=== PATIENT | female | born 1965 | race African-American/Black ===

== ENCOUNTER 2016-02-17 15:10 | Emergency (ER) | payer MEDICARE, OTHER ==
[~2016-02-17 15:10] MED LIST: ACET1TAB33 PO; AMLO10TA2 PO; AMPI500C2 PO; ASPI325T4 PO; ASPI81TA2 PO; ATOR10TA PO; BENZ1LOZ48 PO; CALC0.25 PO; CALC0.5C PO; CALC667C PO; CHOL10003 PO; CLON0.5T20 PO; CYCL10TA2 PO; CYCL5TAB PO; DIPH25CA58 PO; DIPH50CA PO; DOXY100C PO; FISH OIL OMEGA1 EACH PO; FLUD0.1T PO; FLUT16SP NS; GABA-586 PO; GENTAMICIN 0.1%; HYDR-2666 PO; HYDR-971 PO; HYDR10TA14 PO; LEVO500T38 PO; LIDO700A4 TP; LUBI24CA5 PO; LURA40TA PO; METO25TA4 PO; METR500T PO; MIDO5TAB PO; MOXI3DRO2 RIGHTEYE; MULT-658 PO; MYCO500T3 PO; NEOMYCIN; NORT25CA PO; NORT50CA PO; NORT50CA3 PO; NYST30PO9 TP; NYSTOP; ONDA4TAB10 SL; ONDA4TAB7 PO; OXYB5TAB33 PO; OXYC5CAP3 PO; OXYC5TAB PO; OXYC5TAB88 PO; PANT40TA3 PO; POLY17PO5 PO; POLYMYXIN B; PRED1DRO RIGHTEYE; PROAIR HFA8.5 GM INH; SEA OMEGA; SENN8.6T11 PO; SODI650T PO; SUCR1ORA PO; SUCR1TAB PO; SUCR1TAB29 PO; TACR1CAP2 PO; TIZA4TAB8 PO; VENL150C PO; VIT1TABL71 PO; ZINC220T PO; [UNRECOGNIZED DRUG - CODE] OP; [UNRECOGNIZED DRUG - CODE] PO; fluticasone 50mcg; lidoderm 5%
--- NOTE | 2016-02-17 15:54 | ED.ADGEN ---
Past Medical History Past Medical History: A-Fib, Anxiety, Bipolar, CHF, CVA, Depression, DVT, GERD , Glaucoma, High Cholesterol, Hypertension, Hypothyroid, Hypotension, Kidney Stone, Renal Disease, Renal Failure, UTI Additional Past Medical Histor: left side thyroid removed, ulcer, ckd kidney transplant, neurogenic bladder Past Surgical History: Cholecystectomy, , Hysterectomy Additional Past Surgical Histo: av shunt back sx Alcohol Use: None Drug Use: None Adult General Chief Complaint Chief Complaint: DIALYSIS PROBLEM HPI HPI Patient is a 50 year old woman, history of end-stage renal disease on hemodialysis, atrial fibrillation, CAD, hypertension, hyperlipidemia, who presents to the emergency department reporting that she has not had dialysis in over a week. Patient is denying all complaints at this time, states that she had a to attend, therefore wasn't able to make her previous dialysis sessions. Usually attends dialysis Sunday and Sunday. No shortness of breath, chest pain, no weakness emesis or tingling, no headache, nausea or vomiting, states that she has been compliant with her medications. She states that she was instructed to, to the emergency department after her coo contacted the dialysis center today. Her medicaid nurse is Dr. Hoff. Review of Systems Review of Systems Constitutional: Denies fever or chills. [] Eyes: Denies change in visual acuity. [] HENT: Denies nasal congestion or sore throat. [] Respiratory: Denies cough or shortness of breath. [] Cardiovascular: Denies chest pain or edema. [] GI: Denies abdominal pain, nausea, vomiting, bloody stools or diarrhea. [] : Denies dysuria. [] Musculoskeletal: Denies back pain or joint pain. [] Integument: Denies rash. [] Neurologic: Denies headache, focal weakness or sensory changes. [] Endocrine: Denies polyuria or polydipsia. [] Lymphatic: Denies swollen glands. [] Psychiatric: Denies depression or anxiety. [] Current Medications Current Medications Current Medications Medications (Trade) Dose Ordered Sig/Jose Start Time Stop Time Status Last Admin Dose Admin Sodium Polystyrene Sulfonate (Kayexalate) 30 gm 1X ONCE 02/17/16 16:30 02/17/16 16:31 DC 02/17/16 16:27 30 GM Allergies Allergies Allergies Coded Allergies Type Severity Reaction Last Updated Verified Fish Containing Products Allergy Intermediate 12/04/15 Yes Iodinated Contrast Media - IV Dye Allergy Intermediate 12/04/15 Yes NSAIDS (Non-Steroidal Anti-Inflamma Allergy Intermediate TAKES ASA AT HOME Yes caffeine Allergy Intermediate 12/04/15 Yes ibuprofen Allergy Intermediate 12/04/15 Yes shellfish derived Allergy Intermediate 12/04/15 Yes I S O L A T I O N *CONTACT* Allergy Unknown 12/04/15 Yes Physical Exam Physical Exam Constitutional: Well developed, well nourished, no acute distress, non-toxic appearance. [] HENT: Normocephalic, atraumatic, bilateral external ears normal, oropharynx moist, no oral exudates, nose normal. [] Eyes: PERRLA, EOMI, conjunctiva normal, no discharge. [] Neck: Normal range of motion, no tenderness, supple, no stridor. [] Cardiovascular:Heart rate regular rhythm, no murmur [] Lungs & Thorax: Bilateral breath sounds clear to auscultation [] Abdomen: Bowel sounds normal, soft, no tenderness, no masses, no pulsatile masses. [] Skin: Warm, dry, no erythema, no rash. [] Back: No tenderness, no CVA tenderness. [] Extremities: No tenderness, no cyanosis, no clubbing, ROM intact, no edema. [] Neurologic: Alert and oriented X 3, normal motor function, normal sensory function, no focal deficits noted. [] Psychologic: Affect normal, judgement normal, mood normal. [] Current Patient Data Vital Signs Vital Signs Date Time Temp Pulse Resp B/P Pulse Ox O2 Delivery O2 Flow Rate FiO2 02/17/16 16:30 86 16 168/110 96 Room Air 02/17/16 15:30 98.2 98.2 Lab Values Laboratory Tests Test 02/17/16 15:52 POC Hemoglobin 9.5g/dL (12-15) L POC Hematocrit 28% (36-40) L POC Sodium 140mmol/L (135-145) POC Potassium 5.2mmol/L (3.5-5.0) H POC Chloride 103mmol/L (98-110) POC Total CO2 21mmol/L (23-32) L Anion Gap 22mmol/L (6-14) H POC Blood Urea Nitrogen 97mg/dL (8-26) H POC Creatinine 14.4mg/dL (0.5-1.4) H Glucose Level 86mg/dL (70-99) POC Ionized Calcium (Jyoti) 1.03mmol/L (1.13-1.32) L Laboratory Tests 02/17/16 15:52 EKG EKG EC: Sinus rhythm, heart rate 88 bpm, left axis deviation, QTC of 471, NJ 126, QRS of 74, no ST elevations or depressions, T-wave inversions noted in aVL , abnormal ECG, does not meet STEMI criteria. As interpreted by me. Radiology/Procedures Radiology/Procedures Not indicated. [] Course & Med Decision Making Course & Med Decision Making Pertinent Labs and Imaging studies reviewed. (See chart for details) Patient well-known to emergency department staff for previous visits for similar complaints. She denies any complaints at this time, I did speak with her medicaid nurse, Dr. Hoff, he states that the patient indeed has missed over a week of dialysis sessions, but as her examination does not reveal any indications for emergent dialysis, he recommends administering Kayexalate, and having the patient follow-up at her scheduled dialysis appointment tomorrow, as long as her K is under 6. Patient has a potassium of 5.2, an EKG that reveals no evidence of concerning findings, and is denying complaints as stated. I discussed this with patient, received Keflex late in the ED, she is agreeable with plan to follow-up with her scheduled dialysis tomorrow morning, states understanding with the significance of missing additional appointments. She and coo bedside were given clear and detailed return instructions, and voiced understanding with the plan as stated. Discharged home in stable condition with plan as above. Dragon Disclaimer Dragon Disclaimer This electronic medical record was generated, in whole or in part, using a voice recognition dictation system. Departure Impression: Primary Impression: ESRD (end stage renal disease) on dialysis Additional Impression: Medical non-compliance Disposition: HOME, SELF-CARE Condition: STABLE Problem Qualifiers CHARISSE SANTIAGO DO Feb 17, 2016 15:54
[2016-02-17 16:03] LABS: POTASSIUM ISTAT 5.2 mmol/L (3.5-5.0)
[2016-02-17 16:30] VITALS: BP 168/110
[2016-02-17] MEDS ORDERED: SODIUM POLYSTYRENE SULFONATE 15 GM/60 ML ORAL.SUSP. PO ONE (16:30)
--- NOTE | 2016-02-18 06:41 | EKG ---
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
== END 2016-02-17 16:40 | disposition home or self-care (01) ==
LOC: ER 15:10
DX: I13.2 Hypertensive heart and chronic kidney disease with heart failure and with stage 5 chronic kidney disease, or end stage renal disease (principal); N18.6 End stage renal disease; I50.9 Heart failure, unspecified; E03.9 Hypothyroidism, unspecified; E78.00 Pure hypercholesterolemia, unspecified; F41.9 Anxiety disorder, unspecified; I25.10 Atherosclerotic heart disease of native coronary artery without angina pectoris; I48.91 Unspecified atrial fibrillation; K21.9 Gastro-esophageal reflux disease without esophagitis; F31.9 Bipolar disorder, unspecified; H40.9 Unspecified glaucoma; Z86.73 Personal history of transient ischemic attack (TIA), and cerebral infarction without residual deficits; Z99.2 Dependence on renal dialysis; Z91.15 Patient's noncompliance with renal dialysis; Z87.442 Personal history of urinary calculi; Z86.718 Personal history of other venous thrombosis and embolism; Z94.0 Kidney transplant status; E89.0 Postprocedural hypothyroidism; Z90.49 Acquired absence of other specified parts of digestive tract; Z90.710 Acquired absence of both cervix and uterus; Z91.013 Allergy to seafood; Z88.8 Allergy status to other drugs, medicaments and biological substances; Z91.018 Allergy to other foods
CPT/HCPCS: 80047; 93005; 99284-25; 99285-25

== ENCOUNTER 2016-03-04 13:05 | Emergency (ER) | payer MEDICARE, OTHER ==
[~2016-03-04] VITALS: Ht 167.6 cm; Wt 97.5 kg
--- NOTE | 2016-03-04 13:36 | EKG ---
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
[2016-03-04 14:08] LABS: CALCIUM 8.3 mg/dL (8.5-10.1); CREATININE 10.1 mg/dL (0.6-1.0); GFR 4.9
[2016-03-04 14:10] LABS: BASO % 1 % (0-3); EOS % 3 % (0-3); HEMATOCRIT 29.1 % (36.0-47.0); HEMOGLOBIN 9.4 g/dL (12.0-15.5); LYMPH # 1.3 x10^3/uL (1.0-4.8); LYMPH % 29 % (24-48); MEAN CORPUSCULAR HEMOGLOBIN 31 pg (25-35); MEAN CORPUSCULAR HGB CONC 32 g/dL (31-37); MEAN CORPUSCULAR VOLUME 97 fL (79-100); MONO % 11 % (0-9); NEUT % 57 % (31-73); PLATELET COUNT 131 x10^3/uL (140-400); RED CELL DISTRIBUTION WIDTH 17.1 % (11.5-14.5); WHITE BLOOD COUNT 4.6 x10^3/uL (4.0-11.0)
--- NOTE | 2016-03-04 14:26 | RAD ---
Chest, 2 views, 03/04/2016: History: Chest pain Comparison is made to a study from 02/24/2016. The heart is enlarged. The pulmonary vascularity is normal. No pulmonary infiltrates are seen. Previously seen pleural fluid has cleared. An inferior vena cava filter is noted in the abdomen. IMPRESSION: 1. Cardiomegaly. 2. No acute abnormality is detected.
--- NOTE | 2016-03-04 14:29 | PHYS DOC ---
Past Medical History Past Medical History: A-Fib, Anxiety, Bipolar, CHF, CVA, Depression, DVT, GERD , Glaucoma, High Cholesterol, Hypertension, Hypothyroid, Hypotension, Kidney Stone, Renal Disease, Renal Failure, UTI Additional Past Medical Histor: left side thyroid removed, ulcer, ckd kidney transplant, neurogenic bladder Past Surgical History: Cholecystectomy, , Hysterectomy Additional Past Surgical Histo: av shunt back sx Alcohol Use: None Drug Use: None Adult General Chief Complaint Chief Complaint: CHEST PAIN HPI HPI Patient is a 50 year old female who presents with concern of generalized pain including her body, chest, and head since missing dialysis her past 2 sessions. Her symptoms have been ongoing for the past 24 hours, but she came became more worried about it at 10 AM today as she was supposed to have dialysis. She went on Sunday, but has not on or today because she states they could not get her a ride. She states she has been trying to change her dialysis time to make it more convenient for her, but this has not been going well. She denies difficulty breathing, fever or chills, nausea or vomiting, diarrhea, lightheadedness, palpitations, diaphoresis. She denies orthopnea or exertional symptoms. Review of Systems Review of Systems Constitutional: Denies fever or chills [] Eyes: Denies change in visual acuity, redness, or eye pain [] HENT: Denies nasal congestion or sore throat [] Respiratory: Denies cough or shortness of breath [] Cardiovascular: No additional information not addressed in HPI [] GI: Denies abdominal pain, nausea, vomiting, bloody stools or diarrhea [] : Denies dysuria or hematuria [] Musculoskeletal: Denies back pain or joint pain [] Integument: Denies rash or skin lesions [] Neurologic: Denies focal weakness or sensory changes [] Endocrine: Denies polyuria or polydipsia [] Current Medications Current Medications Current Medications Medications (Trade) Dose Ordered Sig/Jose Start Time Stop Time Status Last Admin Dose Admin Acetaminophen (Tylenol) 500 mg 1X ONCE 03/04/16 14:30 03/04/16 14:33 DC 03/04/16 14:45 500 MG Allergies Allergies Allergies Coded Allergies Type Severity Reaction Last Updated Verified Fish Containing Products Allergy Intermediate 12/04/15 Yes Iodinated Contrast Media - Oral and Allergy Intermediate 12/04/15 Yes NSAIDS (Non-Steroidal Anti-Inflamma Allergy Intermediate TAKES ASA AT HOME Yes caffeine Allergy Intermediate 12/04/15 Yes ibuprofen Allergy Intermediate 12/04/15 Yes shellfish derived Allergy Intermediate 12/04/15 Yes I S O L A T I O N *CONTACT* Allergy Unknown 12/04/15 Yes Physical Exam Physical Exam Constitutional: Well developed, well nourished, no acute distress, non-toxic appearance. [] HENT: Normocephalic, atraumatic, bilateral external ears normal, oropharynx moist, nose normal. [] Eyes: PERRLA, EOMI. [] Neck: Normal range of motion, supple. [] Cardiovascular:Heart rate regular rhythm [] Lungs & Thorax: Bilateral breath sounds clear to auscultation [] Abdomen: Bowel sounds normal, soft, no tenderness. [] Skin: Warm, dry, no erythema, no rash. [] Back: No tenderness, no CVA tenderness. [] Extremities: ROM intact, no edema. [] Neurologic: Alert and oriented X 3, normal motor function, normal sensory function, no focal deficits noted. [] Psychologic: Affect normal, judgement normal, mood normal. [] Current Patient Data Vital Signs Vital Signs Date Time Temp Pulse Resp B/P Pulse Ox O2 Delivery O2 Flow Rate FiO2 03/04/16 14:58 72 14 138/89 03/04/16 13:18 98.6 100 Room Air 98.6 Lab Values Laboratory Tests Test 03/04/16 13:45 White Blood Count 4.6x10^3/uL (4.0-11.0) Red Blood Count 3.00x10^6/uL (3.50-5.40) L Hemoglobin 9.4g/dL (12.0-15.5) L Hematocrit 29.1% (36.0-47.0) L Mean Corpuscular Volume 97fL (79-100) Mean Corpuscular Hemoglobin 31pg (25-35) Mean Corpuscular Hemoglobin Concent 32g/dL (31-37) Red Cell Distribution Width 17.1% (11.5-14.5) H Platelet Count 131x10^3/uL (140-400) L Neutrophils (%) (Auto) 57% (31-73) Lymphocytes (%) (Auto) 29% (24-48) Monocytes (%) (Auto) 11% (0-9) H Eosinophils (%) (Auto) 3% (0-3) Basophils (%) (Auto) 1% (0-3) Neutrophils # (Auto) 2.6x10^3uL (1.8-7.7) Lymphocytes # (Auto) 1.3x10^3/uL (1.0-4.8) Monocytes # (Auto) 0.5x10^3/uL (0.0-1.1) Eosinophils # (Auto) 0.1x10^3/uL (0.0-0.7) Basophils # (Auto) 0.0x10^3/uL (0.0-0.2) Sodium Level 139mmol/L (136-145) Potassium Level 5.0mmol/L (3.5-5.1) Chloride Level 101mmol/L (98-107) Carbon Dioxide Level 25mmol/L (21-32) Anion Gap 13 (6-14) Blood Urea Nitrogen 66mg/dL (7-20) H Creatinine 10.1mg/dL (0.6-1.0) H Estimated GFR (Cockcroft-Gault) 4.9 Glucose Level 87mg/dL (70-99) Calcium Level 8.3mg/dL (8.5-10.1) L Laboratory Tests 03/04/16 13:45 Laboratory Tests 03/04/16 13:45 EKG EKG EKG as interpreted by me as normal sinus rhythm, rate 76, no ST-T changes, normal intervals, no ectopy Radiology/Procedures Radiology/Procedures Chest xray as interpreted by me with no acute cardiopulmonary disease process Course & Med Decision Making Course & Med Decision Making Pertinent Labs and Imaging studies reviewed. (See chart for details) Workup is unremarkable. I encouraged her to arrange dialysis and be compliant with her sessions. Return precautions given. She understands and agrees with plan. Dragon Disclaimer Dragon Disclaimer This electronic medical record was generated, in whole or in part, using a voice recognition dictation system. Departure Departure Impression: Primary Impression: Chronic chest pain Additional Impressions: ESRD (end stage renal disease) on dialysis Noncompliance Headache Disposition: HOME, SELF-CARE Condition: STABLE Referrals: JORDYN BLANCO (PCP) Patient Instructions: Chest Pain (Nonspecific), [id number] Additional Instructions: Follow-up with your primary care doctor and dialysis appointments. Return for any concerns. Problem Qualifiers Additional Impressions: Headache Headache type: unspecified Headache chronicity pattern: episodic headache Intractability: not intractable Qualified Code: R51 - Headache Micha GOMEZ MD Mar 04, 2016 14:29
[2016-03-04] MEDS ORDERED: ACETAMINOPHEN 500 MG TABLET PO ONE (14:30)
[2016-03-04 14:58] VITALS: BP 138/89
== END 2016-03-04 15:28 | disposition home or self-care (01) ==
LOC: ER 13:05
DX: R07.9 Chest pain, unspecified (principal); R51 Headache; N18.6 End stage renal disease; G89.29 Other chronic pain; I13.2 Hypertensive heart and chronic kidney disease with heart failure and with stage 5 chronic kidney disease, or end stage renal disease; I50.9 Heart failure, unspecified; I48.91 Unspecified atrial fibrillation; E03.9 Hypothyroidism, unspecified; E78.00 Pure hypercholesterolemia, unspecified; Z99.2 Dependence on renal dialysis; Z91.14 Patient's other noncompliance with medication regimen; Z86.73 Personal history of transient ischemic attack (TIA), and cerebral infarction without residual deficits; Z88.8 Allergy status to other drugs, medicaments and biological substances; Z88.6 Allergy status to analgesic agent; Z91.041 Radiographic dye allergy status; Z87.442 Personal history of urinary calculi
CPT/HCPCS: 36415; 71020; 80048; 85027; 93005; 99285-25

== ENCOUNTER 2016-06-13 04:03 | Inpatient (IN) | payer MEDICARE, OTHER ==
[~2016-06-13] VITALS: Ht 167.6 cm; Wt 94.4 kg
[~2016-06-13 04:03] MED LIST changes: +HYDR-3074 PO; -HYDR10TA14 PO; +NYST15PO9 TP; -NYST30PO9 TP; +POLY17PO29 PO; -POLY17PO5 PO; -SUCR1ORA PO; +SUCR1ORA11 PO
--- NOTE | 2016-06-13 04:09 | PHYS DOC ---
Past Medical History Past Medical History: A-Fib, Anxiety, Bipolar, CHF, CVA, Depression, DVT, GERD , Glaucoma, High Cholesterol, Hypertension, Hypothyroid, Hypotension, Kidney Stone, Renal Disease, Renal Failure, UTI Additional Past Medical Histor: left side thyroid removed, ulcer, ckd kidney transplant, neurogenic bladder Past Surgical History: Cholecystectomy, , Hysterectomy Additional Past Surgical Histo: av shunt back sx Alcohol Use: None Drug Use: None Adult General Chief Complaint Chief Complaint: SHORTNESS OF BREATH HPI HPI Patient is a 50 year old female presenting to the emergency department for evaluation of shortness of breath that woke her from her sleep. She feels that she cannot catch her breath and cannot take a deep breath. She reports having Sunday dialysis and she missed her dialysis the last 2 times and essentially she is one week away from her last dialysis. Patient denies any chest pain nausea vomiting or diaphoresis. She is in no obvious distress with normal vital signs. Review of Systems Review of Systems Constitutional: Denies fever or chills [] Eyes: Denies change in visual acuity, redness, or eye pain [] HENT: Denies nasal congestion or sore throat [] Respiratory: + cough and shortness of breath [] Cardiovascular: No additional information not addressed in HPI [] GI: Denies abdominal pain, nausea, vomiting, bloody stools or diarrhea [] : Denies dysuria or hematuria [] Musculoskeletal: Denies back pain or joint pain [] Integument: Denies rash or skin lesions [] Neurologic: Denies headache, focal weakness or sensory changes [] Current Medications Current Medications Current Medications Medications (Trade) Dose Ordered Sig/Jose Start Time Stop Time Status Last Admin Dose Admin Albuterol/ Ipratropium (Duoneb) 3 ml 1X ONCE 06/13/16 04:30 06/13/16 04:31 DC 06/13/16 04:55 3 ML Fentanyl Citrate (Fentanyl 2ml Vial) 50 mcg PRN Q1HR PRN 06/13/16 05:45 06/14/16 05:44 Ondansetron HCl (Zofran) 4 mg PRN Q8HRS PRN 06/13/16 05:45 06/14/16 05:44 Allergies Allergies Allergies Coded Allergies Type Severity Reaction Last Updated Verified Fish Containing Products Allergy Intermediate 12/04/15 Yes Iodinated Contrast Media - Oral and Allergy Intermediate 12/04/15 Yes NSAIDS (Non-Steroidal Anti-Inflamma Allergy Intermediate TAKES ASA AT HOME Yes caffeine Allergy Intermediate 12/04/15 Yes ibuprofen Allergy Intermediate 12/04/15 Yes shellfish derived Allergy Intermediate 12/04/15 Yes I S O L A T I O N *CONTACT* Allergy Unknown 12/04/15 Yes Physical Exam Physical Exam Constitutional: Well developed, well nourished, no acute distress, non-toxic appearance. [] HENT: Normocephalic, atraumatic, bilateral external ears normal, oropharynx moist, no oral exudates, nose normal. [] Eyes: PERRLA, EOMI, conjunctiva normal, no discharge. [] Neck: Normal range of motion, no tenderness, supple, no stridor. [] Cardiovascular:Heart rate regular rhythm, no murmur [] Lungs & Thorax: Bilateral breath sounds diminished aeration with exp wheezing. Abdomen: Bowel sounds normal, soft, no tenderness, no masses, no pulsatile masses. [] Skin: Warm, dry, no erythema, no rash. [] Back: No tenderness, no CVA tenderness. [] Extremities: No tenderness, no cyanosis, no clubbing, ROM intact, no edema. [] Neurologic: Alert and oriented X 3, normal motor function, normal sensory function, no focal deficits noted. [] Current Patient Data Vital Signs Vital Signs Date Time Temp Pulse Resp B/P Pulse Ox O2 Delivery O2 Flow Rate FiO2 06/13/16 04:55 100 Nasal Cannula 2.0 06/13/16 04:11 98.7 95 16 146/96 98.7 EKG EKG Normal sinus rhythm at 95 bpm with leftward axis no obvious ST elevation and inverted T-wave in aVL otherwise unremarkable. Radiology/Procedures Radiology/Procedures Normal mediastinum with cardiomegaly and no obvious free air pneumothorax or opacity. Course & Med Decision Making Course & Med Decision Making Patient with worsening shortness of breath likely from volume overload and accommodation of her COPD. Patient is in no acute respiratory distress however she is short of breath and quite late on her dialysis and she is concerned that she will not make it to her dialysis I discharged her because of the shortness of breath so I will admit her in stable condition. Dragjeni Disclaimer Dragon Disclaimer This electronic medical record was generated, in whole or in part, using a voice recognition dictation system. Departure Departure Impression: Primary Impression: End stage renal disease Additional Impression: Dyspnea Disposition: ADMITTED INPATIENT Admitting Physician: Ritesh Stevenson Condition: STABLE Referrals: JORDYN BLANCO (PCP) Problem Qualifiers RALPH CHANDLER DO June 13, 2016 04:09
[2016-06-13] MEDS ORDERED: IPRATRPIUM/ALBUTEROL 0.5/2.5MG 3 ML NEBU. NEB ONE (04:30)
[2016-06-13 05:45] LABS: INR 1.2 (0.8-1.1); PROTHROMBIN TIME PATIENT 14.7 SEC (11.7-14.0)
[2016-06-13] MEDS ORDERED: ONDANSETRON PF 4 MG/2 ML VIAL. IV PRN (05:45)
[2016-06-13] MEDS: fentaNYL PF VIAL 100 MCG/2 ML VIAL IV PRN ×3 (05:57→11:25)
[2016-06-13 06:19] LABS: BASO % 1 % (0-3); EOS % 3 % (0-3); HEMATOCRIT 30.3 % (36.0-47.0); LYMPH # 1.2 x10^3/uL (1.0-4.8); LYMPH % 24 % (24-48); MEAN CORPUSCULAR HEMOGLOBIN 32 pg (25-35); MEAN CORPUSCULAR HGB CONC 33 g/dL (31-37); MEAN CORPUSCULAR VOLUME 96 fL (79-100); MONO % 8 % (0-9); NEUT % 65 % (31-73); PLATELET COUNT 159 x10^3/uL (140-400); RED BLOOD COUNT 3.14 x10^6/uL (3.50-5.40)
[2016-06-13 06:23] LABS: ALBUMIN 3.2 g/dL (3.4-5.0); ALBUMIN/GLOBULIN RATIO 0.8 (1.0-1.7); CALCIUM 8.5 mg/dL (8.5-10.1); CREATININE 11.7 mg/dL (0.6-1.0); GFR 4.1; TOTAL BILIRUBIN 0.5 mg/dL (0.2-1.0); TOTAL PROTEIN 7.3 g/dL (6.4-8.2)
[2016-06-13 06:25] LABS: POTASSIUM 6.5 mmol/L (3.5-5.1)
--- NOTE | 2016-06-13 06:35 | EKG ---
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
--- NOTE | 2016-06-13 07:13 | ACF ---
Admission Forms Criteria RENAL FAILURE, CHRONIC Clinical Indications for Admission to Inpatient Care (Place 'X' for any and all applicable criteria): Admission is indicated for ANY ONE of the following (1)(2)(3)(4)(5): [X]I. Inpatient admission required rather than observation care (Use Renal Failure, Chronic: Observation Care Criteria as appropriate) because of ANY ONE of the following: [X]a) Volume overload or uremic symptoms (eg, clinically significant pulmonary edema, hypertension, pericarditis, acidosis) too severe for, or not responsive (eg, for over 24 hours) to emergency department or observation care dialysis or treatment regimen (11) [ ]b) Hemodynamic instability that is severe or persistent [ ]c) Respiratory distress that is severe or persistent (11) [ ]d) Clinically significant electrolyte abnormality that requires inpatient care (eg,hyperkalemia with severe ECG findings)[B] [ ]e) Supplement O2 or respiratory therapy for over 24hrs that is performable only in acute inpatient setting [ ]f) Continuous IV infusion of anticoagulation, platelet inhibitor, vasoactive, or Antiarrhythmic medication (15), [ ]g) Pulmonary artery catheter monitoring [ ]h) Temporary pacemaker placement [ ]i) Emergent pericardiocentesis [ ]j) Other condition, treatment or monitoring requiring inpatient admission [ ]II. Unexplained syncope [A] [ ]III. Recurrent seizures [ ]IV. Severe infections not treatable in outpatient setting (eg, peritonitis)(9 ) [ ]V. Cardiac arrhythmias of immediate concern [ ]. Encephalopathy [ ]VII.Bleeding abnormalities (eg, platelet dysfunction) with active (eg, gastrointestinal) bleeding Extended stay beyond goal length of stay may be needed for (3)(4)(35)(36): [ ]a) Continuing uremic complications [ ]b) Comorbidities or complications The original [employer] content created by [employer] has been revised. The portions of the content which have been revised are identified through the use of italic text or in bold, and [email or web address] has neither reviewed nor approved the modified material. All other unmodified content is copyright [employer]. Please see references footnoted in the original [facility] edition 2016 Admission Criteria Met?: Yes SHA BETHEA June 13, 2016 07:13
[2016-06-13] MEDS ORDERED: SODIUM BICARB ADULT 8.4% 50 MEQ/50 ML DISP.SYRIN. IV ONE (07:15)
[2016-06-13] MEDS ORDERED: ALBUTEROL SULFATE 2.5 MG/3 ML NEBU. CONT NEB ONE (07:15)
[2016-06-13] MEDS ORDERED: INSULIN REGULAR 100 UNIT/ML 10ML VIAL. IV ONE (07:15)
[2016-06-13] MEDS ORDERED: DEXTROSE 50% 25 GM / 50ML DISP.SYRIN. IV ONE (07:15)
--- NOTE | 2016-06-13 07:27 | RAD ---
Indication shortness of breath. A single view of the chest was obtained and is compared to an examination March 04, 2016. There is cardiomegaly similar to the previous exam. There are interstitial changes on the current examination suggesting superimposed interstitial edema. There is no focal consolidated pneumonia. There is no significant pleural fluid or pneumothorax. IMPRESSION: Stable cardiomegaly. Interstitial changes noted on today's study suggesting superimposed interstitial pulmonary edema
[2016-06-13 07:30] VITALS: BP 148/102
--- NOTE | 2016-06-13 09:29 | PDOC2 ---
ANDREE MCCRACKEN SCREEN PRINT OPERATOR 06/13/16 0929: CARDIAC CONSULT DATE OF CONSULT Date of Consult DATE: 06/13/16 TIME: 09:22 REASON FOR CONSULT Reason for Consult: AFIB history REFERRING PHYSICIAN Referring Physician: Graham SOURCE Source: Chart review, Patient HISTORY OF PRESENT ILLNESS HISTORY OF PRESENT ILLNESS This is a pleasant 50 yo female admitted for main complains of SOA. Reports that she is depressed with no suicidal ideation in relation to recent passing of her father. She has not been feeling well and is grieving. Last night she woke gasping for air and called EMS for help. Due to the recent passing of her father she decided to miss her dialysis last Sunday. She has hx of frequent hospitalization with the most recent one at [facility] which she verbalized having pericardiocentesis in 03/2016. Consult if for possible AFIB history. She said that she may have some rhythm issues but denies any mentions of AFIB. She is not on any ASA, OAC nor NOAC. She does have hx of noncompliance. Reports no CP but positive for orthopnea, PND. No prior intermittent palpitations , dizziness. PAST MEDICAL HISTORY Past Medical History Cardiovascular: HTN, Hyperlipidemia Pulmonary: Asthma, Other (MARIANA; DVT with IVC filter) CENTRAL NERVOUS SYSTEM: CVA, Other (syncope) GI: Diverticulosis, GERD, Peptic Ulcer disease Heme/Onc: Anemia NOS, B12 deficiency Psych: No pertinent hx, Bipolar Musculoskeletal: Osteoarthritis, Other (spinal stenosis) Rheumatologic: No pertinent hx Infectious disease: Other (MDR UTI) ENT: No pertinent hx Renal/: Chronic renal failure (ESRD with HD due to polycystic kidney disease ; failed transplant in 2005), Other (OAB) Endocrine: Hypothyroidism (acquired), Osteoporosis (thyroid mass) Dermatology: No pertinent hx PAST SURGICAL HISTORY Past Surgical History Cholecystectomy, (X2), Other (left lobe thyroidectomy; gastric bypass ; dialysis graft; IVC filter) FAMILY HISTORY Family History: Heart Disease SOCIAL HISTORY Smoke: No ALCOHOL: none Drugs: None CURRENT MEDICATIONS CURRENT MEDICATIONS Current Medications Medications (Trade) Dose Ordered Sig/Jose Route PRN Reason Start Time Stop Time Status Last Admin Dose Admin Albuterol/ Ipratropium (Duoneb) 3 ml 1X ONCE NEB 06/13/16 04:30 06/13/16 04:31 DC 06/13/16 04:55 Fentanyl Citrate (Fentanyl 2ml Vial) 50 mcg PRN Q1HR PRN IV SEVERE PAIN 06/13/16 05:45 06/14/16 05:44 06/13/16 05:57 ALLERGIES ALLERGIES: Coded Allergies: Fish Containing Products (Verified Allergy, Intermediate, 12/04/15) SEAFOOD Iodinated Contrast Media - Oral and (Verified Allergy, Intermediate, 12/03) NSAIDS (Non-Steroidal Anti-Inflamma (Verified Allergy, Intermediate, TAKES ASA AT HOME, 12/04/15) caffeine (Verified Allergy, Intermediate, 12/04/15) ibuprofen (Verified Allergy, Intermediate, 12/04/15) shellfish derived (Verified Allergy, Intermediate, 12/04/15) SEAFOOD I S O L A T I O N *CONTACT* (Verified Allergy, Unknown, 12/04/15) hx mrsa + screen and + VRE/CRE in urine. ROS Review of System 14 point ROS evaluated with pertinent positives noted per HPI PHYSICAL EXAM General: Alert, Oriented X3, Cooperative, No acute distress HEENT: Atraumatic, Mucous membr. moist/pink Lungs: Other (bibasilar crackles) Heart: Regular rate (SR with occasional PVCs), Normal S1, Normal S2 Abdomen: Soft, No tenderness Extremities: No cyanosis, Other (1+ bilateral LE pitting edema) Skin: No breakdown, No significant lesion Neuro: Normal speech, Sensation intact Psych/Mental Status: Mental status NL, Mood NL MUSCULOSKELETAL: Osteoarthritic changes both hands VITALS VITALS Vital Signs Date Time Temp Pulse Resp B/P Pulse Ox O2 Delivery O2 Flow Rate FiO2 06/13/16 06:51 95 18 146/96 100 Room Air 06/13/16 06:21 2 06/13/16 04:11 98.7 98.7 LABS Lab: Laboratory Tests Test 06/13/16 05:13 06/13/16 06:00 06/13/16 08:02 Prothrombin Time 14.7SEC (11.7-14.0) Prothromb Time International Ratio 1.2 (0.8-1.1) Activated Partial Thromboplast Time 33SEC (24-38) White Blood Count 5.0x10^3/uL (4.0-11.0) Red Blood Count 3.14x10^6/uL (3.50-5.40) Hemoglobin 10.0g/dL (12.0-15.5) Hematocrit 30.3% (36.0-47.0) Mean Corpuscular Volume 96fL (79-100) Mean Corpuscular Hemoglobin 32pg (25-35) Mean Corpuscular Hemoglobin Concent 33g/dL (31-37) Red Cell Distribution Width 17.0% (11.5-14.5) Platelet Count 159x10^3/uL (140-400) Neutrophils (%) (Auto) 65% (31-73) Lymphocytes (%) (Auto) 24% (24-48) Monocytes (%) (Auto) 8% (0-9) Eosinophils (%) (Auto) 3% (0-3) Basophils (%) (Auto) 1% (0-3) Neutrophils # (Auto) 3.2x10^3uL (1.8-7.7) Lymphocytes # (Auto) 1.2x10^3/uL (1.0-4.8) Monocytes # (Auto) 0.4x10^3/uL (0.0-1.1) Eosinophils # (Auto) 0.1x10^3/uL (0.0-0.7) Basophils # (Auto) 0.0x10^3/uL (0.0-0.2) Sodium Level 133mmol/L (136-145) Potassium Level 6.5mmol/L (3.5-5.1) Chloride Level 96mmol/L (98-107) Carbon Dioxide Level 22mmol/L (21-32) Anion Gap 15 (6-14) Blood Urea Nitrogen 95mg/dL (7-20) Creatinine 11.7mg/dL (0.6-1.0) Estimated GFR (Cockcroft-Gault) 4.1 BUN/Creatinine Ratio 8 (6-20) Glucose Level 87mg/dL (70-99) Calcium Level 8.5mg/dL (8.5-10.1) Total Bilirubin 0.5mg/dL (0.2-1.0) Aspartate Amino Transf (AST/SGOT) 17U/L (15-37) Alanine Aminotransferase (ALT/SGPT) 16U/L (14-59) Alkaline Phosphatase 116U/L (46-116) Troponin I Quantitative 0.042ng/mL (0.000-0.055) HY-Svg-T-Type Natriuretic Peptide > 32126se/mL (0-124) Total Protein 7.3g/dL (6.4-8.2) Albumin 3.2g/dL (3.4-5.0) Albumin/Globulin Ratio 0.8 (1.0-1.7) Glucose (Fingerstick) 74mg/dL (70-99) ECHOCARDIOGRAM ECHOCARDIOGRAM <Conclusion> Left ventricle systolic function is normal. The Ejection Fraction is 55%. There is normal LV segmental wall motion. Transmitral Doppler flow pattern is Grade I-abnormal relaxation pattern. No significant valvular disease. DATE: 09/24/15 1404 STRESS TEST STRESS TEST Conclusion 1. No EKG evidence of stress-induced ischemia. 2. Nuclear imaging shows no reversible ischemia or infarct. 3. Normal left ventricular systolic function with an ejection fraction of greater than 70%. 4. Low risk Lexiscan nuclear stress test. DATE: 08/10/14 1212 MPI 12/02/2015 without ischemia; LVEF 53% ASSESSMENT/PLAN ASSESSMENT/PLAN 1. Hx of AFIB? 2. Acute on chronic diastolic CHF 3. ESRD: HD. Hx of PKD. Missed Sunday dialysis. 4. Hypothyroidism 5. HTN/HLP 6. Depression/grief: recently, father 7. Hx of medical non-compliance 8. Hx of DVT with IVC filter 9. Hx of MDR UTI 10. Hx of CVA Recommendations 1. Per review, no prior hx of AFIB. One EKG noted on 12/2015 was noted with artifacts. 2. She also does not have any OAC/NOAC nor ASA which would be recommended for AFIB stroke prevention 3. Will obtain [facility] records from 03/2016 with recent pericardiocentesis based on her description and will note any AFIB hx 4. Otherwise at this point, no arrhythmias were noted and continue with HD per nephrology to alleviate acute CHF 5. Presently on home metoprolol. If no underlying PUD issues then will advise starting on baby ASA for secondary prevention given prior hx of stroke. 6. At this time no further testing. Recommendations to follow pending [facility] records review. Problems: ZAYNAB PEARCE MD 06/14/16 0908: CARDIAC CONSULT ALLERGIES ALLERGIES: Coded Allergies: Fish Containing Products (Verified Allergy, Intermediate, 12/04/15) SEAFOOD Iodinated Contrast Media - Oral and (Verified Allergy, Intermediate, 12/03) NSAIDS (Non-Steroidal Anti-Inflamma (Verified Allergy, Intermediate, TAKES ASA AT HOME, 12/04/15) caffeine (Verified Allergy, Intermediate, 12/04/15) ibuprofen (Verified Allergy, Intermediate, 12/04/15) shellfish derived (Verified Allergy, Intermediate, 12/04/15) SEAFOOD I S O L A T I O N *CONTACT* (Verified Allergy, Unknown, 12/04/15) hx mrsa + screen and + VRE/CRE in urine. ASSESSMENT/PLAN ASSESSMENT/PLAN Patient seen and examined 06/13/16. Agree with CHANNEL SALES MANAGER's assessment and plan. Telemetry did not show any significant arrhythmias. Continue to monitor. Continue fluid removal with hemodialysis for acute on chronic diastolic heart failure. We will obtain records from [facility] and make further recommendations. Thank you for the consultation. Problems: ANDREE MCCRACKEN APRN June 13, 2016 09:29 ZAYNAB PEARCE MD June 14, 2016 09:08
--- NOTE | 2016-06-13 10:15 | PDOC2 ---
CONSULT Date of Consult Date of Consult DATE: 06/13/16 TIME: 10:08 Reason for Consult Reason for Consult: ESRD, ^ed K and missed HD on Sunday due to Father's Referring Physician Referring Physician: Dr Stevenson Identification/Chief Complaint Chief Complaint SOB Problems: Source Source: Chart review, Patient History of Present Illness Reason for Visit: as Dictated Past Medical History Cardiovascular: AFIB, HTN, Hyperlipidemia Pulmonary: Asthma CENTRAL NERVOUS SYSTEM: CVA, Other Heme/Onc: Anemia NOS, B12 deficiency Psych: Bipolar Musculoskeletal: Osteoarthritis Infectious disease: Other Renal/: Chronic renal failure, Other Endocrine: Hypothyroidism, Hyperparathyroidism, Osteoporosis Past Surgical History Past Surgical History: Cholecystectomy, , Hysterectomy, Other Family History Family History: Heart Disease Social History No ALCOHOL: none Drugs: None Lives: with Family Domestic Violence: Neg Current Problem List Problem List Problems Medical Problems: (1) Dyspnea Status: Acute (2) End stage renal disease Status: Acute Current Medications Current Medications Current Medications Albuterol/ Ipratropium (Duoneb) 3 ml 1X ONCE NEB Last administered on 04:55; Start 06/13/16 at 04:30; Stop 06/13/16 at 04:31; Status DC Ondansetron HCl (Zofran) 4 mg PRN Q8HRS PRN IV NAUSEA/VOMITING; Start 06/13/16 at 05:45; Stop 06/14/16 at 05:44 Fentanyl Citrate (Fentanyl 2ml Vial) 50 mcg PRN Q1HR PRN IV SEVERE PAIN Last administered on 06/13/16 05:57; Start 06/13/16 at 05:45; Stop 06/14/16 at 05:44 Sodium Bicarbonate 100 meq 1X ONCE IV ; Start 06/13/16 at 07:15; Stop 06/13/16 at 07:16; Status DC Insulin Human Regular (Novolin R Vial) 10 unit 1X ONCE IV ; Start 06/13/16 at 07 :15; Stop 06/13/16 at 07:16; Status DC Dextrose (Dextrose 50%-Water Syringe) 25 gm 1X ONCE IV ; Start 06/13/16 at 07:15 ; Stop 06/13/16 at 07:16; Status DC Albuterol Sulfate (Ventolin Neb Soln) 10 mg 1X ONCE CONT NEB ; Start 06/13/16 at 07:15; Stop 06/13/16 at 07:16; Status DC Active Scripts Active Cepacol Sore Throat Lozenge (Benzocaine/Menthol) 1 Each Lozenge 1 Rachelle PO PRN Q2HRS PRN 14 Days Sucralfate 1 Gm/10 Ml Oral.susp 1 Gm PO QIDACHS Hydrocodone-Apap 5-325 (Hydrocodone Bit/Acetaminophen) 1 Each Tablet 1 Tab PO PRN Q4HRS PRN [place] 5-325 Tablet (Acetaminophen/Hydrocodone Bitart) 1 Each Tablet 1 Tab PO PRN Q6HRS PRN Midodrine Hcl 5 Mg Tablet 10 Mg PO TIDAC Reported Metoprolol Tartrate 25 Mg Tablet 12.5 Mg PO BID Last dose given this morning Take again tonight Oxycodone Hcl 5 Mg Capsule 1 Cap PO PRN PRN Not given on this admission Start today Allergy Eye Drops (Naphazoline HCl/Pheniramine) 15 Ml Drops 15 Ml OP PRN PRN Not given on this admission Start today Zofran Odt (Ondansetron) 4 Mg Tab.rapdis 1 Tab SL BID Last dose given yesterday afternoon Take again when needed Benadryl (Diphenhydramine Hcl) 25 Mg Capsule 25 Mg PO PRN Q6HRS PRN Not given on this admission Take when needed Hydrocortisone 10 Mg Tablet 10 Mg PO AFTRNOON Not given on this admission Start today Hydrocortisone 10 Mg Tablet 10 Mg PO DAILY08 Not given on this admission Start today Fludrocortisone Acetate 0.1 Mg Tablet 0.1 Mg PO BID Gave dose this am Take again tonight Vigamox (Moxifloxacin Hcl) 3 Ml Drops 1 Drop RIGHTEYE QID Not given on this admission Start today Effexor Xr (Venlafaxine Hcl) 150 Mg Cap.er.24h 1 Cap PO DAILY Last dose given this morning Take again tomorrow Proair Hfa Inhaler (Albuterol Sulfate) 8.5 Gm Hfa.aer.ad 2 Puff INH PRN Q6HRS PRN Not given on this admission Acetaminophen-Cod #3 Tablet (Acetaminophen/Codeine Phosphate) 1 Each Tablet 1 Tab PO PRN Q6HRS PRN Last dose given yesterday at 09:48 Lidoderm (Lidocaine) 700 Mg Adh..patch 1 Patch TP PRN DAILY PRN Last given on the Use if needed Nortriptyline Hcl 50 Mg Capsule 50 Mg PO QHS Last dose given last night Take again tonight [place]ola-Senait Rx Tablet (Vit B Cmplx 3/Fa/Vit C/Biotin) 1 Each Tablet 1 Tab PO DAILY Not given on this admission Start today Nystatin 15 Gm Powder 1 Akil TP BID Last dose given this morning Take again tonight Fluticasone Propionate Nasal [place] (Fluticasone Propionate) 16 Gm [place].susp 2 [place] NS PRN DAILY PRN Last given on the Take when needed Calcitriol 0.25 Mcg Capsule 0.5 Mg PO DAILY Not given on this admission Take today Lipitor (Atorvastatin Calcium) 10 Mg Tablet 5 Mg PO QHS Last dose given last night Take tonight Zinc Sulfate 220 Mg Tablet 220 Mg PO DAILY Last dose given this morning Take again tomorrow Senna Laxative (Sennosides) 8.6 Mg Tablet 17.2 Mg PO BID Last dose given this morning Take again tonight Pred Forte (Prednisolone Acetate) 1 Ml Drops.susp 1 Drop RIGHTEYE QID Not given on this admission Start today Protonix (Pantoprazole Sodium) 40 Mg Tablet.dr 40 Mg PO BIDAC Last dose given this morning Take again tonight Ditropan Xl (Oxybutynin Chloride) 5 Mg Tab.er.24 5 Mg PO BID Last dose given this morning Take again tonight Amitiza (Lubiprostone) 24 Mcg Capsule 24 Mcg PO BID Gave last dose last night Take again tonight Latuda (Lurasidone Hcl) 40 Mg Tablet 40 Mg PO QHS Last dose given last night Take again tonight Gabapentin 300 Mg Capsule 600 Mg PO DAILY Gave this morning Take again tomorrow morning Fish Oil Cameron-3 Softgel (Cameron-3/Dha/Epa/Fish Oil) 1 Each Capsule.dr 1 Cap PO BID Not given on this admission Start today Clonazepam Odt (Clonazepam) 0.5 Mg Tab.rapdis 0.5 Mg PO BID Gave dose this am Take again tonight Calcium Acetate 667 Mg Capsule 2,001 Mg PO TIDWMEALS Take with meals Last dose yesterday Allergies Allergies: Coded Allergies: Fish Containing Products (Verified Allergy, Intermediate, 12/04/15) SEAFOOD Iodinated Contrast Media - Oral and (Verified Allergy, Intermediate, 12/03) NSAIDS (Non-Steroidal Anti-Inflamma (Verified Allergy, Intermediate, TAKES ASA AT HOME, 12/04/15) caffeine (Verified Allergy, Intermediate, 12/04/15) ibuprofen (Verified Allergy, Intermediate, 12/04/15) shellfish derived (Verified Allergy, Intermediate, 12/04/15) SEAFOOD I S O L A T I O N *CONTACT* (Verified Allergy, Unknown, 12/04/15) hx mrsa + screen and + VRE/CRE in urine. ROS Review of System GEN: no Fevers no Chills EYES: no new Visual Complaints ENT: no EN Drainage no Hearing deficiets CVS: no Orthopnea + reproducible CP RESP: subj SOB no ERAZO GI: no Nausea no Vomiting : no Dysuria no Urgency HEME: no easy bruising no Palp Ly Nodes NEURO no Focal Weakness no Sz PSYCH: no Suicidal Ideation no Depression SKIN: no Rashes ENDO: no Polyuria or Polydipsia no Hot/Cold Intolerance MU SK: no Arthraigia no Myalgia Physical Exam Physical Exam Physical Exam Physical Exam General Appearance: Awake Alert Oriented x 3 In min Distress Eyes: VIsion Unchanged Conjunctiva Normal EN: No EN Drainage Mucous Memb. moist Neck: no JVD min JVP Supple no Thyromegaly; CVS: S1 S2 soft Murmur No Gallop No Rub no Edema; reproducible CP Resp: no Rales no Rhonchi no Acc. Muscle use; . GI: BS +ve NO Bruit Non Tender Non Distended; RUQ old Txp (firm) : no CVA tenderness; no Suprapubic Tenderness; SKIN: no Rashes Breast Exam deferred Mu.Sk: Adequate ROM no Muscle Atrophy; Left Upper Arm AV access related surgery noted Heme: Unable to palpate Obvious LAD No Palp Splenomegaly NEURO: Good Strength and Tone moves all 4 ext and has good hand to mouth co-ordination. Psych: min Depressed flattish affect no Active hallucination Assessment & Plan ESRD :Dialysis as below soon F 180 NR 3.5 Hrs 1K for 1hr then 2 K 2.5 Ca 140 Na 35 HC03 Qb 350 + Qd 500+ Heparin 0 Units Uf to dry weight as tolerated May give 25-50 gms of 25% Albumin if needed to maintain Hemodynamic stability Treatment plan reviewed and discussed with hand sizer ^K - correct with HD Subj SOB - Uf as beatriz by BP Fl Overload - due to missed HD - Uf with HD today Anemia of CKD : Epogen as ordered. Transfuse again with next HD as needed H/o Hypotension in the past NOW Hypertension - watch on present meds and Uf as beatriz Adrenal insuff - remains on Florinef - with current "Fluid Overload" and HTN - we may need to decrease dose? H/o HyperPhos: follow phos levels and alter binder regimen as needed HypoAlbuminemia - encourage PO Protein Discussed Plan of Care and prognosis etc. at length with pt Vital Signs Vital Signs Date Time Temp Pulse Resp B/P Pulse Ox O2 Delivery O2 Flow Rate FiO2 06/13/16 07:30 97.7 98 17 148/102 Nasal Cannula 98.0 97.7 06/13/16 06:51 100 Assessment & Plan ESRD.ARF: Current FLuid and E-lyte status does not necessitate emergent need for Dialysis. Will re-evaluate for Dialysis in am and continue on [ ] schedule. Anemia: [ ] Epogen [ ] Transfuse [ ] with next HD as needed. HTN: Current BP meds reviewed. See orders for changes. Bone & Mineral: [ ] Discussed Plan of Care and prognosis etc. at length with family. Labs Labs Laboratory Tests Test 06/13/16 05:13 06/13/16 06:00 06/13/16 08:02 06/13/16 08:45 Prothrombin Time 14.7SEC (11.7-14.0) Prothromb Time International Ratio 1.2 (0.8-1.1) Activated Partial Thromboplast Time 33SEC (24-38) White Blood Count 5.0x10^3/uL (4.0-11.0) Red Blood Count 3.14x10^6/uL (3.50-5.40) Hemoglobin 10.0g/dL (12.0-15.5) Hematocrit 30.3% (36.0-47.0) Mean Corpuscular Volume 96fL (79-100) Mean Corpuscular Hemoglobin 32pg (25-35) Mean Corpuscular Hemoglobin Concent 33g/dL (31-37) Red Cell Distribution Width 17.0% (11.5-14.5) Platelet Count 159x10^3/uL (140-400) Neutrophils (%) (Auto) 65% (31-73) Lymphocytes (%) (Auto) 24% (24-48) Monocytes (%) (Auto) 8% (0-9) Eosinophils (%) (Auto) 3% (0-3) Basophils (%) (Auto) 1% (0-3) Neutrophils # (Auto) 3.2x10^3uL (1.8-7.7) Lymphocytes # (Auto) 1.2x10^3/uL (1.0-4.8) Monocytes # (Auto) 0.4x10^3/uL (0.0-1.1) Eosinophils # (Auto) 0.1x10^3/uL (0.0-0.7) Basophils # (Auto) 0.0x10^3/uL (0.0-0.2) Sodium Level 133mmol/L (136-145) Potassium Level 6.5mmol/L (3.5-5.1) 6.2mmol/L (3.5-5.1) Chloride Level 96mmol/L (98-107) Carbon Dioxide Level 22mmol/L (21-32) Anion Gap 15 (6-14) Blood Urea Nitrogen 95mg/dL (7-20) Creatinine 11.7mg/dL (0.6-1.0) Estimated GFR (Cockcroft-Gault) 4.1 BUN/Creatinine Ratio 8 (6-20) Glucose Level 87mg/dL (70-99) Calcium Level 8.5mg/dL (8.5-10.1) Total Bilirubin 0.5mg/dL (0.2-1.0) Aspartate Amino Transf (AST/SGOT) 17U/L (15-37) Alanine Aminotransferase (ALT/SGPT) 16U/L (14-59) Alkaline Phosphatase 116U/L (46-116) Troponin I Quantitative 0.042ng/mL (0.000-0.055) KQ-Qjc-K-Type Natriuretic Peptide > 34176so/mL (0-124) Total Protein 7.3g/dL (6.4-8.2) Albumin 3.2g/dL (3.4-5.0) Albumin/Globulin Ratio 0.8 (1.0-1.7) Glucose (Fingerstick) 74mg/dL (70-99) Laboratory Tests Test 06/13/16 05:13 06/13/16 06:00 06/13/16 08:02 06/13/16 08:45 Prothrombin Time 14.7SEC (11.7-14.0) Prothromb Time International Ratio 1.2 (0.8-1.1) Activated Partial Thromboplast Time 33SEC (24-38) White Blood Count 5.0x10^3/uL (4.0-11.0) Red Blood Count 3.14x10^6/uL (3.50-5.40) Hemoglobin 10.0g/dL (12.0-15.5) Hematocrit 30.3% (36.0-47.0) Mean Corpuscular Volume 96fL (79-100) Mean Corpuscular Hemoglobin 32pg (25-35) Mean Corpuscular Hemoglobin Concent 33g/dL (31-37) Red Cell Distribution Width 17.0% (11.5-14.5) Platelet Count 159x10^3/uL (140-400) Neutrophils (%) (Auto) 65% (31-73) Lymphocytes (%) (Auto) 24% (24-48) Monocytes (%) (Auto) 8% (0-9) Eosinophils (%) (Auto) 3% (0-3) Basophils (%) (Auto) 1% (0-3) Neutrophils # (Auto) 3.2x10^3uL (1.8-7.7) Lymphocytes # (Auto) 1.2x10^3/uL (1.0-4.8) Monocytes # (Auto) 0.4x10^3/uL (0.0-1.1) Eosinophils # (Auto) 0.1x10^3/uL (0.0-0.7) Basophils # (Auto) 0.0x10^3/uL (0.0-0.2) Sodium Level 133mmol/L (136-145) Potassium Level 6.5mmol/L (3.5-5.1) 6.2mmol/L (3.5-5.1) Chloride Level 96mmol/L (98-107) Carbon Dioxide Level 22mmol/L (21-32) Anion Gap 15 (6-14) Blood Urea Nitrogen 95mg/dL (7-20) Creatinine 11.7mg/dL (0.6-1.0) Estimated GFR (Cockcroft-Gault) 4.1 BUN/Creatinine Ratio 8 (6-20) Glucose Level 87mg/dL (70-99) Calcium Level 8.5mg/dL (8.5-10.1) Total Bilirubin 0.5mg/dL (0.2-1.0) Aspartate Amino Transf (AST/SGOT) 17U/L (15-37) Alanine Aminotransferase (ALT/SGPT) 16U/L (14-59) Alkaline Phosphatase 116U/L (46-116) Troponin I Quantitative 0.042ng/mL (0.000-0.055) RX-Zso-A-Type Natriuretic Peptide > 89054zw/mL (0-124) Total Protein 7.3g/dL (6.4-8.2) Albumin 3.2g/dL (3.4-5.0) Albumin/Globulin Ratio 0.8 (1.0-1.7) Glucose (Fingerstick) 74mg/dL (70-99) RUBA MIRANDA MD June 13, 2016 10:15
[2016-06-13] MEDS ORDERED: MAGNESIUM SULFATE 2GM 50 ML IV PRN (10:30)
[2016-06-13] MEDS ORDERED: IV NORMAL SALINE 1000ML BAG 1,000 ML IV PRN ×2 (12:11)
[2016-06-13] MEDS ORDERED: LABETALOL 20 MG/4 ML DISP.SYRIN. IVP PRN (12:15)
[2016-06-13] MEDS ORDERED: ALBUMIN HUMAN 25% 200 ML IV PRN (12:15)
[2016-06-13] MEDS ORDERED: DIALYSIS PATIENT. MC PRN (12:15)
[2016-06-13] MEDS: MIDODRINE 5 MG TABLET PO SCH ×3 (12:30→16:59)
[2016-06-13] MEDS ORDERED: FLUD0.1T PO (12:30)
[2016-06-13] MEDS ORDERED: RANO500T2 PO (12:38)
[2016-06-13] MEDS ORDERED: COLC0.6T34 PO (12:38)
[2016-06-13] MEDS ORDERED: VIT1TABL71 PO (12:38)
[2016-06-13] MEDS ORDERED: VENL75CA6 PO (12:38)
[2016-06-13] MEDS ORDERED: APIX2.5T PO (12:38)
[2016-06-13] MEDS: CALCIUM ACETATE 667 MG CAPSULE PO SCH ×2 (13:00→16:57)
[2016-06-13] MEDS ORDERED: METOPROLOL TART IMMED RELEASE 25 MG TABLET. PO SCH (13:00)
--- NOTE | 2016-06-13 13:55 | HP ---
ADMIT DATE: 06/13/2016 CHIEF COMPLAINT: Shortness of breath. HISTORY OF PRESENT ILLNESS: The patient is a pleasant 50-year-old female who is on dialysis. She did miss dialysis and now, she is short of breath. She appears to be volume overload, rates her symptoms as 7 out 10. I discussed the case with the ER physician. We are going to admit the patient and consult Nephrology for dialysis. PAST MEDICAL HISTORY: End-stage renal disease, on dialysis; AFib; anxiety; bipolar; CHF; hypertension; hyperlipidemia; stroke; depression; anxiety; glaucoma; hypothyroidism; kidney stones; urinary tract infections; thyroid resection; kidney transplant; neurogenic bladder; cholecystectomy; C-sections; hysterectomy; AV shunt; blindness. ALLERGIES: MULTIPLE, PLEASE REFER TO THE CHART, BUT SHE IS ALLERGIC TO NSAIDS, CAFFEINE, SHELLFISH, AND IODINE. FAMILY HISTORY: Noncontributory, but she does have heart disease in the family. SOCIAL HISTORY: She does not drink, smoke, or take drugs. MEDICATIONS: Reviewed, please refer to the MRAD. REVIEW OF SYSTEMS: GENERAL: No history of weight change, weakness or fevers. SKIN: No bruising, hair changes or rashes. EYES: No blurred, double or loss of vision. NOSE AND THROAT: No history of nosebleeds, hoarseness or sore throat. HEART: No history of palpitations, chest pain or shortness of breath on exertion. LUNGS: She complains of shortness breath. GASTROINTESTINAL: Denies changes in appetite, nausea, vomiting, diarrhea or constipation. GENITOURINARY: No history of frequency, urgency, hesitancy or nocturia. NEUROLOGIC: Denies history of numbness, tingling, tremor or weakness. PSYCHIATRIC: No history of panic, anxiety or depression. ENDOCRINE: No history of heat or cold intolerance, polyuria or polydipsia. EXTREMITIES: Denies muscle weakness, joint pain, pain on walking or stiffness. PHYSICAL EXAMINATION: VITAL SIGNS: Temperature afebrile, pulse 90, respirations 18, blood pressure 140/102. GENERAL: She is alert, cooperative. HEART: Normal S1, S2 with soft S3. LUNGS: Slight crackles. ABDOMEN: Soft, obese. EXTREMITIES: 1+ edema. SKIN: No rashes. NEUROLOGICAL: She is generally moving all extremities. No focal deficits, but she is blind. ENDOCRINE: No thyromegaly. LYMPHATICS: No cervical nodes. HEMATOPOIETIC: No bruising. LABORATORY DATA: White count 5, hemoglobin 10, platelets 159. Electrolytes: Sodium 133, potassium 6.5, chloride 99, bicarbonate 22, BUN 95, creatinine 11.7, glucose 87. Chest x-ray shows volume overload. ASSESSMENT AND PLAN: Critical hyperkalemia and volume overload. The patient is being admitted. We will consult Nephrology to get her emergent dialysis. Frequent labs, continue home medicines, PT, OT, wound care. LUIS RIVERA DO DR: ABIGAIL/hannah JOB#: [id number] / [id number]
[2016-06-13] MEDS: HYDROcodone/APAP 5/325MG 1 TAB TABLET PO PRN (14:38)
[2016-06-13] MEDS: clonazePAM 0.5 MG TABLET PO SCH ×2 (16:52→22:45)
[2016-06-13] MEDS: OXYBUTYNIN CHLORIDE 5 MG TABLET PO SCH ×2 (16:52→22:46)
[2016-06-13] MEDS: LUBIPROSTONE 8 MCG CAPSULE PO SCH (16:55)
[2016-06-13] MEDS: PANTOPRAZOLE 40 MG TABLET.DR. PO SCH (16:56)
[2016-06-13] MEDS ORDERED: CARV3.12 PO (17:58)
[2016-06-13 19:35] VITALS: BP 119/67
[2016-06-13] MEDS ORDERED: ATORVASTATIN CALCIUM 10 MG TABLET. PO SCH (21:00)
[2016-06-13] MEDS ORDERED: LURASIDONE 40 MG TABLET. PO SCH (21:00)
[2016-06-13] MEDS ORDERED: NORTRIPTYLINE 25 MG CAPSULE PO SCH (21:00)
[2016-06-13 23:29] VITALS: BP 113/70
[2016-06-14 03:22] VITALS: BP 130/82
[2016-06-14 04:45] LABS: BASO % 1 % (0-3); EOS % 5 % (0-3); HEMATOCRIT 28.2 % (36.0-47.0); HEMOGLOBIN 9.2 g/dL (12.0-15.5); LYMPH # 0.9 x10^3/uL (1.0-4.8); LYMPH % 24 % (24-48); MEAN CORPUSCULAR HEMOGLOBIN 32 pg (25-35); MEAN CORPUSCULAR HGB CONC 33 g/dL (31-37); MEAN CORPUSCULAR VOLUME 97 fL (79-100); MONO % 12 % (0-9); NEUT % 59 % (31-73); PLATELET COUNT 145 x10^3/uL (140-400); RED CELL DISTRIBUTION WIDTH 16.7 % (11.5-14.5); WHITE BLOOD COUNT 3.7 x10^3/uL (4.0-11.0)
[2016-06-14 05:05] LABS: ALBUMIN 2.6 g/dL (3.4-5.0); CALCIUM 8.4 mg/dL (8.5-10.1); CREATININE 6.9 mg/dL (0.6-1.0); GFR 7.6; PHOSPHORUS 5.3 mg/dL (2.6-4.7); POTASSIUM 4.8 mmol/L (3.5-5.1)
[2016-06-14 07:00] VITALS: BP 156/100
[2016-06-14] MEDS: CALCIUM ACETATE 667 MG CAPSULE PO SCH ×2 (09:52→12:44)
[2016-06-14] MEDS: clonazePAM 0.5 MG TABLET PO SCH (09:52)
[2016-06-14] MEDS: OXYBUTYNIN CHLORIDE 5 MG TABLET PO SCH ×2 (09:52→14:25)
[2016-06-14] MEDS: PANTOPRAZOLE 40 MG TABLET.DR. PO SCH (09:52)
[2016-06-14] MEDS: MIDODRINE 5 MG TABLET PO SCH ×2 (09:53→12:45)
[2016-06-14] MEDS: HYDROcodone/APAP 5/325MG 1 TAB TABLET PO PRN (09:54)
[2016-06-14] MEDS: LUBIPROSTONE 8 MCG CAPSULE PO SCH (10:33)
--- NOTE | 2016-06-14 10:33 | PDOC ---
CARDIO Progress Notes Date and Time Date of Service 06/14/2016 Time of Evaluation 1033 Subjective Subjective: No Chest Pain, No shortness of breath, No Palpitations, No Dizziness Vitals Vitals Vital Signs Date Time Temp Pulse Resp B/P Pulse Ox O2 Delivery O2 Flow Rate FiO2 06/14/16 09:54 93 Nasal Cannula 2.0 06/14/16 09:53 92 156/100 06/14/16 07:00 98.5 19 98.5 Weight Weight [ ] Input and Output Intake and Output Intake and Output 06/14/16 06:59 Intake Total 770 ml Balance 770 ml Intake Oral 770 ml Laboratory Labs Laboratory Tests Test 06/13/16 16:36 06/13/16 17:00 06/14/16 04:10 Glucose (Fingerstick) 80mg/dL (70-99) Nasal Screen MRSA (PCR) Positive (Negative) White Blood Count 3.7x10^3/uL (4.0-11.0) Red Blood Count 2.90x10^6/uL (3.50-5.40) Hemoglobin 9.2g/dL (12.0-15.5) Hematocrit 28.2% (36.0-47.0) Mean Corpuscular Volume 97fL (79-100) Mean Corpuscular Hemoglobin 32pg (25-35) Mean Corpuscular Hemoglobin Concent 33g/dL (31-37) Red Cell Distribution Width 16.7% (11.5-14.5) Platelet Count 145x10^3/uL (140-400) Neutrophils (%) (Auto) 59% (31-73) Lymphocytes (%) (Auto) 24% (24-48) Monocytes (%) (Auto) 12% (0-9) Eosinophils (%) (Auto) 5% (0-3) Basophils (%) (Auto) 1% (0-3) Neutrophils # (Auto) 2.2x10^3uL (1.8-7.7) Lymphocytes # (Auto) 0.9x10^3/uL (1.0-4.8) Monocytes # (Auto) 0.5x10^3/uL (0.0-1.1) Eosinophils # (Auto) 0.2x10^3/uL (0.0-0.7) Basophils # (Auto) 0.0x10^3/uL (0.0-0.2) Sodium Level 136mmol/L (136-145) Potassium Level 4.8mmol/L (3.5-5.1) Chloride Level 99mmol/L (98-107) Carbon Dioxide Level 30mmol/L (21-32) Anion Gap 7 (6-14) Blood Urea Nitrogen 43mg/dL (7-20) Creatinine 6.9mg/dL (0.6-1.0) Estimated GFR (Cockcroft-Gault) 7.6 Glucose Level 88mg/dL (70-99) Calcium Level 8.4mg/dL (8.5-10.1) Phosphorus Level 5.3mg/dL (2.6-4.7) Magnesium Level 1.9mg/dL (1.8-2.4) Albumin 2.6g/dL (3.4-5.0) Physical Exam HEENT: Neck Supple W Full Motion Chest: Symmetric LUNGS: Other (soft basilar crackles) Heart: S1S2, RRR Abdomen: Soft N/T Extremities: Other (1+ bilateral lower extremity) Neurology: alert, oriented, follow commands Assessment Assessment 1. ? atrial fibrillation history continue to await records from [facility] may need OAC but ? recent history of pericardiocentesis; ? PUD 2. Acute on chronic diastolic CHF symptoms improved with HD restart BB - carvedilol fluid management per HD control BP with meds 3. ESRD HD yesterday 4. HTN poorly controlled restart carvedilol prn meds for SBP > 160 INLAY CHEN APRN June 14, 2016 10:33
[2016-06-14 11:00] VITALS: BP 192/109
[2016-06-14] MEDS ORDERED: CARVEDILOL 3.125 MG TABLET. PO SCH (11:00)
[2016-06-14] MEDS ORDERED: HYDR-2666 PO (14:01)
[2016-06-14] MEDS ORDERED: FLECTOR1 EACH TP (14:01)
--- NOTE | 2016-06-14 14:08 | PDOC ---
SUBJECTIVE ROS ESRD ready to go home CVS: no Orthopnea, + reproducible CP RESP: no SOB, no ERAZO GI: no Nausea, no Vomiting : no Dysuria, no Urgency OBJECTIVE Vital Signs Vital Signs Date Time Temp Pulse Resp B/P Pulse Ox O2 Delivery O2 Flow Rate FiO2 06/14/16 12:45 94 192/109 06/14/16 11:20 98 Nasal Cannula 2.0 06/14/16 11:00 98.7 19 98.7 I & 0 Intake and Output 06/14/16 07:00 Intake Total 770 ml Balance 770 ml Intake Oral 770 ml PHYSICAL EXAM Physical Exam General Appearance: Awake Alert Oriented x 3 In min Distress Eyes: VIsion Unchanged Conjunctiva Normal EN: No EN Drainage Mucous Memb. moist Neck: no JVD min JVP Supple no Thyromegaly; CVS: S1 S2 soft Murmur No Gallop No Rub no Edema; reproducible CP Resp: no Rales no Rhonchi no Acc. Muscle use; . GI: BS +ve NO Bruit Non Tender Non Distended; RUQ old Txp (firm) : no CVA tenderness; no Suprapubic Tenderness; Assessment & Plan ESRD: Current fluid and E-lyte status does not necessitate emergent need for dialysis. Will re-evaluate for dialysis in the am . ^K - corrected with HD yest Subj SOB - Much better after Uf BP Fl Overload - due to missed HD - resolved Anemia of CKD : Epogen as ordered. Transfuse again with next HD as needed H/o Hypotension in the past NOW Hypertension - watch on present meds and Uf as beatriz Adrenal insuff - remains on Florinef - with current "Fluid Overload" and HTN - we may need to decrease dose H/o HyperPhos: follow phos levels and alter binder regimen as needed HypoAlbuminemia - encourage PO Protein - PO intake is good Discussed Plan of Care and prognosis etc. at length with pt DIAGNOSIS/ASSESSMENT Assessment & Plan Problems: COMMENT/RELEVANT DATA Meds Current Medications Medications (Trade) Dose Ordered Sig/Jose Start Time Stop Time Status Last Admin Dose Admin Acetaminophen/ Hydrocodone Bitart (Lortab 5/325) 1 tab PRN Q6HRS PRN 06/13/16 12:15 06/14/16 09:54 1 TAB Albumin Human (Albuminar) 200 ml @ 200 mls/hr 1X PRN PRN 06/13/16 12:15 06/13/16 18:14 DC Albuterol Sulfate 10 mg 10 mg 1X ONCE 06/13/16 07:15 06/13/16 07:16 DC Albuterol/ Ipratropium (Duoneb) 3 ml 1X ONCE 06/13/16 04:30 06/13/16 04:31 DC 06/13/16 04:55 3 ML Atorvastatin Calcium (Lipitor) 5 mg QHS 06/13/16 21:00 06/13/16 22:46 5 MG Calcium Acetate (Phoslo) 2,001 mg TIDWMEALS 06/13/16 13:00 06/14/16 12:44 2,001 MG Carvedilol (Coreg) 3.125 mg BIDWMEALS 06/14/16 11:00 06/14/16 12:45 3.125 MG Clonazepam (Klonopin) 0.5 mg BID 06/13/16 12:30 06/14/16 09:52 0.5 MG Dextrose (Dextrose 50%-Water Syringe) 25 gm 1X ONCE 06/13/16 07:15 06/13/16 07:16 DC 06/13/16 08:00 25 GM Fentanyl Citrate (Fentanyl 2ml Vial) 50 mcg PRN Q1HR PRN 06/13/16 05:45 06/14/16 05:44 DC 06/13/16 11:25 50 MCG Info (PHARMACY MONITORING -- do not chart) 1 each PRN DAILY PRN 06/13/16 12:15 Insulin Human Regular (Novolin R Vial) 10 unit 1X ONCE 06/13/16 07:15 06/13/16 07:16 DC 06/13/16 08:00 10 UNIT Labetalol HCl 10 mg 10 mg PRN Q1HR PRN 06/13/16 12:15 06/14/16 12:14 DC 06/14/16 10:33 10 MG Lubiprostone (Amitiza) 24 mcg BIDWMEALS 06/13/16 17:00 06/14/16 10:33 24 MCG Lurasidone HCl (Latuda) 40 mg QHS 06/13/16 21:00 06/13/16 22:46 40 MG Magnesium Sulfate/ Dextrose 50 ml @ 25 mls/hr PRN DAILY PRN 06/13/16 10:30 Metoprolol Tartrate (Lopressor) 12.5 mg BID 06/13/16 13:00 06/13/16 17:55 DC Midodrine (Proamatine) 10 mg TIDAC 06/13/16 12:30 06/14/16 12:45 10 MG Nortriptyline HCl (Pamelor) 50 mg QHS 06/13/16 21:00 06/13/16 22:46 50 MG Ondansetron HCl (Zofran) 4 mg PRN Q8HRS PRN 06/13/16 05:45 06/14/16 05:44 DC Oxybutynin Chloride (Ditropan) 5 mg [id number] 06/13/16 14:00 06/14/16 09:52 5 MG Pantoprazole Sodium (Protonix) 40 mg BIDAC 06/13/16 16:30 06/14/16 09:52 40 MG Sodium Bicarbonate 100 meq 1X ONCE 06/13/16 07:15 06/13/16 07:16 DC 06/13/16 08:00 100 MEQ Sodium Chloride (Iv Sodium Chloride 0.9% 1000ml Bag) 1,000 ml @ 400 mls/hr Q2H30M PRN 06/13/16 12:11 06/14/16 00:10 DC Lab Laboratory Tests Test 06/13/16 16:36 06/13/16 17:00 06/14/16 04:10 Glucose (Fingerstick) 80mg/dL (70-99) Nasal Screen MRSA (PCR) Positive (Negative) White Blood Count 3.7x10^3/uL (4.0-11.0) Red Blood Count 2.90x10^6/uL (3.50-5.40) Hemoglobin 9.2g/dL (12.0-15.5) Hematocrit 28.2% (36.0-47.0) Mean Corpuscular Volume 97fL (79-100) Mean Corpuscular Hemoglobin 32pg (25-35) Mean Corpuscular Hemoglobin Concent 33g/dL (31-37) Red Cell Distribution Width 16.7% (11.5-14.5) Platelet Count 145x10^3/uL (140-400) Neutrophils (%) (Auto) 59% (31-73) Lymphocytes (%) (Auto) 24% (24-48) Monocytes (%) (Auto) 12% (0-9) Eosinophils (%) (Auto) 5% (0-3) Basophils (%) (Auto) 1% (0-3) Neutrophils # (Auto) 2.2x10^3uL (1.8-7.7) Lymphocytes # (Auto) 0.9x10^3/uL (1.0-4.8) Monocytes # (Auto) 0.5x10^3/uL (0.0-1.1) Eosinophils # (Auto) 0.2x10^3/uL (0.0-0.7) Basophils # (Auto) 0.0x10^3/uL (0.0-0.2) Sodium Level 136mmol/L (136-145) Potassium Level 4.8mmol/L (3.5-5.1) Chloride Level 99mmol/L (98-107) Carbon Dioxide Level 30mmol/L (21-32) Anion Gap 7 (6-14) Blood Urea Nitrogen 43mg/dL (7-20) Creatinine 6.9mg/dL (0.6-1.0) Estimated GFR (Cockcroft-Gault) 7.6 Glucose Level 88mg/dL (70-99) Calcium Level 8.4mg/dL (8.5-10.1) Phosphorus Level 5.3mg/dL (2.6-4.7) Magnesium Level 1.9mg/dL (1.8-2.4) Albumin 2.6g/dL (3.4-5.0) RUBA MIRANDA MD June 14, 2016 14:08
[2016-06-14 15:00] VITALS: BP 124/62
== END 2016-06-14 17:08 | disposition home or self-care (01) | DRG 291 ==
LOC: ER 04:03 → 2 SOUTH 05:32
PROVIDERS: ADMIT Internal Medicine; ATTEND Internal Medicine
PROC: 5A1D00Z (ICD-10-PCS; principal; 2016-06-13)
DX: I50.33 Acute on chronic diastolic (congestive) heart failure (principal); N18.6 End stage renal disease; N17.9 Acute kidney failure, unspecified; I13.2 Hypertensive heart and chronic kidney disease with heart failure and with stage 5 chronic kidney disease, or end stage renal disease; E27.40 Unspecified adrenocortical insufficiency; E87.5 Hyperkalemia; R10.9 Unspecified abdominal pain; I48.91 Unspecified atrial fibrillation; F31.9 Bipolar disorder, unspecified; K21.9 Gastro-esophageal reflux disease without esophagitis; H40.9 Unspecified glaucoma; E78.00 Pure hypercholesterolemia, unspecified; E78.5 Hyperlipidemia, unspecified; E87.70 Fluid overload, unspecified; G47.33 Obstructive sleep apnea (adult) (pediatric); M19.90 Unspecified osteoarthritis, unspecified site; M81.0 Age-related osteoporosis without current pathological fracture; E03.9 Hypothyroidism, unspecified; H54.0 Blindness, both eyes; Z98.84 Bariatric surgery status; Z87.11 Personal history of peptic ulcer disease; Z91.19 Patient's noncompliance with other medical treatment and regimen; Z82.49 Family history of ischemic heart disease and other diseases of the circulatory system; Z86.718 Personal history of other venous thrombosis and embolism; Z99.2 Dependence on renal dialysis; Z91.013 Allergy to seafood; Z88.8 Allergy status to other drugs, medicaments and biological substances; Z87.442 Personal history of urinary calculi; Z86.73 Personal history of transient ischemic attack (TIA), and cerebral infarction without residual deficits; N31.9 Neuromuscular dysfunction of bladder, unspecified; Z91.041 Radiographic dye allergy status
CPT/HCPCS: 36415; 71010; 80053; 80069; 82947; 83735; 83880; 84132; 84484; 85027; 85610; 85730; 87641; 93005; 94640; J1815; J3010; J3490; J7042; J7620; 99285-25

== ENCOUNTER 2016-07-22 15:34 | Emergency (ER) | payer MEDICARE, OTHER ==
[~2016-07-22] VITALS: Ht 167.6 cm; Wt 88.9 kg
[~2016-07-22 15:34] MED LIST changes: +APIX2.5T PO; +ASPI-630 PO; -ASPI325T4 PO; +ASPI325T8 PO; -ASPI81TA2 PO; +CARV3.12 PO; +COLC0.6T34 PO; +FLECTOR1 EACH TP; -HYDR-2666 PO; +HYDR-2758 PO; -LEVO500T38 PO; +LEVO500T59 PO; -LUBI24CA5 PO; +LUBI24CA7 PO; +OXYC5CAP PO; -OXYC5CAP3 PO; +RANO500T2 PO; -SUCR1TAB29 PO; +SUCR1TAB35 PO; +VENL75CA6 PO
[2016-07-22] MEDS ORDERED: HYDROcodone/APAP 10/325 1 TAB TABLET PO ONE (17:15)
[2016-07-22 17:20] VITALS: BP 123/80
--- NOTE | 2016-07-22 17:29 | RAD ---
CT HEAD PQRS STATEMENT: One or more of the following in the visualized dose reduction techniques were utilized for this study: 1. Automatic exposure control, 2. Adjustment of the mA and/or kV according to patient size, 3. Use of iterative reconstruction technique INDICATION: dizziness, shortness of breath
prior sent Comparison: 01/28/2016 TECHNIQUE: 5 mm contiguous axial images were obtained from the skull base to the vertex in both bone and soft tissue algorithm. FINDINGS: No abnormal attenuation within the brain parenchyma. No evidence of intracranial hemorrhage. No extra-axial fluid collections. No mass effect or midline shift. Ventricular size is appropriate. Basal cisterns are patent. No fractures identified.Stratton-white differentiation is preserved.Globes and orbits are within normal limits. Paranasal sinuses and mastoid air cells are clear. IMPRESSION: No acute intracranial abnormality. Electronically signed by: Jacobo Navarrete MD (07/22/2016 5:25 PM)
[2016-07-22 17:41] LABS: HEMATOCRIT 35.9 % (36.0-47.0); HEMOGLOBIN 12.2 g/dL (12.0-15.5)
--- NOTE | 2016-07-22 17:42 | ED.ADGEN ---
Past Medical History Past Medical History: A-Fib, Anxiety, Bipolar, CHF, CVA, Depression, DVT, GERD , Glaucoma, High Cholesterol, Hypertension, Hypothyroid, Hypotension, Kidney Stone, Renal Disease, Renal Failure, UTI Additional Past Medical Histor: left side thyroid removed, ulcer, ckd kidney transplant, neurogenic bladder Past Surgical History: Cholecystectomy, , Hysterectomy Additional Past Surgical Histo: av shunt back sx Alcohol Use: None Drug Use: None Adult General Chief Complaint Chief Complaint: WEAKNESS/GENERALIZED HPI HPI Patient is a 50 year old dialysis patient who presents with multiple medical complaints. Patient completed dialysis afternoon. She now reports feeling right arm and right leg pain, generalized pain and headache. Symptoms are chronic. Patient has not vomited. She denies fever chills or sweats. Patient does not make urine. Patient has been seen in this emergency department multiple times for similar complaints, usually following dialysis sessions. Review of Systems Review of Systems Review symptoms as per history of present illness. All other review symptoms are negative. Current Medications Current Medications Current Medications Medications (Trade) Dose Ordered Sig/Jose Start Time Stop Time Status Last Admin Dose Admin Acetaminophen/ Hydrocodone Bitart (Lortab 10/325) 1 tab 1X ONCE 07/22/16 17:15 07/22/16 17:16 DC 07/22/16 17:23 1 TAB Allergies Allergies Allergies Coded Allergies Type Severity Reaction Last Updated Verified Fish Containing Products Allergy Intermediate 12/04/15 Yes Iodinated Contrast- Oral and IV Dye Allergy Intermediate 12/04/15 Yes NSAIDS (Non-Steroidal Anti-Inflamma Allergy Intermediate TAKES ASA AT HOME Yes caffeine Allergy Intermediate 12/04/15 Yes ibuprofen Allergy Intermediate 12/04/15 Yes shellfish derived Allergy Intermediate 12/04/15 Yes I S O L A T I O N *CONTACT* Allergy Unknown 12/04/15 Yes Physical Exam Physical Exam Constitutional: Well developed, well nourished, no acute distress. HENT: Normocephalic, atraumatic, bilateral external ears normal, oropharynx moist, no oral exudates, nose normal. Eyes: PERRL, EOMI, conjunctiva normal. Neck: Normal range of motion. Cardiovascular:Heart rate regular rhythm, no murmur. Lungs & Thorax: Bilateral breath sounds clear to auscultation. Abdomen: Bowel sounds normal, soft, no tenderness. Skin: Warm. Back: No tenderness. Extremities: Right leg, pink, negative Homans signs. Right upper AV shunt. Neurologic: Alert and oriented X 3, normal motor function, normal sensory function, no focal deficits noted. Psychologic: Affect normal, judgement normal, mood normal. Current Patient Data Vital Signs Vital Signs Date Time Temp Pulse Resp B/P (MAP) Pulse Ox O2 Delivery O2 Flow Rate FiO2 07/22/16 17:23 14 99 Room Air 07/22/16 15:35 98.7 86 123/77 (92) 98.7 Lab Values Laboratory Tests Test 07/22/16 17:25 White Blood Count 6.0 x10^3/uL (4.0-11.0) Hemoglobin 12.2 g/dL (12.0-15.5) Hematocrit 35.9 % (36.0-47.0) L Platelet Count 172 x10^3/uL (140-400) Sodium Level 136 mmol/L (136-145) Potassium Level 4.0 mmol/L (3.5-5.1) Chloride Level 98 mmol/L (98-107) Carbon Dioxide Level 30 mmol/L (21-32) Anion Gap 8 (6-14) Blood Urea Nitrogen 38 mg/dL (7-20) H Creatinine 6.0 mg/dL (0.6-1.0) H Estimated GFR (Cockcroft-Gault) 8.9 BUN/Creatinine Ratio 6 (6-20) Glucose Level 90 mg/dL (70-99) Calcium Level 9.6 mg/dL (8.5-10.1) Total Bilirubin 0.4 mg/dL (0.2-1.0) Aspartate Amino Transferase (AST) 17 U/L (15-37) Alanine Aminotransferase (ALT) 15 U/L (14-59) Alkaline Phosphatase 118 U/L (46-116) H Total Protein 8.3 g/dL (6.4-8.2) H Albumin 3.3 g/dL (3.4-5.0) L Albumin/Globulin Ratio 0.7 (1.0-1.7) L Laboratory Tests 07/22/16 17:25 Laboratory Tests 07/22/16 17:25 EKG EKG [] Radiology/Procedures Radiology/Procedures [] Course & Med Decision Making Course & Med Decision Making Pertinent Labs and Imaging studies reviewed. (See chart for details) [Patient's symptoms improved. Frequently has symptoms of dizziness fatigue pain following dialysis. Labs reviewed and are reassuring.] Dragon Disclaimer Dragon Disclaimer This electronic medical record was generated, in whole or in part, using a voice recognition dictation system. MIKAELA TIDWELL DO Jul 22, 2016 17:42
[2016-07-22 17:50] LABS: CALCIUM 9.6 mg/dL (8.5-10.1); GFR 8.9
[2016-07-22 17:56] LABS: ALBUMIN 3.3 g/dL (3.4-5.0); ALBUMIN/GLOBULIN RATIO 0.7 (1.0-1.7); TOTAL BILIRUBIN 0.4 mg/dL (0.2-1.0); TOTAL PROTEIN 8.3 g/dL (6.4-8.2)
== END 2016-07-22 19:00 | disposition home or self-care (01) ==
LOC: ER 15:34
DX: M79.604 Pain in right leg (principal); M79.601 Pain in right arm; R52 Pain, unspecified; R51 Headache; R53.83 Other fatigue; R42 Dizziness and giddiness; I48.91 Unspecified atrial fibrillation; F41.9 Anxiety disorder, unspecified; F31.9 Bipolar disorder, unspecified; I13.0 Hypertensive heart and chronic kidney disease with heart failure and stage 1 through stage 4 chronic kidney disease, or unspecified chronic kidney disease; N18.9 Chronic kidney disease, unspecified; I50.9 Heart failure, unspecified; K21.9 Gastro-esophageal reflux disease without esophagitis; H40.9 Unspecified glaucoma; E89.0 Postprocedural hypothyroidism; I95.9 Hypotension, unspecified; E78.00 Pure hypercholesterolemia, unspecified; E03.9 Hypothyroidism, unspecified; Z87.442 Personal history of urinary calculi; Z86.718 Personal history of other venous thrombosis and embolism; Z87.440 Personal history of urinary (tract) infections; Z86.73 Personal history of transient ischemic attack (TIA), and cerebral infarction without residual deficits; Z94.0 Kidney transplant status; Z90.710 Acquired absence of both cervix and uterus; Z90.49 Acquired absence of other specified parts of digestive tract; Z98.890 Other specified postprocedural states; Z88.6 Allergy status to analgesic agent; Z91.013 Allergy to seafood; Z91.041 Radiographic dye allergy status; Z88.8 Allergy status to other drugs, medicaments and biological substances
CPT/HCPCS: 36415; 70450; 80053; 85027; 99285-25

== ENCOUNTER 2016-08-13 03:57 | Inpatient (IN) | payer MEDICARE, OTHER ==
[~2016-08-13] VITALS: Ht 167.6 cm; Wt 95.3 kg
[2016-08-13 04:19] VITALS: BP 129/79
[2016-08-13] MEDS ORDERED: PRED5DRO16 EACHEYE (04:43)
[2016-08-13] MEDS ORDERED: DEXT15DR5 OP (04:43)
[2016-08-13] MEDS ORDERED: ACET500T68 PO (04:43)
[2016-08-13] MEDS ORDERED: [UNRECOGNIZED DRUG - CODE] TP (04:43)
[2016-08-13] MEDS ORDERED: VENTOLIN HFA18 GM INH (04:43)
[2016-08-13] MEDS ORDERED: CARB15DR98 OP (04:43)
[2016-08-13] MEDS ORDERED: NON FORMULARY ITEM (Albuterol Sulfate (Ventolin Hfa Inhaler) 2 PUFF) INH PRN (05:30)
[2016-08-13] MEDS ORDERED: LIDOCAINE (700MG/PATCH) PATCH. TP PRN (05:30)
[2016-08-13] MEDS ORDERED: ACETAMINOPHEN 500 MG TABLET PO PRN (05:30)
[2016-08-13] MEDS ORDERED: NON FORMULARY ITEM (Dextran 70/Hypromellose (Artificial Tears Eye Drops) 1 DROP) OP PRN (05:30)
[2016-08-13] MEDS ORDERED: FLUTICASONE 50MCG/NASAL SPRAY 16GM BOTTLE. NS PRN (05:30)
[2016-08-13] MEDS ORDERED: ALBUTEROL SULFATE 2.5 MG/3 ML NEBU. NEB PRN (06:00)
[2016-08-13 07:00] VITALS: BP 123/69
[2016-08-13 07:14] LABS: BASO % 0 % (0-3); EOS % 0 % (0-3); HEMOGLOBIN 11.2 g/dL (12.0-15.5); LYMPH # 0.7 x10^3/uL (1.0-4.8); LYMPH % 11 % (24-48); MEAN CORPUSCULAR HEMOGLOBIN 31 pg (25-35); MEAN CORPUSCULAR HGB CONC 32 g/dL (31-37); MEAN CORPUSCULAR VOLUME 97 fL (79-100); MONO % 2 % (0-9); NEUT % 86 % (31-73); PLATELET COUNT 165 x10^3/uL (140-400); RED CELL DISTRIBUTION WIDTH 14.4 % (11.5-14.5); WHITE BLOOD COUNT 6.1 x10^3/uL (4.0-11.0)
[2016-08-13 07:31] LABS: ALBUMIN 2.9 g/dL (3.4-5.0); ALBUMIN/GLOBULIN RATIO 0.7 (1.0-1.7); CALCIUM 9.2 mg/dL (8.5-10.1); CREATININE 9.1 mg/dL (0.6-1.0); GFR 5.5; MAGNESIUM 2.3 mg/dL (1.8-2.4); POTASSIUM 5.1 mmol/L (3.5-5.1); TOTAL BILIRUBIN 0.3 mg/dL (0.2-1.0); TOTAL PROTEIN 7.3 g/dL (6.4-8.2)
[2016-08-13] MEDS: CALCIUM ACETATE 667 MG CAPSULE PO SCH ×3 (09:00→17:09)
[2016-08-13] MEDS ORDERED: PREDNISOLONE ACETATE RIGHTEYE SCH (09:00)
[2016-08-13] MEDS ORDERED: NON FORMULARY ITEM (Prednisolone Acetate 1 DROP) EACHEYE SCH (09:00)
[2016-08-13] MEDS: LUBIPROSTONE 8 MCG CAPSULE PO SCH ×2 (09:01→21:16)
[2016-08-13] MEDS: GABAPENTIN 300 MG CAPSULE. PO SCH (09:01)
[2016-08-13] MEDS: PANTOPRAZOLE 40 MG TABLET.DR. PO SCH ×2 (09:01→17:10)
[2016-08-13] MEDS: SENNOSIDES 8.6 MG TABLET PO SCH ×2 (09:01→21:19)
[2016-08-13] MEDS: VENLAFAXINE XR 37.5 MG CAP.ER.24H. PO SCH (09:01)
[2016-08-13] MEDS: clonazePAM 0.5 MG TABLET PO SCH ×2 (09:01→21:19)
[2016-08-13] MEDS: OMEGA-3 FATTY ACIDS/FISH OIL 1,000 MG CAPSULE. PO SCH ×2 (09:01→21:19)
[2016-08-13] MEDS: CARVEDILOL 3.125 MG TABLET. PO SCH ×2 (09:02→17:10)
[2016-08-13] MEDS: ONDANSETRON ODT 4 MG TAB.RAPDIS. PO SCH ×2 (09:03→21:17)
[2016-08-13] MEDS: NYSTATIN TOPICAL POWDER 15GM BOTTLE. TP SCH ×2 (09:03→21:21)
[2016-08-13] MEDS: MOXIFLOXACIN 0.5% OPHTH SOLUTION 3ML BOTTLE. OU SCH ×4 (09:07→21:21)
[2016-08-13] MEDS: DEXAMETHASONE 0.1% OPHTH SOLUTION 5ML BOTTLE. OD SCH ×4 (09:07→21:20)
[2016-08-13] MEDS: POLYVINYL ALCOHOL 1.4% OPHTH SOLUTION 15ML BOTTLE. OU SCH ×4 (09:07→21:19)
[2016-08-13 10:37] LABS: PLT ESTIMATE ADEQUATE (ADEQUATE)
[2016-08-13 10:38] LABS: POLYCHROMASIA SLIGHT
[2016-08-13 10:39] LABS: OVALOCYTES FEW
[2016-08-13 11:00] VITALS: BP 125/68
[2016-08-13] MEDS: SUMAtriptan SUCCINATE 25 MG TABLET PO PRN ×2 (12:07→17:09)
[2016-08-13] MEDS ORDERED: ONDANSETRON PF 4 MG/2 ML VIAL. IV PRN (13:45)
[2016-08-13] MEDS ORDERED: DOCUSATE SODIUM 100 MG CAPSULE. PO PRN (13:45)
[2016-08-13] MEDS ORDERED: ACETAMINOPHEN 325 MG TABLET. PO PRN (13:45)
[2016-08-13] MEDS ORDERED: hydrALAZINE 20 MG/ML VIAL. IVP PRN (13:45)
[2016-08-13] MEDS ORDERED: MORPHINE SULFATE 2 MG/ML DISP.SYRIN. IV PRN (13:45)
--- NOTE | 2016-08-13 13:52 | PDOC1 ---
History and Physical Date of Admission Date of Admission 08/13/16 Identification/Chief Complaint Chief Complaint hyperkalemia Problems: Source Source: Patient History of Present Illness History of Present Illness 50 f, ESRD on hd tts , WAS transferred FROM [facility] for missing HD. i dont have any records sent from [facility]. Pt always missing her HD from time to time, came here every month almost for chest pain, or sob, or missing HD. She said she has migraine, not controlled for 2days, went to [facility], missed her HD ON Sat since she was sick, was found hyperkalemia and sent here. She said they gave her meds, today K 5.1. She also said she feel 2 weeks ago, sent to , was told intracranial hemarrhage. no neurologic deficit. deneis fever, chills, + nausea, no vomiting, chest pain, sob. lives alone, always comes to seek for medical care and attention. Past Medical History Cardiovascular: AFIB, HTN, Hyperlipidemia Pulmonary: Asthma CENTRAL NERVOUS SYSTEM: CVA, Other Heme/Onc: Anemia NOS, B12 deficiency Psych: Bipolar Infectious disease: Other Renal/: Chronic renal failure, Other Endocrine: Hypothyroidism, Hyperparathyroidism, Osteoporosis Past Surgical History Past Surgical History: Cholecystectomy, , Hysterectomy, Other Family History Family History: Heart Disease Social History Smoke: No ALCOHOL: none Drugs: None Current Medications Current Medications Current Medications Medications (Trade) Dose Ordered Sig/Jose Start Time Stop Time Status Last Admin Dose Admin Acetaminophen (Tylenol) 1,000 mg PRN Q6HRS PRN 08/13/16 05:30 08/13/16 09:04 1,000 MG Albuterol Sulfate (Ventolin Neb Soln) 2.5 mg PRN Q8HRS PRN 08/13/16 06:00 Artificial Tears (Artificial Tears) 1 drop QID 08/13/16 09:00 08/13/16 12:09 1 DROP Atorvastatin Calcium (Lipitor) 5 mg QHS 08/13/16 21:00 Calcium Acetate (Phoslo) 2,001 mg TIDWMEALS 08/13/16 08:00 08/13/16 12:08 2,001 MG Carvedilol (Coreg) 3.125 mg BIDWMEALS 08/13/16 08:00 08/13/16 09:02 3.125 MG Clonazepam (KlonoPIN) 0.5 mg BID 08/13/16 09:00 08/13/16 09:01 0.5 MG Dexamethasone (Maxidex) 1 drop QID 08/13/16 09:00 08/13/16 12:09 1 DROP Fish Oil (Fish Oil) 1,000 mg BID 08/13/16 09:00 08/13/16 09:01 1,000 MG Fluticasone Propionate (Flonase) 2 spray PRN DAILY PRN 08/13/16 05:30 Gabapentin (Neurontin) 600 mg DAILY 08/13/16 09:00 08/13/16 09:01 600 MG Lidocaine (Lidoderm) 1 patch PRN DAILY PRN 08/13/16 05:30 Lubiprostone (Amitiza) 24 mcg BID 08/13/16 09:00 08/13/16 09:01 24 MCG Lurasidone HCl (Latuda) 40 mg QHS 08/13/16 21:00 Moxifloxacin HCl (Vigamox) 1 drop QID 08/13/16 09:00 08/13/16 12:09 1 DROP Non-Formulary Medication 1 drop QID 08/13/16 09:00 UNV Nystatin (Nystop) 1 maria guadalupe BID 08/13/16 09:00 08/13/16 09:03 1 MARIA GUADALUPE Ondansetron HCl (Zofran Odt) 4 mg BID 08/13/16 09:00 Pantoprazole Sodium (Protonix) 40 mg BIDAC 08/13/16 07:30 08/13/16 09:01 40 MG Sennosides (Senna) 17.2 mg BID 08/13/16 09:00 08/13/16 09:01 17.2 MG Sumatriptan Succinate (Imitrex) 25 mg PRN Q2HR PRN 08/13/16 11:30 08/13/16 12:07 25 MG Venlafaxine HCl (Effexor Xr) 150 mg DAILY 08/13/16 09:00 08/13/16 09:01 150 MG Allergies Allergies Allergies Coded Allergies Type Severity Reaction Last Updated Verified Fish Containing Products Allergy Intermediate 12/04/15 Yes Iodinated Contrast- Oral and IV Dye Allergy Intermediate 12/04/15 Yes NSAIDS (Non-Steroidal Anti-Inflamma Allergy Intermediate TAKES ASA AT HOME Yes caffeine Allergy Intermediate 12/04/15 Yes ibuprofen Allergy Intermediate 12/04/15 Yes shellfish derived Allergy Intermediate 12/04/15 Yes I S O L A T I O N *CONTACT* Allergy Unknown 12/04/15 Yes ROS Review of System CONSTITUTIONAL: No fever or chills EYES: No recent changes SKIN: No rash or itching CARDIOVASCULAR: No chest pain, syncope, palpitations, or edema RESPIRATORY: No SOB or cough GASTROINTESTINAL: No nausea, vomiting or abdominal pain NEUROLOGICAL: No headaches or weakness ENDOCRINE: No cold or heat intolerance GENITOURINARY: No urgency or frequency of urination MUSCULOSKELETAL: No back pain or joint pain LYMPHATICS: No enlarged lymph nodes PSYCHIATRIC: No anxiety or depression Physical Exam Physical Exam GEN.: No apparent distress. Alert and oriented. HEENT: Head is normocephalic, atraumatic NECK: Supple. LUNGS: Clear to auscultation. HEART: RRR, S1, S2 present. Peripheral pulses intact ABDOMEN: Soft, nontender. Positive bowel sounds. EXTREMITIES: Without any cyanosis. NEUROLOGIC: Normal speech, normal tone PSYCHIATRIC: Normal affect, normal mood. SKIN: No ulcerations Vitals Vitals Vital Signs Date Time Temp Pulse Resp B/P (MAP) Pulse Ox O2 Delivery O2 Flow Rate FiO2 08/13/16 11:00 97.9 82 20 125/68 (87) 94 Room Air 97.9 Labs Labs Laboratory Tests Test 08/13/16 06:55 White Blood Count 6.1 x10^3/uL (4.0-11.0) Red Blood Count 3.60 x10^6/uL (3.50-5.40) Hemoglobin 11.2 g/dL (12.0-15.5) Hematocrit 35.0 % (36.0-47.0) Mean Corpuscular Volume 97 fL (79-100) Mean Corpuscular Hemoglobin 31 pg (25-35) Mean Corpuscular Hemoglobin Concent 32 g/dL (31-37) Red Cell Distribution Width 14.4 % (11.5-14.5) Platelet Count 165 x10^3/uL (140-400) Neutrophils (%) (Auto) 86 % (31-73) Lymphocytes (%) (Auto) 11 % (24-48) Monocytes (%) (Auto) 2 % (0-9) Eosinophils (%) (Auto) 0 % (0-3) Basophils (%) (Auto) 0 % (0-3) Neutrophils # (Auto) 5.3 x10^3uL (1.8-7.7) Lymphocytes # (Auto) 0.7 x10^3/uL (1.0-4.8) Monocytes # (Auto) 0.1 x10^3/uL (0.0-1.1) Eosinophils # (Auto) 0.0 x10^3/uL (0.0-0.7) Basophils # (Auto) 0.0 x10^3/uL (0.0-0.2) Segmented Neutrophils % 85 % (35-66) Band Neutrophils % 1 % (0-9) Lymphocytes % 13 % (24-48) Monocytes % 1 % (0-10) Platelet Estimate Adequate (ADEQUATE) Polychromasia Slight Ovalocytes Few Sodium Level 139 mmol/L (136-145) Potassium Level 5.1 mmol/L (3.5-5.1) Chloride Level 100 mmol/L (98-107) Carbon Dioxide Level 26 mmol/L (21-32) Anion Gap 13 (6-14) Blood Urea Nitrogen 64 mg/dL (7-20) Creatinine 9.1 mg/dL (0.6-1.0) Estimated GFR (Cockcroft-Gault) 5.5 BUN/Creatinine Ratio 7 (6-20) Glucose Level 150 mg/dL (70-99) Calcium Level 9.2 mg/dL (8.5-10.1) Magnesium Level 2.3 mg/dL (1.8-2.4) Total Bilirubin 0.3 mg/dL (0.2-1.0) Aspartate Amino Transf (AST/SGOT) 21 U/L (15-37) Alanine Aminotransferase (ALT/SGPT) 14 U/L (14-59) Alkaline Phosphatase 116 U/L (46-116) Total Protein 7.3 g/dL (6.4-8.2) Albumin 2.9 g/dL (3.4-5.0) Albumin/Globulin Ratio 0.7 (1.0-1.7) Laboratory Tests Test 08/13/16 06:55 White Blood Count 6.1 x10^3/uL (4.0-11.0) Red Blood Count 3.60 x10^6/uL (3.50-5.40) Hemoglobin 11.2 g/dL (12.0-15.5) Hematocrit 35.0 % (36.0-47.0) Mean Corpuscular Volume 97 fL (79-100) Mean Corpuscular Hemoglobin 31 pg (25-35) Mean Corpuscular Hemoglobin Concent 32 g/dL (31-37) Red Cell Distribution Width 14.4 % (11.5-14.5) Platelet Count 165 x10^3/uL (140-400) Neutrophils (%) (Auto) 86 % (31-73) Lymphocytes (%) (Auto) 11 % (24-48) Monocytes (%) (Auto) 2 % (0-9) Eosinophils (%) (Auto) 0 % (0-3) Basophils (%) (Auto) 0 % (0-3) Neutrophils # (Auto) 5.3 x10^3uL (1.8-7.7) Lymphocytes # (Auto) 0.7 x10^3/uL (1.0-4.8) Monocytes # (Auto) 0.1 x10^3/uL (0.0-1.1) Eosinophils # (Auto) 0.0 x10^3/uL (0.0-0.7) Basophils # (Auto) 0.0 x10^3/uL (0.0-0.2) Segmented Neutrophils % 85 % (35-66) Band Neutrophils % 1 % (0-9) Lymphocytes % 13 % (24-48) Monocytes % 1 % (0-10) Platelet Estimate Adequate (ADEQUATE) Polychromasia Slight Ovalocytes Few Sodium Level 139 mmol/L (136-145) Potassium Level 5.1 mmol/L (3.5-5.1) Chloride Level 100 mmol/L (98-107) Carbon Dioxide Level 26 mmol/L (21-32) Anion Gap 13 (6-14) Blood Urea Nitrogen 64 mg/dL (7-20) Creatinine 9.1 mg/dL (0.6-1.0) Estimated GFR (Cockcroft-Gault) 5.5 BUN/Creatinine Ratio 7 (6-20) Glucose Level 150 mg/dL (70-99) Calcium Level 9.2 mg/dL (8.5-10.1) Magnesium Level 2.3 mg/dL (1.8-2.4) Total Bilirubin 0.3 mg/dL (0.2-1.0) Aspartate Amino Transf (AST/SGOT) 21 U/L (15-37) Alanine Aminotransferase (ALT/SGPT) 14 U/L (14-59) Alkaline Phosphatase 116 U/L (46-116) Total Protein 7.3 g/dL (6.4-8.2) Albumin 2.9 g/dL (3.4-5.0) Albumin/Globulin Ratio 0.7 (1.0-1.7) VTE Prophylaxis Ordered VTE Prophylaxis Devices: Yes VTE Pharmacological Prophylaxi: Yes Assessment/Plan Assessment/Plan headache, with h/o migraine hyperkalemia, missed HD ESRD on HD tts HTN GERD H/O chf, STABLE PAFIB MORbid obesity plan: renal consult, no HD emergency cont home meds brain MRI ptot dvt ppx sumatriptan prn SUN SHER MD Aug 13, 2016 13:52
--- NOTE | 2016-08-13 13:59 | RAD ---
MR of the brain, 08/13/2016: History: Migraine headache, recent fall Imaging was performed in axial, sagittal and coronal planes utilizing a variety of imaging sequences including diffusion weighted, T1-weighted, T2-weighted, FLAIR and T2*gradient echo sequences. The ventricles are within normal limits in size. There is no shift of the midline structures. Several small scattered foci of abnormal signal are identified in the deep white matter bilaterally on the FLAIR sequences. No restricted diffusion is seen in these regions or other areas of the brain. The cerebellum and brainstem are unremarkable. There is a thin extra-axial area of increased signal seen along the surface of the left cerebral hemisphere, best seen on the T1-weighted scans. This is centered in the frontotemporal region. It is also hyperintense on the FLAIR sequence. The appearance suggests a subacute subdural hematoma. It measures approximately 2 mm in greatest thickness. There is no mass effect or midline shift. An area of abnormal signal along the floor of the right maxillary sinus is most likely a retention cyst. The other paranasal sinuses are clear. No free fluid is evident in the sinuses. IMPRESSION: 1. Minimal nonspecific bilateral deep white matter signal abnormalities, likely due to microangiopathy related to the patient's history of migraine headaches, although a demyelinating process cannot be excluded. 2. Probable tiny subacute subdural hematoma centered in the left frontotemporal region.
[2016-08-13] MEDS: HEPARIN PF for SUB-Q USE 5,000 UNIT/0.5 ML VIAL. SQ SCH ×2 (14:32→21:25)
[2016-08-13 15:00] VITALS: BP 130/65
[2016-08-13 19:00] VITALS: BP 102/57
[2016-08-13] MEDS: ATORVASTATIN CALCIUM 10 MG TABLET. PO SCH (21:17)
[2016-08-13] MEDS: LURASIDONE 40 MG TABLET. PO SCH (21:17)
[2016-08-13 23:00] VITALS: BP 94/56
--- NOTE | 2016-08-13 23:57 | PDOC2 ---
CONSULT Date of Consult Date of Consult DATE: 08/13/16 TIME: 15:00 Past Medical History Cardiovascular: AFIB, HTN, Hyperlipidemia Pulmonary: Asthma CENTRAL NERVOUS SYSTEM: CVA, Other Heme/Onc: Anemia NOS, B12 deficiency Psych: Bipolar Musculoskeletal: Osteoarthritis Infectious disease: Other Renal/: Chronic renal failure, Other Endocrine: Hypothyroidism, Hyperparathyroidism, Osteoporosis Past Surgical History Past Surgical History: Cholecystectomy, , Hysterectomy, Other Family History Family History: Heart Disease Social History No ALCOHOL: none Drugs: None Lives: with Family Domestic Violence: Neg Current Medications Current Medications Current Medications Acetaminophen (Tylenol) 1,000 mg PRN Q6HRS PRN PO PAIN Last administered on 08/13 09:04; Start 08/13/16 at 05:30; Stop 08/13/16 at 13:46; Status DC Atorvastatin Calcium (Lipitor) 5 mg QHS PO Last administered on 08/13/16 21:17 ; Start 08/13/16 at 21:00 Calcium Acetate (Phoslo) 2,001 mg TIDWMEALS PO Last administered on 08/13/16 17 :09; Start 08/13/16 at 08:00 Carvedilol (Coreg) 3.125 mg BIDWMEALS PO Last administered on 08/13/16 17:10; Start 08/13/16 at 08:00 Fluticasone Propionate (Flonase) 2 spray PRN DAILY PRN NS ALLERGIES; Start 08/13 at 05:30 Lidocaine (Lidoderm) 1 patch PRN DAILY PRN TP BACK PAIN; Start 08/13/16 at 05:30 Lurasidone HCl (Latuda) 40 mg QHS PO Last administered on 08/13/16 21:17; Start 08/13/16 at 21:00 Moxifloxacin HCl (Vigamox) 1 drop QID OU Last administered on 08/13/16 21:21; Start 08/13/16 at 09:00 Nystatin (Nystop) 1 akil BID TP Last administered on 08/13/16 21:21; Start at 09:00 Ondansetron HCl (Zofran Odt) 4 mg BID PO Last administered on 08/13/16 21:17; Start 08/13/16 at 09:00 Pantoprazole Sodium (Protonix) 40 mg BIDAC PO Last administered on 08/13/16 17: 10; Start 08/13/16 at 07:30 Sennosides (Senna) 17.2 mg BID PO Last administered on 08/13/16 21:19; Start at 09:00 Non-Formulary Medication 2 puff PRN Q8HRS PRN INH WHEEZING; Start 08/13/16 at 05 :30; Status UNV Artificial Tears (Artificial Tears) 1 drop QID OU Last administered on 21:19; Start 08/13/16 at 09:00 Clonazepam (KlonoPIN) 0.5 mg BID PO Last administered on 08/13/16 21:19; Start 08/13/16 at 09:00 Non-Formulary Medication 1 drop PRN Q6HRS PRN OP REDNESS; Start 08/13/16 at 05: 30; Status UNV Gabapentin (Neurontin) 600 mg DAILY PO Last administered on 08/13/16 09:01; Start 08/13/16 at 09:00 Lubiprostone (Amitiza) 24 mcg BID PO Last administered on 08/13/16 21:16; Start 08/13/16 at 09:00 Fish Oil (Fish Oil) 1,000 mg BID PO Last administered on 08/13/16 21:19; Start 08/13/16 at 09:00 Non-Formulary Medication 1 drop QID EACHEYE ; Start 08/13/16 at 09:00; Status UNV Non-Formulary Medication 1 drop QID RIGHTEYE ; Start 08/13/16 at 09:00; Status UNV Venlafaxine HCl (Effexor Xr) 150 mg DAILY PO Last administered on 08/13/16 09: 01; Start 08/13/16 at 09:00 Albuterol Sulfate (Ventolin Neb Soln) 2.5 mg PRN Q8HRS PRN NEB SHORTNESS OF BREATH; Start 08/13/16 at 06:00 Dexamethasone (Maxidex) 1 drop QID OD Last administered on 08/13/16 21:20; Start 08/13/16 at 09:00 Sumatriptan Succinate (Imitrex) 25 mg PRN Q2HR PRN PO MIGRAINE HEADACHE Last administered on 08/13/16 17:09; Start 08/13/16 at 11:30 Acetaminophen (Tylenol) 650 mg PRN Q6HRS PRN PO FEVER; Start 08/13/16 at 13:45 Ondansetron HCl (Zofran) 4 mg PRN Q6HRS PRN IV NAUSEA/VOMITING; Start 08/13/16 at 13:45 Morphine Sulfate 2 mg PRN Q2HR PRN IV PAIN; Start 08/13/16 at 13:45 Tramadol HCl (Ultram) 50 mg PRN Q6HRS PRN PO PAIN; Start 08/13/16 at 13:45 Hydralazine HCl (Apresoline) 10 mg PRN Q4HRS PRN IVP ELEVATED BP, SEE COMMENTS ; Start 08/13/16 at 13:45 Docusate Sodium (Colace) 100 mg PRN DAILY PRN PO CONSTIPATION; Start 08/13/16 at 13:45 Heparin Sodium (Porcine) (Heparin Sq) 5,000 unit Q8HRS SQ Last administered on 08/13/16t 21:25; Start 08/13/16 at 14:00 Active Scripts Active Flector (Diclofenac Epolamine) 1 Each Patch.td12 1 Patch TP DAILY Hydrocodone-Apap 5-325 (Hydrocodone Bit/Acetaminophen) 1 Each Tablet 1 Tab PO PRN Q4HRS PRN Cepacol Sore Throat Lozenge (Benzocaine/Menthol) 1 Each Lozenge 1 Rachelle PO PRN Q2HRS PRN 14 Days Sucralfate 1 Gm/10 Ml Oral.susp 1 Gm PO QIDACHS Midodrine Hcl 5 Mg Tablet 10 Mg PO TIDAC Reported Prednisolone Acetate 5 Ml Drops.susp 1 Drop EACHEYE QID Petrolatum Base Ointment (Mineral Oil/Hydrophil Petrolat) 454 Gm Oint...g. 454 Gm TP Refresh Tears (Carboxymethylcellulose Sodium) 15 Ml Drops 1 Drop OP QID Artificial Tears Eye Drops (Dextran 70/Hypromellose) 15 Ml Drops 1 Drop OP PRN Q6HRS PRN Ventolin Hfa Inhaler (Albuterol Sulfate) 18 Gm Hfa.aer.ad 2 Puff INH PRN Q8HRS PRN Acetaminophen 500 Mg Tablet 1,000 Mg PO PRN Q6HRS PRN Coreg (Carvedilol) 3.125 Mg Tablet 1 Tab PO BID [place]-Senait Rx Tablet (Vit B Cmplx 3/Fa/Vit C/Biotin) 1 Each Tablet 1 Each PO Zofran Odt (Ondansetron) 4 Mg Tab.rapdis 1 Tab SL BID Last dose given yesterday afternoon Take again when needed Vigamox (Moxifloxacin Hcl) 3 Ml Drops 1 Drop RIGHTEYE QID Not given on this admission Start today Effexor Xr (Venlafaxine Hcl) 150 Mg Cap.er.24h 1 Cap PO DAILY Last dose given this morning Take again tomorrow Lidoderm (Lidocaine) 700 Mg Adh..patch 1 Patch TP PRN DAILY PRN Last given on the Use if needed Nystatin 15 Gm Powder 1 Akil TP BID Last dose given this morning Take again tonight Fluticasone Propionate Nasal [place] (Fluticasone Propionate) 16 Gm [place].susp 2 [place] NS PRN DAILY PRN Last given on the Take when needed Lipitor (Atorvastatin Calcium) 10 Mg Tablet 5 Mg PO QHS Last dose given last night Take tonight Senna Laxative (Sennosides) 8.6 Mg Tablet 17.2 Mg PO BID Last dose given this morning Take again tonight Pred Forte (Prednisolone Acetate) 1 Ml Drops.susp 1 Drop RIGHTEYE QID Not given on this admission Start today Protonix (Pantoprazole Sodium) 40 Mg Tablet.dr 40 Mg PO BIDAC Last dose given this morning Take again tonight Amitiza (Lubiprostone) 24 Mcg Capsule 24 Mcg PO BID Gave last dose last night Take again tonight Latuda (Lurasidone Hcl) 40 Mg Tablet 40 Mg PO QHS Last dose given last night Take again tonight Gabapentin 300 Mg Capsule 600 Mg PO DAILY Gave this morning Take again tomorrow morning Fish Oil [place]-3 Softgel ([place]-3/Dha/Epa/Fish Oil) 1 Each Capsule. 1 Cap PO BID Not given on this admission Start today Clonazepam Odt (Clonazepam) 0.5 Mg Tab.rapdis 0.5 Mg PO BID Gave dose this am Take again tonight Calcium Acetate 667 Mg Capsule 2,001 Mg PO TIDWMEALS Take with meals Last dose yesterday Allergies Allergies: Coded Allergies: Fish Containing Products (Verified Allergy, Intermediate, 12/04/15) SEAFOOD Iodinated Contrast- Oral and IV Dye (Verified Allergy, Intermediate, 12/03) NSAIDS (Non-Steroidal Anti-Inflamma (Verified Allergy, Intermediate, TAKES ASA AT HOME, 12/04/15) caffeine (Verified Allergy, Intermediate, 12/04/15) ibuprofen (Verified Allergy, Intermediate, 12/04/15) shellfish derived (Verified Allergy, Intermediate, 12/04/15) SEAFOOD I S O L A T I O N *CONTACT* (Verified Allergy, Unknown, 12/04/15) hx mrsa + screen and + VRE/CRE in urine. Vitals VITALS Vital Signs Date Time Temp Pulse Resp B/P (MAP) Pulse Ox O2 Delivery O2 Flow Rate FiO2 08/13/16 23:00 98.2 74 16 94/56 (69) 94 Room Air 98.2 Labs Labs Laboratory Tests Test 08/13/16 06:55 White Blood Count 6.1 x10^3/uL (4.0-11.0) Red Blood Count 3.60 x10^6/uL (3.50-5.40) Hemoglobin 11.2 g/dL (12.0-15.5) Hematocrit 35.0 % (36.0-47.0) Mean Corpuscular Volume 97 fL (79-100) Mean Corpuscular Hemoglobin 31 pg (25-35) Mean Corpuscular Hemoglobin Concent 32 g/dL (31-37) Red Cell Distribution Width 14.4 % (11.5-14.5) Platelet Count 165 x10^3/uL (140-400) Neutrophils (%) (Auto) 86 % (31-73) Lymphocytes (%) (Auto) 11 % (24-48) Monocytes (%) (Auto) 2 % (0-9) Eosinophils (%) (Auto) 0 % (0-3) Basophils (%) (Auto) 0 % (0-3) Neutrophils # (Auto) 5.3 x10^3uL (1.8-7.7) Lymphocytes # (Auto) 0.7 x10^3/uL (1.0-4.8) Monocytes # (Auto) 0.1 x10^3/uL (0.0-1.1) Eosinophils # (Auto) 0.0 x10^3/uL (0.0-0.7) Basophils # (Auto) 0.0 x10^3/uL (0.0-0.2) Segmented Neutrophils % 85 % (35-66) Band Neutrophils % 1 % (0-9) Lymphocytes % 13 % (24-48) Monocytes % 1 % (0-10) Platelet Estimate Adequate (ADEQUATE) Polychromasia Slight Ovalocytes Few Sodium Level 139 mmol/L (136-145) Potassium Level 5.1 mmol/L (3.5-5.1) Chloride Level 100 mmol/L (98-107) Carbon Dioxide Level 26 mmol/L (21-32) Anion Gap 13 (6-14) Blood Urea Nitrogen 64 mg/dL (7-20) Creatinine 9.1 mg/dL (0.6-1.0) Estimated GFR (Cockcroft-Gault) 5.5 BUN/Creatinine Ratio 7 (6-20) Glucose Level 150 mg/dL (70-99) Calcium Level 9.2 mg/dL (8.5-10.1) Magnesium Level 2.3 mg/dL (1.8-2.4) Total Bilirubin 0.3 mg/dL (0.2-1.0) Aspartate Amino Transf (AST/SGOT) 21 U/L (15-37) Alanine Aminotransferase (ALT/SGPT) 14 U/L (14-59) Alkaline Phosphatase 116 U/L (46-116) Total Protein 7.3 g/dL (6.4-8.2) Albumin 2.9 g/dL (3.4-5.0) Albumin/Globulin Ratio 0.7 (1.0-1.7) Laboratory Tests Test 08/13/16 06:55 White Blood Count 6.1 x10^3/uL (4.0-11.0) Red Blood Count 3.60 x10^6/uL (3.50-5.40) Hemoglobin 11.2 g/dL (12.0-15.5) Hematocrit 35.0 % (36.0-47.0) Mean Corpuscular Volume 97 fL (79-100) Mean Corpuscular Hemoglobin 31 pg (25-35) Mean Corpuscular Hemoglobin Concent 32 g/dL (31-37) Red Cell Distribution Width 14.4 % (11.5-14.5) Platelet Count 165 x10^3/uL (140-400) Neutrophils (%) (Auto) 86 % (31-73) Lymphocytes (%) (Auto) 11 % (24-48) Monocytes (%) (Auto) 2 % (0-9) Eosinophils (%) (Auto) 0 % (0-3) Basophils (%) (Auto) 0 % (0-3) Neutrophils # (Auto) 5.3 x10^3uL (1.8-7.7) Lymphocytes # (Auto) 0.7 x10^3/uL (1.0-4.8) Monocytes # (Auto) 0.1 x10^3/uL (0.0-1.1) Eosinophils # (Auto) 0.0 x10^3/uL (0.0-0.7) Basophils # (Auto) 0.0 x10^3/uL (0.0-0.2) Segmented Neutrophils % 85 % (35-66) Band Neutrophils % 1 % (0-9) Lymphocytes % 13 % (24-48) Monocytes % 1 % (0-10) Platelet Estimate Adequate (ADEQUATE) Polychromasia Slight Ovalocytes Few Sodium Level 139 mmol/L (136-145) Potassium Level 5.1 mmol/L (3.5-5.1) Chloride Level 100 mmol/L (98-107) Carbon Dioxide Level 26 mmol/L (21-32) Anion Gap 13 (6-14) Blood Urea Nitrogen 64 mg/dL (7-20) Creatinine 9.1 mg/dL (0.6-1.0) Estimated GFR (Cockcroft-Gault) 5.5 BUN/Creatinine Ratio 7 (6-20) Glucose Level 150 mg/dL (70-99) Calcium Level 9.2 mg/dL (8.5-10.1) Magnesium Level 2.3 mg/dL (1.8-2.4) Total Bilirubin 0.3 mg/dL (0.2-1.0) Aspartate Amino Transf (AST/SGOT) 21 U/L (15-37) Alanine Aminotransferase (ALT/SGPT) 14 U/L (14-59) Alkaline Phosphatase 116 U/L (46-116) Total Protein 7.3 g/dL (6.4-8.2) Albumin 2.9 g/dL (3.4-5.0) Albumin/Globulin Ratio 0.7 (1.0-1.7) Assessment/Plan Assessment/Plan RENAL CONSULT // HAIDERI ESRD HTN WEAKNESSANEMIA Missed HD yesterday HD in am Put on schedule Labs CPM GYPSY TOLBERT MD Aug 13, 2016 23:57
[2016-08-14 03:00] VITALS: BP 108/65
--- NOTE | 2016-08-14 05:52 | ACF ---
Admission Forms Criteria RENAL FAILURE, CHRONIC Clinical Indications for Admission to Inpatient Care (Place 'X' for any and all applicable criteria): Admission is indicated for ANY ONE of the following (1)(2)(3)(4)(5): [X]I. Inpatient admission required rather than observation care (Use Renal Failure, Chronic: Observation Care Criteria as appropriate) because of ANY ONE of the following: [ ]a) Volume overload or uremic symptoms (eg, clinically significant pulmonary edema, hypertension, pericarditis, acidosis) too severe for, or not responsive (eg, for over 24 hours) to emergency department or observation care dialysis or treatment regimen (11) [ ]b) Hemodynamic instability that is severe or persistent [ ]c) Respiratory distress that is severe or persistent (11) [ ]d) Clinically significant electrolyte abnormality that requires inpatient care (eg,hyperkalemia with severe ECG findings)[B] [ ]e) Supplement O2 or respiratory therapy for over 24hrs that is performable only in acute inpatient setting [ ]f) Continuous IV infusion of anticoagulation, platelet inhibitor, vasoactive, or Antiarrhythmic medication (15), [ ]g) Pulmonary artery catheter monitoring [ ]h) Temporary pacemaker placement [ ]i) Emergent pericardiocentesis [X]j) Other condition, treatment or monitoring requiring inpatient admission [ ]II. Unexplained syncope [A] [ ]III. Recurrent seizures [ ]IV. Severe infections not treatable in outpatient setting (eg, peritonitis)(9 ) [ ]V. Cardiac arrhythmias of immediate concern [ ]. Encephalopathy [ ]VII.Bleeding abnormalities (eg, platelet dysfunction) with active (eg, gastrointestinal) bleeding Extended stay beyond goal length of stay may be needed for (3)(4)(35)(36): [ ]a) Continuing uremic complications [ ]b) Comorbidities or complications The original [facility] content created by [employer] has been revised. The portions of the content which have been revised are identified through the use of italic text or in bold, and [facility] [employer] has neither reviewed nor approved the modified material. All other unmodified content is copyright [facility]. Please see references footnoted in the original [facility] edition 2016 Admission Criteria Met?: Yes CHAD CHAVARRIA Aug 14, 2016 05:52
[2016-08-14] MEDS: HEPARIN PF for SUB-Q USE 5,000 UNIT/0.5 ML VIAL. SQ SCH ×3 (06:06→21:19)
[2016-08-14] MEDS: traMADol 50 MG TABLET PO PRN (06:25)
[2016-08-14 07:00] VITALS: BP 133/86
[2016-08-14] MEDS: CARVEDILOL 3.125 MG TABLET. PO SCH ×2 (08:00→18:11)
[2016-08-14] MEDS ORDERED: IV NORMAL SALINE 1000ML BAG 1,000 ML IV PRN ×2 (08:05)
[2016-08-14] MEDS ORDERED: diphenhydrAMINE 50 MG/ML VIAL IV PRN ×2 (08:15)
[2016-08-14] MEDS ORDERED: DIALYSIS PATIENT. MC PRN ×2 (08:15)
--- NOTE | 2016-08-14 08:17 | RAD ---
Indication follow-up subdural hematoma. Headache. Noncontrast images of the head were obtained. Comparison is made to an examination 07/22/2016. The calvarium appears unremarkable. The visualized paranasal sinuses appear normal. The very tiny left-sided subdural hematoma, referenced on the MRI examination yesterday, is not well represented on CT. No acute finding is seen. There is no mass or midline shift. IMPRESSION: No acute intracranial finding seen PQRS Compliance Statement: One or more of the following individualized dose reduction techniques were utilized for this examination: 1. Automated exposure control 2. Adjustment of the mA and/or kV according to patient size 3. Use of iterative reconstruction technique
[2016-08-14] MEDS: ONDANSETRON ODT 4 MG TAB.RAPDIS. PO SCH ×2 (08:57→21:00)
[2016-08-14] MEDS: LUBIPROSTONE 8 MCG CAPSULE PO SCH ×2 (08:58→21:09)
[2016-08-14] MEDS: PANTOPRAZOLE 40 MG TABLET.DR. PO SCH ×2 (08:58→18:08)
[2016-08-14] MEDS: CALCIUM ACETATE 667 MG CAPSULE PO SCH ×3 (08:58→18:08)
[2016-08-14] MEDS: OMEGA-3 FATTY ACIDS/FISH OIL 1,000 MG CAPSULE. PO SCH ×2 (08:58→21:10)
[2016-08-14] MEDS: clonazePAM 0.5 MG TABLET PO SCH ×2 (08:58→21:10)
[2016-08-14] MEDS: DEXAMETHASONE 0.1% OPHTH SOLUTION 5ML BOTTLE. OD SCH ×4 (09:00→21:11)
[2016-08-14] MEDS: POLYVINYL ALCOHOL 1.4% OPHTH SOLUTION 15ML BOTTLE. OU SCH ×4 (09:00→21:00)
[2016-08-14] MEDS: MOXIFLOXACIN 0.5% OPHTH SOLUTION 3ML BOTTLE. OU SCH ×4 (09:00→21:13)
[2016-08-14 09:33] LABS: BASO % 1 % (0-3); EOS % 2 % (0-3); HEMATOCRIT 30.2 % (36.0-47.0); HEMOGLOBIN 10.1 g/dL (12.0-15.5); LYMPH # 1.7 x10^3/uL (1.0-4.8); LYMPH % 28 % (24-48); MEAN CORPUSCULAR HEMOGLOBIN 32 pg (25-35); MEAN CORPUSCULAR HGB CONC 34 g/dL (31-37); MEAN CORPUSCULAR VOLUME 94 fL (79-100); MONO % 7 % (0-9); NEUT % 63 % (31-73); PLATELET COUNT 143 x10^3/uL (140-400); RED CELL DISTRIBUTION WIDTH 14.3 % (11.5-14.5)
[2016-08-14 09:42] LABS: CALCIUM 8.5 mg/dL (8.5-10.1); CREATININE 10.3 mg/dL (0.6-1.0); GFR 4.8
--- NOTE | 2016-08-14 11:11 | PDOC ---
PROGRESS NOTES Chief Complaint Chief Complaint headache, with h/o migraine hyperkalemia, missed HD ESRD on HD tts HTN GERD H/O chf, STABLE PAFIB MORbid obesity POSSible intracranial hemarrhage as per pt post fall recently, neg HEAD CT plan: renal consult, no HD emergency. HD today and tmr cont home meds brain MRI showed a possible small SDH, but neg on CT. got dr. alfaro consult ptot dvt ppx sumatriptan prn, fioricet prn dc tmr History of Present Illness History of Present Illness still headache, no neurologic deficit Vitals Vitals Vital Signs Date Time Temp Pulse Resp B/P (MAP) Pulse Ox O2 Delivery O2 Flow Rate FiO2 08/14/16 08:51 Room Air 08/14/16 07:00 97.7 77 18 133/86 (102) 100 97.7 Physical Exam General: Alert, Oriented X3, Cooperative Heart: Regular rate, Normal S1, Normal S2 Lungs: Clear Abdomen: Normal bowel sounds, Soft Extremities: No clubbing, No cyanosis Skin: No rashes Labs LABS Laboratory Tests Test 08/14/16 09:15 White Blood Count 6.0 x10^3/uL (4.0-11.0) Red Blood Count 3.20 x10^6/uL (3.50-5.40) Hemoglobin 10.1 g/dL (12.0-15.5) Hematocrit 30.2 % (36.0-47.0) Mean Corpuscular Volume 94 fL (79-100) Mean Corpuscular Hemoglobin 32 pg (25-35) Mean Corpuscular Hemoglobin Concent 34 g/dL (31-37) Red Cell Distribution Width 14.3 % (11.5-14.5) Platelet Count 143 x10^3/uL (140-400) Neutrophils (%) (Auto) 63 % (31-73) Lymphocytes (%) (Auto) 28 % (24-48) Monocytes (%) (Auto) 7 % (0-9) Eosinophils (%) (Auto) 2 % (0-3) Basophils (%) (Auto) 1 % (0-3) Neutrophils # (Auto) 3.8 x10^3uL (1.8-7.7) Lymphocytes # (Auto) 1.7 x10^3/uL (1.0-4.8) Monocytes # (Auto) 0.4 x10^3/uL (0.0-1.1) Eosinophils # (Auto) 0.1 x10^3/uL (0.0-0.7) Basophils # (Auto) 0.0 x10^3/uL (0.0-0.2) Sodium Level 139 mmol/L (136-145) Potassium Level 5.0 mmol/L (3.5-5.1) Chloride Level 101 mmol/L (98-107) Carbon Dioxide Level 24 mmol/L (21-32) Anion Gap 14 (6-14) Blood Urea Nitrogen 78 mg/dL (7-20) Creatinine 10.3 mg/dL (0.6-1.0) Estimated GFR (Cockcroft-Gault) 4.8 Glucose Level 93 mg/dL (70-99) Calcium Level 8.5 mg/dL (8.5-10.1) Review of Systems Review of Systems no fever, chills, sob or chest pain Comment Review of Relevant I have reviewed the following items dane (where applicable) has been applied. Labs Laboratory Tests Test 08/13/16 06:55 08/14/16 09:15 White Blood Count 6.1 x10^3/uL (4.0-11.0) 6.0 x10^3/uL (4.0-11.0) Red Blood Count 3.60 x10^6/uL (3.50-5.40) 3.20 x10^6/uL (3.50-5.40) Hemoglobin 11.2 g/dL (12.0-15.5) 10.1 g/dL (12.0-15.5) Hematocrit 35.0 % (36.0-47.0) 30.2 % (36.0-47.0) Mean Corpuscular Volume 97 fL (79-100) 94 fL (79-100) Mean Corpuscular Hemoglobin 31 pg (25-35) 32 pg (25-35) Mean Corpuscular Hemoglobin Concent 32 g/dL (31-37) 34 g/dL (31-37) Red Cell Distribution Width 14.4 % (11.5-14.5) 14.3 % (11.5-14.5) Platelet Count 165 x10^3/uL (140-400) 143 x10^3/uL (140-400) Neutrophils (%) (Auto) 86 % (31-73) 63 % (31-73) Lymphocytes (%) (Auto) 11 % (24-48) 28 % (24-48) Monocytes (%) (Auto) 2 % (0-9) 7 % (0-9) Eosinophils (%) (Auto) 0 % (0-3) 2 % (0-3) Basophils (%) (Auto) 0 % (0-3) 1 % (0-3) Neutrophils # (Auto) 5.3 x10^3uL (1.8-7.7) 3.8 x10^3uL (1.8-7.7) Lymphocytes # (Auto) 0.7 x10^3/uL (1.0-4.8) 1.7 x10^3/uL (1.0-4.8) Monocytes # (Auto) 0.1 x10^3/uL (0.0-1.1) 0.4 x10^3/uL (0.0-1.1) Eosinophils # (Auto) 0.0 x10^3/uL (0.0-0.7) 0.1 x10^3/uL (0.0-0.7) Basophils # (Auto) 0.0 x10^3/uL (0.0-0.2) 0.0 x10^3/uL (0.0-0.2) Segmented Neutrophils % 85 % (35-66) Band Neutrophils % 1 % (0-9) Lymphocytes % 13 % (24-48) Monocytes % 1 % (0-10) Platelet Estimate Adequate (ADEQUATE) Polychromasia Slight Ovalocytes Few Sodium Level 139 mmol/L (136-145) 139 mmol/L (136-145) Potassium Level 5.1 mmol/L (3.5-5.1) 5.0 mmol/L (3.5-5.1) Chloride Level 100 mmol/L (98-107) 101 mmol/L (98-107) Carbon Dioxide Level 26 mmol/L (21-32) 24 mmol/L (21-32) Anion Gap 13 (6-14) 14 (6-14) Blood Urea Nitrogen 64 mg/dL (7-20) 78 mg/dL (7-20) Creatinine 9.1 mg/dL (0.6-1.0) 10.3 mg/dL (0.6-1.0) Estimated GFR (Cockcroft-Gault) 5.5 4.8 BUN/Creatinine Ratio 7 (6-20) Glucose Level 150 mg/dL (70-99) 93 mg/dL (70-99) Calcium Level 9.2 mg/dL (8.5-10.1) 8.5 mg/dL (8.5-10.1) Magnesium Level 2.3 mg/dL (1.8-2.4) Total Bilirubin 0.3 mg/dL (0.2-1.0) Aspartate Amino Transf (AST/SGOT) 21 U/L (15-37) Alanine Aminotransferase (ALT/SGPT) 14 U/L (14-59) Alkaline Phosphatase 116 U/L (46-116) Total Protein 7.3 g/dL (6.4-8.2) Albumin 2.9 g/dL (3.4-5.0) Albumin/Globulin Ratio 0.7 (1.0-1.7) Laboratory Tests Test 08/14/16 09:15 White Blood Count 6.0 x10^3/uL (4.0-11.0) Red Blood Count 3.20 x10^6/uL (3.50-5.40) Hemoglobin 10.1 g/dL (12.0-15.5) Hematocrit 30.2 % (36.0-47.0) Mean Corpuscular Volume 94 fL (79-100) Mean Corpuscular Hemoglobin 32 pg (25-35) Mean Corpuscular Hemoglobin Concent 34 g/dL (31-37) Red Cell Distribution Width 14.3 % (11.5-14.5) Platelet Count 143 x10^3/uL (140-400) Neutrophils (%) (Auto) 63 % (31-73) Lymphocytes (%) (Auto) 28 % (24-48) Monocytes (%) (Auto) 7 % (0-9) Eosinophils (%) (Auto) 2 % (0-3) Basophils (%) (Auto) 1 % (0-3) Neutrophils # (Auto) 3.8 x10^3uL (1.8-7.7) Lymphocytes # (Auto) 1.7 x10^3/uL (1.0-4.8) Monocytes # (Auto) 0.4 x10^3/uL (0.0-1.1) Eosinophils # (Auto) 0.1 x10^3/uL (0.0-0.7) Basophils # (Auto) 0.0 x10^3/uL (0.0-0.2) Sodium Level 139 mmol/L (136-145) Potassium Level 5.0 mmol/L (3.5-5.1) Chloride Level 101 mmol/L (98-107) Carbon Dioxide Level 24 mmol/L (21-32) Anion Gap 14 (6-14) Blood Urea Nitrogen 78 mg/dL (7-20) Creatinine 10.3 mg/dL (0.6-1.0) Estimated GFR (Cockcroft-Gault) 4.8 Glucose Level 93 mg/dL (70-99) Calcium Level 8.5 mg/dL (8.5-10.1) Medications Current Medications Acetaminophen (Tylenol) 1,000 mg PRN Q6HRS PRN PO PAIN Last administered on 08/13 09:04; Start 08/13/16 at 05:30; Stop 08/13/16 at 13:46; Status DC Atorvastatin Calcium (Lipitor) 5 mg QHS PO Last administered on 08/13/16 21:17 ; Start 08/13/16 at 21:00 Calcium Acetate (Phoslo) 2,001 mg TIDWMEALS PO Last administered on 08/14/16 08 :58; Start 08/13/16 at 08:00 Carvedilol (Coreg) 3.125 mg BIDWMEALS PO Last administered on 08/13/16 17:10; Start 08/13/16 at 08:00 Fluticasone Propionate (Flonase) 2 spray PRN DAILY PRN NS ALLERGIES; Start 08/13 at 05:30 Lidocaine (Lidoderm) 1 patch PRN DAILY PRN TP BACK PAIN Last administered on 06:27; Start 08/13/16 at 05:30 Lurasidone HCl (Latuda) 40 mg QHS PO Last administered on 08/13/16 21:17; Start 08/13/16 at 21:00 Moxifloxacin HCl (Vigamox) 1 drop QID OU Last administered on 08/13/16 21:21; Start 08/13/16 at 09:00 Nystatin (Nystop) 1 akil BID TP Last administered on 08/13/16 21:21; Start at 09:00 Ondansetron HCl (Zofran Odt) 4 mg BID PO Last administered on 08/14/16 08:57; Start 08/13/16 at 09:00 Pantoprazole Sodium (Protonix) 40 mg BIDAC PO Last administered on 08/14/16 08: 58; Start 08/13/16 at 07:30 Sennosides (Senna) 17.2 mg BID PO Last administered on 08/13/16 21:19; Start at 09:00 Non-Formulary Medication 2 puff PRN Q8HRS PRN INH WHEEZING; Start 08/13/16 at 05 :30; Status UNV Artificial Tears (Artificial Tears) 1 drop QID OU Last administered on 21:19; Start 08/13/16 at 09:00 Clonazepam (KlonoPIN) 0.5 mg BID PO Last administered on 08/14/16 08:58; Start 08/13/16 at 09:00 Non-Formulary Medication 1 drop PRN Q6HRS PRN OP REDNESS; Start 08/13/16 at 05: 30; Status UNV Gabapentin (Neurontin) 600 mg DAILY PO Last administered on 08/13/16 09:01; Start 08/13/16 at 09:00 Lubiprostone (Amitiza) 24 mcg BID PO Last administered on 08/14/16 08:58; Start 08/13/16 at 09:00 Fish Oil (Fish Oil) 1,000 mg BID PO Last administered on 08/14/16 08:58; Start 08/13/16 at 09:00 Non-Formulary Medication 1 drop QID EACHEYE ; Start 08/13/16 at 09:00; Status UNV Non-Formulary Medication 1 drop QID RIGHTEYE ; Start 08/13/16 at 09:00; Status UNV Venlafaxine HCl (Effexor Xr) 150 mg DAILY PO Last administered on 08/13/16 09: 01; Start 08/13/16 at 09:00 Albuterol Sulfate (Ventolin Neb Soln) 2.5 mg PRN Q8HRS PRN NEB SHORTNESS OF BREATH; Start 08/13/16 at 06:00 Dexamethasone (Maxidex) 1 drop QID OD Last administered on 08/13/16 21:20; Start 08/13/16 at 09:00 Sumatriptan Succinate (Imitrex) 25 mg PRN Q2HR PRN PO MIGRAINE HEADACHE Last administered on 08/13/16 17:09; Start 08/13/16 at 11:30 Acetaminophen (Tylenol) 650 mg PRN Q6HRS PRN PO FEVER; Start 08/13/16 at 13:45 Ondansetron HCl (Zofran) 4 mg PRN Q6HRS PRN IV NAUSEA/VOMITING; Start 08/13/16 at 13:45 Morphine Sulfate 2 mg PRN Q2HR PRN IV PAIN Last administered on 08/14/16 08:51 ; Start 08/13/16 at 13:45 Tramadol HCl (Ultram) 50 mg PRN Q6HRS PRN PO PAIN Last administered on 06:25; Start 08/13/16 at 13:45 Hydralazine HCl (Apresoline) 10 mg PRN Q4HRS PRN IVP ELEVATED BP, SEE COMMENTS ; Start 08/13/16 at 13:45 Docusate Sodium (Colace) 100 mg PRN DAILY PRN PO CONSTIPATION; Start 08/13/16 at 13:45 Heparin Sodium (Porcine) (Heparin Sq) 5,000 unit Q8HRS SQ Last administered on 08/14/16 06:06; Start 08/13/16 at 14:00 Sodium Chloride 1,000 ml @ 1,000 mls/hr Q1H PRN IV hypotension; Start 08/14/16 at 08:05; Stop 08/14/16 at 14:04 Diphenhydramine HCl (Benadryl) 25 mg 1X PRN PRN IV ITCHING; Start 08/14/16 at 08 :15; Stop 08/15/16 at 08:14 Diphenhydramine HCl (Benadryl) 25 mg 1X PRN PRN IV ITCHING; Start 08/14/16 at 08 :15; Stop 08/15/16 at 08:14 Sodium Chloride 1,000 ml @ 400 mls/hr Q2H30M PRN IV PATENCY; Start 08/14/16 at 08:05; Stop 08/14/16 at 20:04 Info (PHARMACY MONITORING -- do not chart) 1 each PRN DAILY PRN MC SEE COMMENTS ; Start 08/14/16 at 08:15; Status UNV Info (PHARMACY MONITORING -- do not chart) 1 each PRN DAILY PRN MC SEE COMMENTS ; Start 08/14/16 at 08:15 Acetaminophen/ Butalbital/ Caffeine (Fioricet) 1 tab PRN Q6HRS PRN PO MIGRAINE HEADACHE; Start 08/14/16 at 09:30 Active Scripts Active Flector (Diclofenac Epolamine) 1 Each Patch.td12 1 Patch TP DAILY Hydrocodone-Apap 5-325 (Hydrocodone Bit/Acetaminophen) 1 Each Tablet 1 Tab PO PRN Q4HRS PRN Cepacol Sore Throat Lozenge (Benzocaine/Menthol) 1 Each Lozenge 1 Rachelle PO PRN Q2HRS PRN 14 Days Sucralfate 1 Gm/10 Ml Oral.susp 1 Gm PO QIDACHS Midodrine Hcl 5 Mg Tablet 10 Mg PO TIDAC Reported Prednisolone Acetate 5 Ml Drops.susp 1 Drop EACHEYE QID Petrolatum Base Ointment (Mineral Oil/Hydrophil Petrolat) 454 Gm Oint...g. 454 Gm TP Refresh Tears (Carboxymethylcellulose Sodium) 15 Ml Drops 1 Drop OP QID Artificial Tears Eye Drops (Dextran 70/Hypromellose) 15 Ml Drops 1 Drop OP PRN Q6HRS PRN Ventolin Hfa Inhaler (Albuterol Sulfate) 18 Gm Hfa.aer.ad 2 Puff INH PRN Q8HRS PRN Acetaminophen 500 Mg Tablet 1,000 Mg PO PRN Q6HRS PRN Coreg (Carvedilol) 3.125 Mg Tablet 1 Tab PO BID [place]-Senait Rx Tablet (Vit B Cmplx 3/Fa/Vit C/Biotin) 1 Each Tablet 1 Each PO Zofran Odt (Ondansetron) 4 Mg Tab.rapdis 1 Tab SL BID Last dose given yesterday afternoon Take again when needed Vigamox (Moxifloxacin Hcl) 3 Ml Drops 1 Drop RIGHTEYE QID Not given on this admission Start today Effexor Xr (Venlafaxine Hcl) 150 Mg Cap.er.24h 1 Cap PO DAILY Last dose given this morning Take again tomorrow Lidoderm (Lidocaine) 700 Mg Adh..patch 1 Patch TP PRN DAILY PRN Last given on the Use if needed Nystatin 15 Gm Powder 1 Akil TP BID Last dose given this morning Take again tonight Fluticasone Propionate Nasal [place] (Fluticasone Propionate) 16 Gm [place].susp 2 [place] NS PRN DAILY PRN Last given on the Take when needed Lipitor (Atorvastatin Calcium) 10 Mg Tablet 5 Mg PO QHS Last dose given last night Take tonight Senna Laxative (Sennosides) 8.6 Mg Tablet 17.2 Mg PO BID Last dose given this morning Take again tonight Pred Forte (Prednisolone Acetate) 1 Ml Drops.susp 1 Drop RIGHTEYE QID Not given on this admission Start today Protonix (Pantoprazole Sodium) 40 Mg Tablet.dr 40 Mg PO BIDAC Last dose given this morning Take again tonight Amitiza (Lubiprostone) 24 Mcg Capsule 24 Mcg PO BID Gave last dose last night Take again tonight Latuda (Lurasidone Hcl) 40 Mg Tablet 40 Mg PO QHS Last dose given last night Take again tonight Gabapentin 300 Mg Capsule 600 Mg PO DAILY Gave this morning Take again tomorrow morning Fish Oil Roy-3 Softgel (Roy-3/Dha/Epa/Fish Oil) 1 Each Capsule.dr 1 Cap PO BID Not given on this admission Start today Clonazepam Odt (Clonazepam) 0.5 Mg Tab.rapdis 0.5 Mg PO BID Gave dose this am Take again tonight Calcium Acetate 667 Mg Capsule 2,001 Mg PO TIDWMEALS Take with meals Last dose yesterday Vitals/I & O Vital Sign - Last 24 Hours 08/13/16 08/13/16 08/13/16 08/13/16 15:00 17:10 19:00 21:25 Temp 97.9 97.9 97.9 97.9 Pulse 82 82 63 Resp 20 16 B/P (MAP) 130/65 (86) 130/65 102/57 (72) Pulse Ox 94 95 O2 Delivery Room Air Room Air Room Air 08/13/16 08/14/16 08/14/16 08/14/16 23:00 03:00 06:25 07:00 Temp 98.2 97.9 97.7 98.2 97.9 97.7 Pulse 74 74 77 Resp 16 16 20 18 B/P (MAP) 94/56 (69) 108/65 (79) 133/86 (102) Pulse Ox 94 97 100 O2 Delivery Room Air Room Air Room Air Room Air 08/14/16 08:51 O2 Delivery Room Air Intake and Output 08/13/16 08/13/16 08/14/16 15:00 23:00 07:00 Intake Total 600 ml 820 ml 500 ml Balance 600 ml 820 ml 500 ml SUN SHER MD Aug 14, 2016 11:11
--- NOTE | 2016-08-14 12:21 | PDOC2 ---
CONSULT Date of Consult Date of Consult DATE: 08/14/16 TIME: 12:18 Reason for Consult Reason for Consult: possible SDH Past Medical History Cardiovascular: AFIB, HTN, Hyperlipidemia Pulmonary: Asthma CENTRAL NERVOUS SYSTEM: CVA, Other Heme/Onc: Anemia NOS, B12 deficiency Psych: Bipolar Musculoskeletal: Osteoarthritis Infectious disease: Other Renal/: Chronic renal failure, Other Endocrine: Hypothyroidism, Hyperparathyroidism, Osteoporosis Past Surgical History Past Surgical History: Cholecystectomy, , Hysterectomy, Other Family History Family History: Heart Disease Social History No ALCOHOL: none Drugs: None Lives: with Family Domestic Violence: Neg Current Medications Current Medications Current Medications Acetaminophen (Tylenol) 1,000 mg PRN Q6HRS PRN PO PAIN Last administered on 08/13 09:04; Start 08/13/16 at 05:30; Stop 08/13/16 at 13:46; Status DC Atorvastatin Calcium (Lipitor) 5 mg QHS PO Last administered on 08/13/16 21:17 ; Start 08/13/16 at 21:00 Calcium Acetate (Phoslo) 2,001 mg TIDWMEALS PO Last administered on 08/14/16 08 :58; Start 08/13/16 at 08:00 Carvedilol (Coreg) 3.125 mg BIDWMEALS PO Last administered on 08/13/16 17:10; Start 08/13/16 at 08:00 Fluticasone Propionate (Flonase) 2 spray PRN DAILY PRN NS ALLERGIES; Start 08/13 at 05:30 Lidocaine (Lidoderm) 1 patch PRN DAILY PRN TP BACK PAIN Last administered on 06:27; Start 08/13/16 at 05:30 Lurasidone HCl (Latuda) 40 mg QHS PO Last administered on 08/13/16 21:17; Start 08/13/16 at 21:00 Moxifloxacin HCl (Vigamox) 1 drop QID OU Last administered on 08/13/16 21:21; Start 08/13/16 at 09:00 Nystatin (Nystop) 1 akil BID TP Last administered on 08/13/16 21:21; Start at 09:00 Ondansetron HCl (Zofran Odt) 4 mg BID PO Last administered on 08/14/16 08:57; Start 08/13/16 at 09:00 Pantoprazole Sodium (Protonix) 40 mg BIDAC PO Last administered on 08/14/16 08: 58; Start 08/13/16 at 07:30 Sennosides (Senna) 17.2 mg BID PO Last administered on 08/13/16 21:19; Start at 09:00 Non-Formulary Medication 2 puff PRN Q8HRS PRN INH WHEEZING; Start 08/13/16 at 05 :30; Status UNV Artificial Tears (Artificial Tears) 1 drop QID OU Last administered on 21:19; Start 08/13/16 at 09:00 Clonazepam (KlonoPIN) 0.5 mg BID PO Last administered on 08/14/16 08:58; Start 08/13/16 at 09:00 Non-Formulary Medication 1 drop PRN Q6HRS PRN OP REDNESS; Start 08/13/16 at 05: 30; Status UNV Gabapentin (Neurontin) 600 mg DAILY PO Last administered on 08/13/16 09:01; Start 08/13/16 at 09:00 Lubiprostone (Amitiza) 24 mcg BID PO Last administered on 08/14/16 08:58; Start 08/13/16 at 09:00 Fish Oil (Fish Oil) 1,000 mg BID PO Last administered on 08/14/16 08:58; Start 08/13/16 at 09:00 Non-Formulary Medication 1 drop QID EACHEYE ; Start 08/13/16 at 09:00; Status UNV Non-Formulary Medication 1 drop QID RIGHTEYE ; Start 08/13/16 at 09:00; Status UNV Venlafaxine HCl (Effexor Xr) 150 mg DAILY PO Last administered on 08/13/16 09: 01; Start 08/13/16 at 09:00 Albuterol Sulfate (Ventolin Neb Soln) 2.5 mg PRN Q8HRS PRN NEB SHORTNESS OF BREATH; Start 08/13/16 at 06:00 Dexamethasone (Maxidex) 1 drop QID OD Last administered on 08/13/16 21:20; Start 08/13/16 at 09:00 Sumatriptan Succinate (Imitrex) 25 mg PRN Q2HR PRN PO MIGRAINE HEADACHE Last administered on 08/13/16 17:09; Start 08/13/16 at 11:30 Acetaminophen (Tylenol) 650 mg PRN Q6HRS PRN PO FEVER; Start 08/13/16 at 13:45 Ondansetron HCl (Zofran) 4 mg PRN Q6HRS PRN IV NAUSEA/VOMITING; Start 08/13/16 at 13:45 Morphine Sulfate 2 mg PRN Q2HR PRN IV PAIN Last administered on 08/14/16 08:51 ; Start 08/13/16 at 13:45 Tramadol HCl (Ultram) 50 mg PRN Q6HRS PRN PO PAIN Last administered on 06:25; Start 08/13/16 at 13:45 Hydralazine HCl (Apresoline) 10 mg PRN Q4HRS PRN IVP ELEVATED BP, SEE COMMENTS ; Start 08/13/16 at 13:45 Docusate Sodium (Colace) 100 mg PRN DAILY PRN PO CONSTIPATION; Start 08/13/16 at 13:45 Heparin Sodium (Porcine) (Heparin Sq) 5,000 unit Q8HRS SQ Last administered on 08/14/16 06:06; Start 08/13/16 at 14:00 Sodium Chloride 1,000 ml @ 1,000 mls/hr Q1H PRN IV hypotension; Start 08/14/16 at 08:05; Stop 08/14/16 at 14:04 Diphenhydramine HCl (Benadryl) 25 mg 1X PRN PRN IV ITCHING; Start 08/14/16 at 08 :15; Stop 08/15/16 at 08:14 Diphenhydramine HCl (Benadryl) 25 mg 1X PRN PRN IV ITCHING; Start 08/14/16 at 08 :15; Stop 08/15/16 at 08:14 Sodium Chloride 1,000 ml @ 400 mls/hr Q2H30M PRN IV PATENCY; Start 08/14/16 at 08:05; Stop 08/14/16 at 20:04 Info (PHARMACY MONITORING -- do not chart) 1 each PRN DAILY PRN MC SEE COMMENTS ; Start 08/14/16 at 08:15; Status UNV Info (PHARMACY MONITORING -- do not chart) 1 each PRN DAILY PRN MC SEE COMMENTS ; Start 08/14/16 at 08:15 Acetaminophen/ Butalbital/ Caffeine (Fioricet) 1 tab PRN Q6HRS PRN PO MIGRAINE HEADACHE; Start 08/14/16 at 09:30 Active Scripts Active Flector (Diclofenac Epolamine) 1 Each Patch.td12 1 Patch TP DAILY Hydrocodone-Apap 5-325 (Hydrocodone Bit/Acetaminophen) 1 Each Tablet 1 Tab PO PRN Q4HRS PRN Cepacol Sore Throat Lozenge (Benzocaine/Menthol) 1 Each Lozenge 1 Rachelle PO PRN Q2HRS PRN 14 Days Sucralfate 1 Gm/10 Ml Oral.susp 1 Gm PO QIDACHS Midodrine Hcl 5 Mg Tablet 10 Mg PO TIDAC Reported Prednisolone Acetate 5 Ml Drops.susp 1 Drop EACHEYE QID Petrolatum Base Ointment (Mineral Oil/Hydrophil Petrolat) 454 Gm Oint...g. 454 Gm TP Refresh Tears (Carboxymethylcellulose Sodium) 15 Ml Drops 1 Drop OP QID Artificial Tears Eye Drops (Dextran 70/Hypromellose) 15 Ml Drops 1 Drop OP PRN Q6HRS PRN Ventolin Hfa Inhaler (Albuterol Sulfate) 18 Gm Hfa.aer.ad 2 Puff INH PRN Q8HRS PRN Acetaminophen 500 Mg Tablet 1,000 Mg PO PRN Q6HRS PRN Coreg (Carvedilol) 3.125 Mg Tablet 1 Tab PO BID [place]-Senait Rx Tablet (Vit B Cmplx 3/Fa/Vit C/Biotin) 1 Each Tablet 1 Each PO Zofran Odt (Ondansetron) 4 Mg Tab.rapdis 1 Tab SL BID Last dose given yesterday afternoon Take again when needed Vigamox (Moxifloxacin Hcl) 3 Ml Drops 1 Drop RIGHTEYE QID Not given on this admission Start today Effexor Xr (Venlafaxine Hcl) 150 Mg Cap.er.24h 1 Cap PO DAILY Last dose given this morning Take again tomorrow Lidoderm (Lidocaine) 700 Mg Adh..patch 1 Patch TP PRN DAILY PRN Last given on the Use if needed Nystatin 15 Gm Powder 1 Akil TP BID Last dose given this morning Take again tonight Fluticasone Propionate Nasal [place] (Fluticasone Propionate) 16 Gm [place].susp 2 [place] NS PRN DAILY PRN Last given on the Take when needed Lipitor (Atorvastatin Calcium) 10 Mg Tablet 5 Mg PO QHS Last dose given last night Take tonight Senna Laxative (Sennosides) 8.6 Mg Tablet 17.2 Mg PO BID Last dose given this morning Take again tonight Pred Forte (Prednisolone Acetate) 1 Ml Drops.susp 1 Drop RIGHTEYE QID Not given on this admission Start today Protonix (Pantoprazole Sodium) 40 Mg Tablet.dr 40 Mg PO BIDAC Last dose given this morning Take again tonight Amitiza (Lubiprostone) 24 Mcg Capsule 24 Mcg PO BID Gave last dose last night Take again tonight Latuda (Lurasidone Hcl) 40 Mg Tablet 40 Mg PO QHS Last dose given last night Take again tonight Gabapentin 300 Mg Capsule 600 Mg PO DAILY Gave this morning Take again tomorrow morning Fish Oil [place]-3 Softgel ([place]-3/Dha/Epa/Fish Oil) 1 Each Capsule.dr 1 Cap PO BID Not given on this admission Start today Clonazepam Odt (Clonazepam) 0.5 Mg Tab.rapdis 0.5 Mg PO BID Gave dose this am Take again tonight Calcium Acetate 667 Mg Capsule 2,001 Mg PO TIDWMEALS Take with meals Last dose yesterday Allergies Allergies: Coded Allergies: Fish Containing Products (Verified Allergy, Intermediate, 12/04/15) SEAFOOD Iodinated Contrast- Oral and IV Dye (Verified Allergy, Intermediate, 12/03) NSAIDS (Non-Steroidal Anti-Inflamma (Verified Allergy, Intermediate, TAKES ASA AT HOME, 12/04/15) caffeine (Verified Allergy, Intermediate, 12/04/15) ibuprofen (Verified Allergy, Intermediate, 12/04/15) shellfish derived (Verified Allergy, Intermediate, 12/04/15) SEAFOOD I S O L A T I O N *CONTACT* (Verified Allergy, Unknown, 12/04/15) hx mrsa + screen and + VRE/CRE in urine. Vitals VITALS Vital Signs Date Time Temp Pulse Resp B/P (MAP) Pulse Ox O2 Delivery O2 Flow Rate FiO2 08/14/16 08:51 Room Air 08/14/16 07:00 97.7 77 18 133/86 (102) 100 97.7 Labs Labs Laboratory Tests Test 08/13/16 06:55 08/14/16 09:15 White Blood Count 6.1 x10^3/uL (4.0-11.0) 6.0 x10^3/uL (4.0-11.0) Red Blood Count 3.60 x10^6/uL (3.50-5.40) 3.20 x10^6/uL (3.50-5.40) Hemoglobin 11.2 g/dL (12.0-15.5) 10.1 g/dL (12.0-15.5) Hematocrit 35.0 % (36.0-47.0) 30.2 % (36.0-47.0) Mean Corpuscular Volume 97 fL (79-100) 94 fL (79-100) Mean Corpuscular Hemoglobin 31 pg (25-35) 32 pg (25-35) Mean Corpuscular Hemoglobin Concent 32 g/dL (31-37) 34 g/dL (31-37) Red Cell Distribution Width 14.4 % (11.5-14.5) 14.3 % (11.5-14.5) Platelet Count 165 x10^3/uL (140-400) 143 x10^3/uL (140-400) Neutrophils (%) (Auto) 86 % (31-73) 63 % (31-73) Lymphocytes (%) (Auto) 11 % (24-48) 28 % (24-48) Monocytes (%) (Auto) 2 % (0-9) 7 % (0-9) Eosinophils (%) (Auto) 0 % (0-3) 2 % (0-3) Basophils (%) (Auto) 0 % (0-3) 1 % (0-3) Neutrophils # (Auto) 5.3 x10^3uL (1.8-7.7) 3.8 x10^3uL (1.8-7.7) Lymphocytes # (Auto) 0.7 x10^3/uL (1.0-4.8) 1.7 x10^3/uL (1.0-4.8) Monocytes # (Auto) 0.1 x10^3/uL (0.0-1.1) 0.4 x10^3/uL (0.0-1.1) Eosinophils # (Auto) 0.0 x10^3/uL (0.0-0.7) 0.1 x10^3/uL (0.0-0.7) Basophils # (Auto) 0.0 x10^3/uL (0.0-0.2) 0.0 x10^3/uL (0.0-0.2) Segmented Neutrophils % 85 % (35-66) Band Neutrophils % 1 % (0-9) Lymphocytes % 13 % (24-48) Monocytes % 1 % (0-10) Platelet Estimate Adequate (ADEQUATE) Polychromasia Slight Ovalocytes Few Sodium Level 139 mmol/L (136-145) 139 mmol/L (136-145) Potassium Level 5.1 mmol/L (3.5-5.1) 5.0 mmol/L (3.5-5.1) Chloride Level 100 mmol/L (98-107) 101 mmol/L (98-107) Carbon Dioxide Level 26 mmol/L (21-32) 24 mmol/L (21-32) Anion Gap 13 (6-14) 14 (6-14) Blood Urea Nitrogen 64 mg/dL (7-20) 78 mg/dL (7-20) Creatinine 9.1 mg/dL (0.6-1.0) 10.3 mg/dL (0.6-1.0) Estimated GFR (Cockcroft-Gault) 5.5 4.8 BUN/Creatinine Ratio 7 (6-20) Glucose Level 150 mg/dL (70-99) 93 mg/dL (70-99) Calcium Level 9.2 mg/dL (8.5-10.1) 8.5 mg/dL (8.5-10.1) Magnesium Level 2.3 mg/dL (1.8-2.4) Total Bilirubin 0.3 mg/dL (0.2-1.0) Aspartate Amino Transf (AST/SGOT) 21 U/L (15-37) Alanine Aminotransferase (ALT/SGPT) 14 U/L (14-59) Alkaline Phosphatase 116 U/L (46-116) Total Protein 7.3 g/dL (6.4-8.2) Albumin 2.9 g/dL (3.4-5.0) Albumin/Globulin Ratio 0.7 (1.0-1.7) Laboratory Tests Test 08/14/16 09:15 White Blood Count 6.0 x10^3/uL (4.0-11.0) Red Blood Count 3.20 x10^6/uL (3.50-5.40) Hemoglobin 10.1 g/dL (12.0-15.5) Hematocrit 30.2 % (36.0-47.0) Mean Corpuscular Volume 94 fL (79-100) Mean Corpuscular Hemoglobin 32 pg (25-35) Mean Corpuscular Hemoglobin Concent 34 g/dL (31-37) Red Cell Distribution Width 14.3 % (11.5-14.5) Platelet Count 143 x10^3/uL (140-400) Neutrophils (%) (Auto) 63 % (31-73) Lymphocytes (%) (Auto) 28 % (24-48) Monocytes (%) (Auto) 7 % (0-9) Eosinophils (%) (Auto) 2 % (0-3) Basophils (%) (Auto) 1 % (0-3) Neutrophils # (Auto) 3.8 x10^3uL (1.8-7.7) Lymphocytes # (Auto) 1.7 x10^3/uL (1.0-4.8) Monocytes # (Auto) 0.4 x10^3/uL (0.0-1.1) Eosinophils # (Auto) 0.1 x10^3/uL (0.0-0.7) Basophils # (Auto) 0.0 x10^3/uL (0.0-0.2) Sodium Level 139 mmol/L (136-145) Potassium Level 5.0 mmol/L (3.5-5.1) Chloride Level 101 mmol/L (98-107) Carbon Dioxide Level 24 mmol/L (21-32) Anion Gap 14 (6-14) Blood Urea Nitrogen 78 mg/dL (7-20) Creatinine 10.3 mg/dL (0.6-1.0) Estimated GFR (Cockcroft-Gault) 4.8 Glucose Level 93 mg/dL (70-99) Calcium Level 8.5 mg/dL (8.5-10.1) Assessment/Plan Assessment/Plan 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 Reports hx of migraines and reports present headaches typical of those symptoms. No surgical intervention at this time. CT head negative. May benefit from assessment by neurology for headaches. FELA SCHAEFER MD Aug 14, 2016 12:21
--- NOTE | 2016-08-14 14:10 | PDOC2 ---
NEUROLOGY CONSULT Date of Admission Date of Admission DATE: 08/14/16 TIME: 14:00 Reason for Consult Reason for Consult: Headaches Referring Physician Referring Physician: Dr. Rushing PCP: Ms. Hurley Source Source: Chart review, Patient History of Present Illness History of Present Illness The patient is a 50-year-old right-handed female with long-standing migraines who presented to [facility] emergency department with severe headache. She was at about 2 weeks ago after a fall and was told that she had a small amount of blood on the brain. She did not need surgery. I saw HER-2 years ago for migraine-associated symptoms of transient ischemic attack with negative workup. She has had imaging studies at [facility] as well as here, reviewed below, showing either insignificant subdural fluid on the MRI or nothing wrong on the brain. He describes simply an increase in her usual migraine headaches. She was admitted here because she missed her dialysis. Past Medical History Cardiovascular: AFIB, HTN, Hyperlipidemia, Other (heart murmur, deep vein thrombosis) Pulmonary: Asthma, Bronchitis, Pneumonia CENTRAL NERVOUS SYSTEM: Migraine, Periperal neuropathy, TIA GI: GERD, Peptic Ulcer disease Heme/Onc: Anemia NOS Psych: Anxiety, Bipolar, Depression, Panic Musculoskeletal: low back pain Infectious disease: Other (C. difficile) ENT: Other (bilateral iritis, glaucoma) Renal/: Chronic renal failure (on dialysis) Endocrine: Hypothyroidism Past Surgical History Past Surgical History: Cholecystectomy, Cataract Removal, , Hernia Repair (ventral), Other (left thyroid growth removed, all teeth removed, AV shunt, cardiac catheterization, renal transplant, suprapubic catheter and removal, carpal tunnel surgery, lumbar surgery) Family History Family History: CAD Social History Social History , no tobacco or alcohol Current Medications Current Medications Current Medications Acetaminophen (Tylenol) 1,000 mg PRN Q6HRS PRN PO PAIN Last administered on 08/13 09:04; Start 08/13/16 at 05:30; Stop 08/13/16 at 13:46; Status DC Atorvastatin Calcium (Lipitor) 5 mg QHS PO Last administered on 08/13/16 21:17 ; Start 08/13/16 at 21:00 Calcium Acetate (Phoslo) 2,001 mg TIDWMEALS PO Last administered on 08/14/16 08 :58; Start 08/13/16 at 08:00 Carvedilol (Coreg) 3.125 mg BIDWMEALS PO Last administered on 08/13/16 17:10; Start 08/13/16 at 08:00 Fluticasone Propionate (Flonase) 2 spray PRN DAILY PRN NS ALLERGIES; Start 08/13 at 05:30 Lidocaine (Lidoderm) 1 patch PRN DAILY PRN TP BACK PAIN Last administered on 06:27; Start 08/13/16 at 05:30 Lurasidone HCl (Latuda) 40 mg QHS PO Last administered on 08/13/16 21:17; Start 08/13/16 at 21:00 Moxifloxacin HCl (Vigamox) 1 drop QID OU Last administered on 08/13/16 21:21; Start 08/13/16 at 09:00 Nystatin (Nystop) 1 akil BID TP Last administered on 08/13/16 21:21; Start at 09:00 Ondansetron HCl (Zofran Odt) 4 mg BID PO Last administered on 08/14/16 08:57; Start 08/13/16 at 09:00 Pantoprazole Sodium (Protonix) 40 mg BIDAC PO Last administered on 08/14/16 08: 58; Start 08/13/16 at 07:30 Sennosides (Senna) 17.2 mg BID PO Last administered on 08/13/16 21:19; Start at 09:00 Non-Formulary Medication 2 puff PRN Q8HRS PRN INH WHEEZING; Start 08/13/16 at 05 :30; Status UNV Artificial Tears (Artificial Tears) 1 drop QID OU Last administered on 21:19; Start 08/13/16 at 09:00 Clonazepam (KlonoPIN) 0.5 mg BID PO Last administered on 08/14/16 08:58; Start 08/13/16 at 09:00 Non-Formulary Medication 1 drop PRN Q6HRS PRN OP REDNESS; Start 08/13/16 at 05: 30; Status UNV Gabapentin (Neurontin) 600 mg DAILY PO Last administered on 08/13/16 09:01; Start 08/13/16 at 09:00 Lubiprostone (Amitiza) 24 mcg BID PO Last administered on 08/14/16 08:58; Start 08/13/16 at 09:00 Fish Oil (Fish Oil) 1,000 mg BID PO Last administered on 08/14/16 08:58; Start 08/13/16 at 09:00 Non-Formulary Medication 1 drop QID EACHEYE ; Start 08/13/16 at 09:00; Status UNV Non-Formulary Medication 1 drop QID RIGHTEYE ; Start 08/13/16 at 09:00; Status UNV Venlafaxine HCl (Effexor Xr) 150 mg DAILY PO Last administered on 08/13/16 09: 01; Start 08/13/16 at 09:00 Albuterol Sulfate (Ventolin Neb Soln) 2.5 mg PRN Q8HRS PRN NEB SHORTNESS OF BREATH; Start 08/13/16 at 06:00 Dexamethasone (Maxidex) 1 drop QID OD Last administered on 08/13/16 21:20; Start 08/13/16 at 09:00 Sumatriptan Succinate (Imitrex) 25 mg PRN Q2HR PRN PO MIGRAINE HEADACHE Last administered on 08/13/16 17:09; Start 08/13/16 at 11:30 Acetaminophen (Tylenol) 650 mg PRN Q6HRS PRN PO FEVER; Start 08/13/16 at 13:45 Ondansetron HCl (Zofran) 4 mg PRN Q6HRS PRN IV NAUSEA/VOMITING; Start 08/13/16 at 13:45 Morphine Sulfate 2 mg PRN Q2HR PRN IV PAIN Last administered on 08/14/16 08:51 ; Start 08/13/16 at 13:45 Tramadol HCl (Ultram) 50 mg PRN Q6HRS PRN PO PAIN Last administered on 06:25; Start 08/13/16 at 13:45 Hydralazine HCl (Apresoline) 10 mg PRN Q4HRS PRN IVP ELEVATED BP, SEE COMMENTS ; Start 08/13/16 at 13:45 Docusate Sodium (Colace) 100 mg PRN DAILY PRN PO CONSTIPATION; Start 08/13/16 at 13:45 Heparin Sodium (Porcine) (Heparin Sq) 5,000 unit Q8HRS SQ Last administered on 08/14/16t 06:06; Start 08/13/16 at 14:00 Sodium Chloride 1,000 ml @ 1,000 mls/hr Q1H PRN IV hypotension; Start 08/14/16 at 08:05; Stop 08/14/16 at 14:04 Diphenhydramine HCl (Benadryl) 25 mg 1X PRN PRN IV ITCHING; Start 08/14/16 at 08 :15; Stop 08/15/16 at 08:14 Diphenhydramine HCl (Benadryl) 25 mg 1X PRN PRN IV ITCHING; Start 08/14/16 at 08 :15; Stop 08/15/16 at 08:14 Sodium Chloride 1,000 ml @ 400 mls/hr Q2H30M PRN IV PATENCY; Start 08/14/16 at 08:05; Stop 08/14/16 at 20:04 Info (PHARMACY MONITORING -- do not chart) 1 each PRN DAILY PRN MC SEE COMMENTS ; Start 08/14/16 at 08:15; Status UNV Info (PHARMACY MONITORING -- do not chart) 1 each PRN DAILY PRN MC SEE COMMENTS ; Start 08/14/16 at 08:15 Acetaminophen/ Butalbital/ Caffeine (Fioricet) 1 tab PRN Q6HRS PRN PO MIGRAINE HEADACHE; Start 08/14/16 at 09:30 Active Scripts Active Flector (Diclofenac Epolamine) 1 Each Patch.td12 1 Patch TP DAILY Hydrocodone-Apap 5-325 (Hydrocodone Bit/Acetaminophen) 1 Each Tablet 1 Tab PO PRN Q4HRS PRN Cepacol Sore Throat Lozenge (Benzocaine/Menthol) 1 Each Lozenge 1 Rachelle PO PRN Q2HRS PRN 14 Days Sucralfate 1 Gm/10 Ml Oral.susp 1 Gm PO QIDACHS Midodrine Hcl 5 Mg Tablet 10 Mg PO TIDAC Reported Prednisolone Acetate 5 Ml Drops.susp 1 Drop EACHEYE QID Petrolatum Base Ointment (Mineral Oil/Hydrophil Petrolat) 454 Gm Oint...g. 454 Gm TP Refresh Tears (Carboxymethylcellulose Sodium) 15 Ml Drops 1 Drop OP QID Artificial Tears Eye Drops (Dextran 70/Hypromellose) 15 Ml Drops 1 Drop OP PRN Q6HRS PRN Ventolin Hfa Inhaler (Albuterol Sulfate) 18 Gm Hfa.aer.ad 2 Puff INH PRN Q8HRS PRN Acetaminophen 500 Mg Tablet 1,000 Mg PO PRN Q6HRS PRN Coreg (Carvedilol) 3.125 Mg Tablet 1 Tab PO BID [place]-Senait Rx Tablet (Vit B Cmplx 3/Fa/Vit C/Biotin) 1 Each Tablet 1 Each PO Zofran Odt (Ondansetron) 4 Mg Tab.rapdis 1 Tab SL BID Last dose given yesterday afternoon Take again when needed Vigamox (Moxifloxacin Hcl) 3 Ml Drops 1 Drop RIGHTEYE QID Not given on this admission Start today Effexor Xr (Venlafaxine Hcl) 150 Mg Cap.er.24h 1 Cap PO DAILY Last dose given this morning Take again tomorrow Lidoderm (Lidocaine) 700 Mg Adh..patch 1 Patch TP PRN DAILY PRN Last given on the Use if needed Nystatin 15 Gm Powder 1 Akil TP BID Last dose given this morning Take again tonight Fluticasone Propionate Nasal [place] (Fluticasone Propionate) 16 Gm Webster.susp 2 [place] NS PRN DAILY PRN Last given on the Take when needed Lipitor (Atorvastatin Calcium) 10 Mg Tablet 5 Mg PO QHS Last dose given last night Take tonight Senna Laxative (Sennosides) 8.6 Mg Tablet 17.2 Mg PO BID Last dose given this morning Take again tonight Pred Forte (Prednisolone Acetate) 1 Ml Drops.susp 1 Drop RIGHTEYE QID Not given on this admission Start today Protonix (Pantoprazole Sodium) 40 Mg Tablet.dr 40 Mg PO BIDAC Last dose given this morning Take again tonight Amitiza (Lubiprostone) 24 Mcg Capsule 24 Mcg PO BID Gave last dose last night Take again tonight Latuda (Lurasidone Hcl) 40 Mg Tablet 40 Mg PO QHS Last dose given last night Take again tonight Gabapentin 300 Mg Capsule 600 Mg PO DAILY Gave this morning Take again tomorrow morning Fish Oil [place]-3 Softgel ([place]-3/Dha/Epa/Fish Oil) 1 Each Capsule.dr 1 Cap PO BID Not given on this admission Start today Clonazepam Odt (Clonazepam) 0.5 Mg Tab.rapdis 0.5 Mg PO BID Gave dose this am Take again tonight Calcium Acetate 667 Mg Capsule 2,001 Mg PO TIDWMEALS Take with meals Last dose yesterday Allergies Allergies: Coded Allergies: Fish Containing Products (Verified Allergy, Intermediate, 12/04/15) SEAFOOD Iodinated Contrast- Oral and IV Dye (Verified Allergy, Intermediate, 12/03) NSAIDS (Non-Steroidal Anti-Inflamma (Verified Allergy, Intermediate, TAKES ASA AT HOME, 12/04/15) caffeine (Verified Allergy, Intermediate, 12/04/15) ibuprofen (Verified Allergy, Intermediate, 12/04/15) shellfish derived (Verified Allergy, Intermediate, 12/04/15) SEAFOOD I S O L A T I O N *CONTACT* (Verified Allergy, Unknown, 12/04/15) hx mrsa + screen and + VRE/CRE in urine. ROS Review of System Patient denies fevers, chills, weight loss, dyspnea, angina, abdominal pain, change in bowels, or dysuria. 14 point review of systems is negative. Physical Exam Physical Examination PHYSICAL EXAMINATION: Vital signs: see above. General appearance is normal and in no acute distress. HEENT: Normocephalic and nontraumatic. Nose, ears, and throat are unremarkable. Bilateral corneal clouding Neck is supple. No lymphadenopathy. No bruits are heard over the carotid artery. No crepitus. NEUROLOGICAL EXAMINATION: Mental Status Examination: Alert. Oriented to time, place, and person. Answers questions and follows commends. Pupils are equal round and reactive to light and accommodation. Extraocular movements are intact. Visual field exam shows no defect on the direct confrontation. No motor or sensory deficits on the facial exam. Uvula in the midline and the soft palate elevated symmetrically. No deviation of the tongue to any direction. Gross hearing is normal. Shoulder shrug normal. Muscle tone is normal. Muscle strength is 5. Deep tendon reflexes are 1+ all around. Plantar reflex is with flexion response bilaterally. Knexkc-ly-[id number] test performance is accurate. Alternative movements are accurate. Gait not tested. Sensory exam shows no deficits. No cerebellar signs are elicited. Vitals VITALS Vital Signs Date Time Temp Pulse Resp B/P (MAP) Pulse Ox O2 Delivery O2 Flow Rate FiO2 08/14/16 08:51 Room Air 08/14/16 07:00 97.7 77 18 133/86 (102) 100 97.7 Labs Labs Laboratory Tests Test 08/13/16 06:55 08/14/16 09:15 White Blood Count 6.1 x10^3/uL (4.0-11.0) 6.0 x10^3/uL (4.0-11.0) Red Blood Count 3.60 x10^6/uL (3.50-5.40) 3.20 x10^6/uL (3.50-5.40) Hemoglobin 11.2 g/dL (12.0-15.5) 10.1 g/dL (12.0-15.5) Hematocrit 35.0 % (36.0-47.0) 30.2 % (36.0-47.0) Mean Corpuscular Volume 97 fL (79-100) 94 fL (79-100) Mean Corpuscular Hemoglobin 31 pg (25-35) 32 pg (25-35) Mean Corpuscular Hemoglobin Concent 32 g/dL (31-37) 34 g/dL (31-37) Red Cell Distribution Width 14.4 % (11.5-14.5) 14.3 % (11.5-14.5) Platelet Count 165 x10^3/uL (140-400) 143 x10^3/uL (140-400) Neutrophils (%) (Auto) 86 % (31-73) 63 % (31-73) Lymphocytes (%) (Auto) 11 % (24-48) 28 % (24-48) Monocytes (%) (Auto) 2 % (0-9) 7 % (0-9) Eosinophils (%) (Auto) 0 % (0-3) 2 % (0-3) Basophils (%) (Auto) 0 % (0-3) 1 % (0-3) Neutrophils # (Auto) 5.3 x10^3uL (1.8-7.7) 3.8 x10^3uL (1.8-7.7) Lymphocytes # (Auto) 0.7 x10^3/uL (1.0-4.8) 1.7 x10^3/uL (1.0-4.8) Monocytes # (Auto) 0.1 x10^3/uL (0.0-1.1) 0.4 x10^3/uL (0.0-1.1) Eosinophils # (Auto) 0.0 x10^3/uL (0.0-0.7) 0.1 x10^3/uL (0.0-0.7) Basophils # (Auto) 0.0 x10^3/uL (0.0-0.2) 0.0 x10^3/uL (0.0-0.2) Segmented Neutrophils % 85 % (35-66) Band Neutrophils % 1 % (0-9) Lymphocytes % 13 % (24-48) Monocytes % 1 % (0-10) Platelet Estimate Adequate (ADEQUATE) Polychromasia Slight Ovalocytes Few Sodium Level 139 mmol/L (136-145) 139 mmol/L (136-145) Potassium Level 5.1 mmol/L (3.5-5.1) 5.0 mmol/L (3.5-5.1) Chloride Level 100 mmol/L (98-107) 101 mmol/L (98-107) Carbon Dioxide Level 26 mmol/L (21-32) 24 mmol/L (21-32) Anion Gap 13 (6-14) 14 (6-14) Blood Urea Nitrogen 64 mg/dL (7-20) 78 mg/dL (7-20) Creatinine 9.1 mg/dL (0.6-1.0) 10.3 mg/dL (0.6-1.0) Estimated GFR (Cockcroft-Gault) 5.5 4.8 BUN/Creatinine Ratio 7 (6-20) Glucose Level 150 mg/dL (70-99) 93 mg/dL (70-99) Calcium Level 9.2 mg/dL (8.5-10.1) 8.5 mg/dL (8.5-10.1) Magnesium Level 2.3 mg/dL (1.8-2.4) Total Bilirubin 0.3 mg/dL (0.2-1.0) Aspartate Amino Transf (AST/SGOT) 21 U/L (15-37) Alanine Aminotransferase (ALT/SGPT) 14 U/L (14-59) Alkaline Phosphatase 116 U/L (46-116) Total Protein 7.3 g/dL (6.4-8.2) Albumin 2.9 g/dL (3.4-5.0) Albumin/Globulin Ratio 0.7 (1.0-1.7) Laboratory Tests Test 08/14/16 09:15 White Blood Count 6.0 x10^3/uL (4.0-11.0) Red Blood Count 3.20 x10^6/uL (3.50-5.40) Hemoglobin 10.1 g/dL (12.0-15.5) Hematocrit 30.2 % (36.0-47.0) Mean Corpuscular Volume 94 fL (79-100) Mean Corpuscular Hemoglobin 32 pg (25-35) Mean Corpuscular Hemoglobin Concent 34 g/dL (31-37) Red Cell Distribution Width 14.3 % (11.5-14.5) Platelet Count 143 x10^3/uL (140-400) Neutrophils (%) (Auto) 63 % (31-73) Lymphocytes (%) (Auto) 28 % (24-48) Monocytes (%) (Auto) 7 % (0-9) Eosinophils (%) (Auto) 2 % (0-3) Basophils (%) (Auto) 1 % (0-3) Neutrophils # (Auto) 3.8 x10^3uL (1.8-7.7) Lymphocytes # (Auto) 1.7 x10^3/uL (1.0-4.8) Monocytes # (Auto) 0.4 x10^3/uL (0.0-1.1) Eosinophils # (Auto) 0.1 x10^3/uL (0.0-0.7) Basophils # (Auto) 0.0 x10^3/uL (0.0-0.2) Sodium Level 139 mmol/L (136-145) Potassium Level 5.0 mmol/L (3.5-5.1) Chloride Level 101 mmol/L (98-107) Carbon Dioxide Level 24 mmol/L (21-32) Anion Gap 14 (6-14) Blood Urea Nitrogen 78 mg/dL (7-20) Creatinine 10.3 mg/dL (0.6-1.0) Estimated GFR (Cockcroft-Gault) 4.8 Glucose Level 93 mg/dL (70-99) Calcium Level 8.5 mg/dL (8.5-10.1) Images Images Head CT 08/12: Findings: Comparison study is dated 02/18/2015. There is mild generalized parenchymal atrophy. No acute parenchymal abnormality is seen. No extra-axial fluid collection is noted. No skull fracture is seen. Impression: . No acute intracranial abnormality is seen. Brain MRI, 08/13: The ventricles are within normal limits in size. There is no shift of the midline structures. Several small scattered foci of abnormal signal are identified in the deep white matter bilaterally on the FLAIR sequences. No restricted diffusion is seen in these regions or other areas of the brain. The cerebellum and brainstem are unremarkable. There is a thin extra-axial area of increased signal seen along the surface of the left cerebral hemisphere, best seen on the T1-weighted scans. This is centered in the frontotemporal region. It is also hyperintense on the FLAIR sequence. The appearance suggests a subacute subdural hematoma. It measures approximately 2 mm in greatest thickness. There is no mass effect or midline shift. An area of abnormal signal along the floor of the right maxillary sinus is most likely a retention cyst. The other paranasal sinuses are clear. No free fluid is evident in the sinuses. IMPRESSION: 1. Minimal nonspecific bilateral deep white matter signal abnormalities, likely due to microangiopathy related to the patient's history of migraine headaches, although a demyelinating process cannot be excluded. 2. Probable tiny subacute subdural hematoma centered in the left frontotemporal region. Head CT 08/14: The calvarium appears unremarkable. The visualized paranasal sinuses appear normal. The very tiny left-sided subdural hematoma, referenced on the MRI examination yesterday, is not well represented on CT. No acute finding is seen. There is no mass or midline shift. IMPRESSION: No acute intracranial finding seen Assessment/Plan Assessment/Plan Impression: Migraine headaches Incidental subdural fluid not of clinical relevance and not requiring surgery Recommendations: Trial of escitalopram, discussed side effects Increase sumatriptan to full adult dose. Use when necessary. If discharged, follow-up with me in 6 weeks. Thank you for letting me help with the patient's care. RIELLY CATHERINE MD Aug 14, 2016 14:10
[2016-08-14] MEDS ORDERED: SUMAtriptan SUCCINATE 25 MG TABLET PO PRN (14:15)
[2016-08-14 14:56] VITALS: BP 112/68
[2016-08-14] MEDS: VENLAFAXINE XR 37.5 MG CAP.ER.24H. PO SCH (15:10)
[2016-08-14] MEDS: ESCITALOPRAM 10 MG TABLET. PO SCH (15:12)
[2016-08-14] MEDS: GABAPENTIN 300 MG CAPSULE. PO SCH (15:12)
[2016-08-14] MEDS: SENNOSIDES 8.6 MG TABLET PO SCH ×2 (15:14→21:09)
[2016-08-14] MEDS: NYSTATIN TOPICAL POWDER 15GM BOTTLE. TP SCH ×2 (15:16→21:00)
[2016-08-14] MEDS: BUTALB/APAP/CAFEIN 50/325/40MG TABLET. PO PRN (15:20)
--- NOTE | 2016-08-14 17:08 | PDOC4 ---
PROCEDURE Procedure RENAL DIALYSIS / TOMASZ. HD done. F 180 / HCO3 / 3K Qb 450 Qd 600 UF 2 x week Well tolerated. No complications. GYPSY TOLBERT MD Aug 14, 2016 17:08
[2016-08-14 19:00] VITALS: BP 101/61
[2016-08-14] MEDS: LURASIDONE 40 MG TABLET. PO SCH (21:08)
[2016-08-14] MEDS: ATORVASTATIN CALCIUM 10 MG TABLET. PO SCH (21:09)
[2016-08-14] MEDS: SUMAtriptan SUCCINATE 100 MG TABLET PO PRN (21:10)
[2016-08-14 23:00] VITALS: BP 111/75
[2016-08-15 03:00] VITALS: BP 119/79
[2016-08-15] MEDS: traMADol 50 MG TABLET PO PRN (06:26)
[2016-08-15] MEDS: HEPARIN PF for SUB-Q USE 5,000 UNIT/0.5 ML VIAL. SQ SCH ×3 (06:29→21:31)
[2016-08-15 07:00] VITALS: BP 114/77
[2016-08-15] MEDS: CALCIUM ACETATE 667 MG CAPSULE PO SCH ×3 (08:53→17:27)
[2016-08-15] MEDS: DEXAMETHASONE 0.1% OPHTH SOLUTION 5ML BOTTLE. OD SCH ×4 (08:54→21:21)
[2016-08-15] MEDS: POLYVINYL ALCOHOL 1.4% OPHTH SOLUTION 15ML BOTTLE. OU SCH ×4 (08:55→21:00)
[2016-08-15] MEDS: MOXIFLOXACIN 0.5% OPHTH SOLUTION 3ML BOTTLE. OU SCH ×4 (08:55→21:25)
[2016-08-15] MEDS: NYSTATIN TOPICAL POWDER 15GM BOTTLE. TP SCH ×2 (08:56→21:00)
[2016-08-15] MEDS: BUTALB/APAP/CAFEIN 50/325/40MG TABLET. PO PRN (09:09)
[2016-08-15] MEDS ORDERED: IV NORMAL SALINE 1000ML BAG 1,000 ML IV PRN ×2 (09:48)
[2016-08-15] MEDS ORDERED: ALPRAZolam 0.25 MG TABLET PO PRN (10:00)
[2016-08-15] MEDS ORDERED: diphenhydrAMINE 50 MG/ML VIAL IV PRN ×2 (10:00)
[2016-08-15] MEDS ORDERED: DIALYSIS PATIENT. MC PRN (10:00)
[2016-08-15 10:54] VITALS: BP 115/70
[2016-08-15] MEDS: PANTOPRAZOLE 40 MG TABLET.DR. PO SCH ×2 (11:06→17:25)
[2016-08-15] MEDS: LUBIPROSTONE 8 MCG CAPSULE PO SCH ×2 (11:07→21:22)
[2016-08-15] MEDS: CARVEDILOL 3.125 MG TABLET. PO SCH ×2 (11:07→17:27)
[2016-08-15] MEDS: VENLAFAXINE XR 37.5 MG CAP.ER.24H. PO SCH (11:08)
[2016-08-15] MEDS: clonazePAM 0.5 MG TABLET PO SCH ×2 (11:09→21:24)
[2016-08-15] MEDS: OMEGA-3 FATTY ACIDS/FISH OIL 1,000 MG CAPSULE. PO SCH ×2 (11:09→21:23)
[2016-08-15] MEDS: ESCITALOPRAM 10 MG TABLET. PO SCH (11:10)
[2016-08-15] MEDS: GABAPENTIN 300 MG CAPSULE. PO SCH (11:10)
[2016-08-15] MEDS: ONDANSETRON ODT 4 MG TAB.RAPDIS. PO SCH ×2 (11:11→21:00)
[2016-08-15] MEDS: SENNOSIDES 8.6 MG TABLET PO SCH ×2 (11:11→21:23)
--- NOTE | 2016-08-15 12:07 | PDOC ---
PROGRESS NOTES Chief Complaint Chief Complaint MIgraine headaches, worse than usual hyperkalemia, missed HD ESRD on HD tts HTN GERD H/O chf, STABLE PAFIB MORbid obesity Small intracranial hemorrhage, neg CT no FNDs REcent fall History of Present Illness History of Present Illness still headache, no neurologic deficit Other notes reviewed Neuro has increased imitrex dose to 100 mg PO q 2prn Neuro sx note reviewed, no surgical intervention needed - i agree CRea 9 today DUe HD today pLAN: HD today COnt imitrex If better headache control then possible dc shaunna home CLose neuro checks Ok to dc tele Vitals Vitals Vital Signs Date Time Temp Pulse Resp B/P (MAP) Pulse Ox O2 Delivery O2 Flow Rate FiO2 08/15/16 11:07 85 115/70 08/15/16 10:54 97.9 19 100 Room Air 97.9 Physical Exam General: Alert, Oriented X3, Cooperative Heart: Regular rate, Normal S1, Normal S2 Lungs: Clear Abdomen: Normal bowel sounds, Soft Extremities: No clubbing, No cyanosis Skin: No rashes Review of Systems Review of Systems headaches, all else is neg Comment Review of Relevant I have reviewed the following items dane (where applicable) has been applied. Labs Laboratory Tests Test 08/14/16 09:15 White Blood Count 6.0 x10^3/uL (4.0-11.0) Red Blood Count 3.20 x10^6/uL (3.50-5.40) Hemoglobin 10.1 g/dL (12.0-15.5) Hematocrit 30.2 % (36.0-47.0) Mean Corpuscular Volume 94 fL (79-100) Mean Corpuscular Hemoglobin 32 pg (25-35) Mean Corpuscular Hemoglobin Concent 34 g/dL (31-37) Red Cell Distribution Width 14.3 % (11.5-14.5) Platelet Count 143 x10^3/uL (140-400) Neutrophils (%) (Auto) 63 % (31-73) Lymphocytes (%) (Auto) 28 % (24-48) Monocytes (%) (Auto) 7 % (0-9) Eosinophils (%) (Auto) 2 % (0-3) Basophils (%) (Auto) 1 % (0-3) Neutrophils # (Auto) 3.8 x10^3uL (1.8-7.7) Lymphocytes # (Auto) 1.7 x10^3/uL (1.0-4.8) Monocytes # (Auto) 0.4 x10^3/uL (0.0-1.1) Eosinophils # (Auto) 0.1 x10^3/uL (0.0-0.7) Basophils # (Auto) 0.0 x10^3/uL (0.0-0.2) Sodium Level 139 mmol/L (136-145) Potassium Level 5.0 mmol/L (3.5-5.1) Chloride Level 101 mmol/L (98-107) Carbon Dioxide Level 24 mmol/L (21-32) Anion Gap 14 (6-14) Blood Urea Nitrogen 78 mg/dL (7-20) Creatinine 10.3 mg/dL (0.6-1.0) Estimated GFR (Cockcroft-Gault) 4.8 Glucose Level 93 mg/dL (70-99) Calcium Level 8.5 mg/dL (8.5-10.1) Medications Current Medications Acetaminophen (Tylenol) 1,000 mg PRN Q6HRS PRN PO PAIN Last administered on 08/13 09:04; Start 08/13/16 at 05:30; Stop 08/13/16 at 13:46; Status DC Atorvastatin Calcium (Lipitor) 5 mg QHS PO Last administered on 08/14/16 21:09 ; Start 08/13/16 at 21:00 Calcium Acetate (Phoslo) 2,001 mg TIDWMEALS PO Last administered on 08/15/16 08 :53; Start 08/13/16 at 08:00 Carvedilol (Coreg) 3.125 mg BIDWMEALS PO Last administered on 08/15/16 11:07; Start 08/13/16 at 08:00 Fluticasone Propionate (Flonase) 2 spray PRN DAILY PRN NS ALLERGIES; Start 08/13 at 05:30 Lidocaine (Lidoderm) 1 patch PRN DAILY PRN TP BACK PAIN Last administered on 06:27; Start 08/13/16 at 05:30 Lurasidone HCl (Latuda) 40 mg QHS PO Last administered on 08/14/16 21:08; Start 08/13/16 at 21:00 Moxifloxacin HCl (Vigamox) 1 drop QID OU Last administered on 08/15/16 08:55; Start 08/13/16 at 09:00 Nystatin (Nystop) 1 akil BID TP Last administered on 08/15/16 08:56; Start at 09:00 Ondansetron HCl (Zofran Odt) 4 mg BID PO Last administered on 08/15/16 11:11; Start 08/13/16 at 09:00 Pantoprazole Sodium (Protonix) 40 mg BIDAC PO Last administered on 08/15/16 11: 06; Start 08/13/16 at 07:30 Sennosides (Senna) 17.2 mg BID PO Last administered on 08/15/16 11:11; Start at 09:00 Non-Formulary Medication 2 puff PRN Q8HRS PRN INH WHEEZING; Start 08/13/16 at 05 :30; Status UNV Artificial Tears (Artificial Tears) 1 drop QID OU Last administered on 08:55; Start 08/13/16 at 09:00 Clonazepam (KlonoPIN) 0.5 mg BID PO Last administered on 08/15/16 11:09; Start 08/13/16 at 09:00 Non-Formulary Medication 1 drop PRN Q6HRS PRN OP REDNESS; Start 08/13/16 at 05: 30; Status UNV Gabapentin (Neurontin) 600 mg DAILY PO Last administered on 08/15/16 11:10; Start 08/13/16 at 09:00 Lubiprostone (Amitiza) 24 mcg BID PO Last administered on 08/15/16 11:07; Start 08/13/16 at 09:00 Fish Oil (Fish Oil) 1,000 mg BID PO Last administered on 08/15/16 11:09; Start 08/13/16 at 09:00 Non-Formulary Medication 1 drop QID EACHEYE ; Start 08/13/16 at 09:00; Status UNV Non-Formulary Medication 1 drop QID RIGHTEYE ; Start 08/13/16 at 09:00; Status UNV Venlafaxine HCl (Effexor Xr) 150 mg DAILY PO Last administered on 08/15/16 11: 08; Start 08/13/16 at 09:00 Albuterol Sulfate (Ventolin Neb Soln) 2.5 mg PRN Q8HRS PRN NEB SHORTNESS OF BREATH; Start 08/13/16 at 06:00 Dexamethasone (Maxidex) 1 drop QID OD Last administered on 08/15/16 08:54; Start 08/13/16 at 09:00 Sumatriptan Succinate (Imitrex) 25 mg PRN Q2HR PRN PO MIGRAINE HEADACHE Last administered on 08/13/16 17:09; Start 08/13/16 at 11:30; Stop 08/14/16 at 14:09; Status DC Acetaminophen (Tylenol) 650 mg PRN Q6HRS PRN PO FEVER; Start 08/13/16 at 13:45 Ondansetron HCl (Zofran) 4 mg PRN Q6HRS PRN IV NAUSEA/VOMITING; Start 08/13/16 at 13:45 Morphine Sulfate 2 mg PRN Q2HR PRN IV PAIN Last administered on 08/14/16 08:51 ; Start 08/13/16 at 13:45 Tramadol HCl (Ultram) 50 mg PRN Q6HRS PRN PO PAIN Last administered on 06:26; Start 08/13/16 at 13:45 Hydralazine HCl (Apresoline) 10 mg PRN Q4HRS PRN IVP ELEVATED BP, SEE COMMENTS ; Start 08/13/16 at 13:45 Docusate Sodium (Colace) 100 mg PRN DAILY PRN PO CONSTIPATION; Start 08/13/16 at 13:45 Heparin Sodium (Porcine) (Heparin Sq) 5,000 unit Q8HRS SQ Last administered on 08/15/16 06:29; Start 08/13/16 at 14:00 Sodium Chloride 1,000 ml @ 1,000 mls/hr Q1H PRN IV hypotension; Start 08/14/16 at 08:05; Stop 08/14/16 at 14:04; Status DC Diphenhydramine HCl (Benadryl) 25 mg 1X PRN PRN IV ITCHING; Start 08/14/16 at 08 :15; Stop 08/15/16 at 08:14; Status DC Diphenhydramine HCl (Benadryl) 25 mg 1X PRN PRN IV ITCHING; Start 08/14/16 at 08 :15; Stop 08/15/16 at 08:14; Status DC Sodium Chloride 1,000 ml @ 400 mls/hr Q2H30M PRN IV PATENCY; Start 08/14/16 at 08:05; Stop 08/14/16 at 20:04; Status DC Info (PHARMACY MONITORING -- do not chart) 1 each PRN DAILY PRN MC SEE COMMENTS ; Start 08/14/16 at 08:15; Status UNV Info (PHARMACY MONITORING -- do not chart) 1 each PRN DAILY PRN MC SEE COMMENTS ; Start 08/14/16 at 08:15; Stop 08/15/16 at 10:03; Status DC Acetaminophen/ Butalbital/ Caffeine (Fioricet) 1 tab PRN Q6HRS PRN PO MIGRAINE HEADACHE Last administered on 08/15/16 09:09; Start 08/14/16 at 09:30 Sumatriptan Succinate (Imitrex) 100 mg PRN Q2HR PRN PO MIGRAINE HEADACHE; Start 08/14/16 at 14:15; Stop 08/14/16 at 14:15; Status DC Escitalopram Oxalate (Lexapro) 10 mg DAILY PO Last administered on 08/15/16 11: 10; Start 08/14/16 at 15:00 Sumatriptan Succinate (Imitrex) 100 mg PRN Q2HR PRN PO MIGRAINE HEADACHE Last administered on 08/14/16 21:10; Start 08/14/16 at 14:15 Alprazolam (Xanax) 0.25 mg PRN Q8HRS PRN PO ANXIETY / AGITATION; Start 08/15/16 at 10:00 Acetaminophen/ Hydrocodone Bitart (Lortab 5/325) 1 tab PRN Q4HRS PRN PO PAIN; Start 08/15/16 at 10:00 Sodium Chloride 1,000 ml @ 1,000 mls/hr Q1H PRN IV hypotension; Start 08/15/16 at 09:48; Stop 08/15/16 at 15:47 Diphenhydramine HCl (Benadryl) 25 mg 1X PRN PRN IV ITCHING; Start 08/15/16 at 10 :00; Stop 08/16/16 at 09:59 Diphenhydramine HCl (Benadryl) 25 mg 1X PRN PRN IV ITCHING; Start 08/15/16 at 10 :00; Stop 08/16/16 at 09:59 Sodium Chloride 1,000 ml @ 400 mls/hr Q2H30M PRN IV PATENCY; Start 08/15/16 at 09:48; Stop 08/15/16 at 21:47 Info (PHARMACY MONITORING -- do not chart) 1 each PRN DAILY PRN MC SEE COMMENTS ; Start 08/15/16 at 10:00 Active Scripts Active Flector (Diclofenac Epolamine) 1 Each Patch.td12 1 Patch TP DAILY Hydrocodone-Apap 5-325 (Hydrocodone Bit/Acetaminophen) 1 Each Tablet 1 Tab PO PRN Q4HRS PRN Cepacol Sore Throat Lozenge (Benzocaine/Menthol) 1 Each Lozenge 1 Rachelle PO PRN Q2HRS PRN 14 Days Sucralfate 1 Gm/10 Ml Oral.susp 1 Gm PO QIDACHS Midodrine Hcl 5 Mg Tablet 10 Mg PO TIDAC Reported Prednisolone Acetate 5 Ml Drops.susp 1 Drop EACHEYE QID Petrolatum Base Ointment (Mineral Oil/Hydrophil Petrolat) 454 Gm Oint...g. 454 Gm TP Refresh Tears (Carboxymethylcellulose Sodium) 15 Ml Drops 1 Drop OP QID Artificial Tears Eye Drops (Dextran 70/Hypromellose) 15 Ml Drops 1 Drop OP PRN Q6HRS PRN Ventolin Hfa Inhaler (Albuterol Sulfate) 18 Gm Hfa.aer.ad 2 Puff INH PRN Q8HRS PRN Acetaminophen 500 Mg Tablet 1,000 Mg PO PRN Q6HRS PRN Coreg (Carvedilol) 3.125 Mg Tablet 1 Tab PO BID [place]-Senait Rx Tablet (Vit B Cmplx 3/Fa/Vit C/Biotin) 1 Each Tablet 1 Each PO Zofran Odt (Ondansetron) 4 Mg Tab.rapdis 1 Tab SL BID Last dose given yesterday afternoon Take again when needed Vigamox (Moxifloxacin Hcl) 3 Ml Drops 1 Drop RIGHTEYE QID Not given on this admission Start today Effexor Xr (Venlafaxine Hcl) 150 Mg Cap.er.24h 1 Cap PO DAILY Last dose given this morning Take again tomorrow Lidoderm (Lidocaine) 700 Mg Adh..patch 1 Patch TP PRN DAILY PRN Last given on the Use if needed Nystatin 15 Gm Powder 1 Akil TP BID Last dose given this morning Take again tonight Fluticasone Propionate Nasal [place] (Fluticasone Propionate) 16 Gm [place].susp 2 [place] NS PRN DAILY PRN Last given on the Take when needed Lipitor (Atorvastatin Calcium) 10 Mg Tablet 5 Mg PO QHS Last dose given last night Take tonight Senna Laxative (Sennosides) 8.6 Mg Tablet 17.2 Mg PO BID Last dose given this morning Take again tonight Pred Forte (Prednisolone Acetate) 1 Ml Drops.susp 1 Drop RIGHTEYE QID Not given on this admission Start today Protonix (Pantoprazole Sodium) 40 Mg Tablet.dr 40 Mg PO BIDAC Last dose given this morning Take again tonight Amitiza (Lubiprostone) 24 Mcg Capsule 24 Mcg PO BID Gave last dose last night Take again tonight Latuda (Lurasidone Hcl) 40 Mg Tablet 40 Mg PO QHS Last dose given last night Take again tonight Gabapentin 300 Mg Capsule 600 Mg PO DAILY Gave this morning Take again tomorrow morning Fish Oil [place]-3 Softgel ([place]-3/Dha/Epa/Fish Oil) 1 Each Capsule. 1 Cap PO BID Not given on this admission Start today Clonazepam Odt (Clonazepam) 0.5 Mg Tab.rapdis 0.5 Mg PO BID Gave dose this am Take again tonight Calcium Acetate 667 Mg Capsule 2,001 Mg PO TIDWMEALS Take with meals Last dose yesterday Vitals/I & O Vital Sign - Last 24 Hours 08/14/16 08/14/16 08/14/16 08/14/16 14:56 18:11 19:00 23:00 Temp 97.7 97.6 98.5 97.7 97.6 98.5 Pulse 85 84 79 72 Resp 18 17 18 B/P (MAP) 112/68 (83) 112/68 101/61 (74) 111/75 (87) Pulse Ox 100 96 98 O2 Delivery Room Air Room Air Room Air 08/15/16 08/15/16 08/15/16 08/15/16 03:00 06:26 07:00 07:26 Temp 98.6 97.9 98.6 97.9 Pulse 68 80 Resp 18 17 19 20 B/P (MAP) 119/79 (92) 114/77 (89) Pulse Ox 99 99 100 99 O2 Delivery Room Air Room Air Room Air Room Air 08/15/16 08/15/16 10:54 11:07 Temp 97.9 97.9 Pulse 85 85 Resp 19 B/P (MAP) 115/70 (85) 115/70 Pulse Ox 100 O2 Delivery Room Air Intake and Output 08/14/16 08/14/16 08/15/16 15:00 23:00 07:00 Intake Total 120 ml 900 ml Balance 120 ml 900 ml FITZ HAMMONDS MD Aug 15, 2016 12:07
[2016-08-15] MEDS: SUMAtriptan SUCCINATE 100 MG TABLET PO PRN ×2 (12:33→17:27)
--- NOTE | 2016-08-15 14:06 | PDOC ---
PROGRESS NOTES Assessment Migraine headaches Incidental subdural fluid not of clinical relevance and not requiring surgery Plan Trial of escitalopram, discussed side effects. Note patient is already on several antidepressants Increase sumatriptan to full adult dose. Use when necessary. Also has Lortab and Fioricet available If discharged, follow-up with me in 6 weeks. Subjective still has constant headache Objective Vital Signs Date Time Temp Pulse Resp B/P (MAP) Pulse Ox O2 Delivery O2 Flow Rate FiO2 08/15/16 11:07 85 115/70 08/15/16 10:54 97.9 19 100 Room Air 97.9 Intake and Output 08/15/16 07:00 Intake Total 1020 ml Balance 1020 ml Intake Oral 1020 ml # Voids 2 # Bowel Movements 1 PHYSICAL EXAM Alert. Oriented to time, place and person. PERRL. EOMI. CN: no focal findings. Muscle tone: normal. Muscle strength: 5/5 DTR: 2+ Plantar reflex: flexor Gait: not examined in bed. Sensory exam: no abnormal findings. No cerebellar signs elicited. Review of Relevant I have reviewed the following items dane (where applicable) has been applied. Labs Laboratory Tests Test 08/14/16 09:15 White Blood Count 6.0 x10^3/uL (4.0-11.0) Red Blood Count 3.20 x10^6/uL (3.50-5.40) Hemoglobin 10.1 g/dL (12.0-15.5) Hematocrit 30.2 % (36.0-47.0) Mean Corpuscular Volume 94 fL (79-100) Mean Corpuscular Hemoglobin 32 pg (25-35) Mean Corpuscular Hemoglobin Concent 34 g/dL (31-37) Red Cell Distribution Width 14.3 % (11.5-14.5) Platelet Count 143 x10^3/uL (140-400) Neutrophils (%) (Auto) 63 % (31-73) Lymphocytes (%) (Auto) 28 % (24-48) Monocytes (%) (Auto) 7 % (0-9) Eosinophils (%) (Auto) 2 % (0-3) Basophils (%) (Auto) 1 % (0-3) Neutrophils # (Auto) 3.8 x10^3uL (1.8-7.7) Lymphocytes # (Auto) 1.7 x10^3/uL (1.0-4.8) Monocytes # (Auto) 0.4 x10^3/uL (0.0-1.1) Eosinophils # (Auto) 0.1 x10^3/uL (0.0-0.7) Basophils # (Auto) 0.0 x10^3/uL (0.0-0.2) Sodium Level 139 mmol/L (136-145) Potassium Level 5.0 mmol/L (3.5-5.1) Chloride Level 101 mmol/L (98-107) Carbon Dioxide Level 24 mmol/L (21-32) Anion Gap 14 (6-14) Blood Urea Nitrogen 78 mg/dL (7-20) Creatinine 10.3 mg/dL (0.6-1.0) Estimated GFR (Cockcroft-Gault) 4.8 Glucose Level 93 mg/dL (70-99) Calcium Level 8.5 mg/dL (8.5-10.1) Medications Current Medications Acetaminophen (Tylenol) 1,000 mg PRN Q6HRS PRN PO PAIN Last administered on 08/13 09:04; Start 08/13/16 at 05:30; Stop 08/13/16 at 13:46; Status DC Atorvastatin Calcium (Lipitor) 5 mg QHS PO Last administered on 08/14/16 21:09 ; Start 08/13/16 at 21:00 Calcium Acetate (Phoslo) 2,001 mg TIDWMEALS PO Last administered on 08/15/16 12 :34; Start 08/13/16 at 08:00 Carvedilol (Coreg) 3.125 mg BIDWMEALS PO Last administered on 08/15/16 11:07; Start 08/13/16 at 08:00 Fluticasone Propionate (Flonase) 2 spray PRN DAILY PRN NS ALLERGIES; Start 08/13 at 05:30 Lidocaine (Lidoderm) 1 patch PRN DAILY PRN TP BACK PAIN Last administered on 06:27; Start 08/13/16 at 05:30 Lurasidone HCl (Latuda) 40 mg QHS PO Last administered on 08/14/16 21:08; Start 08/13/16 at 21:00 Moxifloxacin HCl (Vigamox) 1 drop QID OU Last administered on 08/15/16 12:35; Start 08/13/16 at 09:00 Nystatin (Nystop) 1 akil BID TP Last administered on 08/15/16 08:56; Start at 09:00 Ondansetron HCl (Zofran Odt) 4 mg BID PO Last administered on 08/15/16 11:11; Start 08/13/16 at 09:00 Pantoprazole Sodium (Protonix) 40 mg BIDAC PO Last administered on 08/15/16 11: 06; Start 08/13/16 at 07:30 Sennosides (Senna) 17.2 mg BID PO Last administered on 08/15/16 11:11; Start at 09:00 Non-Formulary Medication 2 puff PRN Q8HRS PRN INH WHEEZING; Start 08/13/16 at 05 :30; Status UNV Artificial Tears (Artificial Tears) 1 drop QID OU Last administered on 12:34; Start 08/13/16 at 09:00 Clonazepam (KlonoPIN) 0.5 mg BID PO Last administered on 08/15/16 11:09; Start 08/13/16 at 09:00 Non-Formulary Medication 1 drop PRN Q6HRS PRN OP REDNESS; Start 08/13/16 at 05: 30; Status UNV Gabapentin (Neurontin) 600 mg DAILY PO Last administered on 08/15/16 11:10; Start 08/13/16 at 09:00 Lubiprostone (Amitiza) 24 mcg BID PO Last administered on 08/15/16 11:07; Start 08/13/16 at 09:00 Fish Oil (Fish Oil) 1,000 mg BID PO Last administered on 08/15/16 11:09; Start 08/13/16 at 09:00 Non-Formulary Medication 1 drop QID EACHEYE ; Start 08/13/16 at 09:00; Status UNV Non-Formulary Medication 1 drop QID RIGHTEYE ; Start 08/13/16 at 09:00; Status UNV Venlafaxine HCl (Effexor Xr) 150 mg DAILY PO Last administered on 08/15/16 11: 08; Start 08/13/16 at 09:00 Albuterol Sulfate (Ventolin Neb Soln) 2.5 mg PRN Q8HRS PRN NEB SHORTNESS OF BREATH; Start 08/13/16 at 06:00 Dexamethasone (Maxidex) 1 drop QID OD Last administered on 08/15/16 12:34; Start 08/13/16 at 09:00 Sumatriptan Succinate (Imitrex) 25 mg PRN Q2HR PRN PO MIGRAINE HEADACHE Last administered on 08/13/16 17:09; Start 08/13/16 at 11:30; Stop 08/14/16 at 14:09; Status DC Acetaminophen (Tylenol) 650 mg PRN Q6HRS PRN PO FEVER; Start 08/13/16 at 13:45 Ondansetron HCl (Zofran) 4 mg PRN Q6HRS PRN IV NAUSEA/VOMITING; Start 08/13/16 at 13:45 Morphine Sulfate 2 mg PRN Q2HR PRN IV PAIN Last administered on 08/14/16 08:51 ; Start 08/13/16 at 13:45 Tramadol HCl (Ultram) 50 mg PRN Q6HRS PRN PO PAIN Last administered on 06:26; Start 08/13/16 at 13:45 Hydralazine HCl (Apresoline) 10 mg PRN Q4HRS PRN IVP ELEVATED BP, SEE COMMENTS ; Start 08/13/16 at 13:45 Docusate Sodium (Colace) 100 mg PRN DAILY PRN PO CONSTIPATION; Start 08/13/16 at 13:45 Heparin Sodium (Porcine) (Heparin Sq) 5,000 unit Q8HRS SQ Last administered on 08/15/16 06:29; Start 08/13/16 at 14:00 Sodium Chloride 1,000 ml @ 1,000 mls/hr Q1H PRN IV hypotension; Start 08/14/16 at 08:05; Stop 08/14/16 at 14:04; Status DC Diphenhydramine HCl (Benadryl) 25 mg 1X PRN PRN IV ITCHING; Start 08/14/16 at 08 :15; Stop 08/15/16 at 08:14; Status DC Diphenhydramine HCl (Benadryl) 25 mg 1X PRN PRN IV ITCHING; Start 08/14/16 at 08 :15; Stop 08/15/16 at 08:14; Status DC Sodium Chloride 1,000 ml @ 400 mls/hr Q2H30M PRN IV PATENCY; Start 08/14/16 at 08:05; Stop 08/14/16 at 20:04; Status DC Info (PHARMACY MONITORING -- do not chart) 1 each PRN DAILY PRN MC SEE COMMENTS ; Start 08/14/16 at 08:15; Status UNV Info (PHARMACY MONITORING -- do not chart) 1 each PRN DAILY PRN MC SEE COMMENTS ; Start 08/14/16 at 08:15; Stop 08/15/16 at 10:03; Status DC Acetaminophen/ Butalbital/ Caffeine (Fioricet) 1 tab PRN Q6HRS PRN PO MIGRAINE HEADACHE Last administered on 08/15/16 09:09; Start 08/14/16 at 09:30 Sumatriptan Succinate (Imitrex) 100 mg PRN Q2HR PRN PO MIGRAINE HEADACHE; Start 08/14/16 at 14:15; Stop 08/14/16 at 14:15; Status DC Escitalopram Oxalate (Lexapro) 10 mg DAILY PO Last administered on 08/15/16 11: 10; Start 08/14/16 at 15:00 Sumatriptan Succinate (Imitrex) 100 mg PRN Q2HR PRN PO MIGRAINE HEADACHE Last administered on 08/15/16 12:33; Start 08/14/16 at 14:15 Alprazolam (Xanax) 0.25 mg PRN Q8HRS PRN PO ANXIETY / AGITATION; Start 08/15/16 at 10:00 Acetaminophen/ Hydrocodone Bitart (Lortab 5/325) 1 tab PRN Q4HRS PRN PO PAIN; Start 08/15/16 at 10:00 Sodium Chloride 1,000 ml @ 1,000 mls/hr Q1H PRN IV hypotension; Start 08/15/16 at 09:48; Stop 08/15/16 at 15:47 Diphenhydramine HCl (Benadryl) 25 mg 1X PRN PRN IV ITCHING; Start 08/15/16 at 10 :00; Stop 08/16/16 at 09:59 Diphenhydramine HCl (Benadryl) 25 mg 1X PRN PRN IV ITCHING; Start 08/15/16 at 10 :00; Stop 08/16/16 at 09:59 Sodium Chloride 1,000 ml @ 400 mls/hr Q2H30M PRN IV PATENCY; Start 08/15/16 at 09:48; Stop 08/15/16 at 21:47 Info (PHARMACY MONITORING -- do not chart) 1 each PRN DAILY PRN MC SEE COMMENTS ; Start 08/15/16 at 10:00 Active Scripts Active Flector (Diclofenac Epolamine) 1 Each Patch.td12 1 Patch TP DAILY Hydrocodone-Apap 5-325 (Hydrocodone Bit/Acetaminophen) 1 Each Tablet 1 Tab PO PRN Q4HRS PRN Cepacol Sore Throat Lozenge (Benzocaine/Menthol) 1 Each Lozenge 1 Rachelle PO PRN Q2HRS PRN 14 Days Sucralfate 1 Gm/10 Ml Oral.susp 1 Gm PO QIDACHS Midodrine Hcl 5 Mg Tablet 10 Mg PO TIDAC Reported Prednisolone Acetate 5 Ml Drops.susp 1 Drop EACHEYE QID Petrolatum Base Ointment (Mineral Oil/Hydrophil Petrolat) 454 Gm Oint...g. 454 Gm TP Refresh Tears (Carboxymethylcellulose Sodium) 15 Ml Drops 1 Drop OP QID Artificial Tears Eye Drops (Dextran 70/Hypromellose) 15 Ml Drops 1 Drop OP PRN Q6HRS PRN Ventolin Hfa Inhaler (Albuterol Sulfate) 18 Gm Hfa.aer.ad 2 Puff INH PRN Q8HRS PRN Acetaminophen 500 Mg Tablet 1,000 Mg PO PRN Q6HRS PRN Coreg (Carvedilol) 3.125 Mg Tablet 1 Tab PO BID [place]-Senait Rx Tablet (Vit B Cmplx 3/Fa/Vit C/Biotin) 1 Each Tablet 1 Each PO Zofran Odt (Ondansetron) 4 Mg Tab.rapdis 1 Tab SL BID Last dose given yesterday afternoon Take again when needed Vigamox (Moxifloxacin Hcl) 3 Ml Drops 1 Drop RIGHTEYE QID Not given on this admission Start today Effexor Xr (Venlafaxine Hcl) 150 Mg Cap.er.24h 1 Cap PO DAILY Last dose given this morning Take again tomorrow Lidoderm (Lidocaine) 700 Mg Adh..patch 1 Patch TP PRN DAILY PRN Last given on the 16th Use if needed Nystatin 15 Gm Powder 1 Akil TP BID Last dose given this morning Take again tonight Fluticasone Propionate Nasal [place] (Fluticasone Propionate) 16 Gm [place].susp 2 [place] NS PRN DAILY PRN Last given on the Take when needed Lipitor (Atorvastatin Calcium) 10 Mg Tablet 5 Mg PO QHS Last dose given last night Take tonight Senna Laxative (Sennosides) 8.6 Mg Tablet 17.2 Mg PO BID Last dose given this morning Take again tonight Pred Forte (Prednisolone Acetate) 1 Ml Drops.susp 1 Drop RIGHTEYE QID Not given on this admission Start today Protonix (Pantoprazole Sodium) 40 Mg Tablet.dr 40 Mg PO BIDAC Last dose given this morning Take again tonight Amitiza (Lubiprostone) 24 Mcg Capsule 24 Mcg PO BID Gave last dose last night Take again tonight Latuda (Lurasidone Hcl) 40 Mg Tablet 40 Mg PO QHS Last dose given last night Take again tonight Gabapentin 300 Mg Capsule 600 Mg PO DAILY Gave this morning Take again tomorrow morning Fish Oil [place]-3 Softgel ([place]-3/Dha/Epa/Fish Oil) 1 Each Capsule. 1 Cap PO BID Not given on this admission Start today Clonazepam Odt (Clonazepam) 0.5 Mg Tab.rapdis 0.5 Mg PO BID Gave dose this am Take again tonight Calcium Acetate 667 Mg Capsule 2,001 Mg PO TIDWMEALS Take with meals Last dose yesterday Vitals/I & O Vital Sign - Last 24 Hours 08/14/16 08/14/16 08/14/16 08/14/16 14:56 18:11 19:00 23:00 Temp 97.7 97.6 98.5 97.7 97.6 98.5 Pulse 85 84 79 72 Resp 18 17 18 B/P (MAP) 112/68 (83) 112/68 101/61 (74) 111/75 (87) Pulse Ox 100 96 98 O2 Delivery Room Air Room Air Room Air 08/15/16 08/15/16 08/15/16 08/15/16 03:00 06:26 07:00 07:26 Temp 98.6 97.9 98.6 97.9 Pulse 68 80 Resp 18 17 19 20 B/P (MAP) 119/79 (92) 114/77 (89) Pulse Ox 99 99 100 99 O2 Delivery Room Air Room Air Room Air Room Air 08/15/16 08/15/16 10:54 11:07 Temp 97.9 97.9 Pulse 85 85 Resp 19 B/P (MAP) 115/70 (85) 115/70 Pulse Ox 100 O2 Delivery Room Air Intake and Output 08/14/16 08/14/16 08/15/16 15:00 23:00 07:00 Intake Total 120 ml 900 ml Balance 120 ml 900 ml REILLY CATHERINE MD Aug 15, 2016 14:06
[2016-08-15] MEDS: HYDROcodone/APAP 5/325MG 1 TAB TABLET PO PRN ×2 (14:18→21:25)
[2016-08-15 19:55] VITALS: BP 86/60
[2016-08-15] MEDS: ATORVASTATIN CALCIUM 10 MG TABLET. PO SCH (21:22)
[2016-08-15] MEDS: LURASIDONE 40 MG TABLET. PO SCH (21:23)
[2016-08-15 23:14] VITALS: BP 100/66
--- NOTE | 2016-08-15 23:38 | PDOC4 ---
PROCEDURE Procedure RENAL DIALYSIS / [facility]. HD done. F 180 / HCO3 / 3K Qb 450 Qd 600 UF 2 x week Well tolerated. No complications. GYPSY TOLBERT MD Aug 15, 2016 23:38
[2016-08-16 03:55] VITALS: BP 99/68
[2016-08-16] MEDS: HEPARIN PF for SUB-Q USE 5,000 UNIT/0.5 ML VIAL. SQ SCH (06:15)
[2016-08-16 07:00] VITALS: BP 117/75
[2016-08-16] MEDS: BUTALB/APAP/CAFEIN 50/325/40MG TABLET. PO PRN (08:28)
[2016-08-16] MEDS: GABAPENTIN 300 MG CAPSULE. PO SCH (08:28)
[2016-08-16] MEDS: OMEGA-3 FATTY ACIDS/FISH OIL 1,000 MG CAPSULE. PO SCH (08:28)
[2016-08-16] MEDS: CALCIUM ACETATE 667 MG CAPSULE PO SCH ×2 (08:29→12:57)
[2016-08-16] MEDS: VENLAFAXINE XR 37.5 MG CAP.ER.24H. PO SCH (08:29)
[2016-08-16] MEDS: ESCITALOPRAM 10 MG TABLET. PO SCH (08:29)
[2016-08-16] MEDS: SENNOSIDES 8.6 MG TABLET PO SCH (08:30)
[2016-08-16] MEDS: clonazePAM 0.5 MG TABLET PO SCH (08:30)
[2016-08-16] MEDS: PANTOPRAZOLE 40 MG TABLET.DR. PO SCH (08:31)
[2016-08-16] MEDS: HYDROcodone/APAP 5/325MG 1 TAB TABLET PO PRN ×2 (08:31→12:57)
[2016-08-16] MEDS: CARVEDILOL 3.125 MG TABLET. PO SCH (08:31)
[2016-08-16] MEDS: ONDANSETRON ODT 4 MG TAB.RAPDIS. PO SCH (08:31)
[2016-08-16] MEDS ORDERED: BUTA1CAP29 PO (08:47)
[2016-08-16] MEDS ORDERED: ESCITALOPRAM OX10 MG PO (08:47)
[2016-08-16] MEDS ORDERED: SUMA100T3 PO (08:47)
[2016-08-16] MEDS: LUBIPROSTONE 8 MCG CAPSULE PO SCH (09:57)
[2016-08-16] MEDS: DEXAMETHASONE 0.1% OPHTH SOLUTION 5ML BOTTLE. OD SCH ×2 (09:58→12:57)
[2016-08-16] MEDS: MOXIFLOXACIN 0.5% OPHTH SOLUTION 3ML BOTTLE. OU SCH ×2 (09:58→12:57)
[2016-08-16] MEDS: NYSTATIN TOPICAL POWDER 15GM BOTTLE. TP SCH (09:58)
[2016-08-16] MEDS: POLYVINYL ALCOHOL 1.4% OPHTH SOLUTION 15ML BOTTLE. OU SCH ×2 (10:00→12:58)
--- NOTE | 2016-08-16 10:23 | PDOC ---
PROGRESS NOTES Assessment Migraine headaches, she says they are better Incidental subdural fluid not of clinical relevance and not requiring surgery Plan Escitalopram Sumatriptan Also has Lortab and Fioricet available. I counseled the patient to use pain medications no more than a total of 2 days a week Okay for discharge, follow-up with me in 6 weeks. Subjective Headache is better, still 10. Request refills on all of her medications which I told her the attending physician will take care of Objective Vital Signs Date Time Temp Pulse Resp B/P (MAP) Pulse Ox O2 Delivery O2 Flow Rate FiO2 08/16/16 09:56 Room Air 08/16/16 08:31 78 117/75 08/16/16 07:00 98.6 22 98 98.6 Intake and Output 08/16/16 07:00 Intake Total 2170 ml Balance 2170 ml Intake Oral 2170 ml # Voids 1 PHYSICAL EXAM Alert. Oriented to time, place and person. PERRL. EOMI. CN: no focal findings. Muscle tone: normal. Muscle strength: 5/5 DTR: 2+ Plantar reflex: flexor Gait: not examined in bed. Sensory exam: no abnormal findings. No cerebellar signs elicited. Review of Relevant I have reviewed the following items dane (where applicable) has been applied. Medications Current Medications Acetaminophen (Tylenol) 1,000 mg PRN Q6HRS PRN PO PAIN Last administered on 08/13 09:04; Start 08/13/16 at 05:30; Stop 08/13/16 at 13:46; Status DC Atorvastatin Calcium (Lipitor) 5 mg QHS PO Last administered on 08/15/16 21:22 ; Start 08/13/16 at 21:00 Calcium Acetate (Phoslo) 2,001 mg TIDWMEALS PO Last administered on 08/16/16 08 :29; Start 08/13/16 at 08:00 Carvedilol (Coreg) 3.125 mg BIDWMEALS PO Last administered on 08/16/16 08:31; Start 08/13/16 at 08:00 Fluticasone Propionate (Flonase) 2 spray PRN DAILY PRN NS ALLERGIES; Start 08/13 at 05:30 Lidocaine (Lidoderm) 1 patch PRN DAILY PRN TP BACK PAIN Last administered on 06:27; Start 08/13/16 at 05:30 Lurasidone HCl (Latuda) 40 mg QHS PO Last administered on 08/15/16 21:23; Start 08/13/16 at 21:00 Moxifloxacin HCl (Vigamox) 1 drop QID OU Last administered on 08/16/16 09:58; Start 08/13/16 at 09:00 Nystatin (Nystop) 1 akil BID TP Last administered on 08/16/16 09:58; Start at 09:00 Ondansetron HCl (Zofran Odt) 4 mg BID PO Last administered on 08/16/16 08:31; Start 08/13/16 at 09:00 Pantoprazole Sodium (Protonix) 40 mg BIDAC PO Last administered on 08/16/16 08: 31; Start 08/13/16 at 07:30 Sennosides (Senna) 17.2 mg BID PO Last administered on 08/16/16 08:30; Start at 09:00 Non-Formulary Medication 2 puff PRN Q8HRS PRN INH WHEEZING; Start 08/13/16 at 05 :30; Status UNV Artificial Tears (Artificial Tears) 1 drop QID OU Last administered on 10:00; Start 08/13/16 at 09:00 Clonazepam (KlonoPIN) 0.5 mg BID PO Last administered on 08/16/16 08:30; Start 08/13/16 at 09:00 Non-Formulary Medication 1 drop PRN Q6HRS PRN OP REDNESS; Start 08/13/16 at 05: 30; Status UNV Gabapentin (Neurontin) 600 mg DAILY PO Last administered on 08/16/16 08:28; Start 08/13/16 at 09:00 Lubiprostone (Amitiza) 24 mcg BID PO Last administered on 08/16/16 09:57; Start 08/13/16 at 09:00 Fish Oil (Fish Oil) 1,000 mg BID PO Last administered on 08/16/16 08:28; Start 08/13/16 at 09:00 Non-Formulary Medication 1 drop QID EACHEYE ; Start 08/13/16 at 09:00; Status UNV Non-Formulary Medication 1 drop QID RIGHTEYE ; Start 08/13/16 at 09:00; Status UNV Venlafaxine HCl (Effexor Xr) 150 mg DAILY PO Last administered on 08/16/16 08: 29; Start 08/13/16 at 09:00 Albuterol Sulfate (Ventolin Neb Soln) 2.5 mg PRN Q8HRS PRN NEB SHORTNESS OF BREATH; Start 08/13/16 at 06:00 Dexamethasone (Maxidex) 1 drop QID OD Last administered on 08/16/16 09:58; Start 08/13/16 at 09:00 Sumatriptan Succinate (Imitrex) 25 mg PRN Q2HR PRN PO MIGRAINE HEADACHE Last administered on 08/13/16 17:09; Start 08/13/16 at 11:30; Stop 08/14/16 at 14:09; Status DC Acetaminophen (Tylenol) 650 mg PRN Q6HRS PRN PO FEVER; Start 08/13/16 at 13:45 Ondansetron HCl (Zofran) 4 mg PRN Q6HRS PRN IV NAUSEA/VOMITING; Start 08/13/16 at 13:45 Morphine Sulfate 2 mg PRN Q2HR PRN IV PAIN Last administered on 08/14/16 08:51 ; Start 08/13/16 at 13:45 Tramadol HCl (Ultram) 50 mg PRN Q6HRS PRN PO PAIN Last administered on 06:26; Start 08/13/16 at 13:45 Hydralazine HCl (Apresoline) 10 mg PRN Q4HRS PRN IVP ELEVATED BP, SEE COMMENTS ; Start 08/13/16 at 13:45 Docusate Sodium (Colace) 100 mg PRN DAILY PRN PO CONSTIPATION; Start 08/13/16 at 13:45 Heparin Sodium (Porcine) (Heparin Sq) 5,000 unit Q8HRS SQ Last administered on 08/16/16 06:15; Start 08/13/16 at 14:00 Sodium Chloride 1,000 ml @ 1,000 mls/hr Q1H PRN IV hypotension; Start 08/14/16 at 08:05; Stop 08/14/16 at 14:04; Status DC Diphenhydramine HCl (Benadryl) 25 mg 1X PRN PRN IV ITCHING; Start 08/14/16 at 08 :15; Stop 08/15/16 at 08:14; Status DC Diphenhydramine HCl (Benadryl) 25 mg 1X PRN PRN IV ITCHING; Start 08/14/16 at 08 :15; Stop 08/15/16 at 08:14; Status DC Sodium Chloride 1,000 ml @ 400 mls/hr Q2H30M PRN IV PATENCY; Start 08/14/16 at 08:05; Stop 08/14/16 at 20:04; Status DC Info (PHARMACY MONITORING -- do not chart) 1 each PRN DAILY PRN MC SEE COMMENTS ; Start 08/14/16 at 08:15; Status UNV Info (PHARMACY MONITORING -- do not chart) 1 each PRN DAILY PRN MC SEE COMMENTS ; Start 08/14/16 at 08:15; Stop 08/15/16 at 10:03; Status DC Acetaminophen/ Butalbital/ Caffeine (Fioricet) 1 tab PRN Q6HRS PRN PO MIGRAINE HEADACHE Last administered on 08/16/16 08:28; Start 08/14/16 at 09:30 Sumatriptan Succinate (Imitrex) 100 mg PRN Q2HR PRN PO MIGRAINE HEADACHE; Start 08/14/16 at 14:15; Stop 08/14/16 at 14:15; Status DC Escitalopram Oxalate (Lexapro) 10 mg DAILY PO Last administered on 08/16/16 08: 29; Start 08/14/16 at 15:00 Sumatriptan Succinate (Imitrex) 100 mg PRN Q2HR PRN PO MIGRAINE HEADACHE Last administered on 08/15/16 17:27; Start 08/14/16 at 14:15 Alprazolam (Xanax) 0.25 mg PRN Q8HRS PRN PO ANXIETY / AGITATION; Start 08/15/16 at 10:00 Acetaminophen/ Hydrocodone Bitart (Lortab 5/325) 1 tab PRN Q4HRS PRN PO PAIN Last administered on 08/16/16 08:31; Start 08/15/16 at 10:00 Sodium Chloride 1,000 ml @ 1,000 mls/hr Q1H PRN IV hypotension; Start 08/15/16 at 09:48; Stop 08/15/16 at 15:47; Status DC Diphenhydramine HCl (Benadryl) 25 mg 1X PRN PRN IV ITCHING; Start 08/15/16 at 10 :00; Stop 08/16/16 at 09:59; Status DC Diphenhydramine HCl (Benadryl) 25 mg 1X PRN PRN IV ITCHING; Start 08/15/16 at 10 :00; Stop 08/16/16 at 09:59; Status DC Sodium Chloride 1,000 ml @ 400 mls/hr Q2H30M PRN IV PATENCY; Start 08/15/16 at 09:48; Stop 08/15/16 at 21:47; Status DC Info (PHARMACY MONITORING -- do not chart) 1 each PRN DAILY PRN MC SEE COMMENTS ; Start 08/15/16 at 10:00 Active Scripts Active Flector (Diclofenac Epolamine) 1 Each Patch.td12 1 Patch TP DAILY Hydrocodone-Apap 5-325 (Hydrocodone Bit/Acetaminophen) 1 Each Tablet 1 Tab PO PRN Q4HRS PRN Cepacol Sore Throat Lozenge (Benzocaine/Menthol) 1 Each Lozenge 1 Rachelle PO PRN Q2HRS PRN 14 Days Sucralfate 1 Gm/10 Ml Oral.susp 1 Gm PO QIDACHS Midodrine Hcl 5 Mg Tablet 10 Mg PO TIDAC Reported Prednisolone Acetate 5 Ml Drops.susp 1 Drop EACHEYE QID Petrolatum Base Ointment (Mineral Oil/Hydrophil Petrolat) 454 Gm Oint...g. 454 Gm TP Refresh Tears (Carboxymethylcellulose Sodium) 15 Ml Drops 1 Drop OP QID Artificial Tears Eye Drops (Dextran 70/Hypromellose) 15 Ml Drops 1 Drop OP PRN Q6HRS PRN Ventolin Hfa Inhaler (Albuterol Sulfate) 18 Gm Hfa.aer.ad 2 Puff INH PRN Q8HRS PRN Acetaminophen 500 Mg Tablet 1,000 Mg PO PRN Q6HRS PRN Coreg (Carvedilol) 3.125 Mg Tablet 1 Tab PO BID [place]-Senait Rx Tablet (Vit B Cmplx 3/Fa/Vit C/Biotin) 1 Each Tablet 1 Each PO Zofran Odt (Ondansetron) 4 Mg Tab.rapdis 1 Tab SL BID Last dose given yesterday afternoon Take again when needed Vigamox (Moxifloxacin Hcl) 3 Ml Drops 1 Drop RIGHTEYE QID Not given on this admission Start today Effexor Xr (Venlafaxine Hcl) 150 Mg Cap.er.24h 1 Cap PO DAILY Last dose given this morning Take again tomorrow Lidoderm (Lidocaine) 700 Mg Adh..patch 1 Patch TP PRN DAILY PRN Last given on the Use if needed Nystatin 15 Gm Powder 1 Akil TP BID Last dose given this morning Take again tonight Fluticasone Propionate Nasal [place] (Fluticasone Propionate) 16 Gm Harvey.susp 2 Harvey NS PRN DAILY PRN Last given on the Take when needed Lipitor (Atorvastatin Calcium) 10 Mg Tablet 5 Mg PO QHS Last dose given last night Take tonight Senna Laxative (Sennosides) 8.6 Mg Tablet 17.2 Mg PO BID Last dose given this morning Take again tonight Pred Forte (Prednisolone Acetate) 1 Ml Drops.susp 1 Drop RIGHTEYE QID Not given on this admission Start today Protonix (Pantoprazole Sodium) 40 Mg Tablet.dr 40 Mg PO BIDAC Last dose given this morning Take again tonight Amitiza (Lubiprostone) 24 Mcg Capsule 24 Mcg PO BID Gave last dose last night Take again tonight Latuda (Lurasidone Hcl) 40 Mg Tablet 40 Mg PO QHS Last dose given last night Take again tonight Gabapentin 300 Mg Capsule 600 Mg PO DAILY Gave this morning Take again tomorrow morning Fish Oil [place]-3 Softgel ([place]-3/Dha/Epa/Fish Oil) 1 Each Capsule.dr 1 Cap PO BID Not given on this admission Start today Clonazepam Odt (Clonazepam) 0.5 Mg Tab.rapdis 0.5 Mg PO BID Gave dose this am Take again tonight Calcium Acetate 667 Mg Capsule 2,001 Mg PO TIDWMEALS Take with meals Last dose yesterday Vitals/I & O Vital Sign - Last 24 Hours 08/15/16 08/15/16 08/15/16 08/15/16 10:54 11:07 14:18 17:27 Temp 97.9 97.9 Pulse 85 85 74 Resp 19 18 B/P (MAP) 115/70 (85) 115/70 149/76 Pulse Ox 100 O2 Delivery Room Air Room Air 08/15/16 08/15/16 08/15/16 08/15/16 19:55 21:25 22:30 23:14 Temp 99.3 98.2 99.3 98.2 Pulse 80 78 Resp 20 17 16 20 B/P (MAP) 86/60 (69) 100/66 (77) Pulse Ox 96 96 96 97 O2 Delivery Room Air Room Air Room Air 08/16/16 08/16/16 08/16/16 08/16/16 03:55 07:00 08:31 08:31 Temp 97.5 98.6 97.5 98.6 Pulse 74 78 78 Resp 18 22 B/P (MAP) 99/68 (78) 117/75 (89) 117/75 Pulse Ox 96 98 O2 Delivery Room Air Room Air Room Air 08/16/16 09:56 O2 Delivery Room Air Intake and Output 08/15/16 08/15/16 08/16/16 15:00 23:00 07:00 Intake Total 250 ml 1200 ml 720 ml Balance 250 ml 1200 ml 720 ml REILLY CATHERINE MD Aug 16, 2016 10:23
--- NOTE | 2016-08-16 10:51 | PDOC3 ---
Discharge Summary Visit Information Date of Admission: Aug 13, 2016 Date of Discharge: Aug 16, 2016 Admitting Diagnosis Comment: MIgraine headaches, worse than usual hyperkalemia, missed HD ESRD on HD tts HTN GERD H/O chf, STABLE PAFIB MORbid obesity Small intracranial hemorrhage, neg CT no FNDs REcent fall Brief Hospital Course Allergies Allergies Coded Allergies Type Severity Reaction Last Updated Verified Fish Containing Products Allergy Intermediate 12/04/15 Yes Iodinated Contrast- Oral and IV Dye Allergy Intermediate 12/04/15 Yes NSAIDS (Non-Steroidal Anti-Inflamma Allergy Intermediate TAKES ASA AT HOME Yes caffeine Allergy Intermediate 12/04/15 Yes ibuprofen Allergy Intermediate 12/04/15 Yes shellfish derived Allergy Intermediate 12/04/15 Yes I S O L A T I O N *CONTACT* Allergy Unknown 12/04/15 Yes Vital Signs Vital Signs Date Time Temp Pulse Resp B/P (MAP) Pulse Ox O2 Delivery O2 Flow Rate FiO2 08/16/16 09:56 Room Air 08/16/16 08:31 78 117/75 08/16/16 07:00 98.6 22 98 98.6 Brief Hospital Course Ms. Stephen is a 50 old AA female, known to us, this time she comes in for headaches, had a fall, showed some small subdural hemorrhages, non surgical, Co managed with Neurosx and Neuro, COuple of meds adjusted and started for migraine heeadaches. Now on high doses imitrex 100 mg q2 prn with full knowledge this med can worsen brain bleed, ok to cont lortab and fioricet prn, lexapro 10 mg also started, Ff up neuro 6 weeks. Her course was remarkable for persistent migraine headaches, causing the above adjustments. She is on 32 diff meds now, requests some scripts from me - which is a lot time 32 mins Discharge Information Condition at Discharge: Improved, Stable Disposition/Orders: D/C to Home w/ HH Scheduled Atorvastatin Calcium (Lipitor), 5 MG PO QHS, (Reported) Calcium Acetate (Calcium Acetate), 2,001 MG PO TIDWMEALS, (Reported) Carboxymethylcellulose Sodium (Refresh Tears), 1 DROP OP QID, (Reported) Carvedilol (Coreg), 1 TAB PO BID, (Reported) Clonazepam (Clonazepam Odt), 0.5 MG PO BID, (Reported) Diclofenac Epolamine (Flector), 1 PATCH TP DAILY Gabapentin (Gabapentin), 600 MG PO DAILY, (Reported) Lubiprostone (Amitiza), 24 MCG PO BID, (Reported) Lurasidone Hcl (Latuda), 40 MG PO QHS, (Reported) Midodrine Hcl (Midodrine Hcl), 10 MG PO TIDAC Moxifloxacin Hcl (Vigamox), 1 DROP RIGHTEYE QID, (Reported) Nystatin (Nystatin), 1 MINA TP BID, (Reported) [place]-3/Dha/Epa/Fish Oil (Fish Oil [place]-3 Softgel), 1 CAP PO BID, (Reported) Ondansetron (Zofran Odt), 1 TAB SL BID, (Reported) Pantoprazole Sodium (Protonix), 40 MG PO BIDAC, (Reported) Prednisolone Acetate (Pred Forte), 1 DROP RIGHTEYE QID, (Reported) Prednisolone Acetate (Prednisolone Acetate), 1 DROP EACHEYE QID, (Reported) Sennosides (Senna Laxative), 17.2 MG PO BID, (Reported) Sucralfate (Sucralfate), 1 GM PO QIDACHS Venlafaxine Hcl (Effexor Xr), 1 CAP PO DAILY, (Reported) Scheduled PRN Acetaminophen (Acetaminophen), 1,000 MG PO PRN Q6HRS PRN for PAIN, (Reported) Albuterol Sulfate (Ventolin Hfa Inhaler), 2 PUFF INH PRN Q8HRS PRN for WHEEZING, (Reported) Benzocaine/Menthol (Cepacol Sore Throat Lozenge), 1 TREMAYNE PO PRN Q2HRS PRN for SORE THROAT Dextran 70/Hypromellose (Artificial Tears Eye Drops), 1 DROP OP PRN Q6HRS PRN for REDNESS, (Reported) Fluticasone Propionate (Fluticasone Propionate Nasal [place]), 2 SPRAY NS PRN DAILY PRN for ALLERGIES, (Reported) Hydrocodone Bit/Acetaminophen (Hydrocodone-Apap 5-325 ), 1 TAB PO PRN Q4HRS PRN for PAIN MOD TO SEVERE Lidocaine (Lidoderm), 1 PATCH TP PRN DAILY PRN for BACK PAIN, (Reported) Miscellaneous Medications Mineral Oil/Hydrophil Petrolat (Petrolatum Base Ointment), 454 GM TP, (Reported) Vit B Cmplx 3/Fa/Vit C/Biotin ([place]-Senait Rx Tablet), 1 EACH PO, (Reported) Discontinued Medications Albuterol Sulfate (Proair Hfa Inhaler), 2 PUFF INH PRN Q6HRS PRN for SHORTNESS OF BREATH, (Reported) Apixaban (Eliquis), 2.5 MG PO BID, (Reported) Calcitriol (Calcitriol), 0.5 MG PO DAILY, (Reported) Colchicine (Colcrys), 1 TAB PO DAILY, (Reported) Diphenhydramine Hcl (Benadryl), 25 MG PO PRN Q6HRS PRN for ITCHING, (Reported) Fludrocortisone Acetate (Fludrocortisone Acetate), 0.1 MG PO BID, (Reported) Fludrocortisone Acetate (Fludrocortisone Acetate), 2 TAB PO BID, (Reported) Hydrocortisone (Hydrocortisone), 10 MG PO DAILY08, (Reported) Hydrocortisone (Hydrocortisone), 10 MG PO AFTRNOON, (Reported) Metoprolol Tartrate (Metoprolol Tartrate), 12.5 MG PO BID, (Reported) Naphazoline HCl/Pheniramine (Allergy Eye Drops), 15 ML OP PRN PRN for ITCHING, ( Reported) Nortriptyline Hcl (Nortriptyline Hcl), 50 MG PO QHS, (Reported) Oxybutynin Chloride (Ditropan Xl), 5 MG PO BID, (Reported) Ranolazine (Ranexa), 1 TAB PO DAILY, (Reported) Zinc Sulfate (Zinc Sulfate), 220 MG PO DAILY, (Reported) FITZ HAMMONDS MD Aug 16, 2016 10:51
[2016-08-16 11:00] VITALS: BP 100/69
--- NOTE | 2016-08-16 11:11 | PDOC ---
SUBJECTIVE ROS ESRD Doign and feeling much better CVS: no Orthopnea, no CP RESP: no SOB, no ERAZO GI: no Nausea, no Vomiting : no Dysuria, no Urgency OBJECTIVE Vital Signs Vital Signs Date Time Temp Pulse Resp B/P (MAP) Pulse Ox O2 Delivery O2 Flow Rate FiO2 08/16/16 09:56 Room Air 08/16/16 08:31 78 117/75 08/16/16 07:00 98.6 22 98 98.6 I & 0 Intake and Output 08/16/16 07:00 Intake Total 2170 ml Balance 2170 ml Intake Oral 2170 ml # Voids 1 PHYSICAL EXAM Physical Exam GEN: Awake, Oriented x 3, In no distress EYES: Vision Unchanged, Conjunctiva Normal EN: No EN Drainage, Mucous Membranes moist NECK: no JVD, no JVP, Supple, no Thyromegaly CVS: S1S2, + Murmur, No Gallop, No Rub,min Edema RESP: no Rales, no Rhonchi,no Acc. Muscle Use GI: BS + ve, NO Bruit, Non Tender, Non Distended : no CVA tenderness, no Suprapubic Tenderness DIAGNOSIS/ASSESSMENT Assessment & Plan ESRD: Current fluid and E-lyte status does not necessitate emergent need for dialysis. Will re-evaluate for dialysis in the am and continue on TTSat schedule. ? ^K - now resolved ANEMIA; no Aranesp ordered for current hgb HypoAlbuminemia - encourage PO intake HTN: Current BP meds as reviewed. See orders for changes. BONE & MINERAL: follow PHos levels as OP Discussed Plan of Care with pt and PT at bedside Problems: COMMENT/RELEVANT DATA Meds Current Medications Medications (Trade) Dose Ordered Sig/Jose Start Time Stop Time Status Last Admin Dose Admin Acetaminophen (Tylenol) 650 mg PRN Q6HRS PRN 08/13/16 13:45 Acetaminophen/ Butalbital/ Caffeine (Fioricet) 1 tab PRN Q6HRS PRN 08/14/16 09:30 08/16/16 08:28 1 TAB Acetaminophen/ Hydrocodone Bitart (Lortab 5/325) 1 tab PRN Q4HRS PRN 08/15/16 10:00 08/16/16 08:31 1 TAB Albuterol Sulfate (Ventolin Neb Soln) 2.5 mg PRN Q8HRS PRN 08/13/16 06:00 Alprazolam (Xanax) 0.25 mg PRN Q8HRS PRN 08/15/16 10:00 Artificial Tears (Artificial Tears) 1 drop QID 08/13/16 09:00 08/16/16 10:00 1 DROP Atorvastatin Calcium (Lipitor) 5 mg QHS 08/13/16 21:00 08/15/16 21:22 5 MG Calcium Acetate (Phoslo) 2,001 mg TIDWMEALS 08/13/16 08:00 08/16/16 08:29 2,001 MG Carvedilol (Coreg) 3.125 mg BIDWMEALS 08/13/16 08:00 08/16/16 08:31 3.125 MG Clonazepam (KlonoPIN) 0.5 mg BID 08/13/16 09:00 08/16/16 08:30 0.5 MG Dexamethasone (Maxidex) 1 drop QID 08/13/16 09:00 08/16/16 09:58 1 DROP Diphenhydramine HCl (Benadryl) 25 mg 1X PRN PRN 08/15/16 10:00 08/16/16 09:59 DC Docusate Sodium (Colace) 100 mg PRN DAILY PRN 08/13/16 13:45 Escitalopram Oxalate (Lexapro) 10 mg DAILY 08/14/16 15:00 08/16/16 08:29 10 MG Fish Oil (Fish Oil) 1,000 mg BID 08/13/16 09:00 08/16/16 08:28 1,000 MG Fluticasone Propionate (Flonase) 2 spray PRN DAILY PRN 08/13/16 05:30 Gabapentin (Neurontin) 600 mg DAILY 08/13/16 09:00 08/16/16 08:28 600 MG Heparin Sodium (Porcine) (Heparin Sq) 5,000 unit Q8HRS 08/13/16 14:00 08/16/16 06:15 5,000 UNIT Hydralazine HCl (Apresoline) 10 mg PRN Q4HRS PRN 08/13/16 13:45 Info (PHARMACY MONITORING -- do not chart) 1 each PRN DAILY PRN 08/15/16 10:00 Lidocaine (Lidoderm) 1 patch PRN DAILY PRN 08/13/16 05:30 73/17 06:27 1 PATCH Lubiprostone (Amitiza) 24 mcg BID 08/13/16 09:00 08/16/16 09:57 24 MCG Lurasidone HCl (Latuda) 40 mg QHS 08/13/16 21:00 08/15/16 21:23 40 MG Morphine Sulfate 2 mg PRN Q2HR PRN 08/13/16 13:45 08/14/16 08:51 2 MG Moxifloxacin HCl (Vigamox) 1 drop QID 08/13/16 09:00 08/16/16 09:58 1 DROP Non-Formulary Medication 1 drop QID 08/13/16 09:00 UNV Nystatin (Nystop) 1 maria guadalupe BID 08/13/16 09:00 08/16/16 09:58 1 MARIA GUADALUPE Ondansetron HCl (Zofran Odt) 4 mg BID 08/13/16 09:00 08/16/16 08:31 4 MG Ondansetron HCl (Zofran) 4 mg PRN Q6HRS PRN 08/13/16 13:45 Pantoprazole Sodium (Protonix) 40 mg BIDAC 08/13/16 07:30 08/16/16 08:31 40 MG Sennosides (Senna) 17.2 mg BID 08/13/16 09:00 08/16/16 08:30 17.2 MG Sodium Chloride 1,000 ml @ 400 mls/hr Q2H30M PRN 08/15/16 09:48 08/15/16 21:47 DC Sumatriptan Succinate (Imitrex) 100 mg PRN Q2HR PRN 08/14/16 14:15 08/15/16 17:27 100 MG Tramadol HCl (Ultram) 50 mg PRN Q6HRS PRN 08/13/16 13:45 08/15/16 06:26 50 MG Venlafaxine HCl (Effexor Xr) 150 mg DAILY 08/13/16 09:00 08/16/16 08:29 150 MG RUBA MIRANDA MD Aug 16, 2016 11:11
[2016-08-16 12:01] LABS: CREATININE 5.5 mg/dL (0.6-1.0); GFR 9.9; POTASSIUM 4.7 mmol/L (3.5-5.1)
[2016-08-16 12:16] LABS: BASO # 0.1 x10^3/uL (0.0-0.2); BASO % 1 % (0-3); EOS % 3 % (0-3); HEMATOCRIT 35.1 % (36.0-47.0); HEMOGLOBIN 11.3 g/dL (12.0-15.5); LYMPH # 1.3 x10^3/uL (1.0-4.8); LYMPH % 20 % (24-48); MEAN CORPUSCULAR HEMOGLOBIN 31 pg (25-35); MEAN CORPUSCULAR HGB CONC 32 g/dL (31-37); MEAN CORPUSCULAR VOLUME 97 fL (79-100); MONO % 9 % (0-9); NEUT % 67 % (31-73); PLATELET COUNT 197 x10^3/uL (140-400); RED BLOOD COUNT 3.63 x10^6/uL (3.50-5.40); WHITE BLOOD COUNT 6.7 x10^3/uL (4.0-11.0)
[2016-08-16 13:59] VITALS: BP 113/88
== END 2016-08-16 14:21 | disposition home health service (06) | DRG 85 ==
LOC: 5 NORTH 03:57
PROVIDERS: ADMIT Internal Medicine Hematology & Oncology; ATTEND Internal Medicine Hematology & Oncology
PROC: 5A1D60Z (ICD-10-PCS; principal; 2016-08-14)
DX: S06.5X0A Traumatic subdural hemorrhage without loss of consciousness, initial encounter (principal); N18.6 End stage renal disease; I13.2 Hypertensive heart and chronic kidney disease with heart failure and with stage 5 chronic kidney disease, or end stage renal disease; E87.5 Hyperkalemia; I61.9 Nontraumatic intracerebral hemorrhage, unspecified; E03.9 Hypothyroidism, unspecified; E66.01 Morbid (severe) obesity due to excess calories; Z68.33 Body mass index [BMI] 33.0-33.9, adult; E78.5 Hyperlipidemia, unspecified; F31.9 Bipolar disorder, unspecified; G43.909 Migraine, unspecified, not intractable, without status migrainosus; I48.0 Paroxysmal atrial fibrillation; E88.09 Other disorders of plasma-protein metabolism, not elsewhere classified; H40.9 Unspecified glaucoma; I50.9 Heart failure, unspecified; J45.909 Unspecified asthma, uncomplicated; K21.9 Gastro-esophageal reflux disease without esophagitis; M81.0 Age-related osteoporosis without current pathological fracture; Z82.49 Family history of ischemic heart disease and other diseases of the circulatory system; Z86.73 Personal history of transient ischemic attack (TIA), and cerebral infarction without residual deficits; Z87.11 Personal history of peptic ulcer disease; Z79.899 Other long term (current) drug therapy; Z99.2 Dependence on renal dialysis; Z88.8 Allergy status to other drugs, medicaments and biological substances; Z91.041 Radiographic dye allergy status; Z91.013 Allergy to seafood; Z90.49 Acquired absence of other specified parts of digestive tract; Z90.710 Acquired absence of both cervix and uterus
CPT/HCPCS: 36415; 70450; 70551; 80048; 80053; 83735; 85007; 85027; 94250; 94760; J2270; Q0162; 97110; 97116

== ENCOUNTER 2016-10-14 14:43 | Inpatient (IN) | payer MEDICARE, OTHER ==
[~2016-10-14] VITALS: Ht 167.6 cm; Wt 97.5 kg
[~2016-10-14 14:43] MED LIST changes: +ACET500T68 PO; +BUTA1CAP29 PO; +CARB15DR98 OP; +DEXT15DR5 OP; +ESCITALOPRAM OX10 MG PO; +PRED5DRO16 EACHEYE; +SUMA100T3 PO; +VENTOLIN HFA18 GM INH; +[UNRECOGNIZED DRUG - CODE] TP
[2016-10-14] MEDS ORDERED: IV NORMAL SALINE 1000ML BAG 1,000 ML IV PRN ×2 (16:13)
[2016-10-14] MEDS ORDERED: diphenhydrAMINE 50 MG/ML VIAL IV PRN (16:15)
[2016-10-14] MEDS ORDERED: ALBUMIN HUMAN 25% 200 ML IV PRN (16:15)
[2016-10-14] MEDS ORDERED: ACETAMINOPHEN 500 MG TABLET PO PRN (16:15)
[2016-10-14] MEDS ORDERED: DIALYSIS PATIENT. MC PRN ×2 (16:15)
[2016-10-14 19:45] VITALS: BP 89/61
[2016-10-14] MEDS ORDERED: NON FORMULARY ITEM (Albuterol Sulfate (Ventolin Hfa Inhaler) 2 PUFF) INH PRN (20:30)
[2016-10-14] MEDS ORDERED: BENZOCAINE/MENTHOL LOZENGE. PO PRN (20:30)
[2016-10-14] MEDS ORDERED: FLUTICASONE 50MCG/NASAL SPRAY 16GM BOTTLE. NS PRN (20:30)
[2016-10-14] MEDS ORDERED: LIDOCAINE (700MG/PATCH) PATCH. TP PRN (20:30)
[2016-10-14] MEDS: NYSTATIN TOPICAL POWDER 15GM BOTTLE. TP SCH (21:00)
[2016-10-14] MEDS: VENLAFAXINE 50 MG TABLET. PO SCH (21:00)
[2016-10-14] MEDS ORDERED: PREDNISOLONE ACETATE RIGHTEYE SCH (21:00)
[2016-10-14] MEDS: MOXIFLOXACIN 0.5% OPHTH SOLUTION 3ML BOTTLE. OU SCH (21:00)
[2016-10-14] MEDS ORDERED: BUTALB/APAP/CAFEIN 50/325/40MG TABLET. PO PRN (21:00)
[2016-10-14] MEDS ORDERED: POLYVINYL ALCOHOL 1.4% OPHTH SOLUTION 15ML BOTTLE. OU PRN (21:00)
[2016-10-14] MEDS: POLYVINYL ALCOHOL 1.4% OPHTH SOLUTION 15ML BOTTLE. OU SCH (21:00)
[2016-10-14] MEDS: ATORVASTATIN CALCIUM 10 MG TABLET. PO SCH (21:07)
[2016-10-14] MEDS: LURASIDONE 40 MG TABLET. PO SCH (21:07)
[2016-10-14] MEDS: HYDROcodone/APAP 5/325MG 1 TAB TABLET PO PRN (21:08)
[2016-10-14] MEDS: SENNOSIDES 8.6 MG TABLET PO SCH (21:09)
[2016-10-14] MEDS: ONDANSETRON ODT 4 MG TAB.RAPDIS. PO SCH (21:59)
[2016-10-14] MEDS: SUCRALFATE 1 GM/10 ML ORAL.SUSP. PO SCH (22:00)
[2016-10-14] MEDS: clonazePAM 0.5 MG TABLET PO SCH (22:00)
[2016-10-14 23:17] VITALS: BP 79/45
[2016-10-15] MEDS: DEXAMETHASONE 0.1% OPHTH SOLUTION 5ML BOTTLE. OU SCH ×5 (00:17→21:45)
[2016-10-15 02:40] VITALS: BP 82/43
[2016-10-15] MEDS: HYDROcodone/APAP 5/325MG 1 TAB TABLET PO PRN ×2 (06:28→12:00)
[2016-10-15 07:53] VITALS: BP 90/61
[2016-10-15] MEDS: CARVEDILOL 3.125 MG TABLET. PO SCH ×2 (08:00→16:55)
[2016-10-15] MEDS: ALBUTEROL SULFATE 2.5 MG/3 ML NEBU. NEB PRN ×3 (08:15→19:41)
[2016-10-15] MEDS ORDERED: DICLOFENAC EPOLAMINE TP SCH (09:00)
[2016-10-15] MEDS ORDERED: DEXAMETHASONE 0.1% OPHTH SOLUTION 5ML BOTTLE. OU SCH (09:00)
[2016-10-15] MEDS: NYSTATIN TOPICAL POWDER 15GM BOTTLE. TP SCH (09:00)
[2016-10-15] MEDS: POLYVINYL ALCOHOL 1.4% OPHTH SOLUTION 15ML BOTTLE. OU SCH ×4 (09:00→21:00)
[2016-10-15] MEDS: SENNOSIDES 8.6 MG TABLET PO SCH ×2 (09:00→21:40)
[2016-10-15] MEDS: ONDANSETRON ODT 4 MG TAB.RAPDIS. PO SCH ×2 (09:40→21:39)
[2016-10-15] MEDS: SUCRALFATE 1 GM/10 ML ORAL.SUSP. PO SCH ×4 (09:40→21:52)
[2016-10-15] MEDS: clonazePAM 0.5 MG TABLET PO SCH ×2 (09:41→21:39)
[2016-10-15] MEDS: OMEGA-3 FATTY ACIDS/FISH OIL 1,000 MG CAPSULE. PO SCH ×2 (09:42→21:38)
[2016-10-15] MEDS: LUBIPROSTONE 8 MCG CAPSULE PO SCH ×2 (09:42→16:51)
[2016-10-15] MEDS: MIDODRINE 5 MG TABLET PO SCH ×3 (09:42→16:52)
[2016-10-15] MEDS: CALCIUM ACETATE 667 MG CAPSULE PO SCH ×3 (09:43→16:51)
[2016-10-15] MEDS: CITALOPRAM 20 MG TABLET. PO SCH (09:43)
[2016-10-15] MEDS: PANTOPRAZOLE 40 MG TABLET.DR. PO SCH ×2 (09:43→16:52)
[2016-10-15] MEDS: MOXIFLOXACIN 0.5% OPHTH SOLUTION 3ML BOTTLE. OU SCH ×4 (09:44→21:44)
[2016-10-15] MEDS: GABAPENTIN 300 MG CAPSULE. PO SCH (09:45)
[2016-10-15] MEDS: VENLAFAXINE 50 MG TABLET. PO SCH ×3 (09:45→21:00)
[2016-10-15 11:41] VITALS: BP 98/57
[2016-10-15] MEDS ORDERED: traMADol 50 MG TABLET PO PRN (13:00)
[2016-10-15] MEDS ORDERED: ACETAMINOPHEN 325 MG TABLET. PO PRN (13:00)
[2016-10-15] MEDS ORDERED: hydrALAZINE 20 MG/ML VIAL. IVP PRN (13:00)
[2016-10-15] MEDS ORDERED: DOCUSATE SODIUM 100 MG CAPSULE. PO PRN (13:00)
[2016-10-15] MEDS ORDERED: ONDANSETRON PF 4 MG/2 ML VIAL. IV PRN (13:00)
[2016-10-15] MEDS ORDERED: MORPHINE SULFATE 2 MG/ML DISP.SYRIN. IV PRN (13:00)
--- NOTE | 2016-10-15 13:54 | PDOC2 ---
CONSULT Date of Consult Date of Consult DATE: 10/15/16 TIME: 13:53 Reason for Consult Reason for Consult: abd pain/esrd Past Medical History Cardiovascular: AFIB, HTN, Hyperlipidemia, Other Pulmonary: Asthma, Bronchitis, Pneumonia CENTRAL NERVOUS SYSTEM: Migraine, Periperal neuropathy, TIA GI: GERD, Peptic Ulcer disease Heme/Onc: Anemia NOS Psych: Anxiety, Bipolar, Depression, Panic Musculoskeletal: low back pain Infectious disease: Other Renal/: Chronic renal failure Endocrine: Hypothyroidism Past Surgical History Past Surgical History: Cholecystectomy, Cataract Removal, , Hernia Repair, Other Family History Family History: Heart Disease Social History ALCOHOL: none Drugs: None Lives: with Family Domestic Violence: Neg Current Medications Current Medications Current Medications Sodium Chloride 1,000 ml @ 1,000 mls/hr Q1H PRN IV hypotension; Start 10/14/16 at 16:13; Stop 10/14/16 at 22:12; Status DC Albumin Human 200 ml @ 200 mls/hr 1X PRN PRN IV Hypotension; Start 10/14/16 at 16:15; Stop 10/14/16 at 22:14; Status DC Acetaminophen (Tylenol) 500 mg 1X PRN PRN PO MILD PAIN / TEMP; Start 10/14/16 at 16:15; Stop 10/15/16 at 16:14 Diphenhydramine HCl (Benadryl) 25 mg 1X PRN PRN IV ITCHING; Start 10/14/16 at 16 :15; Stop 10/15/16 at 16:14 Sodium Chloride 1,000 ml @ 400 mls/hr Q2H30M PRN IV PATENCY; Start 10/14/16 at 16:13; Stop 10/15/16 at 04:12; Status DC Info (PHARMACY MONITORING -- do not chart) 1 each PRN DAILY PRN MC SEE COMMENTS ; Start 10/14/16 at 16:15; Stop 10/14/16 at 16:20; Status DC Info (PHARMACY MONITORING -- do not chart) 1 each PRN DAILY PRN MC SEE COMMENTS ; Start 10/14/16 at 16:15 Atorvastatin Calcium (Lipitor) 5 mg QHS PO Last administered on 10/14/16t 21:07 ; Start 10/14/16 at 21:00 Throat Lozenges (Cepacol Sore Throat Lozenge) 1 gonzáelz PRN Q2HRS PRN PO SORE THROAT; Start 10/14/16 at 20:30 Calcium Acetate (Phoslo) 2,001 mg TIDWMEALS PO Last administered on 10/15/16 11 :59; Start 10/15/16 at 08:00 Carvedilol (Coreg) 3.125 mg BIDWMEALS PO ; Start 10/15/16 at 08:00 Fluticasone Propionate (Flonase) 2 spray PRN DAILY PRN NS ALLERGIES; Start 10/14 at 20:30 Acetaminophen/ Hydrocodone Bitart (Lortab 5/325) 1 tab PRN Q4HRS PRN PO PAIN MOD TO SEVERE Last administered on 10/15/16 12:00; Start 10/14/16 at 20:30; Stop 10/15/16 at 12:47; Status DC Lidocaine (Lidoderm) 1 patch PRN DAILY PRN TP BACK PAIN; Start 10/14/16 at 20:30 Lurasidone HCl (Latuda) 40 mg QHS PO Last administered on 10/14/16 21:07; Start 10/14/16 at 21:00 Midodrine (Proamatine) 10 mg TIDAC PO Last administered on 10/15/16 12:01; Start 10/15/16 at 07:30 Moxifloxacin HCl (Vigamox) 1 drop QID OU Last administered on 10/15/16 09:44; Start 10/14/16 at 21:00 Nystatin (Nystop) 1 akil BID TP ; Start 10/14/16 at 21:00; Stop 10/15/16 at 13:21; Status DC Ondansetron HCl (Zofran Odt) 4 mg BID PO Last administered on 10/15/16 09:40; Start 10/14/16 at 21:00 Pantoprazole Sodium (Protonix) 40 mg BIDAC PO Last administered on 10/15/16 09: 43; Start 10/15/16 at 07:30 Sennosides (Senna) 17.2 mg BID PO Last administered on 10/14/16 21:09; Start at 21:00 Sucralfate (Carafate) 1 gm QIDACHS PO Last administered on 10/15/16 12:00; Start 10/14/16 at 21:00 Non-Formulary Medication 2 puff PRN Q8HRS PRN INH WHEEZING; Start 10/14/16 at 20 :30; Status UNV Acetaminophen/ Butalbital/ Caffeine (Fioricet) 1 tab PRN Q4HRS PRN PO MIGRAINE HEADACHE; Start 10/14/16 at 21:00 Artificial Tears (Artificial Tears) 1 drop QID OU ; Start 10/14/16 at 21:00 Clonazepam (KlonoPIN) 0.5 mg BID PO Last administered on 10/15/16 09:41; Start 10/14/16 at 21:00 Artificial Tears (Artificial Tears) 1 drop PRN Q6HRS PRN OU REDNESS; Start 10/14 at 21:00 Non-Formulary Medication 1 patch DAILY TP ; Start 10/15/16 at 09:00; Stop at 13:21; Status DC Citalopram Hydrobromide (CeleXA) 20 mg DAILY PO Last administered on 10/15/16 09:43; Start 10/15/16 at 09:00 Gabapentin (Neurontin) 300 mg DAILY PO Last administered on 10/15/16 09:45; Start 10/15/16 at 09:00 Lubiprostone (Amitiza) 24 mcg BIDWMEALS PO Last administered on 10/15/16 09:42 ; Start 10/15/16 at 08:00 Fish Oil (Fish Oil) 1,000 mg BID PO Last administered on 10/15/16 09:42; Start 10/15/16 at 09:00 Dexamethasone (Maxidex) 1 drop QID OU ; Start 10/15/16 at 09:00; Stop 10/15/16 at 09:00; Status DC Non-Formulary Medication 1 drop QID RIGHTEYE ; Start 10/14/16 at 21:00; Status UNV Venlafaxine HCl (Effexor) 50 mg TID PO Last administered on 10/15/16 09:45; Start 10/14/16 at 21:00 Albuterol Sulfate (Ventolin Neb Soln) 2.5 mg PRN Q8HRS PRN NEB SHORTNESS OF BREATH Last administered on 10/15/16 13:27; Start 10/14/16 at 21:00 Dexamethasone (Maxidex) 1 drop QID OU Last administered on 10/15/16t 09:40; Start 10/14/16 at 22:15 Acetaminophen/ Hydrocodone Bitart (Lortab 7.5/325) 1 tab PRN Q4HRS PRN PO PAIN ; Start 10/15/16 at 12:45 Acetaminophen (Tylenol) 650 mg PRN Q6HRS PRN PO FEVER; Start 10/15/16 at 13:00 Ondansetron HCl (Zofran) 4 mg PRN Q6HRS PRN IV NAUSEA/VOMITING; Start 10/15/16 at 13:00 Morphine Sulfate 2 mg PRN Q2HR PRN IV PAIN; Start 10/15/16 at 13:00 Tramadol HCl (Ultram) 50 mg PRN Q6HRS PRN PO PAIN; Start 10/15/16 at 13:00 Hydralazine HCl (Apresoline) 10 mg PRN Q4HRS PRN IVP ELEVATED BP, SEE COMMENTS ; Start 10/15/16 at 13:00 Docusate Sodium (Colace) 100 mg PRN DAILY PRN PO CONSTIPATION; Start 10/15/16 at 13:00 Active Scripts Active Escitalopram Oxalate 10 Mg Tablet 1 Tab PO DAILY Imitrex (Sumatriptan Succinate) 100 Mg Tablet 1 Tab PO UD Fioricet 50-300-40 Mg Capsule (Butalb/Acetaminophen/Caffeine) 1 Each Capsule 1 Each PO PRN Q4HRS PRN 30 Days Flector (Diclofenac Epolamine) 1 Each Patch.td12 1 Patch TP DAILY Hydrocodone-Apap 5-325 (Hydrocodone Bit/Acetaminophen) 1 Each Tablet 1 Tab PO PRN Q4HRS PRN Cepacol Sore Throat Lozenge (Benzocaine/Menthol) 1 Each Lozenge 1 González PO PRN Q2HRS PRN 14 Days Sucralfate 1 Gm/10 Ml Oral.susp 1 Gm PO QIDACHS Midodrine Hcl 5 Mg Tablet 10 Mg PO TIDAC Reported Prednisolone Acetate 5 Ml Drops.susp 1 Drop EACHEYE QID Petrolatum Base Ointment (Mineral Oil/Hydrophil Petrolat) 454 Gm Oint...g. 454 Gm TP Refresh Tears (Carboxymethylcellulose Sodium) 15 Ml Drops 1 Drop OP QID Artificial Tears Eye Drops (Dextran 70/Hypromellose) 15 Ml Drops 1 Drop OP PRN Q6HRS PRN Ventolin Hfa Inhaler (Albuterol Sulfate) 18 Gm Hfa.aer.ad 2 Puff INH PRN Q8HRS PRN Acetaminophen 500 Mg Tablet 1,000 Mg PO PRN Q6HRS PRN Coreg (Carvedilol) 3.125 Mg Tablet 1 Tab PO BID Paola-Senait Rx Tablet (Vit B Cmplx 3/Fa/Vit C/Biotin) 1 Each Tablet 1 Each PO Zofran Odt (Ondansetron) 4 Mg Tab.rapdis 1 Tab SL BID Last dose given yesterday afternoon Take again when needed Vigamox (Moxifloxacin Hcl) 3 Ml Drops 1 Drop RIGHTEYE QID Not given on this admission Start today Effexor Xr (Venlafaxine Hcl) 150 Mg Cap.er.24h 1 Cap PO DAILY Last dose given this morning Take again tomorrow Lidoderm (Lidocaine) 700 Mg Adh..patch 1 Patch TP PRN DAILY PRN Last given on the Use if needed Nystatin 15 Gm Powder 1 Akil TP BID Last dose given this morning Take again tonight Fluticasone Propionate Nasal Muse (Fluticasone Propionate) 16 Gm Muse.susp 2 Muse NS PRN DAILY PRN Last given on the Take when needed Lipitor (Atorvastatin Calcium) 10 Mg Tablet 5 Mg PO QHS Last dose given last night Take tonight Senna Laxative (Sennosides) 8.6 Mg Tablet 17.2 Mg PO BID Last dose given this morning Take again tonight Pred Forte (Prednisolone Acetate) 1 Ml Drops.susp 1 Drop RIGHTEYE QID Not given on this admission Start today Protonix (Pantoprazole Sodium) 40 Mg Tablet.dr 40 Mg PO BIDAC Last dose given this morning Take again tonight Amitiza (Lubiprostone) 24 Mcg Capsule 24 Mcg PO BID Gave last dose last night Take again tonight Latuda (Lurasidone Hcl) 40 Mg Tablet 40 Mg PO QHS Last dose given last night Take again tonight Gabapentin 300 Mg Capsule 600 Mg PO DAILY Gave this morning Take again tomorrow morning Fish Oil Hobgood-3 Softgel (Hobgood-3/Dha/Epa/Fish Oil) 1 Each Capsule.dr 1 Cap PO BID Not given on this admission Start today Clonazepam Odt (Clonazepam) 0.5 Mg Tab.rapdis 0.5 Mg PO BID Gave dose this am Take again tonight Calcium Acetate 667 Mg Capsule 2,001 Mg PO TIDWMEALS Take with meals Last dose yesterday Allergies Allergies: Coded Allergies: Fish Containing Products (Verified Allergy, Intermediate, 12/04/15) SEAFOOD Iodinated Contrast- Oral and IV Dye (Verified Allergy, Intermediate, 12/03) NSAIDS (Non-Steroidal Anti-Inflamma (Verified Allergy, Intermediate, TAKES ASA AT HOME, 12/04/15) caffeine (Verified Allergy, Intermediate, 12/04/15) ibuprofen (Verified Allergy, Intermediate, 12/04/15) shellfish derived (Verified Allergy, Intermediate, 12/04/15) SEAFOOD I S O L A T I O N *CONTACT* (Verified Allergy, Unknown, 12/04/15) hx mrsa + screen and + VRE/CRE in urine. Vitals VITALS Vital Signs Date Time Temp Pulse Resp B/P (MAP) Pulse Ox O2 Delivery O2 Flow Rate FiO2 10/15/16 13:28 97 Room Air 10/15/16 12:01 61 98/57 10/15/16 11:41 98.1 16 98.1 Assessment/Plan Assessment/Plan ABd pain- s/p jerald with ESRD, differential includes: mesenteric ischemia, partial SBO, occult malignancy.,and/or PUD. Plan Ct abd/pelvis to further assess consider endosopcy pending above results. Full note dictated PILAR CARTER MD Oct 15, 2016 13:54
[2016-10-15] MEDS: HYDROcodone/APAP 7.5/325MG 1 TAB TABLET PO PRN ×2 (14:33→21:52)
[2016-10-15 15:00] VITALS: BP 101/62
--- NOTE | 2016-10-15 16:07 | PDOC1 ---
History and Physical Date of Admission Date of Admission 10/15/16 Identification/Chief Complaint Chief Complaint abd pain Problems: Source Source: Chart review, Patient History of Present Illness History of Present Illness 50yo F, living alone, multiple combobidities, comes here almost every month for different reasons and usually not like to go home and also lied to me before, came yesterday for RUQ pain x3ds. Pt just dced here 08/2016. and out of [facility] last month. Pt said she started to have RUQ pain since 3 days ago, with nausea, h/o cholecystectomy, no diarrhea, or constipation. She said never had this pain before. pt then didnot go to her regular HD on AND went to [facility] on sun and then transferred here. said had EGD before. Past Medical History Cardiovascular: AFIB, HTN, Hyperlipidemia, Other Pulmonary: Asthma, Bronchitis, Pneumonia CENTRAL NERVOUS SYSTEM: Migraine, Periperal neuropathy, TIA GI: GERD, Peptic Ulcer disease Heme/Onc: Anemia NOS Psych: Anxiety, Bipolar, Depression, Panic Infectious disease: Other Renal/: Chronic renal failure Endocrine: Hypothyroidism Past Surgical History Past Surgical History: Cholecystectomy, Cataract Removal, , Hernia Repair, Other Family History Family History: Heart Disease Social History Smoke: No ALCOHOL: none Drugs: None Current Medications Current Medications Current Medications Medications (Trade) Dose Ordered Sig/Jose Start Time Stop Time Status Last Admin Dose Admin Acetaminophen (Tylenol) 650 mg PRN Q6HRS PRN 10/15/16 13:00 Acetaminophen/ Butalbital/ Caffeine (Fioricet) 1 tab PRN Q4HRS PRN 10/14/16 21:00 Acetaminophen/ Hydrocodone Bitart (Lortab 5/325) 1 tab PRN Q4HRS PRN 10/14/16 20:30 10/15/16 12:47 DC 10/15/16 12:00 1 TAB Acetaminophen/ Hydrocodone Bitart (Lortab 7.5/325) 1 tab PRN Q4HRS PRN 10/15/16 12:45 10/15/16 14:33 1 TAB Albumin Human 200 ml @ 200 mls/hr 1X PRN PRN 10/14/16 16:15 10/14/16 22:14 DC Albuterol Sulfate (Ventolin Neb Soln) 2.5 mg PRN Q8HRS PRN 10/14/16 21:00 10/15/16 13:27 2.5 MG Artificial Tears (Artificial Tears) 1 drop PRN Q6HRS PRN 10/14/16 21:00 Atorvastatin Calcium (Lipitor) 5 mg QHS 10/14/16 21:00 10/14/16 21:07 5 MG Calcium Acetate (Phoslo) 2,001 mg TIDWMEALS 10/15/16 08:00 10/15/16 11:59 2,001 MG Carvedilol (Coreg) 3.125 mg BIDWMEALS 10/15/16 08:00 Citalopram Hydrobromide (CeleXA) 20 mg DAILY 10/15/16 09:00 10/15/16 09:43 20 MG Clonazepam (KlonoPIN) 0.5 mg BID 10/14/16 21:00 10/15/16 09:41 0.5 MG Dexamethasone (Maxidex) 1 drop QID 10/14/16 22:15 10/15/16 14:34 1 DROP Diphenhydramine HCl (Benadryl) 25 mg 1X PRN PRN 10/14/16 16:15 10/15/16 16:14 Docusate Sodium (Colace) 100 mg PRN DAILY PRN 10/15/16 13:00 Fish Oil (Fish Oil) 1,000 mg BID 10/15/16 09:00 10/15/16 09:42 1,000 MG Fluticasone Propionate (Flonase) 2 spray PRN DAILY PRN 10/14/16 20:30 Gabapentin (Neurontin) 300 mg DAILY 10/15/16 09:00 10/15/16 09:45 300 MG Hydralazine HCl (Apresoline) 10 mg PRN Q4HRS PRN 10/15/16 13:00 Info (PHARMACY MONITORING -- do not chart) 1 each PRN DAILY PRN 10/14/16 16:15 Lidocaine (Lidoderm) 1 patch PRN DAILY PRN 10/14/16 20:30 Lubiprostone (Amitiza) 24 mcg BIDWMEALS 10/15/16 08:00 10/15/16 09:42 24 MCG Lurasidone HCl (Latuda) 40 mg QHS 10/14/16 21:00 10/14/16 21:07 40 MG Midodrine (Proamatine) 10 mg TIDAC 10/15/16 07:30 10/15/16 12:01 10 MG Morphine Sulfate 2 mg PRN Q2HR PRN 10/15/16 13:00 Moxifloxacin HCl (Vigamox) 1 drop QID 10/14/16 21:00 10/15/16 14:34 1 DROP Non-Formulary Medication 1 drop QID 10/14/16 21:00 UNV Nystatin (Nystop) 1 maria guadalupe BID 10/14/16 21:00 10/15/16 13:21 DC Ondansetron HCl (Zofran Odt) 4 mg BID 10/14/16 21:00 10/15/16 09:40 4 MG Ondansetron HCl (Zofran) 4 mg PRN Q6HRS PRN 10/15/16 13:00 Pantoprazole Sodium (Protonix) 40 mg BIDAC 10/15/16 07:30 10/15/16 09:43 40 MG Sennosides (Senna) 17.2 mg BID 10/14/16 21:00 10/14/16 21:09 17.2 MG Sodium Chloride 1,000 ml @ 400 mls/hr Q2H30M PRN 10/14/16 16:13 10/15/16 04:12 DC Sucralfate (Carafate) 1 gm QIDACHS 10/14/16 21:00 10/15/16 12:00 1 GM Throat Lozenges (Cepacol Sore Throat Lozenge) 1 gonzález PRN Q2HRS PRN 10/14/16 20:30 Tramadol HCl (Ultram) 50 mg PRN Q6HRS PRN 10/15/16 13:00 Venlafaxine HCl (Effexor) 50 mg TID 10/14/16 21:00 10/15/16 14:34 50 MG Allergies Allergies Allergies Coded Allergies Type Severity Reaction Last Updated Verified Fish Containing Products Allergy Intermediate 12/04/15 Yes Iodinated Contrast- Oral and IV Dye Allergy Intermediate 12/04/15 Yes NSAIDS (Non-Steroidal Anti-Inflamma Allergy Intermediate TAKES ASA AT HOME Yes caffeine Allergy Intermediate 12/04/15 Yes ibuprofen Allergy Intermediate 12/04/15 Yes shellfish derived Allergy Intermediate 12/04/15 Yes I S O L A T I O N *CONTACT* Allergy Unknown 12/04/15 Yes ROS Review of System CONSTITUTIONAL: No fever or chills EYES: No recent changes SKIN: No rash or itching CARDIOVASCULAR: No chest pain, syncope, palpitations, or edema RESPIRATORY: No SOB or cough GASTROINTESTINAL: No nausea, vomiting or abdominal pain NEUROLOGICAL: No headaches or weakness ENDOCRINE: No cold or heat intolerance GENITOURINARY: No urgency or frequency of urination MUSCULOSKELETAL: No back pain or joint pain LYMPHATICS: No enlarged lymph nodes PSYCHIATRIC: No anxiety or depression Physical Exam Physical Exam GEN.: No apparent distress. Alert and oriented. HEENT: Head is normocephalic, atraumatic NECK: Supple. LUNGS: Clear to auscultation. HEART: RRR, S1, S2 present. Peripheral pulses intact ABDOMEN: Soft, Positive bowel sounds. RUQ moderate tendereness, no guarding or rebound. EXTREMITIES: Without any cyanosis. NEUROLOGIC: Normal speech, normal tone PSYCHIATRIC: Normal affect, normal mood. SKIN: No ulcerations Vitals Vitals Vital Signs Date Time Temp Pulse Resp B/P (MAP) Pulse Ox O2 Delivery O2 Flow Rate FiO2 10/15/16 14:33 Room Air 10/15/16 13:28 97 10/15/16 12:01 61 98/57 10/15/16 11:41 98.1 16 98.1 Labs Labs Laboratory Tests Test 10/14/16 21:00 Nasal Screen MRSA (PCR) Positive (Negative) Laboratory Tests Test 10/14/16 21:00 Nasal Screen MRSA (PCR) Positive (Negative) VTE Prophylaxis Ordered VTE Prophylaxis Devices: Contraindicated VTE Pharmacological Prophylaxi: Yes Assessment/Plan Assessment/Plan RUQ pain, need to rule out GERD, BILE dz, ischemia colitis less likely h/o GERD post cholecystectomy h/o migraine ESRD on HD tts, but missed her HD often PAFIB not on AC HTN H/O chf STABLE grade 1 diastolic morbid obesity h/o possible Small intracranial hemorrhage, neg CT no FNDs 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 need cont HD tts ptot on midodrine prn for low BP, on coreg as well, consider dc if low BP SUN SHER MD Oct 15, 2016 16:07
[2016-10-15 20:29] VITALS: BP 121/66
[2016-10-15] MEDS: ATORVASTATIN CALCIUM 10 MG TABLET. PO SCH (21:38)
[2016-10-15] MEDS: LURASIDONE 40 MG TABLET. PO SCH (21:39)
[2016-10-15] MEDS: HEPARIN PF for SUB-Q USE 5,000 UNIT/0.5 ML VIAL. SQ SCH (21:49)
[2016-10-15 23:54] VITALS: BP 100/65
[2016-10-16 03:55] VITALS: BP 106/75
[2016-10-16] MEDS: HYDROcodone/APAP 7.5/325MG 1 TAB TABLET PO PRN (05:04)
[2016-10-16] MEDS: HEPARIN PF for SUB-Q USE 5,000 UNIT/0.5 ML VIAL. SQ SCH ×3 (05:07→22:27)
[2016-10-16 07:00] VITALS: BP 139/75
[2016-10-16] MEDS: SUCRALFATE 1 GM/10 ML ORAL.SUSP. PO SCH ×4 (08:32→22:00)
[2016-10-16] MEDS: ONDANSETRON ODT 4 MG TAB.RAPDIS. PO SCH ×2 (08:33→22:00)
[2016-10-16] MEDS: OMEGA-3 FATTY ACIDS/FISH OIL 1,000 MG CAPSULE. PO SCH ×2 (08:33→21:00)
[2016-10-16] MEDS: MIDODRINE 5 MG TABLET PO SCH ×3 (08:33→17:02)
[2016-10-16] MEDS: CARVEDILOL 3.125 MG TABLET. PO SCH ×2 (08:33→17:03)
[2016-10-16] MEDS: LUBIPROSTONE 8 MCG CAPSULE PO SCH ×2 (08:33→17:00)
[2016-10-16] MEDS: GABAPENTIN 300 MG CAPSULE. PO SCH (08:33)
[2016-10-16] MEDS: CALCIUM ACETATE 667 MG CAPSULE PO SCH ×3 (08:34→17:03)
[2016-10-16] MEDS: PANTOPRAZOLE 40 MG TABLET.DR. PO SCH ×2 (08:34→17:03)
[2016-10-16] MEDS: SENNOSIDES 8.6 MG TABLET PO SCH ×2 (08:34→21:59)
[2016-10-16] MEDS: CITALOPRAM 20 MG TABLET. PO SCH (08:35)
[2016-10-16] MEDS: POLYVINYL ALCOHOL 1.4% OPHTH SOLUTION 15ML BOTTLE. OU SCH ×4 (08:35→21:57)
[2016-10-16] MEDS: VENLAFAXINE 50 MG TABLET. PO SCH ×3 (08:35→21:00)
[2016-10-16] MEDS: DEXAMETHASONE 0.1% OPHTH SOLUTION 5ML BOTTLE. OU SCH ×4 (08:35→21:57)
[2016-10-16] MEDS: MOXIFLOXACIN 0.5% OPHTH SOLUTION 3ML BOTTLE. OU SCH ×4 (08:35→21:58)
[2016-10-16] MEDS: clonazePAM 0.5 MG TABLET PO SCH ×2 (08:35→21:58)
[2016-10-16] MEDS: ALBUTEROL SULFATE 2.5 MG/3 ML NEBU. NEB PRN ×3 (08:59→20:29)
--- NOTE | 2016-10-16 10:28 | PDOC ---
G I PROGRESS NOTE Subjective Complains of epig/"RUQ" pain. Sometimes worse pc; always worse with change in position. Eating soup with some gusto when I entered room. Physical Exam Lungs clear. RRR Abdomen soft, Tenderness pretty well confined to xyphoid process. Review of Relevant I have reviewed the following items dane (where applicable) has been applied. Labs Laboratory Tests Test 10/14/16 21:00 Nasal Screen MRSA (PCR) Positive (Negative) Medications Current Medications Sodium Chloride 1,000 ml @ 1,000 mls/hr Q1H PRN IV hypotension; Start 10/14/16 at 16:13; Stop 10/14/16 at 22:12; Status DC Albumin Human 200 ml @ 200 mls/hr 1X PRN PRN IV Hypotension; Start 10/14/16 at 16:15; Stop 10/14/16 at 22:14; Status DC Acetaminophen (Tylenol) 500 mg 1X PRN PRN PO MILD PAIN / TEMP; Start 10/14/16 at 16:15; Stop 10/15/16 at 16:14; Status DC Diphenhydramine HCl (Benadryl) 25 mg 1X PRN PRN IV ITCHING; Start 10/14/16 at 16 :15; Stop 10/15/16 at 16:14; Status DC Sodium Chloride 1,000 ml @ 400 mls/hr Q2H30M PRN IV PATENCY; Start 10/14/16 at 16:13; Stop 10/15/16 at 04:12; Status DC Info (PHARMACY MONITORING -- do not chart) 1 each PRN DAILY PRN MC SEE COMMENTS ; Start 10/14/16 at 16:15; Stop 10/14/16 at 16:20; Status DC Info (PHARMACY MONITORING -- do not chart) 1 each PRN DAILY PRN MC SEE COMMENTS ; Start 10/14/16 at 16:15 Atorvastatin Calcium (Lipitor) 5 mg QHS PO Last administered on 10/15/16 21:38 ; Start 10/14/16 at 21:00 Throat Lozenges (Cepacol Sore Throat Lozenge) 1 gonzález PRN Q2HRS PRN PO SORE THROAT; Start 10/14/16 at 20:30 Calcium Acetate (Phoslo) 2,001 mg TIDWMEALS PO Last administered on 10/16/16 08 :34; Start 10/15/16 at 08:00 Carvedilol (Coreg) 3.125 mg BIDWMEALS PO Last administered on 10/16/16 08:33; Start 10/15/16 at 08:00 Fluticasone Propionate (Flonase) 2 spray PRN DAILY PRN NS ALLERGIES; Start 10/14 at 20:30 Acetaminophen/ Hydrocodone Bitart (Lortab 5/325) 1 tab PRN Q4HRS PRN PO PAIN MOD TO SEVERE Last administered on 10/15/16 12:00; Start 10/14/16 at 20:30; Stop 10/15/16 at 12:47; Status DC Lidocaine (Lidoderm) 1 patch PRN DAILY PRN TP BACK PAIN; Start 10/14/16 at 20:30 Lurasidone HCl (Latuda) 40 mg QHS PO Last administered on 10/15/16 21:39; Start 10/14/16 at 21:00 Midodrine (Proamatine) 10 mg TIDAC PO Last administered on 10/16/16 08:33; Start 10/15/16 at 07:30 Moxifloxacin HCl (Vigamox) 1 drop QID OU Last administered on 10/16/16 08:35; Start 10/14/16 at 21:00 Nystatin (Nystop) 1 akil BID TP ; Start 10/14/16 at 21:00; Stop 10/15/16 at 13:21; Status DC Ondansetron HCl (Zofran Odt) 4 mg BID PO Last administered on 10/16/16 08:33; Start 10/14/16 at 21:00 Pantoprazole Sodium (Protonix) 40 mg BIDAC PO Last administered on 10/16/16 08: 34; Start 10/15/16 at 07:30 Sennosides (Senna) 17.2 mg BID PO Last administered on 10/16/16 08:34; Start at 21:00 Sucralfate (Carafate) 1 gm QIDACHS PO Last administered on 10/16/16 08:32; Start 10/14/16 at 21:00 Non-Formulary Medication 2 puff PRN Q8HRS PRN INH WHEEZING; Start 10/14/16 at 20 :30; Status UNV Acetaminophen/ Butalbital/ Caffeine (Fioricet) 1 tab PRN Q4HRS PRN PO MIGRAINE HEADACHE; Start 10/14/16 at 21:00 Artificial Tears (Artificial Tears) 1 drop QID OU Last administered on 16:56; Start 10/14/16 at 21:00 Clonazepam (KlonoPIN) 0.5 mg BID PO Last administered on 10/16/16 08:35; Start 10/14/16 at 21:00 Artificial Tears (Artificial Tears) 1 drop PRN Q6HRS PRN OU REDNESS; Start 10/14 at 21:00 Non-Formulary Medication 1 patch DAILY TP ; Start 10/15/16 at 09:00; Stop at 13:21; Status DC Citalopram Hydrobromide (CeleXA) 20 mg DAILY PO Last administered on 10/16/16 08:35; Start 10/15/16 at 09:00 Gabapentin (Neurontin) 300 mg DAILY PO Last administered on 10/16/16 08:33; Start 10/15/16 at 09:00 Lubiprostone (Amitiza) 24 mcg BIDWMEALS PO Last administered on 10/16/16 08:33 ; Start 10/15/16 at 08:00 Fish Oil (Fish Oil) 1,000 mg BID PO Last administered on 10/16/16 08:33; Start 10/15/16 at 09:00 Dexamethasone (Maxidex) 1 drop QID OU ; Start 10/15/16 at 09:00; Stop 10/15/16 at 09:00; Status DC Non-Formulary Medication 1 drop QID RIGHTEYE ; Start 10/14/16 at 21:00; Status UNV Venlafaxine HCl (Effexor) 50 mg TID PO Last administered on 10/16/16 08:35; Start 10/14/16 at 21:00 Albuterol Sulfate (Ventolin Neb Soln) 2.5 mg PRN Q8HRS PRN NEB SHORTNESS OF BREATH Last administered on 10/16/16 08:59; Start 10/14/16 at 21:00 Dexamethasone (Maxidex) 1 drop QID OU Last administered on 10/16/16 08:35; Start 10/14/16 at 22:15 Acetaminophen/ Hydrocodone Bitart (Lortab 7.5/325) 1 tab PRN Q4HRS PRN PO PAIN Last administered on 10/16/16 05:04; Start 10/15/16 at 12:45 Acetaminophen (Tylenol) 650 mg PRN Q6HRS PRN PO FEVER; Start 10/15/16 at 13:00 Ondansetron HCl (Zofran) 4 mg PRN Q6HRS PRN IV NAUSEA/VOMITING; Start 10/15/16 at 13:00 Morphine Sulfate 2 mg PRN Q2HR PRN IV PAIN; Start 10/15/16 at 13:00 Tramadol HCl (Ultram) 50 mg PRN Q6HRS PRN PO PAIN; Start 10/15/16 at 13:00 Hydralazine HCl (Apresoline) 10 mg PRN Q4HRS PRN IVP ELEVATED BP, SEE COMMENTS ; Start 10/15/16 at 13:00 Docusate Sodium (Colace) 100 mg PRN DAILY PRN PO CONSTIPATION; Start 10/15/16 at 13:00 Heparin Sodium (Porcine) (Heparin Sq) 5,000 unit Q8HRS SQ Last administered on 10/16/16 05:07; Start 10/15/16 at 22:00 Active Scripts Active Escitalopram Oxalate 10 Mg Tablet 1 Tab PO DAILY Imitrex (Sumatriptan Succinate) 100 Mg Tablet 1 Tab PO UD Fioricet 50-300-40 Mg Capsule (Butalb/Acetaminophen/Caffeine) 1 Each Capsule 1 Each PO PRN Q4HRS PRN 30 Days Flector (Diclofenac Epolamine) 1 Each Patch.td12 1 Patch TP DAILY Hydrocodone-Apap 5-325 (Hydrocodone Bit/Acetaminophen) 1 Each Tablet 1 Tab PO PRN Q4HRS PRN Cepacol Sore Throat Lozenge (Benzocaine/Menthol) 1 Each Lozenge 1 González PO PRN Q2HRS PRN 14 Days Sucralfate 1 Gm/10 Ml Oral.susp 1 Gm PO QIDACHS Midodrine Hcl 5 Mg Tablet 10 Mg PO TIDAC Reported Prednisolone Acetate 5 Ml Drops.susp 1 Drop EACHEYE QID Petrolatum Base Ointment (Mineral Oil/Hydrophil Petrolat) 454 Gm Oint...g. 454 Gm TP Refresh Tears (Carboxymethylcellulose Sodium) 15 Ml Drops 1 Drop OP QID Artificial Tears Eye Drops (Dextran 70/Hypromellose) 15 Ml Drops 1 Drop OP PRN Q6HRS PRN Ventolin Hfa Inhaler (Albuterol Sulfate) 18 Gm Hfa.aer.ad 2 Puff INH PRN Q8HRS PRN Acetaminophen 500 Mg Tablet 1,000 Mg PO PRN Q6HRS PRN Coreg (Carvedilol) 3.125 Mg Tablet 1 Tab PO BID [place]-Senait Rx Tablet (Vit B Cmplx 3/Fa/Vit C/Biotin) 1 Each Tablet 1 Each PO Zofran Odt (Ondansetron) 4 Mg Tab.rapdis 1 Tab SL BID Last dose given yesterday afternoon Take again when needed Vigamox (Moxifloxacin Hcl) 3 Ml Drops 1 Drop RIGHTEYE QID Not given on this admission Start today Effexor Xr (Venlafaxine Hcl) 150 Mg Cap.er.24h 1 Cap PO DAILY Last dose given this morning Take again tomorrow Lidoderm (Lidocaine) 700 Mg Adh..patch 1 Patch TP PRN DAILY PRN Last given on the Use if needed Nystatin 15 Gm Powder 1 Akil TP BID Last dose given this morning Take again tonight Fluticasone Propionate Nasal [place] (Fluticasone Propionate) 16 Gm [place].susp 2 [place] NS PRN DAILY PRN Last given on the Take when needed Lipitor (Atorvastatin Calcium) 10 Mg Tablet 5 Mg PO QHS Last dose given last night Take tonight Senna Laxative (Sennosides) 8.6 Mg Tablet 17.2 Mg PO BID Last dose given this morning Take again tonight Pred Forte (Prednisolone Acetate) 1 Ml Drops.susp 1 Drop RIGHTEYE QID Not given on this admission Start today Protonix (Pantoprazole Sodium) 40 Mg Tablet.dr 40 Mg PO BIDAC Last dose given this morning Take again tonight Amitiza (Lubiprostone) 24 Mcg Capsule 24 Mcg PO BID Gave last dose last night Take again tonight Latuda (Lurasidone Hcl) 40 Mg Tablet 40 Mg PO QHS Last dose given last night Take again tonight Gabapentin 300 Mg Capsule 600 Mg PO DAILY Gave this morning Take again tomorrow morning Fish Oil [place]-3 Softgel ([place]-3/Dha/Epa/Fish Oil) 1 Each Capsule.dr [place] Cap PO BID Not given on this admission Start today Clonazepam Odt (Clonazepam) 0.5 Mg Tab.rapdis 0.5 Mg PO BID Gave dose this am Take again tonight Calcium Acetate 667 Mg Capsule 2,001 Mg PO TIDWMEALS Take with meals Last dose yesterday Vitals/I & O Vital Sign - Last 24 Hours 10/15/16 10/15/16 10/15/16 10/15/16 11:41 12:00 12:01 13:28 Temp 98.1 98.1 Pulse 61 61 Resp 16 B/P (MAP) 98/57 (71) 98/57 Pulse Ox 97 97 O2 Delivery Room Air Room Air Room Air 10/15/16 10/15/16 10/15/16 10/15/16 14:33 15:00 16:52 16:55 Temp 98.1 98.1 Pulse 85 85 85 Resp 16 B/P (MAP) 101/62 (75) 101/62 101/62 Pulse Ox 98 O2 Delivery Room Air Room Air 10/15/16 10/15/16 10/15/16 10/15/16 19:42 20:00 20:29 21:52 Temp 98.5 98.5 Pulse 65 Resp 18 B/P (MAP) 121/66 (84) Pulse Ox 99 97 O2 Delivery Room Air Room Air Room Air Room Air 10/15/16 10/15/16 10/16/16 10/16/16 22:52 23:54 03:55 05:04 Temp 98.5 98.2 98.5 98.2 Pulse 70 67 Resp 18 16 B/P (MAP) 100/65 (77) 106/75 (85) Pulse Ox 97 93 O2 Delivery Room Air Room Air Room Air Room Air 10/16/16 10/16/16 10/16/16 10/16/16 07:00 08:33 08:33 09:01 Temp 97.5 97.5 Pulse 63 63 63 Resp 18 B/P (MAP) 139/75 (96) 139/75 139/75 Pulse Ox 93 98 O2 Delivery Room Air Room Air Images CT report pending; I did review and no glaring problems other than known post- op anatomy. Assessment Abdominal pain; at least a portion is M/S. S/p [id number] bypass with h/o stomal ulcer. Chronic non-compliance. Plan of Care: Continue current Tx, Mgmt Plan of Care Note Observe. DANETTE ROCHA MD Oct 16, 2016 10:28
--- NOTE | 2016-10-16 10:57 | RAD ---
Examination: CT abdomen pelvis with oral contrast History: History of abdominal pain Comparison: 04/22/2015 Technique: Axial CT images of the pelvis were performed with oral contrast. Coronal and sagittal reformats were performed PQRS Compliance Statement: One or more of the following individualized dose reduction techniques were utilized for this examination: 1. Automated exposure control 2. Adjustment of the mA and/or kV according to patient size 3. Use of iterative reconstruction technique Findings The visualized bibasal lungs grossly appears unremarkable. No evidence of free air identified in the abdomen There is a small 8 mm cystic structure identified in the dome of the right lobe of the liver likely cyst similar to prior exam. The visualized spleen grossly appears unremarkable. The bilateral kidneys are severely atrophic or absent due to prior surgery. The surgical changes identified in the stomach. The small bowel is nondilated. There is a cystic bilobed cystic structure identified in the right lower quadrant of the abdomen measuring 6.6 x 5.3 cm is probably transplanted kidney with hydronephrosis causing severe cortical thinning or complete cystic change of the transplanted right kidney. There is mild thickened appearance of the wall of the ascending colon. There is a tubular structure identified in the right lower quadrant of the abdomen best visualized on series 2 image 54 which could be the appendix measuring 9 mm in transverse dimension.. Urinary bladder is not identified. Prominent appearing mesenteric vessels similar to prior exam. Moderate degenerative changes identified in the visualized lumbar spine. Lumbar hardware identified at L4-L5 vertebral level with intervertebral disc spacer. There is mild inflammatory fat stranding identified in the anterior abdominal wall with questionable 2.6 cm fluid collection in the anterior abdominal wall in the midline could be postoperative seroma or hematoma or infection or abscess. Examination is limited without IV contrast. Impression: 1. Mild inflammatory fat stranding identified in the right lower quadrant of abdomen with prominent appearing tubular structure in the right lower quadrant, best visualized on series 2 image 54 probably the appendix, cannot completely exclude mild acute appendicitis. Correlate clinically. There is mild thickened appearance of the wall of the ascending colon with surrounding fat stranding underlying colitis is a possibility. 2. Bilobed cystic structure identified in the right lower quadrant of the abdomen measuring 6.6 x 5.3 cm is probably transplanted kidney with hydronephrosis causing severe cortical thinning or complete cystic change of the transplanted right kidney. Ultrasound of the right lower quadrant can be performed. 3. Mild inflammatory fat stranding identified in the anterior abdominal wall with questionable 2.6 cm fluid collection in the anterior abdominal wall in the midline could be postoperative seroma or hematoma or infection or abscess. Ultrasound of the abdominal wall can be performed. Report called to patient's nurse at time of dictation.
[2016-10-16 11:06] VITALS: BP 111/65
--- NOTE | 2016-10-16 11:21 | PDOC2 ---
CONSULT Date of Consult Date of Consult DATE: 10/16/16 TIME: 11:15 Reason for Consult Reason for Consult: ESRD AND HIGH K Referring Physician Referring Physician: MIGUEL Identification/Chief Complaint Chief Complaint ABD PAIN AND DIARRHEA Problems: Source Source: Chart review, Patient History of Present Illness Reason for Visit: THIS IS A 50 YR OLD VERY NON COMPLIANT ESRD PT. SHE HAS TTS HD BUT SKIPPED HER HD ON SUNDAY AND WENT TO [facility] ON SAT BECAUSE OF DIARRHEA AND ABD PAIN. SHE ROUTINELY VISITS [place], [facility], [facility] AND [facility] FOR SOME PROBLEM OR OTHER NEARLY EVERY OTHER WEEK. LABS SHOWED A K OF 5.9 AND SHE STATED THAT SHE WAS SOB. SHE WAS BROUGHT HER AND DIALYZED SAT PM EMERGENTLY. LABS ARE C/W ESRD Past Medical History Cardiovascular: AFIB, HTN, Hyperlipidemia, Other Pulmonary: Asthma, Bronchitis, Pneumonia CENTRAL NERVOUS SYSTEM: Migraine, Periperal neuropathy, TIA GI: GERD, Peptic Ulcer disease Heme/Onc: Anemia NOS Psych: Anxiety, Bipolar, Depression, Panic Musculoskeletal: low back pain Infectious disease: Other Renal/: Chronic renal failure Endocrine: Hypothyroidism Past Surgical History Past Surgical History: Cholecystectomy, Cataract Removal, , Hernia Repair, Other Family History Family History: Heart Disease Social History No ALCOHOL: none Drugs: None Lives: with Family Domestic Violence: Neg Current Medications Current Medications Current Medications Sodium Chloride 1,000 ml @ 1,000 mls/hr Q1H PRN IV hypotension; Start 10/14/16 at 16:13; Stop 10/14/16 at 22:12; Status DC Albumin Human 200 ml @ 200 mls/hr 1X PRN PRN IV Hypotension; Start 10/14/16 at 16:15; Stop 10/14/16 at 22:14; Status DC Acetaminophen (Tylenol) 500 mg 1X PRN PRN PO MILD PAIN / TEMP; Start 10/14/16 at 16:15; Stop 10/15/16 at 16:14; Status DC Diphenhydramine HCl (Benadryl) 25 mg 1X PRN PRN IV ITCHING; Start 10/14/16 at 16 :15; Stop 10/15/16 at 16:14; Status DC Sodium Chloride 1,000 ml @ 400 mls/hr Q2H30M PRN IV PATENCY; Start 10/14/16 at 16:13; Stop 10/15/16 at 04:12; Status DC Info (PHARMACY MONITORING -- do not chart) 1 each PRN DAILY PRN MC SEE COMMENTS ; Start 10/14/16 at 16:15; Stop 10/14/16 at 16:20; Status DC Info (PHARMACY MONITORING -- do not chart) 1 each PRN DAILY PRN MC SEE COMMENTS ; Start 10/14/16 at 16:15 Atorvastatin Calcium (Lipitor) 5 mg QHS PO Last administered on 10/15/16 21:38 ; Start 10/14/16 at 21:00 Throat Lozenges (Cepacol Sore Throat Lozenge) 1 gonzález PRN Q2HRS PRN PO SORE THROAT; Start 10/14/16 at 20:30 Calcium Acetate (Phoslo) 2,001 mg TIDWMEALS PO Last administered on 10/16/16 08 :34; Start 10/15/16 at 08:00 Carvedilol (Coreg) 3.125 mg BIDWMEALS PO Last administered on 10/16/16 08:33; Start 10/15/16 at 08:00 Fluticasone Propionate (Flonase) 2 spray PRN DAILY PRN NS ALLERGIES; Start 10/14 at 20:30 Acetaminophen/ Hydrocodone Bitart (Lortab 5/325) 1 tab PRN Q4HRS PRN PO PAIN MOD TO SEVERE Last administered on 10/15/16 12:00; Start 10/14/16 at 20:30; Stop 10/15/16 at 12:47; Status DC Lidocaine (Lidoderm) 1 patch PRN DAILY PRN TP BACK PAIN; Start 10/14/16 at 20:30 Lurasidone HCl (Latuda) 40 mg QHS PO Last administered on 10/15/16 21:39; Start 10/14/16 at 21:00 Midodrine (Proamatine) 10 mg TIDAC PO Last administered on 10/16/16 08:33; Start 10/15/16 at 07:30 Moxifloxacin HCl (Vigamox) 1 drop QID OU Last administered on 10/16/16 08:35; Start 10/14/16 at 21:00 Nystatin (Nystop) 1 akil BID TP ; Start 10/14/16 at 21:00; Stop 10/15/16 at 13:21; Status DC Ondansetron HCl (Zofran Odt) 4 mg BID PO Last administered on 10/16/16 08:33; Start 10/14/16 at 21:00 Pantoprazole Sodium (Protonix) 40 mg BIDAC PO Last administered on 10/16/16 08: 34; Start 10/15/16 at 07:30 Sennosides (Senna) 17.2 mg BID PO Last administered on 10/16/16 08:34; Start at 21:00 Sucralfate (Carafate) 1 gm QIDACHS PO Last administered on 10/16/16 08:32; Start 10/14/16 at 21:00 Non-Formulary Medication 2 puff PRN Q8HRS PRN INH WHEEZING; Start 10/14/16 at 20 :30; Status UNV Acetaminophen/ Butalbital/ Caffeine (Fioricet) 1 tab PRN Q4HRS PRN PO MIGRAINE HEADACHE; Start 10/14/16 at 21:00 Artificial Tears (Artificial Tears) 1 drop QID OU Last administered on 16:56; Start 10/14/16 at 21:00 Clonazepam (KlonoPIN) 0.5 mg BID PO Last administered on 10/16/16 08:35; Start 10/14/16 at 21:00 Artificial Tears (Artificial Tears) 1 drop PRN Q6HRS PRN OU REDNESS; Start 10/14 at 21:00 Non-Formulary Medication 1 patch DAILY TP ; Start 10/15/16 at 09:00; Stop at 13:21; Status DC Citalopram Hydrobromide (CeleXA) 20 mg DAILY PO Last administered on 10/16/16 08:35; Start 10/15/16 at 09:00 Gabapentin (Neurontin) 300 mg DAILY PO Last administered on 10/16/16 08:33; Start 10/15/16 at 09:00 Lubiprostone (Amitiza) 24 mcg BIDWMEALS PO Last administered on 10/16/16 08:33 ; Start 10/15/16 at 08:00 Fish Oil (Fish Oil) 1,000 mg BID PO Last administered on 10/16/16 08:33; Start 10/15/16 at 09:00 Dexamethasone (Maxidex) 1 drop QID OU ; Start 10/15/16 at 09:00; Stop 10/15/16 at 09:00; Status DC Non-Formulary Medication 1 drop QID RIGHTEYE ; Start 10/14/16 at 21:00; Status UNV Venlafaxine HCl (Effexor) 50 mg TID PO Last administered on 10/16/16 08:35; Start 10/14/16 at 21:00 Albuterol Sulfate (Ventolin Neb Soln) 2.5 mg PRN Q8HRS PRN NEB SHORTNESS OF BREATH Last administered on 10/16/16 08:59; Start 10/14/16 at 21:00 Dexamethasone (Maxidex) 1 drop QID OU Last administered on 10/16/16 08:35; Start 10/14/16 at 22:15 Acetaminophen/ Hydrocodone Bitart (Lortab 7.5/325) 1 tab PRN Q4HRS PRN PO PAIN Last administered on 10/16/16 05:04; Start 10/15/16 at 12:45 Acetaminophen (Tylenol) 650 mg PRN Q6HRS PRN PO FEVER; Start 10/15/16 at 13:00 Ondansetron HCl (Zofran) 4 mg PRN Q6HRS PRN IV NAUSEA/VOMITING; Start 10/15/16 at 13:00 Morphine Sulfate 2 mg PRN Q2HR PRN IV PAIN; Start 10/15/16 at 13:00 Tramadol HCl (Ultram) 50 mg PRN Q6HRS PRN PO PAIN; Start 10/15/16 at 13:00 Hydralazine HCl (Apresoline) 10 mg PRN Q4HRS PRN IVP ELEVATED BP, SEE COMMENTS ; Start 10/15/16 at 13:00 Docusate Sodium (Colace) 100 mg PRN DAILY PRN PO CONSTIPATION; Start 10/15/16 at 13:00 Heparin Sodium (Porcine) (Heparin Sq) 5,000 unit Q8HRS SQ Last administered on 10/16/16 05:07; Start 10/15/16 at 22:00 Active Scripts Active Escitalopram Oxalate 10 Mg Tablet 1 Tab PO DAILY Imitrex (Sumatriptan Succinate) 100 Mg Tablet 1 Tab PO UD Fioricet 50-300-40 Mg Capsule (Butalb/Acetaminophen/Caffeine) 1 Each Capsule 1 Each PO PRN Q4HRS PRN 30 Days Flector (Diclofenac Epolamine) 1 Each Patch.td12 1 Patch TP DAILY Hydrocodone-Apap 5-325 (Hydrocodone Bit/Acetaminophen) 1 Each Tablet 1 Tab PO PRN Q4HRS PRN Cepacol Sore Throat Lozenge (Benzocaine/Menthol) 1 Each Lozenge 1 González PO PRN Q2HRS PRN 14 Days Sucralfate 1 Gm/10 Ml Oral.susp 1 Gm PO QIDACHS Midodrine Hcl 5 Mg Tablet 10 Mg PO TIDAC Reported Prednisolone Acetate 5 Ml Drops.susp 1 Drop EACHEYE QID Petrolatum Base Ointment (Mineral Oil/Hydrophil Petrolat) 454 Gm Oint...g. 454 Gm TP Refresh Tears (Carboxymethylcellulose Sodium) 15 Ml Drops 1 Drop OP QID Artificial Tears Eye Drops (Dextran 70/Hypromellose) 15 Ml Drops 1 Drop OP PRN Q6HRS PRN Ventolin Hfa Inhaler (Albuterol Sulfate) 18 Gm Hfa.aer.ad 2 Puff INH PRN Q8HRS PRN Acetaminophen 500 Mg Tablet 1,000 Mg PO PRN Q6HRS PRN Coreg (Carvedilol) 3.125 Mg Tablet 1 Tab PO BID [place]-Senait Rx Tablet (Vit B Cmplx 3/Fa/Vit C/Biotin) 1 Each Tablet 1 Each PO Zofran Odt (Ondansetron) 4 Mg Tab.rapdis 1 Tab SL BID Last dose given yesterday afternoon Take again when needed Vigamox (Moxifloxacin Hcl) 3 Ml Drops 1 Drop RIGHTEYE QID Not given on this admission Start today Effexor Xr (Venlafaxine Hcl) 150 Mg Cap.er.24h 1 Cap PO DAILY Last dose given this morning Take again tomorrow Lidoderm (Lidocaine) 700 Mg Adh..patch 1 Patch TP PRN DAILY PRN Last given on the Use if needed Nystatin 15 Gm Powder 1 Akil TP BID Last dose given this morning Take again tonight Fluticasone Propionate Nasal [place] (Fluticasone Propionate) 16 Gm [place].susp 2 [place] NS PRN DAILY PRN Last given on the Take when needed Lipitor (Atorvastatin Calcium) 10 Mg Tablet 5 Mg PO QHS Last dose given last night Take tonight Senna Laxative (Sennosides) 8.6 Mg Tablet 17.2 Mg PO BID Last dose given this morning Take again tonight Pred Forte (Prednisolone Acetate) 1 Ml Drops.susp 1 Drop RIGHTEYE QID Not given on this admission Start today Protonix (Pantoprazole Sodium) 40 Mg Tablet.dr 40 Mg PO BIDAC Last dose given this morning Take again tonight Amitiza (Lubiprostone) 24 Mcg Capsule 24 Mcg PO BID Gave last dose last night Take again tonight Latuda (Lurasidone Hcl) 40 Mg Tablet 40 Mg PO QHS Last dose given last night Take again tonight Gabapentin 300 Mg Capsule 600 Mg PO DAILY Gave this morning Take again tomorrow morning Fish Oil [place]-3 Softgel ([place]-3/Dha/Epa/Fish Oil) 1 Each Capsule.dr 1 Cap PO BID Not given on this admission Start today Clonazepam Odt (Clonazepam) 0.5 Mg Tab.rapdis 0.5 Mg PO BID Gave dose this am Take again tonight Calcium Acetate 667 Mg Capsule 2,001 Mg PO TIDWMEALS Take with meals Last dose yesterday Allergies Allergies: Coded Allergies: Fish Containing Products (Verified Allergy, Intermediate, 12/04/15) SEAFOOD Iodinated Contrast- Oral and IV Dye (Verified Allergy, Intermediate, 12/03) NSAIDS (Non-Steroidal Anti-Inflamma (Verified Allergy, Intermediate, TAKES ASA AT HOME, 12/04/15) caffeine (Verified Allergy, Intermediate, 12/04/15) ibuprofen (Verified Allergy, Intermediate, 12/04/15) shellfish derived (Verified Allergy, Intermediate, 12/04/15) SEAFOOD I S O L A T I O N *CONTACT* (Verified Allergy, Unknown, 12/04/15) hx mrsa + screen and + VRE/CRE in urine. ROS General: YES: Fatigue, Appetite PSYCHOLOGICAL ROS: YES: Anxiety Eyes: Yes Decreased vision HEENT: YES: Heacaches Respiratory: YES: Cough, Shortness of breath Gastrointestinal: Yes Abdominal Pain, Yes Diarrhea Genitourinary: YES Other (ANURIA) Musculoskeletal: Yes Muscular Weakness Neurological: Yes Weakness Skin: Yes Dry Skin Physical Exam General: Alert, Oriented X3, Cooperative, mild distress HEENT: Atraumatic, PERRLA Lungs: Clear to auscultation Heart: Regular rate, Normal S1, Normal S2 Abdomen: Normal bowel sounds, Soft, No hepatosplenomegaly, No masses Extremities: No clubbing, Normal pulses Skin: No rashes Neuro: Normal speech, Cranial nerves 3-12 NL Psych/Mental Status: Mental status NL, Mood NL MUSCULOSKELETAL: No joint tenderness, No deformity, No swelling Vitals VITALS Vital Signs Date Time Temp Pulse Resp B/P (MAP) Pulse Ox O2 Delivery O2 Flow Rate FiO2 10/16/16 11:06 98.6 74 20 111/65 (80) 97 Room Air 98.6 Labs Labs Laboratory Tests Test 10/14/16 21:00 Nasal Screen MRSA (PCR) Positive (Negative) Assessment/Plan Assessment/Plan IMP SEVERE NON COMPLIANCE ABD PAIN DIARRHEA ANEMIA HTN HX OF ADPKD HX OF BILATERAL NEPHRECTOMY HYPERKALEMIA ESRD PLAN HD TTS EMERGENT SAT PM LABS IN AM ABD PAIN EVAL ENC COMPLIANCE MARIETTA CHAUDHARI MD Oct 16, 2016 11:21
[2016-10-16] MEDS: HYDROcodone/APAP 10/325 1 TAB TABLET PO PRN ×2 (12:04→21:59)
[2016-10-16 13:18] LABS: BASO % 0 % (0-3); EOS % 3 % (0-3); HEMATOCRIT 31.8 % (36.0-47.0); HEMOGLOBIN 10.4 g/dL (12.0-15.5); LYMPH # 1.6 x10^3/uL (1.0-4.8); LYMPH % 18 % (24-48); MEAN CORPUSCULAR HEMOGLOBIN 32 pg (25-35); MEAN CORPUSCULAR HGB CONC 33 g/dL (31-37); MEAN CORPUSCULAR VOLUME 97 fL (79-100); MONO % 11 % (0-9); NEUT % 67 % (31-73); PLATELET COUNT 208 x10^3/uL (140-400); WHITE BLOOD COUNT 8.9 x10^3/uL (4.0-11.0)
[2016-10-16 13:21] LABS: ALBUMIN 2.5 g/dL (3.4-5.0); ALBUMIN/GLOBULIN RATIO 0.6 (1.0-1.7); CALCIUM 8.4 mg/dL (8.5-10.1); CREATININE 9.4 mg/dL (0.6-1.0); GFR 5.3; POTASSIUM 5.7 mmol/L (3.5-5.1); TOTAL BILIRUBIN 0.4 mg/dL (0.2-1.0); TOTAL PROTEIN 6.7 g/dL (6.4-8.2)
--- NOTE | 2016-10-16 13:56 | PDOC ---
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 CT showed multiple abnormalities, likely artifact. defer to GI and renal if need further intervention History of Present Illness History of Present Illness ROS: no fever, chills, sob or chest pain \ cont having abd pain, no improvement, but eats well, no N/V, bm normal refuse to get blood drawn, has a left chest iv port for blood drawn, not working well Vitals Vitals Vital Signs Date Time Temp Pulse Resp B/P (MAP) Pulse Ox O2 Delivery O2 Flow Rate FiO2 10/16/16 12:40 Room Air 10/16/16 12:04 74 111/65 10/16/16 11:06 98.6 20 97 98.6 Physical Exam Physical Exam right forearm AVF left upper chest IV port General: Alert, Oriented X3, Cooperative, mild distress Heart: Regular rate, Normal S1, Normal S2 Lungs: Clear Abdomen: Normal bowel sounds, Soft, No hepatosplenomegaly, No masses Extremities: No clubbing, Normal pulses Skin: No rashes Labs LABS Laboratory Tests Test 10/16/16 12:50 White Blood Count 8.9 x10^3/uL (4.0-11.0) Red Blood Count 3.30 x10^6/uL (3.50-5.40) Hemoglobin 10.4 g/dL (12.0-15.5) Hematocrit 31.8 % (36.0-47.0) Mean Corpuscular Volume 97 fL (79-100) Mean Corpuscular Hemoglobin 32 pg (25-35) Mean Corpuscular Hemoglobin Concent 33 g/dL (31-37) Red Cell Distribution Width 15.0 % (11.5-14.5) Platelet Count 208 x10^3/uL (140-400) Neutrophils (%) (Auto) 67 % (31-73) Lymphocytes (%) (Auto) 18 % (24-48) Monocytes (%) (Auto) 11 % (0-9) Eosinophils (%) (Auto) 3 % (0-3) Basophils (%) (Auto) 0 % (0-3) Neutrophils # (Auto) 6.0 x10^3uL (1.8-7.7) Lymphocytes # (Auto) 1.6 x10^3/uL (1.0-4.8) Monocytes # (Auto) 0.9 x10^3/uL (0.0-1.1) Eosinophils # (Auto) 0.3 x10^3/uL (0.0-0.7) Basophils # (Auto) 0.0 x10^3/uL (0.0-0.2) Sodium Level 136 mmol/L (136-145) Potassium Level 5.7 mmol/L (3.5-5.1) Chloride Level 98 mmol/L (98-107) Carbon Dioxide Level 28 mmol/L (21-32) Anion Gap 10 (6-14) Blood Urea Nitrogen 61 mg/dL (7-20) Creatinine 9.4 mg/dL (0.6-1.0) Estimated GFR (Cockcroft-Gault) 5.3 BUN/Creatinine Ratio 6 (6-20) Glucose Level 92 mg/dL (70-99) Calcium Level 8.4 mg/dL (8.5-10.1) Total Bilirubin 0.4 mg/dL (0.2-1.0) Aspartate Amino Transf (AST/SGOT) 12 U/L (15-37) Alanine Aminotransferase (ALT/SGPT) 10 U/L (14-59) Alkaline Phosphatase 82 U/L (46-116) Total Protein 6.7 g/dL (6.4-8.2) Albumin 2.5 g/dL (3.4-5.0) Albumin/Globulin Ratio 0.6 (1.0-1.7) Amylase Level 53 U/L (25-115) Lipase 100 U/L (73-393) Comment Review of Relevant I have reviewed the following items dane (where applicable) has been applied. Labs Laboratory Tests Test 10/14/16 21:00 10/16/16 12:50 Nasal Screen MRSA (PCR) Positive (Negative) White Blood Count 8.9 x10^3/uL (4.0-11.0) Red Blood Count 3.30 x10^6/uL (3.50-5.40) Hemoglobin 10.4 g/dL (12.0-15.5) Hematocrit 31.8 % (36.0-47.0) Mean Corpuscular Volume 97 fL (79-100) Mean Corpuscular Hemoglobin 32 pg (25-35) Mean Corpuscular Hemoglobin Concent 33 g/dL (31-37) Red Cell Distribution Width 15.0 % (11.5-14.5) Platelet Count 208 x10^3/uL (140-400) Neutrophils (%) (Auto) 67 % (31-73) Lymphocytes (%) (Auto) 18 % (24-48) Monocytes (%) (Auto) 11 % (0-9) Eosinophils (%) (Auto) 3 % (0-3) Basophils (%) (Auto) 0 % (0-3) Neutrophils # (Auto) 6.0 x10^3uL (1.8-7.7) Lymphocytes # (Auto) 1.6 x10^3/uL (1.0-4.8) Monocytes # (Auto) 0.9 x10^3/uL (0.0-1.1) Eosinophils # (Auto) 0.3 x10^3/uL (0.0-0.7) Basophils # (Auto) 0.0 x10^3/uL (0.0-0.2) Sodium Level 136 mmol/L (136-145) Potassium Level 5.7 mmol/L (3.5-5.1) Chloride Level 98 mmol/L (98-107) Carbon Dioxide Level 28 mmol/L (21-32) Anion Gap 10 (6-14) Blood Urea Nitrogen 61 mg/dL (7-20) Creatinine 9.4 mg/dL (0.6-1.0) Estimated GFR (Cockcroft-Gault) 5.3 BUN/Creatinine Ratio 6 (6-20) Glucose Level 92 mg/dL (70-99) Calcium Level 8.4 mg/dL (8.5-10.1) Total Bilirubin 0.4 mg/dL (0.2-1.0) Aspartate Amino Transf (AST/SGOT) 12 U/L (15-37) Alanine Aminotransferase (ALT/SGPT) 10 U/L (14-59) Alkaline Phosphatase 82 U/L (46-116) Total Protein 6.7 g/dL (6.4-8.2) Albumin 2.5 g/dL (3.4-5.0) Albumin/Globulin Ratio 0.6 (1.0-1.7) Amylase Level 53 U/L (25-115) Lipase 100 U/L (73-393) Laboratory Tests Test 10/16/16 12:50 White Blood Count 8.9 x10^3/uL (4.0-11.0) Red Blood Count 3.30 x10^6/uL (3.50-5.40) Hemoglobin 10.4 g/dL (12.0-15.5) Hematocrit 31.8 % (36.0-47.0) Mean Corpuscular Volume 97 fL (79-100) Mean Corpuscular Hemoglobin 32 pg (25-35) Mean Corpuscular Hemoglobin Concent 33 g/dL (31-37) Red Cell Distribution Width 15.0 % (11.5-14.5) Platelet Count 208 x10^3/uL (140-400) Neutrophils (%) (Auto) 67 % (31-73) Lymphocytes (%) (Auto) 18 % (24-48) Monocytes (%) (Auto) 11 % (0-9) Eosinophils (%) (Auto) 3 % (0-3) Basophils (%) (Auto) 0 % (0-3) Neutrophils # (Auto) 6.0 x10^3uL (1.8-7.7) Lymphocytes # (Auto) 1.6 x10^3/uL (1.0-4.8) Monocytes # (Auto) 0.9 x10^3/uL (0.0-1.1) Eosinophils # (Auto) 0.3 x10^3/uL (0.0-0.7) Basophils # (Auto) 0.0 x10^3/uL (0.0-0.2) Sodium Level 136 mmol/L (136-145) Potassium Level 5.7 mmol/L (3.5-5.1) Chloride Level 98 mmol/L (98-107) Carbon Dioxide Level 28 mmol/L (21-32) Anion Gap 10 (6-14) Blood Urea Nitrogen 61 mg/dL (7-20) Creatinine 9.4 mg/dL (0.6-1.0) Estimated GFR (Cockcroft-Gault) 5.3 BUN/Creatinine Ratio 6 (6-20) Glucose Level 92 mg/dL (70-99) Calcium Level 8.4 mg/dL (8.5-10.1) Total Bilirubin 0.4 mg/dL (0.2-1.0) Aspartate Amino Transf (AST/SGOT) 12 U/L (15-37) Alanine Aminotransferase (ALT/SGPT) 10 U/L (14-59) Alkaline Phosphatase 82 U/L (46-116) Total Protein 6.7 g/dL (6.4-8.2) Albumin 2.5 g/dL (3.4-5.0) Albumin/Globulin Ratio 0.6 (1.0-1.7) Amylase Level 53 U/L (25-115) Lipase 100 U/L (73-393) Medications Current Medications Sodium Chloride 1,000 ml @ 1,000 mls/hr Q1H PRN IV hypotension; Start 10/14/16 at 16:13; Stop 10/14/16 at 22:12; Status DC Albumin Human 200 ml @ 200 mls/hr 1X PRN PRN IV Hypotension; Start 10/14/16 at 16:15; Stop 10/14/16 at 22:14; Status DC Acetaminophen (Tylenol) 500 mg 1X PRN PRN PO MILD PAIN / TEMP; Start 10/14/16 at 16:15; Stop 10/15/16 at 16:14; Status DC Diphenhydramine HCl (Benadryl) 25 mg 1X PRN PRN IV ITCHING; Start 10/14/16 at 16 :15; Stop 10/15/16 at 16:14; Status DC Sodium Chloride 1,000 ml @ 400 mls/hr Q2H30M PRN IV PATENCY; Start 10/14/16 at 16:13; Stop 10/15/16 at 04:12; Status DC Info (PHARMACY MONITORING -- do not chart) 1 each PRN DAILY PRN MC SEE COMMENTS ; Start 10/14/16 at 16:15; Stop 10/14/16 at 16:20; Status DC Info (PHARMACY MONITORING -- do not chart) 1 each PRN DAILY PRN MC SEE COMMENTS ; Start 10/14/16 at 16:15 Atorvastatin Calcium (Lipitor) 5 mg QHS PO Last administered on 10/15/16 21:38 ; Start 10/14/16 at 21:00 Throat Lozenges (Cepacol Sore Throat Lozenge) 1 gonzález PRN Q2HRS PRN PO SORE THROAT; Start 10/14/16 at 20:30 Calcium Acetate (Phoslo) 2,001 mg TIDWMEALS PO Last administered on 10/16/16 12 :03; Start 10/15/16 at 08:00 Carvedilol (Coreg) 3.125 mg BIDWMEALS PO Last administered on 10/16/16 08:33; Start 10/15/16 at 08:00 Fluticasone Propionate (Flonase) 2 spray PRN DAILY PRN NS ALLERGIES; Start 10/14 at 20:30 Acetaminophen/ Hydrocodone Bitart (Lortab 5/325) 1 tab PRN Q4HRS PRN PO PAIN MOD TO SEVERE Last administered on 10/15/16 12:00; Start 10/14/16 at 20:30; Stop 10/15/16 at 12:47; Status DC Lidocaine (Lidoderm) 1 patch PRN DAILY PRN TP BACK PAIN; Start 10/14/16 at 20:30 Lurasidone HCl (Latuda) 40 mg QHS PO Last administered on 10/15/16 21:39; Start 10/14/16 at 21:00 Midodrine (Proamatine) 10 mg TIDAC PO Last administered on 10/16/16 12:04; Start 10/15/16 at 07:30 Moxifloxacin HCl (Vigamox) 1 drop QID OU Last administered on 10/16/16 08:35; Start 10/14/16 at 21:00 Nystatin (Nystop) 1 akil BID TP ; Start 10/14/16 at 21:00; Stop 10/15/16 at 13:21; Status DC Ondansetron HCl (Zofran Odt) 4 mg BID PO Last administered on 10/16/16 08:33; Start 10/14/16 at 21:00 Pantoprazole Sodium (Protonix) 40 mg BIDAC PO Last administered on 10/16/16 08: 34; Start 10/15/16 at 07:30 Sennosides (Senna) 17.2 mg BID PO Last administered on 10/16/16 08:34; Start at 21:00 Sucralfate (Carafate) 1 gm QIDACHS PO Last administered on 10/16/16 12:03; Start 10/14/16 at 21:00 Non-Formulary Medication 2 puff PRN Q8HRS PRN INH WHEEZING; Start 10/14/16 at 20 :30; Status UNV Acetaminophen/ Butalbital/ Caffeine (Fioricet) 1 tab PRN Q4HRS PRN PO MIGRAINE HEADACHE; Start 10/14/16 at 21:00 Artificial Tears (Artificial Tears) 1 drop QID OU Last administered on 16:56; Start 10/14/16 at 21:00 Clonazepam (KlonoPIN) 0.5 mg BID PO Last administered on 10/16/16 08:35; Start 10/14/16 at 21:00 Artificial Tears (Artificial Tears) 1 drop PRN Q6HRS PRN OU REDNESS; Start 10/14 at 21:00 Non-Formulary Medication 1 patch DAILY TP ; Start 10/15/16 at 09:00; Stop at 13:21; Status DC Citalopram Hydrobromide (CeleXA) 20 mg DAILY PO Last administered on 10/16/16 08:35; Start 10/15/16 at 09:00 Gabapentin (Neurontin) 300 mg DAILY PO Last administered on 10/16/16 08:33; Start 10/15/16 at 09:00 Lubiprostone (Amitiza) 24 mcg BIDWMEALS PO Last administered on 10/16/16 08:33 ; Start 10/15/16 at 08:00 Fish Oil (Fish Oil) 1,000 mg BID PO Last administered on 10/16/16 08:33; Start 10/15/16 at 09:00 Dexamethasone (Maxidex) 1 drop QID OU ; Start 10/15/16 at 09:00; Stop 10/15/16 at 09:00; Status DC Non-Formulary Medication 1 drop QID RIGHTEYE ; Start 10/14/16 at 21:00; Status UNV Venlafaxine HCl (Effexor) 50 mg TID PO Last administered on 10/16/16 08:35; Start 10/14/16 at 21:00 Albuterol Sulfate (Ventolin Neb Soln) 2.5 mg PRN Q8HRS PRN NEB SHORTNESS OF BREATH Last administered on 10/16/16 12:39; Start 10/14/16 at 21:00 Dexamethasone (Maxidex) 1 drop QID OU Last administered on 10/16/16 08:35; Start 10/14/16 at 22:15 Acetaminophen/ Hydrocodone Bitart (Lortab 7.5/325) 1 tab PRN Q4HRS PRN PO PAIN Last administered on 10/16/16 05:04; Start 10/15/16 at 12:45 Acetaminophen (Tylenol) 650 mg PRN Q6HRS PRN PO FEVER; Start 10/15/16 at 13:00 Ondansetron HCl (Zofran) 4 mg PRN Q6HRS PRN IV NAUSEA/VOMITING; Start 10/15/16 at 13:00 Morphine Sulfate 2 mg PRN Q2HR PRN IV PAIN; Start 10/15/16 at 13:00 Tramadol HCl (Ultram) 50 mg PRN Q6HRS PRN PO PAIN; Start 10/15/16 at 13:00 Hydralazine HCl (Apresoline) 10 mg PRN Q4HRS PRN IVP ELEVATED BP, SEE COMMENTS ; Start 10/15/16 at 13:00 Docusate Sodium (Colace) 100 mg PRN DAILY PRN PO CONSTIPATION; Start 10/15/16 at 13:00 Heparin Sodium (Porcine) (Heparin Sq) 5,000 unit Q8HRS SQ Last administered on 10/16/16 05:07; Start 10/15/16 at 22:00 Acetaminophen/ Hydrocodone Bitart (Lortab 10/325) 1 tab PRN Q6HRS PRN PO PAIN Last administered on 10/16/16 12:04; Start 10/16/16 at 11:45 Active Scripts Active Escitalopram Oxalate 10 Mg Tablet 1 Tab PO DAILY Imitrex (Sumatriptan Succinate) 100 Mg Tablet 1 Tab PO UD Fioricet 50-300-40 Mg Capsule (Butalb/Acetaminophen/Caffeine) 1 Each Capsule 1 Each PO PRN Q4HRS PRN 30 Days Flector (Diclofenac Epolamine) 1 Each Patch.td12 1 Patch TP DAILY Hydrocodone-Apap 5-325 (Hydrocodone Bit/Acetaminophen) 1 Each Tablet 1 Tab PO PRN Q4HRS PRN Cepacol Sore Throat Lozenge (Benzocaine/Menthol) 1 Each Lozenge 1 González PO PRN Q2HRS PRN 14 Days Sucralfate 1 Gm/10 Ml Oral.susp 1 Gm PO QIDACHS Midodrine Hcl 5 Mg Tablet 10 Mg PO TIDAC Reported Prednisolone Acetate 5 Ml Drops.susp 1 Drop EACHEYE QID Petrolatum Base Ointment (Mineral Oil/Hydrophil Petrolat) 454 Gm Oint...g. 454 Gm TP Refresh Tears (Carboxymethylcellulose Sodium) 15 Ml Drops 1 Drop OP QID Artificial Tears Eye Drops (Dextran 70/Hypromellose) 15 Ml Drops 1 Drop OP PRN Q6HRS PRN Ventolin Hfa Inhaler (Albuterol Sulfate) 18 Gm Hfa.aer.ad 2 Puff INH PRN Q8HRS PRN Acetaminophen 500 Mg Tablet 1,000 Mg PO PRN Q6HRS PRN Coreg (Carvedilol) 3.125 Mg Tablet 1 Tab PO BID [place]-Senait Rx Tablet (Vit B Cmplx 3/Fa/Vit C/Biotin) 1 Each Tablet 1 Each PO Zofran Odt (Ondansetron) 4 Mg Tab.rapdis 1 Tab SL BID Last dose given yesterday afternoon Take again when needed Vigamox (Moxifloxacin Hcl) 3 Ml Drops 1 Drop RIGHTEYE QID Not given on this admission Start today Effexor Xr (Venlafaxine Hcl) 150 Mg Cap.er.24h 1 Cap PO DAILY Last dose given this morning Take again tomorrow Lidoderm (Lidocaine) 700 Mg Adh..patch 1 Patch TP PRN DAILY PRN Last given on the Use if needed Nystatin 15 Gm Powder 1 Akil TP BID Last dose given this morning Take again tonight Fluticasone Propionate Nasal [place] (Fluticasone Propionate) 16 Gm [place].susp 2 [place] NS PRN DAILY PRN Last given on the Take when needed Lipitor (Atorvastatin Calcium) 10 Mg Tablet 5 Mg PO QHS Last dose given last night Take tonight Senna Laxative (Sennosides) 8.6 Mg Tablet 17.2 Mg PO BID Last dose given this morning Take again tonight Pred Forte (Prednisolone Acetate) 1 Ml Drops.susp 1 Drop RIGHTEYE QID Not given on this admission Start today Protonix (Pantoprazole Sodium) 40 Mg Tablet.dr 40 Mg PO BIDAC Last dose given this morning Take again tonight Amitiza (Lubiprostone) 24 Mcg Capsule 24 Mcg PO BID Gave last dose last night Take again tonight Latuda (Lurasidone Hcl) 40 Mg Tablet 40 Mg PO QHS Last dose given last night Take again tonight Gabapentin 300 Mg Capsule 600 Mg PO DAILY Gave this morning Take again tomorrow morning Fish Oil [place]-3 Softgel ([place]-3/Dha/Epa/Fish Oil) 1 Each Capsule.dr 1 Cap PO BID Not given on this admission Start today Clonazepam Odt (Clonazepam) 0.5 Mg Tab.rapdis 0.5 Mg PO BID Gave dose this am Take again tonight Calcium Acetate 667 Mg Capsule 2,001 Mg PO TIDWMEALS Take with meals Last dose yesterday Vitals/I & O Vital Sign - Last 24 Hours 10/15/16 10/15/16 10/15/16 10/15/16 14:33 15:00 16:52 16:55 Temp 98.1 98.1 Pulse 85 85 85 Resp 16 B/P (MAP) 101/62 (75) 101/62 101/62 Pulse Ox 98 O2 Delivery Room Air Room Air 10/15/16 10/15/16 10/15/16 10/15/16 19:42 20:00 20:29 21:52 Temp 98.5 98.5 Pulse 65 Resp 18 B/P (MAP) 121/66 (84) Pulse Ox 99 97 O2 Delivery Room Air Room Air Room Air Room Air 10/15/16 10/15/16 10/16/16 10/16/16 22:52 23:54 03:55 05:04 Temp 98.5 98.2 98.5 98.2 Pulse 70 67 Resp 18 16 B/P (MAP) 100/65 (77) 106/75 (85) Pulse Ox 97 93 O2 Delivery Room Air Room Air Room Air Room Air 10/16/16 10/16/16 10/16/16 10/16/16 07:00 08:00 08:33 08:33 Temp 97.5 97.5 Pulse 63 63 63 Resp 18 B/P (MAP) 139/75 (96) 139/75 139/75 Pulse Ox 93 O2 Delivery Room Air Room Air 10/16/16 10/16/16 10/16/16 10/16/16 09:01 11:06 12:04 12:04 Temp 98.6 98.6 Pulse 74 74 Resp 20 B/P (MAP) 111/65 (80) 111/65 Pulse Ox 98 97 O2 Delivery Room Air Room Air Room Air 10/16/16 12:40 O2 Delivery Room Air SUN SHER MD Oct 16, 2016 13:55
--- NOTE | 2016-10-16 14:43 | CONS ---
DATE OF CONSULTATION: 10/15/2016 REASON FOR CONSULTATION: Abdominal pain. HISTORY OF PRESENT ILLNESS: A 50-year-old -[place] female with past medical history significant for the polycystic kidney disease, status post bilateral nephrectomy; status post gastric bypass; status post cholecystectomy. She was admitted to [facility] with worsening abdominal pain and diarrhea, which precluded her from doing all of her dialysis treatments this week. The diarrhea has since stopped. She denies any melena and/or hematochezia. Describes pain as being diffuse, mainly in the periumbilical and epigastric region. It is not similar to that she experience prior to her cholecystectomy and she gives minimal additional history. PAST MEDICAL HISTORY: End-stage renal disease, status post bilateral nephrectomies; obesity, status post gastric bypass; status post cholecystectomy. ALLERGIES: INCLUDE CAFFEINE, IBUPROFEN, AND IODINE. MEDICATIONS At the present time include hydralazine, tramadol, gabapentin, citalopram, Amitiza, Coreg, PhosLo, Protonix, Maxidex, Ventolin, Effexor, Klonopin, Carafate, Senna, Latuda, Lipitor. FAMILY AND SOCIAL HISTORY: She does not drink or smoke. REVIEW OF SYSTEMS: As per records. PHYSICAL EXAMINATION: GENERAL: Reveals a well-nourished, well-developed -[place] female. VITAL SIGNS: Temperature is 98.1, pulse 61, respirations 16, blood pressure is 98/57. HEENT: Normocephalic and atraumatic head. Pupils and extraocular movements not tested. Sclerae anicteric. NECK: Supple. LUNGS: Clear. CARDIOVASCULAR: Reveals an S1, S2, without S3, S4 or appreciable murmur. ABDOMEN: Soft abdomen with epigastric and periumbilical tenderness to deep palpation, without appreciable hepatosplenomegaly. Normoactive bowel sounds are present. EXTREMITIES: Reveals no cyanosis, clubbing, edema. DIAGNOSTIC DATA: Laboratory studies and CT scan are pending. IMPRESSION: Abdominal pain status post gastric bypass, cholecystectomy. Differential includes retained common duct stones, partial small-bowel obstruction, mesenteric ischemia due to end-stage renal disease, adhesions, irritable bowel syndrome, infectious enteritis, occult malignancy. We will therefore recommend a CT of the abdomen to further assess. If this is unrevealing, then further consideration may be endoscopic evaluation including upper endoscopy, colonoscopy as well as small bowel series. I would like to thank Dr. Benjamin for allowing us to consult and participate in this patient's care. PILAR CARTER MD DR: STEFFI/hannah JOB#: [id number] / [id number] SUN Jordan MD
[2016-10-16 14:55] VITALS: BP 118/81
[2016-10-16] MEDS ORDERED: ALTEPLASE 2 MG VIAL INT CAT ONE (15:30)
[2016-10-16 19:00] VITALS: BP 110/49
[2016-10-16] MEDS: LURASIDONE 40 MG TABLET. PO SCH (21:58)
[2016-10-16] MEDS: ATORVASTATIN CALCIUM 10 MG TABLET. PO SCH (21:58)
[2016-10-16 23:00] VITALS: BP 118/74
[2016-10-17 03:21] VITALS: BP 98/57
[2016-10-17] MEDS: HEPARIN PF for SUB-Q USE 5,000 UNIT/0.5 ML VIAL. SQ SCH ×2 (05:01→13:56)
[2016-10-17 06:24] LABS: HEMATOCRIT 29.8 % (36.0-47.0); RED BLOOD COUNT 3.13 x10^6/uL (3.50-5.40); RED CELL DISTRIBUTION WIDTH 15.2 % (11.5-14.5); WHITE BLOOD COUNT 7.2 x10^3/uL (4.0-11.0)
[2016-10-17] MEDS: HYDROcodone/APAP 7.5/325MG 1 TAB TABLET PO PRN (06:41)
[2016-10-17 06:45] LABS: CALCIUM 8.3 mg/dL (8.5-10.1); CREATININE 10.1 mg/dL (0.6-1.0); GFR 4.9; POTASSIUM 5.9 mmol/L (3.5-5.1)
[2016-10-17] MEDS: SUCRALFATE 1 GM/10 ML ORAL.SUSP. PO SCH ×2 (07:30→12:08)
[2016-10-17] MEDS: PANTOPRAZOLE 40 MG TABLET.DR. PO SCH (07:30)
[2016-10-17] MEDS: MIDODRINE 5 MG TABLET PO SCH ×2 (07:30→12:10)
[2016-10-17] MEDS ORDERED: diphenhydrAMINE 50 MG/ML VIAL IV PRN (08:00)
[2016-10-17] MEDS ORDERED: ACETAMINOPHEN 500 MG TABLET PO PRN (08:00)
[2016-10-17] MEDS: CALCIUM ACETATE 667 MG CAPSULE PO SCH ×2 (08:00→12:28)
[2016-10-17] MEDS ORDERED: DIALYSIS PATIENT. MC PRN ×2 (08:00)
[2016-10-17] MEDS ORDERED: ALBUMIN HUMAN 25% 200 ML IV PRN (08:00)
[2016-10-17] MEDS ORDERED: IV NORMAL SALINE 1000ML BAG 1,000 ML IV PRN ×2 (08:00)
[2016-10-17] MEDS: ALBUTEROL SULFATE 2.5 MG/3 ML NEBU. NEB PRN (08:25)
[2016-10-17] MEDS: DEXAMETHASONE 0.1% OPHTH SOLUTION 5ML BOTTLE. OU SCH ×2 (09:00→12:13)
[2016-10-17] MEDS: MOXIFLOXACIN 0.5% OPHTH SOLUTION 3ML BOTTLE. OU SCH ×2 (09:00→12:13)
[2016-10-17] MEDS: POLYVINYL ALCOHOL 1.4% OPHTH SOLUTION 15ML BOTTLE. OU SCH ×2 (09:00→12:13)
[2016-10-17] MEDS: VENLAFAXINE 50 MG TABLET. PO SCH ×2 (09:00→14:00)
--- NOTE | 2016-10-17 10:06 | PDOC ---
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 Vitals Vital Signs Vital Signs Date Time Temp Pulse Resp B/P (MAP) Pulse Ox O2 Delivery O2 Flow Rate FiO2 10/17/16 08:26 99 Room Air 10/17/16 06:41 18 10/17/16 03:21 98.1 20 98/57 (71) 98.1 Labs Last Labs Laboratory Tests Test 10/16/16 12:50 10/17/16 05:55 White Blood Count 8.9 x10^3/uL (4.0-11.0) 7.2 x10^3/uL (4.0-11.0) Red Blood Count 3.30 x10^6/uL (3.50-5.40) 3.13 x10^6/uL (3.50-5.40) Hemoglobin 10.4 g/dL (12.0-15.5) 10.0 g/dL (12.0-15.5) Hematocrit 31.8 % (36.0-47.0) 29.8 % (36.0-47.0) Mean Corpuscular Volume 97 fL (79-100) 95 fL (79-100) Mean Corpuscular Hemoglobin 32 pg (25-35) 32 pg (25-35) Mean Corpuscular Hemoglobin Concent 33 g/dL (31-37) 34 g/dL (31-37) Red Cell Distribution Width 15.0 % (11.5-14.5) 15.2 % (11.5-14.5) Platelet Count 208 x10^3/uL (140-400) 165 x10^3/uL (140-400) Neutrophils (%) (Auto) 67 % (31-73) Lymphocytes (%) (Auto) 18 % (24-48) Monocytes (%) (Auto) 11 % (0-9) Eosinophils (%) (Auto) 3 % (0-3) Basophils (%) (Auto) 0 % (0-3) Neutrophils # (Auto) 6.0 x10^3uL (1.8-7.7) Lymphocytes # (Auto) 1.6 x10^3/uL (1.0-4.8) Monocytes # (Auto) 0.9 x10^3/uL (0.0-1.1) Eosinophils # (Auto) 0.3 x10^3/uL (0.0-0.7) Basophils # (Auto) 0.0 x10^3/uL (0.0-0.2) Sodium Level 136 mmol/L (136-145) 136 mmol/L (136-145) Potassium Level 5.7 mmol/L (3.5-5.1) 5.9 mmol/L (3.5-5.1) Chloride Level 98 mmol/L (98-107) 97 mmol/L (98-107) Carbon Dioxide Level 28 mmol/L (21-32) 27 mmol/L (21-32) Anion Gap 10 (6-14) 12 (6-14) Blood Urea Nitrogen 61 mg/dL (7-20) 73 mg/dL (7-20) Creatinine 9.4 mg/dL (0.6-1.0) 10.1 mg/dL (0.6-1.0) Estimated GFR (Cockcroft-Gault) 5.3 4.9 BUN/Creatinine Ratio 6 (6-20) Glucose Level 92 mg/dL (70-99) 76 mg/dL (70-99) Calcium Level 8.4 mg/dL (8.5-10.1) 8.3 mg/dL (8.5-10.1) Total Bilirubin 0.4 mg/dL (0.2-1.0) Aspartate Amino Transf (AST/SGOT) 12 U/L (15-37) Alanine Aminotransferase (ALT/SGPT) 10 U/L (14-59) Alkaline Phosphatase 82 U/L (46-116) Total Protein 6.7 g/dL (6.4-8.2) Albumin 2.5 g/dL (3.4-5.0) Albumin/Globulin Ratio 0.6 (1.0-1.7) Amylase Level 53 U/L (25-115) Lipase 100 U/L (73-393) Laboratory Tests Test 10/16/16 12:50 10/17/16 05:55 White Blood Count 8.9 x10^3/uL (4.0-11.0) 7.2 x10^3/uL (4.0-11.0) Red Blood Count 3.30 x10^6/uL (3.50-5.40) 3.13 x10^6/uL (3.50-5.40) Hemoglobin 10.4 g/dL (12.0-15.5) 10.0 g/dL (12.0-15.5) Hematocrit 31.8 % (36.0-47.0) 29.8 % (36.0-47.0) Mean Corpuscular Volume 97 fL (79-100) 95 fL (79-100) Mean Corpuscular Hemoglobin 32 pg (25-35) 32 pg (25-35) Mean Corpuscular Hemoglobin Concent 33 g/dL (31-37) 34 g/dL (31-37) Red Cell Distribution Width 15.0 % (11.5-14.5) 15.2 % (11.5-14.5) Platelet Count 208 x10^3/uL (140-400) 165 x10^3/uL (140-400) Neutrophils (%) (Auto) 67 % (31-73) Lymphocytes (%) (Auto) 18 % (24-48) Monocytes (%) (Auto) 11 % (0-9) Eosinophils (%) (Auto) 3 % (0-3) Basophils (%) (Auto) 0 % (0-3) Neutrophils # (Auto) 6.0 x10^3uL (1.8-7.7) Lymphocytes # (Auto) 1.6 x10^3/uL (1.0-4.8) Monocytes # (Auto) 0.9 x10^3/uL (0.0-1.1) Eosinophils # (Auto) 0.3 x10^3/uL (0.0-0.7) Basophils # (Auto) 0.0 x10^3/uL (0.0-0.2) Sodium Level 136 mmol/L (136-145) 136 mmol/L (136-145) Potassium Level 5.7 mmol/L (3.5-5.1) 5.9 mmol/L (3.5-5.1) Chloride Level 98 mmol/L (98-107) 97 mmol/L (98-107) Carbon Dioxide Level 28 mmol/L (21-32) 27 mmol/L (21-32) Anion Gap 10 (6-14) 12 (6-14) Blood Urea Nitrogen 61 mg/dL (7-20) 73 mg/dL (7-20) Creatinine 9.4 mg/dL (0.6-1.0) 10.1 mg/dL (0.6-1.0) Estimated GFR (Cockcroft-Gault) 5.3 4.9 BUN/Creatinine Ratio 6 (6-20) Glucose Level 92 mg/dL (70-99) 76 mg/dL (70-99) Calcium Level 8.4 mg/dL (8.5-10.1) 8.3 mg/dL (8.5-10.1) Total Bilirubin 0.4 mg/dL (0.2-1.0) Aspartate Amino Transf (AST/SGOT) 12 U/L (15-37) Alanine Aminotransferase (ALT/SGPT) 10 U/L (14-59) Alkaline Phosphatase 82 U/L (46-116) Total Protein 6.7 g/dL (6.4-8.2) Albumin 2.5 g/dL (3.4-5.0) Albumin/Globulin Ratio 0.6 (1.0-1.7) Amylase Level 53 U/L (25-115) Lipase 100 U/L (73-393) RUBA MIRANDA MD Oct 17, 2016 10:06
--- NOTE | 2016-10-17 11:07 | PDOC ---
Subjective: Subjective: RUQ pain worse w/ movement. Doesn't feel well enough to DC. Objective: Objective: Discussed w/ RN on floor, received no report of GI issues, possible DC today. Vital Signs: Vital Signs Date Time Temp Pulse Resp B/P (MAP) Pulse Ox O2 Delivery O2 Flow Rate FiO2 10/17/16 08:26 99 Room Air 10/17/16 06:41 18 10/17/16 03:21 98.1 20 98/57 (71) 98.1 Labs: Laboratory Tests Test 10/16/16 12:50 10/17/16 05:55 White Blood Count 8.9 x10^3/uL 7.2 x10^3/uL Red Blood Count 3.30 x10^6/uL 3.13 x10^6/uL Hemoglobin 10.4 g/dL 10.0 g/dL Hematocrit 31.8 % 29.8 % Mean Corpuscular Volume 97 fL 95 fL Mean Corpuscular Hemoglobin 32 pg 32 pg Mean Corpuscular Hemoglobin Concent 33 g/dL 34 g/dL Red Cell Distribution Width 15.0 % 15.2 % Platelet Count 208 x10^3/uL 165 x10^3/uL Neutrophils (%) (Auto) 67 % Lymphocytes (%) (Auto) 18 % Monocytes (%) (Auto) 11 % Eosinophils (%) (Auto) 3 % Basophils (%) (Auto) 0 % Neutrophils # (Auto) 6.0 x10^3uL Lymphocytes # (Auto) 1.6 x10^3/uL Monocytes # (Auto) 0.9 x10^3/uL Eosinophils # (Auto) 0.3 x10^3/uL Basophils # (Auto) 0.0 x10^3/uL Sodium Level 136 mmol/L 136 mmol/L Potassium Level 5.7 mmol/L 5.9 mmol/L Chloride Level 98 mmol/L 97 mmol/L Carbon Dioxide Level 28 mmol/L 27 mmol/L Anion Gap 10 12 Blood Urea Nitrogen 61 mg/dL 73 mg/dL Creatinine 9.4 mg/dL 10.1 mg/dL Estimated GFR (Cockcroft-Gault) 5.3 4.9 BUN/Creatinine Ratio 6 Glucose Level 92 mg/dL 76 mg/dL Calcium Level 8.4 mg/dL 8.3 mg/dL Total Bilirubin 0.4 mg/dL Aspartate Amino Transf (AST/SGOT) 12 U/L Alanine Aminotransferase (ALT/SGPT) 10 U/L Alkaline Phosphatase 82 U/L Total Protein 6.7 g/dL Albumin 2.5 g/dL Albumin/Globulin Ratio 0.6 Amylase Level 53 U/L Lipase 100 U/L PE: GEN: NAD, dialyzing LUNGS: clear HEART: RRR ABD: not particularly tender currently, soft NEURO/PSYCH: A & O 3 A/P: RUQ pain -s/p [id number] bypass with h/o stomal ulcer, h/o non-compliance -- Worse w/ movement suggests probably MSK issue. DC per primary. Continue PPI. DENISE HARDWICK Oct 17, 2016 11:07
[2016-10-17 12:10] VITALS: BP 122/67
[2016-10-17] MEDS: LUBIPROSTONE 8 MCG CAPSULE PO SCH (12:10)
[2016-10-17] MEDS: OMEGA-3 FATTY ACIDS/FISH OIL 1,000 MG CAPSULE. PO SCH (12:10)
[2016-10-17] MEDS: GABAPENTIN 300 MG CAPSULE. PO SCH (12:11)
[2016-10-17] MEDS: CITALOPRAM 20 MG TABLET. PO SCH (12:11)
[2016-10-17] MEDS: clonazePAM 0.5 MG TABLET PO SCH (12:11)
[2016-10-17] MEDS: SENNOSIDES 8.6 MG TABLET PO SCH (12:11)
[2016-10-17] MEDS: ONDANSETRON ODT 4 MG TAB.RAPDIS. PO SCH (12:12)
[2016-10-17] MEDS: HYDROcodone/APAP 10/325 1 TAB TABLET PO PRN (12:28)
[2016-10-17] MEDS ORDERED: HYDR-2766 PO (13:12)
--- NOTE | 2016-10-17 13:52 | PDOC3 ---
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 CT showed multiple abnormalities, likely artifact. defer to GI and renal if need further intervention History of Present Illness History of Present Illness ROS: no fever, chills, sob or chest pain \ cont having abd pain, no improvement, but eats well, no N/V, bm normal refuse to get blood drawn, has a left chest iv port for blood drawn, not working well Vitals Vitals Vital Signs Date Time Temp Pulse Resp B/P (MAP) Pulse Ox O2 Delivery O2 Flow Rate FiO2 10/16/16 12:40 Room Air 10/16/16 12:04 74 111/65 10/16/16 11:06 98.6 20 97 98.6 Physical Exam Physical Exam Problems: CONSULTS gi renal Brief Hospital Course 50yo F, living alone, multiple combobidities, comes here almost every month for different reasons and usually not like to go home and also lied to me before, came yesterday for RUQ pain x3ds. Pt just dced here 08/2016. and out of [facility] last week for chest pain, cath normal as per pt. got left upper chest iv port for iv access, but not working well. Pt said she started to have RUQ pain since 3 days ago, with nausea, h/o cholecystectomy, no diarrhea, or constipation. She said never had this pain before. pt then didnot go to her regular HD on AND went to [facility] on sun and then transferred here. said had EGD before. CT abd showed multiple possible abnormalities, likely 2/2 artifact. renal and gi on board, no further recommendation. dc home with lortab increased to 10/325 10 pills. pt still in pain and refuses to go home as she did usually. 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 right forearm AVF left upper chest IV port General: Alert, Oriented X3, Cooperative, mild distress Heart: Regular rate, Normal S1, Normal S2 Lungs: Clear Abdomen: Normal bowel sounds, Soft, No hepatosplenomegaly, No masses Extremities: No clubbing, Normal pulses Skin: No rashes Patient History: Family history: Angina (situation) 32 MOTHER Family history: Cardiomyopathy (situation) 32 MOTHER (ENLARGED HEART) Family history: Cardiovascular disease (situation) 32 MOTHER (ENLARGED HEART) Family history: Diabetes mellitus (situation) G8 DAUGHTER 32 MOTHER Family history: Hypertension (situation) G8 BROTHER (AT 16 YEARS OLD) G8 DAUGHTER 33 FATHER 32 MOTHER Family history: Obesity (situation) 32 MOTHER G8 SISTER Unknown 33 FATHER (CVA-) 32 MOTHER (BREAST CANCER) G8 SISTER (CERVICAL CANCER) No Family History of: Family history: Asthma Family history: Autoimmune disease (situation) Family history: Blood disorder (situation) Family history: Breast disease (situation) Family history: Crohn's disease (situation) Family history: Depression (situation) Family history: Epilepsy (situation) Family history: Gallbladder disease (situation) Family history: Gastrointestinal disease (situation) Family history: Hemophilia (situation) Family history: Schizophrenia (situation) Family history: Sickle cell trait (situation) Family history: Suicide (situation) Family history: neoplasm - trachea/bronchus/lung (situation) Family history: neoplasm - urinary organ (situation) Family history: neoplasm of skin (situation) Malignant hyperthermia Sleep apnea Problems: Disposition home CONDITION AT DISCHARGE: Improved, Stable Diet gi soft, renal Scheduled Atorvastatin Calcium (Lipitor), 5 MG PO QHS, (Reported) Calcium Acetate (Calcium Acetate), 2,001 MG PO TIDWMEALS, (Reported) Carboxymethylcellulose Sodium (Refresh Tears), 1 DROP OP QID, (Reported) Clonazepam (Clonazepam Odt), 0.5 MG PO BID, (Reported) Diclofenac Epolamine (Flector), 1 PATCH TP DAILY Escitalopram Oxalate (Escitalopram Oxalate), 1 TAB PO DAILY Gabapentin (Gabapentin), 600 MG PO DAILY, (Reported) Lubiprostone (Amitiza), 24 MCG PO BID, (Reported) Lurasidone Hcl (Latuda), 40 MG PO QHS, (Reported) Midodrine Hcl (Midodrine Hcl), 10 MG PO TIDAC Moxifloxacin Hcl (Vigamox), 1 DROP RIGHTEYE QID, (Reported) Nystatin (Nystatin), 1 MINA TP BID, (Reported) [place]-3/Dha/Epa/Fish Oil (Fish Oil [place]-3 Softgel), 1 CAP PO BID, (Reported) Ondansetron (Zofran Odt), 1 TAB SL BID, (Reported) Pantoprazole Sodium (Protonix), 40 MG PO BIDAC, (Reported) Prednisolone Acetate (Pred Forte), 1 DROP RIGHTEYE QID, (Reported) Prednisolone Acetate (Prednisolone Acetate), 1 DROP EACHEYE QID, (Reported) Sennosides (Senna Laxative), 17.2 MG PO BID, (Reported) Sucralfate (Sucralfate), 1 GM PO QIDACHS Sumatriptan Succinate (Imitrex), 1 TAB PO UD Venlafaxine Hcl (Effexor Xr), 1 CAP PO DAILY, (Reported) Scheduled PRN Acetaminophen (Acetaminophen), 1,000 MG PO PRN Q6HRS PRN for PAIN, (Reported) Albuterol Sulfate (Ventolin Hfa Inhaler), 2 PUFF INH PRN Q8HRS PRN for WHEEZING, (Reported) Benzocaine/Menthol (Cepacol Sore Throat Lozenge), 1 TREMAYNE PO PRN Q2HRS PRN for SORE THROAT Butalb/Acetaminophen/Caffeine (Fioricet 50-300-40 Mg Capsule), 1 EACH PO PRN Q4HRS PRN for MIGRAINE HEADACHE Dextran 70/Hypromellose (Artificial Tears Eye Drops), 1 DROP OP PRN Q6HRS PRN for REDNESS, (Reported) Fluticasone Propionate (Fluticasone Propionate Nasal [place]), 2 SPRAY NS PRN DAILY PRN for ALLERGIES, (Reported) Hydrocodone Bit/Acetaminophen (Hydrocodone-Apap 5-325 ), 1 TAB PO PRN Q4HRS PRN for PAIN MOD TO SEVERE Hydrocodone Bit/Acetaminophen (Hydrocodone-Apap 10-325 ), 1 TAB PO PRN Q6HRS PRN for PAIN Lidocaine (Lidoderm), 1 PATCH TP PRN DAILY PRN for BACK PAIN, (Reported) Miscellaneous Medications Mineral Oil/Hydrophil Petrolat (Petrolatum Base Ointment), 454 GM TP, (Reported) Vit B Cmplx 3/Fa/Vit C/Biotin (Paola-Senait Rx Tablet), 1 EACH PO, (Reported) Discontinued Medications Carvedilol (Coreg), 1 TAB PO BID, (Reported) Follow Up pcp in 2 weeks SUN SEHR MD Oct 17, 2016 13:52
[2016-10-17] MEDS ORDERED: HEPARIN PF 500 UNIT/5 ML DISP.SYRIN. IV ONE (14:30)
== END 2016-10-17 15:20 | disposition home or self-care (01) | DRG 555 ==
LOC: 6 SOUTH 15:40
PROVIDERS: ADMIT Internal Medicine; ATTEND Internal Medicine
PROC: 5A1D00Z (ICD-10-PCS; principal; 2016-10-15)
DX: M79.1 Myalgia (principal); N18.6 End stage renal disease; I13.2 Hypertensive heart and chronic kidney disease with heart failure and with stage 5 chronic kidney disease, or end stage renal disease; I48.91 Unspecified atrial fibrillation; E87.5 Hyperkalemia; Q61.2 Polycystic kidney, adult type; K27.9 Peptic ulcer, site unspecified, unspecified as acute or chronic, without hemorrhage or perforation; G62.9 Polyneuropathy, unspecified; I50.32 Chronic diastolic (congestive) heart failure; G43.909 Migraine, unspecified, not intractable, without status migrainosus; E66.01 Morbid (severe) obesity due to excess calories; D64.9 Anemia, unspecified; E03.9 Hypothyroidism, unspecified; E78.5 Hyperlipidemia, unspecified; J45.909 Unspecified asthma, uncomplicated; F41.9 Anxiety disorder, unspecified; M54.5 Low back pain; R19.7 Diarrhea, unspecified; K21.9 Gastro-esophageal reflux disease without esophagitis; Z80.3 Family history of malignant neoplasm of breast; Z80.49 Family history of malignant neoplasm of other genital organs; Z81.8 Family history of other mental and behavioral disorders; Z82.0 Family history of epilepsy and other diseases of the nervous system; Z82.3 Family history of stroke; Z82.49 Family history of ischemic heart disease and other diseases of the circulatory system; Z82.5 Family history of asthma and other chronic lower respiratory diseases; Z83.3 Family history of diabetes mellitus; Z86.73 Personal history of transient ischemic attack (TIA), and cerebral infarction without residual deficits; Z87.11 Personal history of peptic ulcer disease; Z90.49 Acquired absence of other specified parts of digestive tract; Z90.5 Acquired absence of kidney; Z91.19 Patient's noncompliance with other medical treatment and regimen; Z98.84 Bariatric surgery status; Z99.2 Dependence on renal dialysis; Z98.49 Cataract extraction status, unspecified eye; Z87.01 Personal history of pneumonia (recurrent); Z88.8 Allergy status to other drugs, medicaments and biological substances; Z88.6 Allergy status to analgesic agent; Z88.1 Allergy status to other antibiotic agents; Z91.041 Radiographic dye allergy status; Z91.013 Allergy to seafood
CPT/HCPCS: 36415; 74176; 80048; 80053; 82150; 83690; 85025; 85027; 87641; 94250; 94640; 94760; J2997; J7613; Q0162

== ENCOUNTER 2017-02-06 05:44 | Emergency (ER) | payer MEDICARE, OTHER ==
[2017-02-06 07:10] LABS: ADD MAN DIFF? NO
[2017-02-06 07:13] LABS: BASO % 0 % (0-3); EOS % 1 % (0-3); HEMATOCRIT 32.6 % (36.0-47.0); HEMOGLOBIN 10.4 g/dL (12.0-15.5); LYMPH # 1.3 x10^3/uL (1.0-4.8); LYMPH % 17 % (24-48); MEAN CORPUSCULAR HEMOGLOBIN 32 pg (25-35); MEAN CORPUSCULAR HGB CONC 32 g/dL (31-37); MEAN CORPUSCULAR VOLUME 102 fL (79-100); MONO % 9 % (0-9); NEUT % 72 % (31-73); PLATELET COUNT 140 x10^3/uL (140-400); RED BLOOD COUNT 3.21 x10^6/uL (3.50-5.40); RED CELL DISTRIBUTION WIDTH 15.3 % (11.5-14.5); WHITE BLOOD COUNT 7.4 x10^3/uL (4.0-11.0)
[2017-02-06] MEDS: HYDROcodone/APAP 5/325MG 1 TAB TABLET PO (07:14)
[2017-02-06 07:25] LABS: ANION GAP 18 (6-14); BLOOD UREA NITROGEN 45 mg/dL (7-20); BUN/CREATININE RATIO 4 (6-20); CALCIUM 8.6 mg/dL (8.5-10.1); CARBON DIOXIDE 24 mmol/L (21-32); CHLORIDE 100 mmol/L (98-107); CREATININE 10.1 mg/dL (0.6-1.0); GFR 4.9; GLUCOSE 77 mg/dL (70-99); POTASSIUM 4.8 mmol/L (3.5-5.1); SODIUM 142 mmol/L (136-145)
[2017-02-06 07:31] LABS: ALBUMIN 3.1 g/dL (3.4-5.0); ALBUMIN/GLOBULIN RATIO 0.7 (1.0-1.7); ALK PHOS 71 U/L (46-116); ALT (SGPT) 11 U/L (14-59); AST (SGOT) 16 U/L (15-37); TOTAL BILIRUBIN 0.4 mg/dL (0.2-1.0); TOTAL PROTEIN 7.3 g/dL (6.4-8.2)
== END 2017-02-06 09:13 | disposition home or self-care (01) ==
LOC: ER 05:44
DX: I12.0 Hypertensive chronic kidney disease with stage 5 chronic kidney disease or end stage renal disease (principal); N18.6 End stage renal disease; Z99.2 Dependence on renal dialysis; Z94.0 Kidney transplant status; Z90.710 Acquired absence of both cervix and uterus; Z90.49 Acquired absence of other specified parts of digestive tract; Z88.8 Allergy status to other drugs, medicaments and biological substances; Z88.6 Allergy status to analgesic agent; Z91.041 Radiographic dye allergy status; Z91.013 Allergy to seafood
CPT/HCPCS: 36415; 80053; 83690; 85025; 99284

== ENCOUNTER 2017-03-14 11:16 | Inpatient (IN) | payer MEDICARE, OTHER ==
[2017-03-14 12:46] LABS: ADD MAN DIFF? NO
[2017-03-14 12:49] LABS: BASO % 1 % (0-3); EOS # 0.1 x10^3/uL (0.0-0.7); EOS % 2 % (0-3); HEMOGLOBIN 11.6 g/dL (12.0-15.5); LYMPH # 1.3 x10^3/uL (1.0-4.8); LYMPH % 25 % (24-48); MEAN CORPUSCULAR HEMOGLOBIN 31 pg (25-35); MEAN CORPUSCULAR HGB CONC 32 g/dL (31-37); MEAN CORPUSCULAR VOLUME 97 fL (79-100); MONO # 0.5 x10^3/uL (0.0-1.1); MONO % 9 % (0-9); NEUT # 3.4 x10^3uL (1.8-7.7); NEUT % 63 % (31-73); PLATELET COUNT 161 x10^3/uL (140-400); RED BLOOD COUNT 3.72 x10^6/uL (3.50-5.40); WHITE BLOOD COUNT 5.3 x10^3/uL (4.0-11.0)
[2017-03-14 13:10] LABS: ANION GAP 17 (6-14); BLOOD UREA NITROGEN 71 mg/dL (7-20); BUN/CREATININE RATIO 6 (6-20); CALCIUM 8.8 mg/dL (8.5-10.1); CARBON DIOXIDE 22 mmol/L (21-32); CHLORIDE 100 mmol/L (98-107); CREATININE 11.2 mg/dL (0.6-1.0); GFR 4.3; GLUCOSE 81 mg/dL (70-99); SODIUM 139 mmol/L (136-145)
[2017-03-14 13:24] LABS: ALBUMIN 2.4 g/dL (3.4-5.0); ALBUMIN/GLOBULIN RATIO 0.6 (1.0-1.7); ALK PHOS 89 U/L (46-116); ALT (SGPT) 11 U/L (14-59); AST (SGOT) 13 U/L (15-37); TOTAL BILIRUBIN 0.4 mg/dL (0.2-1.0); TOTAL PROTEIN 6.5 g/dL (6.4-8.2)
[2017-03-14 14:00] LABS: INFLUENZA A PATIENT NEGATIVE (NEGATIVE); INFLUENZA B PATIENT NEGATIVE (NEGATIVE); OBC FLU VALID
[2017-03-14] MEDS ORDERED: ONDANSETRON PF 4 MG/2 ML VIAL. IV ×2 (14:30→15:00)
[2017-03-14] MEDS ORDERED: FLUTICASONE 50MCG/NASAL SPRAY 16GM BOTTLE. NS (15:00)
[2017-03-14] MEDS ORDERED: ALPRAZolam 0.25 MG TABLET PO (15:00)
[2017-03-14] MEDS ORDERED: HYDROcodone/APAP 5/325MG 1 TAB TABLET PO (15:00)
[2017-03-14] MEDS ORDERED: ACETAMINOPHEN 500 MG TABLET PO ×2 (15:00→15:15)
[2017-03-14] MEDS ORDERED: BENZOCAINE/MENTHOL LOZENGE. PO (15:00)
[2017-03-14] MEDS ORDERED: NON FORMULARY ITEM (Dextran 70/Hypromellose (Artificial Tears Eye Drops) 1 DROP) OP (15:00)
[2017-03-14] MEDS ORDERED: NON FORMULARY ITEM (Albuterol Sulfate (Ventolin Hfa Inhaler) 2 PUFF) INH (15:00)
[2017-03-14] MEDS ORDERED: LIDOCAINE (700MG/PATCH) PATCH. TP (15:00)
[2017-03-14] MEDS ORDERED: IV NORMAL SALINE 1000ML BAG 1,000 ML IV ×2 (15:03)
[2017-03-14] MEDS ORDERED: cloNIDine HCL 0.1 MG TABLET PO (15:15)
[2017-03-14] MEDS ORDERED: DIALYSIS PATIENT. MC (15:15)
[2017-03-14] MEDS ORDERED: LABETALOL 20 MG/4 ML DISP.SYRIN. IVP (15:15)
[2017-03-14] MEDS ORDERED: diphenhydrAMINE 50 MG/ML VIAL IV ×2 (15:15)
[2017-03-14] MEDS ORDERED: ALBUMIN HUMAN 25% 200 ML IV (15:15)
[2017-03-14] MEDS ORDERED: BUTALB/APAP/CAFEIN 50/325/40MG TABLET. PO (15:15)
[2017-03-14] MEDS ORDERED: POLYVINYL ALCOHOL 1.4% OPHTH SOLUTION 15ML BOTTLE. OU ×2 (15:15→16:00)
[2017-03-14] MEDS ORDERED: ALBUTEROL SULFATE 2.5 MG/3 ML NEBU. NEB (15:30)
[2017-03-14] MEDS: MOXIFLOXACIN 0.5% OPHTH SOLUTION 3ML BOTTLE. OU ×2 (16:15→20:43)
[2017-03-14] MEDS: PANTOPRAZOLE 40 MG TABLET.DR. PO (16:15)
[2017-03-14] MEDS: MIDODRINE 5 MG TABLET PO (16:15)
[2017-03-14] MEDS: LUBIPROSTONE 8 MCG CAPSULE PO (16:15)
[2017-03-14] MEDS: NON FORMULARY ITEM (Prednisolone Acetate 1 DROP) EACHEYE (16:15)
[2017-03-14] MEDS: SUCRALFATE 1 GM/10 ML ORAL.SUSP. PO ×2 (16:15→20:43)
[2017-03-14] MEDS: CALCIUM ACETATE 667 MG CAPSULE PO (16:16)
[2017-03-14] MEDS: DEXAMETHASONE 0.1% OPHTH SOLUTION 5ML BOTTLE. OU (20:43)
[2017-03-14] MEDS: ONDANSETRON ODT 4 MG TAB.RAPDIS. PO (20:43)
[2017-03-14] MEDS: clonazePAM 0.5 MG TABLET PO (20:43)
[2017-03-14] MEDS: NYSTATIN TOPICAL POWDER 15GM BOTTLE. TP (20:43)
[2017-03-14] MEDS: ATORVASTATIN CALCIUM 10 MG TABLET. PO (20:44)
[2017-03-14] MEDS: SENNOSIDES 8.6 MG TABLET PO (20:44)
[2017-03-14] MEDS: OMEGA-3 FATTY ACIDS/FISH OIL 1,000 MG CAPSULE. PO (20:44)
[2017-03-14] MEDS: ACETAMINOPHEN 500 MG TABLET PO (20:44)
[2017-03-14] MEDS: LURASIDONE 40 MG TABLET. PO (20:44)
[2017-03-15] MEDS: PANTOPRAZOLE 40 MG TABLET.DR. PO ×2 (06:33→17:54)
[2017-03-15] MEDS: SUCRALFATE 1 GM/10 ML ORAL.SUSP. PO ×4 (06:35→20:45)
[2017-03-15] MEDS: MIDODRINE 5 MG TABLET PO ×3 (07:30→17:54)
[2017-03-15] MEDS: CALCIUM ACETATE 667 MG CAPSULE PO ×3 (08:00→17:54)
[2017-03-15] MEDS ORDERED: IV NORMAL SALINE 1000ML BAG 1,000 ML IV ×2 (08:02)
[2017-03-15] MEDS ORDERED: DIALYSIS PATIENT. MC ×2 (08:15)
[2017-03-15] MEDS: DEXAMETHASONE 0.1% OPHTH SOLUTION 5ML BOTTLE. OU ×4 (09:00→20:46)
[2017-03-15] MEDS ORDERED: DICLOFENAC EPOLAMINE TP (09:00)
[2017-03-15] MEDS: SENNOSIDES 8.6 MG TABLET PO ×2 (09:00→20:44)
[2017-03-15] MEDS: MOXIFLOXACIN 0.5% OPHTH SOLUTION 3ML BOTTLE. OU ×4 (09:00→20:45)
[2017-03-15] MEDS: LUBIPROSTONE 8 MCG CAPSULE PO ×2 (13:01→18:00)
[2017-03-15] MEDS: CITALOPRAM 20 MG TABLET. PO (13:01)
[2017-03-15] MEDS: SUMAtriptan SUCCINATE 100 MG TABLET PO (13:01)
[2017-03-15] MEDS: VENLAFAXINE XR 37.5 MG CAP.ER.24H. PO (13:01)
[2017-03-15] MEDS: ONDANSETRON ODT 4 MG TAB.RAPDIS. PO ×2 (13:01→20:45)
[2017-03-15] MEDS: OMEGA-3 FATTY ACIDS/FISH OIL 1,000 MG CAPSULE. PO ×2 (13:01→20:44)
[2017-03-15] MEDS: clonazePAM 0.5 MG TABLET PO ×2 (13:02→20:45)
[2017-03-15] MEDS: NYSTATIN TOPICAL POWDER 15GM BOTTLE. TP ×2 (13:03→20:45)
[2017-03-15] MEDS: GABAPENTIN 300 MG CAPSULE. PO (13:04)
[2017-03-15 14:51] LABS: MRSA BY PCR Positive (Negative)
[2017-03-15] MEDS: ATORVASTATIN CALCIUM 10 MG TABLET. PO (20:44)
[2017-03-15] MEDS: LURASIDONE 40 MG TABLET. PO (20:45)
[2017-03-15] MEDS: HYDROcodone/APAP 10/325 1 TAB TABLET PO (20:54)
[2017-03-16] MEDS: HYDROcodone/APAP 10/325 1 TAB TABLET PO (03:12)
[2017-03-16] MEDS: SUCRALFATE 1 GM/10 ML ORAL.SUSP. PO ×2 (07:30→11:30)
[2017-03-16] MEDS: LUBIPROSTONE 8 MCG CAPSULE PO (08:00)
[2017-03-16] MEDS: clonazePAM 0.5 MG TABLET PO (08:43)
[2017-03-16] MEDS: CITALOPRAM 20 MG TABLET. PO (08:43)
[2017-03-16] MEDS: OMEGA-3 FATTY ACIDS/FISH OIL 1,000 MG CAPSULE. PO (08:43)
[2017-03-16] MEDS: VENLAFAXINE XR 37.5 MG CAP.ER.24H. PO (08:43)
[2017-03-16] MEDS: ONDANSETRON ODT 4 MG TAB.RAPDIS. PO (08:43)
[2017-03-16] MEDS: CALCIUM ACETATE 667 MG CAPSULE PO ×2 (08:43→13:05)
[2017-03-16] MEDS: PANTOPRAZOLE 40 MG TABLET.DR. PO (08:44)
[2017-03-16] MEDS: SUMAtriptan SUCCINATE 100 MG TABLET PO (08:44)
[2017-03-16] MEDS: MIDODRINE 5 MG TABLET PO ×2 (08:44→11:30)
[2017-03-16] MEDS: DEXAMETHASONE 0.1% OPHTH SOLUTION 5ML BOTTLE. OU ×2 (08:45→13:06)
[2017-03-16] MEDS: GABAPENTIN 300 MG CAPSULE. PO (08:45)
[2017-03-16] MEDS: MOXIFLOXACIN 0.5% OPHTH SOLUTION 3ML BOTTLE. OU ×2 (08:45→13:06)
[2017-03-16] MEDS: NYSTATIN TOPICAL POWDER 15GM BOTTLE. TP (08:45)
[2017-03-16] MEDS: SENNOSIDES 8.6 MG TABLET PO (08:54)
== END 2017-03-16 15:50 | disposition home or self-care (01) | DRG 682 ==
LOC: ER 11:16 → 5 NORTH 14:19
PROC: 5A1D70Z Performance of Urinary Filtration, Intermittent, Less than 6 Hours Per Day (ICD-10-PCS; principal; 2017-03-14)
PROC: 5A1D70Z Performance of Urinary Filtration, Intermittent, Less than 6 Hours Per Day (ICD-10-PCS; 2017-03-15)
DX: N17.9 Acute kidney failure, unspecified (principal); E43 Unspecified severe protein-calorie malnutrition; I12.0 Hypertensive chronic kidney disease with stage 5 chronic kidney disease or end stage renal disease; I48.91 Unspecified atrial fibrillation; N31.9 Neuromuscular dysfunction of bladder, unspecified; G62.9 Polyneuropathy, unspecified; Q61.3 Polycystic kidney, unspecified; D63.1 Anemia in chronic kidney disease; N18.6 End stage renal disease; G43.909 Migraine, unspecified, not intractable, without status migrainosus; E03.9 Hypothyroidism, unspecified; E78.5 Hyperlipidemia, unspecified; F41.9 Anxiety disorder, unspecified; J45.909 Unspecified asthma, uncomplicated; K21.9 Gastro-esophageal reflux disease without esophagitis; F32.9 Major depressive disorder, single episode, unspecified; M54.5 Low back pain; Z79.899 Other long term (current) drug therapy; Z86.73 Personal history of transient ischemic attack (TIA), and cerebral infarction without residual deficits; Z87.11 Personal history of peptic ulcer disease; Z90.710 Acquired absence of both cervix and uterus; Z91.19 Patient's noncompliance with other medical treatment and regimen; Z99.2 Dependence on renal dialysis; Z87.01 Personal history of pneumonia (recurrent); Z90.49 Acquired absence of other specified parts of digestive tract; Z98.49 Cataract extraction status, unspecified eye; Z82.49 Family history of ischemic heart disease and other diseases of the circulatory system; Z88.2 Allergy status to sulfonamides; Z88.8 Allergy status to other drugs, medicaments and biological substances; Z88.6 Allergy status to analgesic agent; Z88.1 Allergy status to other antibiotic agents; Z91.041 Radiographic dye allergy status; Z91.013 Allergy to seafood
CPT/HCPCS: 36415; 70450; 71045; 80053; 85025; 87641; 87804; 87804-59; 93005; 97165-GO; 99285; 99285-25; Q0162

== ENCOUNTER 2017-03-24 08:40 | Emergency (ER) | payer MEDICARE, OTHER ==
[2017-03-24 11:38] LABS: ALBUMIN 2.1 g/dL (3.4-5.0); ALBUMIN/GLOBULIN RATIO 0.6 (1.0-1.7); ALK PHOS 70 U/L (46-116); ALT (SGPT) 10 U/L (14-59); ANION GAP 11 (6-14); AST (SGOT) 28 U/L (15-37); BLOOD UREA NITROGEN 45 mg/dL (7-20); BUN/CREATININE RATIO 7 (6-20); CALCIUM 7.7 mg/dL (8.5-10.1); CARBON DIOXIDE 24 mmol/L (21-32); CHLORIDE 103 mmol/L (98-107); CREATININE 6.2 mg/dL (0.6-1.0); GFR 8.5; GLUCOSE 73 mg/dL (70-99); SODIUM 138 mmol/L (136-145); TOTAL BILIRUBIN 0.3 mg/dL (0.2-1.0); TOTAL PROTEIN 5.8 g/dL (6.4-8.2)
[2017-03-24 11:39] LABS: POTASSIUM 4.5 mmol/L (3.5-5.1)
== END 2017-03-24 12:34 | disposition home or self-care (01) ==
LOC: ER 08:40
DX: I12.0 Hypertensive chronic kidney disease with stage 5 chronic kidney disease or end stage renal disease (principal); R55 Syncope and collapse; N18.6 End stage renal disease; Z94.0 Kidney transplant status; Z99.2 Dependence on renal dialysis; Z90.49 Acquired absence of other specified parts of digestive tract; Z90.710 Acquired absence of both cervix and uterus; Z88.8 Allergy status to other drugs, medicaments and biological substances; Z91.041 Radiographic dye allergy status; Z91.013 Allergy to seafood
CPT/HCPCS: 36415; 70450; 80053; 93005; 99285-25

== ENCOUNTER 2017-04-27 19:52 | Inpatient (IN) | payer MEDICARE, OTHER ==
[2017-04-27] MEDS ORDERED: HYDROcodone/APAP 5/325MG 1 TAB TABLET PO ×2 (20:30→23:15)
[2017-04-27] MEDS ORDERED: ACETAMINOPHEN/CODEINE 300/30MG TABLET. PO (20:30)
[2017-04-27] MEDS: MORPHINE SULFATE 4 MG/ML DISP.SYRIN. IV (21:05)
[2017-04-27] MEDS ORDERED: BENZOCAINE/MENTHOL LOZENGE. PO (23:00)
[2017-04-27] MEDS ORDERED: LIDOCAINE (700MG/PATCH) PATCH. TP (23:00)
[2017-04-27] MEDS ORDERED: BENZONATATE 100 MG CAPSULE. PO ×2 (23:00→23:30)
[2017-04-27] MEDS ORDERED: POLYVINYL ALCOHOL 1.4% OPHTH SOLUTION 15ML BOTTLE. OU (23:45)
[2017-04-28 06:20] LABS: ALBUMIN 2.1 g/dL (3.4-5.0); ALBUMIN/GLOBULIN RATIO 0.6 (1.0-1.7); ALK PHOS 79 U/L (46-116); ALT (SGPT) 11 U/L (14-59); ANION GAP 10 (6-14); AST (SGOT) 14 U/L (15-37); BLOOD UREA NITROGEN 47 mg/dL (7-20); BUN/CREATININE RATIO 4 (6-20); CALCIUM 8.1 mg/dL (8.5-10.1); CARBON DIOXIDE 28 mmol/L (21-32); CHLORIDE 105 mmol/L (98-107); CREATININE 10.5 mg/dL (0.6-1.0); GFR 4.7; GLUCOSE 86 mg/dL (70-99); POTASSIUM 5.5 mmol/L (3.5-5.1); SODIUM 143 mmol/L (136-145); TOTAL BILIRUBIN 0.5 mg/dL (0.2-1.0); TOTAL PROTEIN 5.7 g/dL (6.4-8.2)
[2017-04-28] MEDS: MORPHINE SULFATE 4 MG/ML DISP.SYRIN. IV ×5 (06:32→18:25)
[2017-04-28] MEDS: MIDODRINE 5 MG TABLET PO ×3 (07:30→18:25)
[2017-04-28] MEDS: OMEGA-3 FATTY ACIDS/FISH OIL 1,000 MG CAPSULE. PO ×2 (08:20→20:57)
[2017-04-28] MEDS: VENLAFAXINE XR 37.5 MG CAP.ER.24H. PO (08:21)
[2017-04-28] MEDS: GABAPENTIN 300 MG CAPSULE. PO (08:21)
[2017-04-28] MEDS: TOPIRAMATE 25 MG TABLET. PO ×2 (08:21→20:57)
[2017-04-28] MEDS: OXYBUTYNIN CHLORIDE 5 MG TABLET PO ×2 (08:21→20:57)
[2017-04-28] MEDS: CITALOPRAM 20 MG TABLET. PO (08:21)
[2017-04-28] MEDS: PANTOPRAZOLE 40 MG TABLET.DR. PO (08:21)
[2017-04-28] MEDS: SENNOSIDES 8.6 MG TABLET PO ×2 (08:22→20:57)
[2017-04-28] MEDS: clonazePAM 0.5 MG TABLET PO ×2 (08:22→20:57)
[2017-04-28] MEDS: RANOLAZINE 500 MG TAB.ER.12H PO (08:22)
[2017-04-28] MEDS: CALCIUM ACETATE 667 MG CAPSULE PO ×3 (08:22→18:23)
[2017-04-28] MEDS: LUBIPROSTONE 8 MCG CAPSULE PO ×2 (08:23→18:23)
[2017-04-28] MEDS: ASPIRIN ENTERIC COATED 81 MG TABLET.DR. PO (08:23)
[2017-04-28] MEDS: FLUDROCORTISONE 0.1 MG TABLET PO ×2 (08:23→20:57)
[2017-04-28 08:42] LABS: ADD MAN DIFF? NO
[2017-04-28] MEDS ORDERED: FLUDROCORTISONE 0.1 MG TABLET PO (09:00)
[2017-04-28] MEDS ORDERED: SUMAtriptan SUCCINATE 100 MG TABLET PO (09:00)
[2017-04-28 09:04] LABS: BASO % 1 % (0-3); EOS # 0.3 x10^3/uL (0.0-0.7); EOS % 5 % (0-3); HEMATOCRIT 26.5 % (36.0-47.0); HEMOGLOBIN 8.6 g/dL (12.0-15.5); LYMPH # 1.4 x10^3/uL (1.0-4.8); LYMPH % 21 % (24-48); MEAN CORPUSCULAR HEMOGLOBIN 32 pg (25-35); MEAN CORPUSCULAR HGB CONC 32 g/dL (31-37); MEAN CORPUSCULAR VOLUME 98 fL (79-100); MONO # 0.5 x10^3/uL (0.0-1.1); MONO % 8 % (0-9); NEUT # 4.5 x10^3uL (1.8-7.7); NEUT % 67 % (31-73); PLATELET COUNT 140 x10^3/uL (140-400); RED BLOOD COUNT 2.69 x10^6/uL (3.50-5.40); RED CELL DISTRIBUTION WIDTH 17.1 % (11.5-14.5); WHITE BLOOD COUNT 6.7 x10^3/uL (4.0-11.0)
[2017-04-28] MEDS ORDERED: ACETAMINOPHEN/CODEINE 300/30MG TABLET. PO (09:45)
[2017-04-28] MEDS: BUTALB/APAP/CAFEIN 50/325/40MG TABLET. PO (10:56)
[2017-04-28] MEDS: NYSTATIN TOPICAL POWDER 15GM BOTTLE. TP ×2 (10:56→20:58)
[2017-04-28] MEDS: FLUTICASONE 50MCG/NASAL SPRAY 16GM BOTTLE. NS ×2 (10:57→20:58)
[2017-04-28] MEDS: DEXAMETHASONE 0.1% OPHTH SOLUTION 5ML BOTTLE. OU ×4 (10:57→20:58)
[2017-04-28] MEDS: MOXIFLOXACIN 0.5% OPHTH SOLUTION 3ML BOTTLE. OU ×4 (10:57→20:57)
[2017-04-28] MEDS: POLYVINYL ALCOHOL 1.4% OPHTH SOLUTION 15ML BOTTLE. OU ×4 (10:57→20:58)
[2017-04-28] MEDS: DICLOFENAC SODIUM 1% TOPICAL GEL 100GM TUBE. TP (10:58)
[2017-04-28] MEDS: oxyCODONE/APAP 5/325 1 TAB TABLET PO ×2 (13:08→20:50)
[2017-04-28 14:17] LABS: MRSA BY PCR Positive (Negative)
[2017-04-28] MEDS ORDERED: IV NORMAL SALINE 1000ML BAG 1,000 ML IV ×2 (14:59)
[2017-04-28] MEDS ORDERED: diphenhydrAMINE 50 MG/ML VIAL IV ×2 (15:00)
[2017-04-28] MEDS ORDERED: DIALYSIS PATIENT. MC (15:00)
[2017-04-28] MEDS: LISINOPRIL 2.5 MG TABLET PO (18:24)
[2017-04-28] MEDS: ZOLPIDEM 5 MG TABLET. PO (20:50)
[2017-04-28] MEDS: LURASIDONE 40 MG TABLET. PO (20:57)
[2017-04-28] MEDS: ATORVASTATIN CALCIUM 10 MG TABLET. PO (20:57)
[2017-04-29] MEDS: LUBIPROSTONE 8 MCG CAPSULE PO ×2 (09:04→17:09)
[2017-04-29] MEDS: OMEGA-3 FATTY ACIDS/FISH OIL 1,000 MG CAPSULE. PO ×2 (09:05→21:08)
[2017-04-29] MEDS: RANOLAZINE 500 MG TAB.ER.12H PO (09:05)
[2017-04-29] MEDS: LISINOPRIL 2.5 MG TABLET PO (09:05)
[2017-04-29] MEDS: GABAPENTIN 300 MG CAPSULE. PO (09:05)
[2017-04-29] MEDS: FLUDROCORTISONE 0.1 MG TABLET PO ×2 (09:06→21:09)
[2017-04-29] MEDS: CALCIUM ACETATE 667 MG CAPSULE PO ×3 (09:06→17:09)
[2017-04-29] MEDS: OXYBUTYNIN CHLORIDE 5 MG TABLET PO ×2 (09:06→21:09)
[2017-04-29] MEDS: ASPIRIN ENTERIC COATED 81 MG TABLET.DR. PO (09:06)
[2017-04-29] MEDS: VENLAFAXINE XR 37.5 MG CAP.ER.24H. PO (09:06)
[2017-04-29] MEDS: TOPIRAMATE 25 MG TABLET. PO ×2 (09:06→21:08)
[2017-04-29] MEDS: clonazePAM 0.5 MG TABLET PO ×2 (09:07→21:09)
[2017-04-29] MEDS: PANTOPRAZOLE 40 MG TABLET.DR. PO (09:07)
[2017-04-29] MEDS: MORPHINE SULFATE 4 MG/ML DISP.SYRIN. IV ×2 (09:07→17:10)
[2017-04-29] MEDS: CITALOPRAM 20 MG TABLET. PO (09:07)
[2017-04-29] MEDS: POLYVINYL ALCOHOL 1.4% OPHTH SOLUTION 15ML BOTTLE. OU ×4 (09:20→21:09)
[2017-04-29] MEDS: SENNOSIDES 8.6 MG TABLET PO ×2 (09:20→21:09)
[2017-04-29] MEDS: NYSTATIN TOPICAL POWDER 15GM BOTTLE. TP ×2 (09:20→21:09)
[2017-04-29] MEDS: DICLOFENAC SODIUM 1% TOPICAL GEL 100GM TUBE. TP (09:20)
[2017-04-29] MEDS: MIDODRINE 5 MG TABLET PO ×3 (09:20→16:30)
[2017-04-29] MEDS: FLUTICASONE 50MCG/NASAL SPRAY 16GM BOTTLE. NS (09:20)
[2017-04-29] MEDS: DEXAMETHASONE 0.1% OPHTH SOLUTION 5ML BOTTLE. OU ×4 (09:21→21:09)
[2017-04-29] MEDS: MOXIFLOXACIN 0.5% OPHTH SOLUTION 3ML BOTTLE. OU ×4 (09:21→21:10)
[2017-04-29] MEDS: oxyCODONE/APAP 5/325 1 TAB TABLET PO (11:35)
[2017-04-29] MEDS: ATORVASTATIN CALCIUM 10 MG TABLET. PO (21:08)
[2017-04-29] MEDS: LURASIDONE 40 MG TABLET. PO (21:09)
[2017-04-30] MEDS: MORPHINE SULFATE 4 MG/ML DISP.SYRIN. IV ×3 (02:58→16:59)
[2017-04-30 06:20] LABS: ALBUMIN 1.9 g/dL (3.4-5.0); ANION GAP 6 (6-14); BLOOD UREA NITROGEN 51 mg/dL (7-20); CALCIUM 8.2 mg/dL (8.5-10.1); CARBON DIOXIDE 32 mmol/L (21-32); CHLORIDE 104 mmol/L (98-107); CREATININE 7.9 mg/dL (0.6-1.0); GFR 6.5; GLUCOSE 74 mg/dL (70-99); PHOSPHORUS 4.7 mg/dL (2.6-4.7); SODIUM 142 mmol/L (136-145)
[2017-04-30 06:22] LABS: POTASSIUM 6.3 mmol/L (3.5-5.1)
[2017-04-30] MEDS: ASPIRIN ENTERIC COATED 81 MG TABLET.DR. PO (09:16)
[2017-04-30] MEDS: CALCIUM ACETATE 667 MG CAPSULE PO ×3 (09:17→16:58)
[2017-04-30] MEDS: LUBIPROSTONE 8 MCG CAPSULE PO ×2 (09:17→16:58)
[2017-04-30] MEDS: RANOLAZINE 500 MG TAB.ER.12H PO (09:17)
[2017-04-30] MEDS: oxyCODONE/APAP 5/325 1 TAB TABLET PO ×2 (09:18→21:57)
[2017-04-30] MEDS: PANTOPRAZOLE 40 MG TABLET.DR. PO (09:19)
[2017-04-30] MEDS: MIDODRINE 5 MG TABLET PO ×3 (09:19→16:58)
[2017-04-30] MEDS: FLUDROCORTISONE 0.1 MG TABLET PO ×2 (09:19→21:39)
[2017-04-30] MEDS: GABAPENTIN 300 MG CAPSULE. PO (09:20)
[2017-04-30] MEDS: CITALOPRAM 20 MG TABLET. PO (09:20)
[2017-04-30] MEDS: LISINOPRIL 2.5 MG TABLET PO (09:20)
[2017-04-30] MEDS: SENNOSIDES 8.6 MG TABLET PO ×2 (09:20→21:39)
[2017-04-30] MEDS: clonazePAM 0.5 MG TABLET PO ×2 (09:20→21:39)
[2017-04-30] MEDS: DICLOFENAC SODIUM 1% TOPICAL GEL 100GM TUBE. TP (09:21)
[2017-04-30] MEDS: NYSTATIN TOPICAL POWDER 15GM BOTTLE. TP ×2 (09:21→21:42)
[2017-04-30] MEDS: DEXAMETHASONE 0.1% OPHTH SOLUTION 5ML BOTTLE. OU ×4 (09:21→21:42)
[2017-04-30] MEDS: VENLAFAXINE XR 37.5 MG CAP.ER.24H. PO (09:21)
[2017-04-30] MEDS: OXYBUTYNIN CHLORIDE 5 MG TABLET PO ×2 (09:21→21:39)
[2017-04-30] MEDS: OMEGA-3 FATTY ACIDS/FISH OIL 1,000 MG CAPSULE. PO ×2 (09:21→21:39)
[2017-04-30] MEDS: POLYVINYL ALCOHOL 1.4% OPHTH SOLUTION 15ML BOTTLE. OU ×4 (09:22→21:43)
[2017-04-30] MEDS: FLUTICASONE 50MCG/NASAL SPRAY 16GM BOTTLE. NS (09:22)
[2017-04-30] MEDS: MOXIFLOXACIN 0.5% OPHTH SOLUTION 3ML BOTTLE. OU ×4 (09:22→21:42)
[2017-04-30] MEDS: TOPIRAMATE 25 MG TABLET. PO ×2 (09:24→21:40)
[2017-04-30] MEDS ORDERED: IV NORMAL SALINE 1000ML BAG 1,000 ML IV (09:28)
[2017-04-30] MEDS ORDERED: ALBUMIN HUMAN 25% 200 ML IV (09:30)
[2017-04-30] MEDS ORDERED: DIALYSIS PATIENT. MC (09:30)
[2017-04-30 15:50] LABS: TROPONINI < 0.017 ng/mL (0.000-0.055)
[2017-04-30 20:59] LABS: TROPONINI < 0.017 ng/mL (0.000-0.055)
[2017-04-30] MEDS: ZOLPIDEM 5 MG TABLET. PO (21:38)
[2017-04-30] MEDS: LURASIDONE 40 MG TABLET. PO (21:38)
[2017-04-30] MEDS: ALPRAZolam 0.25 MG TABLET PO (21:38)
[2017-04-30] MEDS: ATORVASTATIN CALCIUM 10 MG TABLET. PO (21:39)
[2017-05-01 00:10] LABS: HEP B SURFACE AG Negative (Negative)
[2017-05-01 06:00] LABS: ALBUMIN 1.9 g/dL (3.4-5.0); ANION GAP 3 (6-14); BLOOD UREA NITROGEN 31 mg/dL (7-20); CALCIUM 7.5 mg/dL (8.5-10.1); CARBON DIOXIDE 35 mmol/L (21-32); CHLORIDE 104 mmol/L (98-107); CREATININE 5.1 mg/dL (0.6-1.0); GFR 10.7; GLUCOSE 79 mg/dL (70-99); SODIUM 142 mmol/L (136-145)
[2017-05-01] MEDS: FLUTICASONE 50MCG/NASAL SPRAY 16GM BOTTLE. NS (08:16)
[2017-05-01] MEDS: MOXIFLOXACIN 0.5% OPHTH SOLUTION 3ML BOTTLE. OU ×4 (08:17→20:51)
[2017-05-01] MEDS: DEXAMETHASONE 0.1% OPHTH SOLUTION 5ML BOTTLE. OU ×4 (08:18→20:52)
[2017-05-01] MEDS: POLYVINYL ALCOHOL 1.4% OPHTH SOLUTION 15ML BOTTLE. OU ×4 (08:19→20:52)
[2017-05-01] MEDS: NYSTATIN TOPICAL POWDER 15GM BOTTLE. TP ×2 (08:20→20:51)
[2017-05-01] MEDS: DICLOFENAC SODIUM 1% TOPICAL GEL 100GM TUBE. TP (08:22)
[2017-05-01] MEDS: FLUDROCORTISONE 0.1 MG TABLET PO ×2 (08:24→20:50)
[2017-05-01] MEDS: LUBIPROSTONE 8 MCG CAPSULE PO ×2 (08:24→18:28)
[2017-05-01] MEDS: clonazePAM 0.5 MG TABLET PO ×2 (08:24→20:51)
[2017-05-01] MEDS: SENNOSIDES 8.6 MG TABLET PO ×2 (08:24→20:50)
[2017-05-01] MEDS: CALCIUM ACETATE 667 MG CAPSULE PO ×3 (08:24→18:28)
[2017-05-01] MEDS: OXYBUTYNIN CHLORIDE 5 MG TABLET PO ×2 (08:24→20:50)
[2017-05-01] MEDS: TOPIRAMATE 25 MG TABLET. PO ×2 (08:25→20:51)
[2017-05-01] MEDS: MIDODRINE 5 MG TABLET PO ×3 (08:25→18:28)
[2017-05-01] MEDS: oxyCODONE/APAP 5/325 1 TAB TABLET PO ×3 (08:25→20:51)
[2017-05-01] MEDS ORDERED: IV NORMAL SALINE 1000ML BAG 1,000 ML IV ×2 (08:41)
[2017-05-01] MEDS ORDERED: DIALYSIS PATIENT. MC ×2 (08:45)
[2017-05-01] MEDS: MORPHINE SULFATE 4 MG/ML DISP.SYRIN. IV ×2 (12:58→18:47)
[2017-05-01] MEDS: CITALOPRAM 20 MG TABLET. PO (15:24)
[2017-05-01] MEDS: GABAPENTIN 300 MG CAPSULE. PO (15:24)
[2017-05-01] MEDS: LISINOPRIL 2.5 MG TABLET PO (15:24)
[2017-05-01] MEDS: OMEGA-3 FATTY ACIDS/FISH OIL 1,000 MG CAPSULE. PO ×2 (15:24→20:50)
[2017-05-01] MEDS: RANOLAZINE 500 MG TAB.ER.12H PO (15:25)
[2017-05-01] MEDS: VENLAFAXINE XR 37.5 MG CAP.ER.24H. PO (15:25)
[2017-05-01] MEDS: ASPIRIN ENTERIC COATED 81 MG TABLET.DR. PO (15:25)
[2017-05-01] MEDS: PANTOPRAZOLE 40 MG TABLET.DR. PO (15:26)
[2017-05-01] MEDS: LURASIDONE 40 MG TABLET. PO (20:50)
[2017-05-01] MEDS: ZOLPIDEM 5 MG TABLET. PO (20:51)
[2017-05-01] MEDS: ATORVASTATIN CALCIUM 10 MG TABLET. PO (20:51)
[2017-05-02] MEDS: HYDROcodone/APAP 10/325 1 TAB TABLET PO (02:48)
[2017-05-02] MEDS: oxyCODONE/APAP 5/325 1 TAB TABLET PO ×3 (04:59→22:18)
[2017-05-02 05:32] LABS: ALBUMIN 2.2 g/dL (3.4-5.0); ANION GAP 7 (6-14); BLOOD UREA NITROGEN 26 mg/dL (7-20); CALCIUM 8.5 mg/dL (8.5-10.1); CARBON DIOXIDE 30 mmol/L (21-32); CHLORIDE 107 mmol/L (98-107); CREATININE 4.3 mg/dL (0.6-1.0); GLUCOSE 103 mg/dL (70-99); PHOSPHORUS 3.8 mg/dL (2.6-4.7); POTASSIUM 4.4 mmol/L (3.5-5.1); SODIUM 144 mmol/L (136-145)
[2017-05-02] MEDS ORDERED: ASPIRIN ENTERIC COATED 81 MG TABLET.DR. PO (09:00)
[2017-05-02] MEDS: GABAPENTIN 300 MG CAPSULE. PO (09:19)
[2017-05-02] MEDS: CALCIUM ACETATE 667 MG CAPSULE PO ×3 (09:20→16:19)
[2017-05-02] MEDS: PANTOPRAZOLE 40 MG TABLET.DR. PO (09:20)
[2017-05-02] MEDS: SENNOSIDES 8.6 MG TABLET PO ×2 (09:20→22:17)
[2017-05-02] MEDS: LISINOPRIL 2.5 MG TABLET PO (09:20)
[2017-05-02] MEDS: VENLAFAXINE XR 37.5 MG CAP.ER.24H. PO (09:20)
[2017-05-02] MEDS: FLUDROCORTISONE 0.1 MG TABLET PO ×2 (09:20→22:17)
[2017-05-02] MEDS: OMEGA-3 FATTY ACIDS/FISH OIL 1,000 MG CAPSULE. PO ×2 (09:20→22:17)
[2017-05-02] MEDS: TOPIRAMATE 25 MG TABLET. PO ×2 (09:20→22:17)
[2017-05-02] MEDS: OXYBUTYNIN CHLORIDE 5 MG TABLET PO ×2 (09:20→22:17)
[2017-05-02] MEDS: CITALOPRAM 20 MG TABLET. PO (09:21)
[2017-05-02] MEDS: LUBIPROSTONE 8 MCG CAPSULE PO ×2 (09:21→16:18)
[2017-05-02] MEDS: MIDODRINE 5 MG TABLET PO ×3 (09:21→16:19)
[2017-05-02] MEDS: RANOLAZINE 500 MG TAB.ER.12H PO (09:22)
[2017-05-02] MEDS: DICLOFENAC SODIUM 1% TOPICAL GEL 100GM TUBE. TP (09:22)
[2017-05-02] MEDS: clonazePAM 0.5 MG TABLET PO ×2 (09:22→22:20)
[2017-05-02] MEDS: MORPHINE SULFATE 4 MG/ML DISP.SYRIN. IV ×2 (09:22→16:20)
[2017-05-02] MEDS: NYSTATIN TOPICAL POWDER 15GM BOTTLE. TP ×2 (09:23→22:19)
[2017-05-02] MEDS: MOXIFLOXACIN 0.5% OPHTH SOLUTION 3ML BOTTLE. OU ×4 (09:23→22:18)
[2017-05-02] MEDS: DEXAMETHASONE 0.1% OPHTH SOLUTION 5ML BOTTLE. OU ×4 (09:23→22:18)
[2017-05-02] MEDS: POLYVINYL ALCOHOL 1.4% OPHTH SOLUTION 15ML BOTTLE. OU ×4 (09:23→22:18)
[2017-05-02] MEDS: FLUTICASONE 50MCG/NASAL SPRAY 16GM BOTTLE. NS (09:23)
[2017-05-02] MEDS: ASPIRIN ENTERIC COATED 81 MG TABLET.DR. PO (09:24)
[2017-05-02] MEDS ORDERED: MAGNESIUM SULFATE 2GM 50 ML IV (11:45)
[2017-05-02] MEDS ORDERED: GABAPENTIN 300 MG CAPSULE. PO (12:00)
[2017-05-02] MEDS: DIPHENHYDRAMINE/ZINC ACETATE 2%/0.1% TOPICAL CREAM 28GM TUBE. TP (14:20)
[2017-05-02] MEDS: ONDANSETRON ODT 4 MG TAB.RAPDIS. PO (18:36)
[2017-05-02] MEDS: ZOLPIDEM 5 MG TABLET. PO (22:17)
[2017-05-02] MEDS: LURASIDONE 40 MG TABLET. PO (22:20)
[2017-05-02] MEDS: DARBEPOETIN ALFA 60 MCG/0.3 ML DISP.SYRIN. SQ (22:22)
[2017-05-02] MEDS: ATORVASTATIN CALCIUM 10 MG TABLET. PO (22:22)
[2017-05-03] MEDS: HYDROcodone/APAP 10/325 1 TAB TABLET PO (01:02)
[2017-05-03] MEDS: ALPRAZolam 0.25 MG TABLET PO (01:02)
[2017-05-03] MEDS: oxyCODONE/APAP 5/325 1 TAB TABLET PO ×3 (05:31→21:36)
[2017-05-03] MEDS: ALTEPLASE 2 MG VIAL INT CAT (07:56)
[2017-05-03] MEDS: LUBIPROSTONE 8 MCG CAPSULE PO ×2 (08:19→17:35)
[2017-05-03] MEDS: MIDODRINE 5 MG TABLET PO ×3 (08:19→17:35)
[2017-05-03] MEDS: CALCIUM ACETATE 667 MG CAPSULE PO ×3 (08:19→17:35)
[2017-05-03] MEDS: VENLAFAXINE XR 37.5 MG CAP.ER.24H. PO (08:20)
[2017-05-03] MEDS: OXYBUTYNIN CHLORIDE 5 MG TABLET PO ×2 (08:20→21:35)
[2017-05-03] MEDS: RANOLAZINE 500 MG TAB.ER.12H PO (08:20)
[2017-05-03] MEDS: TOPIRAMATE 25 MG TABLET. PO ×2 (08:20→21:34)
[2017-05-03] MEDS: ASPIRIN ENTERIC COATED 81 MG TABLET.DR. PO (08:20)
[2017-05-03] MEDS: OMEGA-3 FATTY ACIDS/FISH OIL 1,000 MG CAPSULE. PO ×2 (08:20→21:34)
[2017-05-03] MEDS: SENNOSIDES 8.6 MG TABLET PO ×2 (08:20→21:35)
[2017-05-03] MEDS: GABAPENTIN 300 MG CAPSULE. PO (08:21)
[2017-05-03] MEDS: FLUDROCORTISONE 0.1 MG TABLET PO ×2 (08:21→21:34)
[2017-05-03] MEDS: CITALOPRAM 20 MG TABLET. PO (08:21)
[2017-05-03] MEDS: clonazePAM 0.5 MG TABLET PO ×2 (08:21→21:35)
[2017-05-03] MEDS: PANTOPRAZOLE 40 MG TABLET.DR. PO (08:21)
[2017-05-03] MEDS: FLUTICASONE 50MCG/NASAL SPRAY 16GM BOTTLE. NS (08:22)
[2017-05-03] MEDS: NYSTATIN TOPICAL POWDER 15GM BOTTLE. TP ×2 (08:22→21:30)
[2017-05-03] MEDS: DICLOFENAC SODIUM 1% TOPICAL GEL 100GM TUBE. TP (08:22)
[2017-05-03] MEDS: DEXAMETHASONE 0.1% OPHTH SOLUTION 5ML BOTTLE. OU ×4 (08:23→21:36)
[2017-05-03] MEDS: POLYVINYL ALCOHOL 1.4% OPHTH SOLUTION 15ML BOTTLE. OU ×4 (08:23→21:35)
[2017-05-03] MEDS: MOXIFLOXACIN 0.5% OPHTH SOLUTION 3ML BOTTLE. OU ×4 (08:23→21:36)
[2017-05-03] MEDS: LISINOPRIL 2.5 MG TABLET PO (09:00)
[2017-05-03 09:48] LABS: HEMOGLOBIN 8.6 g/dL (12.0-15.5)
[2017-05-03 10:09] LABS: ALBUMIN 2.2 g/dL (3.4-5.0); ANION GAP 8 (6-14); BLOOD UREA NITROGEN 46 mg/dL (7-20); CALCIUM 8.2 mg/dL (8.5-10.1); CARBON DIOXIDE 28 mmol/L (21-32); CHLORIDE 105 mmol/L (98-107); CREATININE 6.3 mg/dL (0.6-1.0); GFR 8.4; GLUCOSE 123 mg/dL (70-99); PHOSPHORUS 4.1 mg/dL (2.6-4.7); POTASSIUM 5.3 mmol/L (3.5-5.1); SODIUM 141 mmol/L (136-145)
[2017-05-03] MEDS: MORPHINE SULFATE 4 MG/ML DISP.SYRIN. IV (17:39)
[2017-05-03] MEDS: LURASIDONE 40 MG TABLET. PO (21:34)
[2017-05-03] MEDS: ATORVASTATIN CALCIUM 10 MG TABLET. PO (21:35)
[2017-05-03] MEDS: ZOLPIDEM 5 MG TABLET. PO (21:36)
[2017-05-04 05:32] LABS: ALBUMIN 2.2 g/dL (3.4-5.0); ANION GAP 7 (6-14); BLOOD UREA NITROGEN 28 mg/dL (7-20); CALCIUM 8.5 mg/dL (8.5-10.1); CARBON DIOXIDE 28 mmol/L (21-32); CHLORIDE 105 mmol/L (98-107); CREATININE 4.1 mg/dL (0.6-1.0); GFR 13.8; GLUCOSE 65 mg/dL (70-99); PHOSPHORUS 3.3 mg/dL (2.6-4.7); POTASSIUM 4.8 mmol/L (3.5-5.1); SODIUM 140 mmol/L (136-145)
[2017-05-04 05:51] LABS: MAGNESIUM 2.1 mg/dL (1.8-2.4)
[2017-05-04] MEDS: MIDODRINE 5 MG TABLET PO ×3 (07:30→17:14)
[2017-05-04] MEDS: CALCIUM ACETATE 667 MG CAPSULE PO ×3 (08:00→17:23)
[2017-05-04 08:27] LABS: PROTHROMBIN TIME PATIENT 12.8 SEC (11.7-14.0)
[2017-05-04] MEDS ORDERED: LIDOCAINE 2%/EPI 1:100,000 20 ML VIAL. (08:30)
[2017-05-04] MEDS ORDERED: MIDAZOLAM HCL/PF 2 MG/2 ML VIAL. (08:59)
[2017-05-04] MEDS ORDERED: fentaNYL PF VIAL 100 MCG/2 ML VIAL (08:59)
[2017-05-04] MEDS: DICLOFENAC SODIUM 1% TOPICAL GEL 100GM TUBE. TP (09:00)
[2017-05-04] MEDS: DEXAMETHASONE 0.1% OPHTH SOLUTION 5ML BOTTLE. OU ×4 (09:00→21:00)
[2017-05-04] MEDS: POLYVINYL ALCOHOL 1.4% OPHTH SOLUTION 15ML BOTTLE. OU ×4 (09:00→21:00)
[2017-05-04] MEDS: NYSTATIN TOPICAL POWDER 15GM BOTTLE. TP ×2 (09:00→21:00)
[2017-05-04] MEDS: MOXIFLOXACIN 0.5% OPHTH SOLUTION 3ML BOTTLE. OU ×4 (09:00→21:00)
[2017-05-04] MEDS: fentaNYL PF VIAL 100 MCG/2 ML VIAL IV (10:13)
[2017-05-04] MEDS: MIDAZOLAM HCL/PF 2 MG/2 ML VIAL. IV (10:13)
[2017-05-04] MEDS: LIDOCAINE 2%/EPI 1:100,000 20 ML VIAL. IJ (10:14)
[2017-05-04] MEDS: RANOLAZINE 500 MG TAB.ER.12H PO (10:59)
[2017-05-04] MEDS: OXYBUTYNIN CHLORIDE 5 MG TABLET PO ×2 (11:00→23:26)
[2017-05-04] MEDS: ASPIRIN ENTERIC COATED 81 MG TABLET.DR. PO (11:00)
[2017-05-04] MEDS: FLUDROCORTISONE 0.1 MG TABLET PO ×2 (11:00→23:04)
[2017-05-04] MEDS: GABAPENTIN 300 MG CAPSULE. PO (11:00)
[2017-05-04] MEDS: PANTOPRAZOLE 40 MG TABLET.DR. PO (11:00)
[2017-05-04] MEDS: TOPIRAMATE 25 MG TABLET. PO ×2 (11:00→23:03)
[2017-05-04] MEDS: SENNOSIDES 8.6 MG TABLET PO ×2 (11:00→23:03)
[2017-05-04] MEDS: VENLAFAXINE XR 37.5 MG CAP.ER.24H. PO (11:01)
[2017-05-04] MEDS: OMEGA-3 FATTY ACIDS/FISH OIL 1,000 MG CAPSULE. PO ×2 (11:01→23:04)
[2017-05-04] MEDS: LUBIPROSTONE 8 MCG CAPSULE PO ×2 (11:01→17:10)
[2017-05-04] MEDS: CITALOPRAM 20 MG TABLET. PO (11:01)
[2017-05-04] MEDS: clonazePAM 0.5 MG TABLET PO ×2 (11:01→23:04)
[2017-05-04] MEDS: LISINOPRIL 2.5 MG TABLET PO (11:02)
[2017-05-04] MEDS: oxyCODONE/APAP 5/325 1 TAB TABLET PO (11:03)
[2017-05-04] MEDS: IV NORMAL SALINE 500ML BAG 250 ML IV (14:55)
[2017-05-04] MEDS: IV NORMAL SALINE 500ML BAG 500 ML IV (16:30)
[2017-05-04] MEDS: ATORVASTATIN CALCIUM 10 MG TABLET. PO (23:04)
[2017-05-04] MEDS: LURASIDONE 40 MG TABLET. PO (23:04)
[2017-05-04] MEDS: MORPHINE SULFATE 4 MG/ML DISP.SYRIN. IV (23:24)
[2017-05-05 05:37] LABS: ANION GAP 6 (6-14); BLOOD UREA NITROGEN 47 mg/dL (7-20); CALCIUM 8.2 mg/dL (8.5-10.1); CARBON DIOXIDE 30 mmol/L (21-32); CHLORIDE 105 mmol/L (98-107); CREATININE 6.1 mg/dL (0.6-1.0); GFR 8.7; GLUCOSE 77 mg/dL (70-99); PHOSPHORUS 4.3 mg/dL (2.6-4.7); POTASSIUM 5.4 mmol/L (3.5-5.1); SODIUM 141 mmol/L (136-145)
[2017-05-05 05:53] LABS: MAGNESIUM 1.8 mg/dL (1.8-2.4)
[2017-05-05] MEDS: MIDODRINE 5 MG TABLET PO ×2 (07:30→13:51)
[2017-05-05] MEDS: CALCIUM ACETATE 667 MG CAPSULE PO ×2 (08:00→13:42)
[2017-05-05] MEDS: oxyCODONE/APAP 5/325 1 TAB TABLET PO ×2 (08:05→13:43)
[2017-05-05] MEDS: DEXAMETHASONE 0.1% OPHTH SOLUTION 5ML BOTTLE. OU ×2 (09:00→13:45)
[2017-05-05] MEDS: POLYVINYL ALCOHOL 1.4% OPHTH SOLUTION 15ML BOTTLE. OU ×2 (09:00→13:45)
[2017-05-05] MEDS: MOXIFLOXACIN 0.5% OPHTH SOLUTION 3ML BOTTLE. OU ×2 (09:00→13:44)
[2017-05-05] MEDS ORDERED: IV NORMAL SALINE 1000ML BAG 1,000 ML IV (10:05)
[2017-05-05] MEDS ORDERED: ALBUMIN HUMAN 25% 200 ML IV (10:15)
[2017-05-05] MEDS ORDERED: DIALYSIS PATIENT. MC ×2 (10:15)
[2017-05-05] MEDS: LUBIPROSTONE 8 MCG CAPSULE PO (13:42)
[2017-05-05] MEDS: RANOLAZINE 500 MG TAB.ER.12H PO (13:42)
[2017-05-05] MEDS: FLUDROCORTISONE 0.1 MG TABLET PO (13:42)
[2017-05-05] MEDS: CITALOPRAM 20 MG TABLET. PO (13:42)
[2017-05-05] MEDS: ASPIRIN ENTERIC COATED 81 MG TABLET.DR. PO (13:43)
[2017-05-05] MEDS: TOPIRAMATE 25 MG TABLET. PO (13:43)
[2017-05-05] MEDS: clonazePAM 0.5 MG TABLET PO (13:43)
[2017-05-05] MEDS: GABAPENTIN 300 MG CAPSULE. PO (13:43)
[2017-05-05] MEDS: OXYBUTYNIN CHLORIDE 5 MG TABLET PO (13:43)
[2017-05-05] MEDS: VENLAFAXINE XR 37.5 MG CAP.ER.24H. PO (13:43)
[2017-05-05] MEDS: OMEGA-3 FATTY ACIDS/FISH OIL 1,000 MG CAPSULE. PO (13:43)
[2017-05-05] MEDS: PANTOPRAZOLE 40 MG TABLET.DR. PO (13:43)
[2017-05-05] MEDS: FLUTICASONE 50MCG/NASAL SPRAY 16GM BOTTLE. NS (13:44)
[2017-05-05] MEDS: DICLOFENAC SODIUM 1% TOPICAL GEL 100GM TUBE. TP (13:44)
[2017-05-05] MEDS: SENNOSIDES 8.6 MG TABLET PO (13:44)
[2017-05-05] MEDS: LISINOPRIL 2.5 MG TABLET PO (13:44)
[2017-05-05] MEDS: NYSTATIN TOPICAL POWDER 15GM BOTTLE. TP (13:51)
[2017-05-05] MEDS: HEPARIN PF 500 UNIT/5 ML DISP.SYRIN. IV (14:30)
== END 2017-05-05 16:11 | disposition home or self-care (01) | DRG 291 ==
LOC: 5 NORTH 19:52
PROVIDERS: Internal Medicine
PROC: 0JH63XZ Insertion of Tunneled Vascular Access Device into Chest Subcutaneous Tissue and Fascia, Percutaneous Approach (ICD-10-PCS; 2017-04-27)
PROC: 05HN33Z Insertion of Infusion Device into Left Internal Jugular Vein, Percutaneous Approach (ICD-10-PCS; 2017-04-27)
PROC: B5141ZA Fluoroscopy of Left Jugular Veins using Low Osmolar Contrast, Guidance (ICD-10-PCS; 2017-04-27)
PROC: 5A1D70Z Performance of Urinary Filtration, Intermittent, Less than 6 Hours Per Day (ICD-10-PCS; principal; 2017-04-28)
PROC: 5A1D70Z Performance of Urinary Filtration, Intermittent, Less than 6 Hours Per Day (ICD-10-PCS; 2017-04-30)
PROC: 5A1D70Z Performance of Urinary Filtration, Intermittent, Less than 6 Hours Per Day (ICD-10-PCS; 2017-05-01)
PROC: B244ZZZ Ultrasonography of Right Heart (ICD-10-PCS; 2017-05-04)
PROC: 02PAX3Z Removal of Infusion Device from Heart, External Approach (ICD-10-PCS; 2017-05-04)
PROC: 5A1D70Z Performance of Urinary Filtration, Intermittent, Less than 6 Hours Per Day (ICD-10-PCS; 2017-05-05)
DX: I13.2 Hypertensive heart and chronic kidney disease with heart failure and with stage 5 chronic kidney disease, or end stage renal disease (principal); N18.6 End stage renal disease; E87.5 Hyperkalemia; I42.9 Cardiomyopathy, unspecified; Q61.3 Polycystic kidney, unspecified; I48.91 Unspecified atrial fibrillation; G43.909 Migraine, unspecified, not intractable, without status migrainosus; I50.30 Unspecified diastolic (congestive) heart failure; D63.1 Anemia in chronic kidney disease; R07.89 Other chest pain; E66.9 Obesity, unspecified; Z68.32 Body mass index [BMI] 32.0-32.9, adult; E78.5 Hyperlipidemia, unspecified; E89.0 Postprocedural hypothyroidism; F32.9 Major depressive disorder, single episode, unspecified; F41.9 Anxiety disorder, unspecified; G47.33 Obstructive sleep apnea (adult) (pediatric); G89.29 Other chronic pain; K57.90 Diverticulosis of intestine, part unspecified, without perforation or abscess without bleeding; M19.90 Unspecified osteoarthritis, unspecified site; J45.909 Unspecified asthma, uncomplicated; M54.5 Low back pain; K21.9 Gastro-esophageal reflux disease without esophagitis; M81.0 Age-related osteoporosis without current pathological fracture; Z86.73 Personal history of transient ischemic attack (TIA), and cerebral infarction without residual deficits; Z87.11 Personal history of peptic ulcer disease; Z91.15 Patient's noncompliance with renal dialysis; Z91.19 Patient's noncompliance with other medical treatment and regimen; Z98.84 Bariatric surgery status; Z99.2 Dependence on renal dialysis; Z87.440 Personal history of urinary (tract) infections; Z88.8 Allergy status to other drugs, medicaments and biological substances; Z88.6 Allergy status to analgesic agent; Z88.1 Allergy status to other antibiotic agents; Z91.041 Radiographic dye allergy status; Z91.013 Allergy to seafood
CPT/HCPCS: 36415; 36561; 36590; 76937; 77001; 80053; 80069; 83735; 84484; 85018; 85025; 85610; 87340; 87641; 93005; 93306; 97161-GP; 99152; 99153; C1713; C1751; C1769; C1892; J0690; J0881; J2250; J2270; J2997; J3010; J3490; J7040; Q0162

== ENCOUNTER 2017-05-27 17:09 | Inpatient (IN) | payer MEDICARE, OTHER ==
[2017-05-27] MEDS ORDERED: LIDOCAINE (700MG/PATCH) PATCH. TP (17:30)
[2017-05-27] MEDS ORDERED: SUMAtriptan SUCCINATE 100 MG TABLET PO (17:30)
[2017-05-27] MEDS ORDERED: NON FORMULARY ITEM (Albuterol Sulfate (Ventolin Hfa Inhaler) 2 PUFF) INH (17:30)
[2017-05-27] MEDS ORDERED: BENZONATATE 100 MG CAPSULE. PO (17:30)
[2017-05-27] MEDS ORDERED: ACETAMINOPHEN/CODEINE 300/30MG TABLET. PO (17:30)
[2017-05-27] MEDS ORDERED: MINERAL OIL/PETROLATUM TOPICAL CREAM 113GM JAR. TP (17:30)
[2017-05-27] MEDS ORDERED: POLYVINYL ALCOHOL 1.4% OPHTH SOLUTION 15ML BOTTLE. OU (17:45)
[2017-05-27] MEDS: LUBIPROSTONE 8 MCG CAPSULE PO (18:13)
[2017-05-27] MEDS: CALCIUM ACETATE 667 MG CAPSULE PO (18:13)
[2017-05-27] MEDS: POLYVINYL ALCOHOL 1.4% OPHTH SOLUTION 15ML BOTTLE. OU ×2 (18:15→20:43)
[2017-05-27 18:26] LABS: ADD MAN DIFF? NO
[2017-05-27 18:29] LABS: BASO % 1 % (0-3); EOS # 0.2 x10^3/uL (0.0-0.7); EOS % 4 % (0-3); HEMATOCRIT 23.5 % (36.0-47.0); HEMOGLOBIN 7.7 g/dL (12.0-15.5); LYMPH # 1.8 x10^3/uL (1.0-4.8); LYMPH % 32 % (24-48); MEAN CORPUSCULAR HEMOGLOBIN 32 pg (25-35); MEAN CORPUSCULAR HGB CONC 33 g/dL (31-37); MEAN CORPUSCULAR VOLUME 97 fL (79-100); MONO # 0.4 x10^3/uL (0.0-1.1); MONO % 7 % (0-9); NEUT # 3.1 x10^3uL (1.8-7.7); NEUT % 56 % (31-73); PLATELET COUNT 140 x10^3/uL (140-400); RED BLOOD COUNT 2.42 x10^6/uL (3.50-5.40); RED CELL DISTRIBUTION WIDTH 15.7 % (11.5-14.5); WHITE BLOOD COUNT 5.6 x10^3/uL (4.0-11.0)
[2017-05-27 18:35] LABS: ANION GAP 10 (6-14); BLOOD UREA NITROGEN 60 mg/dL (7-20); CALCIUM 7.8 mg/dL (8.5-10.1); CARBON DIOXIDE 28 mmol/L (21-32); CHLORIDE 103 mmol/L (98-107); CREATININE 7.6 mg/dL (0.6-1.0); GFR 6.8; GLUCOSE 139 mg/dL (70-99); POTASSIUM 5.4 mmol/L (3.5-5.1); SODIUM 141 mmol/L (136-145)
[2017-05-27] MEDS: ALBUTEROL SULFATE 2.5 MG/3 ML NEBU. NEB (19:38)
[2017-05-27] MEDS: oxyCODONE/APAP 10/325 1 TAB TABLET PO (20:23)
[2017-05-27] MEDS: SODIUM POLYSTYRENE SULFONATE 15 GM/60 ML ORAL.SUSP. PO (20:24)
[2017-05-27] MEDS: LACTULOSE 20 GM/30 ML SOLUTION. PO (20:24)
[2017-05-27] MEDS: OMEGA-3 FATTY ACIDS/FISH OIL 1,000 MG CAPSULE. PO (20:24)
[2017-05-27] MEDS: SENNOSIDES 8.6 MG TABLET PO (20:25)
[2017-05-27] MEDS: LURASIDONE 40 MG TABLET. PO (20:25)
[2017-05-27] MEDS: FLUDROCORTISONE 0.1 MG TABLET PO (20:26)
[2017-05-27] MEDS: clonazePAM 0.5 MG TABLET PO (20:26)
[2017-05-27] MEDS: OXYBUTYNIN CHLORIDE 5 MG TABLET PO (20:26)
[2017-05-27] MEDS: TOPIRAMATE 25 MG TABLET. PO (20:26)
[2017-05-27] MEDS: ATORVASTATIN CALCIUM 10 MG TABLET. PO (20:26)
[2017-05-27] MEDS: DEXAMETHASONE 0.1% OPHTH SOLUTION 5ML BOTTLE. OU (20:43)
[2017-05-27] MEDS: MOXIFLOXACIN 0.5% OPHTH SOLUTION 3ML BOTTLE. OD (20:43)
[2017-05-27] MEDS: NYSTATIN TOPICAL POWDER 15GM BOTTLE. TP (20:44)
[2017-05-28] MEDS: RANOLAZINE 500 MG TAB.ER.12H PO ×2 (09:00→10:20)
[2017-05-28] MEDS ORDERED: FOLIC/VIT B COMP W-C (RENAL) TABLET. PO (09:00)
[2017-05-28] MEDS: SENNOSIDES 8.6 MG TABLET PO ×2 (09:00→20:54)
[2017-05-28] MEDS: NYSTATIN TOPICAL POWDER 15GM BOTTLE. TP ×2 (09:01→20:55)
[2017-05-28] MEDS: GABAPENTIN 300 MG CAPSULE. PO (09:03)
[2017-05-28] MEDS: VENLAFAXINE XR 37.5 MG CAP.ER.24H. PO (09:03)
[2017-05-28] MEDS: ASPIRIN ENTERIC COATED 81 MG TABLET.DR. PO (09:04)
[2017-05-28] MEDS: MIDODRINE 5 MG TABLET PO ×3 (09:04→16:30)
[2017-05-28] MEDS: oxyCODONE/APAP 10/325 1 TAB TABLET PO ×2 (09:04→15:50)
[2017-05-28] MEDS: LUBIPROSTONE 8 MCG CAPSULE PO ×2 (09:05→17:00)
[2017-05-28] MEDS: PANTOPRAZOLE 40 MG TABLET.DR. PO (09:06)
[2017-05-28] MEDS: CITALOPRAM 20 MG TABLET. PO (09:06)
[2017-05-28] MEDS: CALCIUM ACETATE 667 MG CAPSULE PO ×3 (09:06→17:00)
[2017-05-28] MEDS: OXYBUTYNIN CHLORIDE 5 MG TABLET PO ×2 (09:08→20:55)
[2017-05-28] MEDS: FLUDROCORTISONE 0.1 MG TABLET PO ×2 (09:08→20:54)
[2017-05-28] MEDS: clonazePAM 0.5 MG TABLET PO ×2 (09:08→20:53)
[2017-05-28] MEDS: LISINOPRIL 5 MG TABLET. PO (09:08)
[2017-05-28] MEDS: DEXAMETHASONE 0.1% OPHTH SOLUTION 5ML BOTTLE. OU ×4 (09:11→20:52)
[2017-05-28] MEDS: POLYVINYL ALCOHOL 1.4% OPHTH SOLUTION 15ML BOTTLE. OU ×4 (09:11→20:52)
[2017-05-28] MEDS: MOXIFLOXACIN 0.5% OPHTH SOLUTION 3ML BOTTLE. OD ×4 (09:12→20:52)
[2017-05-28 09:16] LABS: TROPONINI < 0.017 ng/mL (0.000-0.055)
[2017-05-28] MEDS: TOPIRAMATE 25 MG TABLET. PO ×2 (09:44→20:54)
[2017-05-28] MEDS: OMEGA-3 FATTY ACIDS/FISH OIL 1,000 MG CAPSULE. PO ×2 (09:44→20:55)
[2017-05-28] MEDS: DICLOFENAC SODIUM 1% TOPICAL GEL 100GM TUBE. TP (09:47)
[2017-05-28] MEDS: FOLIC/VIT B COMP W-C (RENAL) TABLET. PO (11:39)
[2017-05-28] MEDS ORDERED: IV NORMAL SALINE 1000ML BAG 1,000 ML IV ×2 (15:19)
[2017-05-28] MEDS ORDERED: DIALYSIS PATIENT. MC (15:30)
[2017-05-28] MEDS ORDERED: diphenhydrAMINE 50 MG/ML VIAL IV ×2 (15:30)
[2017-05-28] MEDS ORDERED: ACETAMINOPHEN 500 MG TABLET PO (15:30)
[2017-05-28] MEDS: ATORVASTATIN CALCIUM 10 MG TABLET. PO (20:53)
[2017-05-28] MEDS: HYDROcodone/APAP 5/325MG 1 TAB TABLET PO (20:54)
[2017-05-28] MEDS: LURASIDONE 40 MG TABLET. PO (20:55)
[2017-05-29 05:48] LABS: TROPONINI < 0.017 ng/mL (0.000-0.055)
[2017-05-29] MEDS: PANTOPRAZOLE 40 MG TABLET.DR. PO (07:30)
[2017-05-29] MEDS: MIDODRINE 5 MG TABLET PO ×3 (07:30→16:32)
[2017-05-29] MEDS ORDERED: IV NORMAL SALINE 1000ML BAG 1,000 ML IV ×2 (07:32)
[2017-05-29] MEDS ORDERED: DIALYSIS PATIENT. MC ×2 (07:45)
[2017-05-29] MEDS: CALCIUM ACETATE 667 MG CAPSULE PO ×3 (08:00→18:09)
[2017-05-29] MEDS: LUBIPROSTONE 8 MCG CAPSULE PO ×2 (08:00→18:08)
[2017-05-29] MEDS: TOPIRAMATE 25 MG TABLET. PO ×2 (09:00→21:00)
[2017-05-29] MEDS: CITALOPRAM 20 MG TABLET. PO (09:00)
[2017-05-29] MEDS: SENNOSIDES 8.6 MG TABLET PO ×2 (09:00→21:00)
[2017-05-29] MEDS: OMEGA-3 FATTY ACIDS/FISH OIL 1,000 MG CAPSULE. PO ×2 (09:00→21:36)
[2017-05-29] MEDS: FOLIC/VIT B COMP W-C (RENAL) TABLET. PO (09:00)
[2017-05-29] MEDS: OXYBUTYNIN CHLORIDE 5 MG TABLET PO ×2 (09:00→21:36)
[2017-05-29] MEDS: clonazePAM 0.5 MG TABLET PO ×2 (09:00→21:36)
[2017-05-29] MEDS: DICLOFENAC SODIUM 1% TOPICAL GEL 100GM TUBE. TP (09:00)
[2017-05-29] MEDS: GABAPENTIN 300 MG CAPSULE. PO (09:00)
[2017-05-29] MEDS: LISINOPRIL 5 MG TABLET. PO (09:00)
[2017-05-29] MEDS: FLUDROCORTISONE 0.1 MG TABLET PO ×2 (09:00→21:44)
[2017-05-29] MEDS: VENLAFAXINE XR 37.5 MG CAP.ER.24H. PO (09:00)
[2017-05-29] MEDS: ASPIRIN ENTERIC COATED 81 MG TABLET.DR. PO (09:00)
[2017-05-29] MEDS: REGADENOSON 0.4 MG/5 ML DISP.SYRIN. IV (09:25)
[2017-05-29] MEDS: NYSTATIN TOPICAL POWDER 15GM BOTTLE. TP ×2 (10:01→21:00)
[2017-05-29] MEDS: MOXIFLOXACIN 0.5% OPHTH SOLUTION 3ML BOTTLE. OD ×4 (10:02→21:37)
[2017-05-29] MEDS: POLYVINYL ALCOHOL 1.4% OPHTH SOLUTION 15ML BOTTLE. OU ×4 (10:02→21:37)
[2017-05-29] MEDS: DEXAMETHASONE 0.1% OPHTH SOLUTION 5ML BOTTLE. OU ×4 (10:02→21:37)
[2017-05-29] MEDS: oxyCODONE/APAP 10/325 1 TAB TABLET PO ×3 (10:04→21:36)
[2017-05-29] MEDS: ATORVASTATIN CALCIUM 10 MG TABLET. PO (21:00)
[2017-05-29] MEDS: LURASIDONE 40 MG TABLET. PO (21:00)
[2017-05-29] MEDS: BUTALB/APAP/CAFEIN 50/325/40MG TABLET. PO (21:36)
[2017-05-30 05:16] LABS: MEAN CORPUSCULAR HEMOGLOBIN 32 pg (25-35); MEAN CORPUSCULAR HGB CONC 32 g/dL (31-37); MEAN CORPUSCULAR VOLUME 98 fL (79-100); PLATELET COUNT 109 x10^3/uL (140-400); RED BLOOD COUNT 2.02 x10^6/uL (3.50-5.40); RED CELL DISTRIBUTION WIDTH 15.7 % (11.5-14.5); WHITE BLOOD COUNT 3.5 x10^3/uL (4.0-11.0)
[2017-05-30 05:29] LABS: CHOLESTEROL 101 mg/dL (0-200); HDLC 56 mg/dL (40-60); LDLC 36 mg/dL (0-100); NON-HDL CHOLESTEROL 45 mg/dL (0-129); TRIGLYCERIDES 45 mg/dL (0-150); VLDLC 9 mg/dL (0-40)
[2017-05-30 05:30] LABS: CHOLESTEROL/HDL RATIO 1.8
[2017-05-30 05:32] LABS: HEMATOCRIT 19.8 % (36.0-47.0); HEMOGLOBIN 6.4 g/dL (12.0-15.5)
[2017-05-30] MEDS: ONDANSETRON ODT 4 MG TAB.RAPDIS. PO (08:52)
[2017-05-30] MEDS: RANOLAZINE 500 MG TAB.ER.12H PO (08:53)
[2017-05-30] MEDS: GABAPENTIN 300 MG CAPSULE. PO (08:53)
[2017-05-30] MEDS: CALCIUM ACETATE 667 MG CAPSULE PO ×3 (08:53→17:26)
[2017-05-30] MEDS: VENLAFAXINE XR 37.5 MG CAP.ER.24H. PO (08:54)
[2017-05-30] MEDS: TOPIRAMATE 25 MG TABLET. PO ×2 (08:54→22:26)
[2017-05-30] MEDS: FOLIC/VIT B COMP W-C (RENAL) TABLET. PO (08:54)
[2017-05-30] MEDS: PANTOPRAZOLE 40 MG TABLET.DR. PO (08:54)
[2017-05-30] MEDS: OXYBUTYNIN CHLORIDE 5 MG TABLET PO ×2 (08:54→22:16)
[2017-05-30] MEDS: LUBIPROSTONE 8 MCG CAPSULE PO ×2 (08:54→17:26)
[2017-05-30] MEDS: ASPIRIN ENTERIC COATED 81 MG TABLET.DR. PO (08:55)
[2017-05-30] MEDS: OMEGA-3 FATTY ACIDS/FISH OIL 1,000 MG CAPSULE. PO ×2 (08:55→22:15)
[2017-05-30] MEDS: SENNOSIDES 8.6 MG TABLET PO ×2 (08:55→22:15)
[2017-05-30] MEDS: FLUDROCORTISONE 0.1 MG TABLET PO ×2 (08:55→22:16)
[2017-05-30] MEDS: clonazePAM 0.5 MG TABLET PO ×2 (08:55→22:15)
[2017-05-30] MEDS: LISINOPRIL 5 MG TABLET. PO (08:55)
[2017-05-30] MEDS: CITALOPRAM 20 MG TABLET. PO (08:55)
[2017-05-30] MEDS: MIDODRINE 5 MG TABLET PO ×3 (08:56→17:26)
[2017-05-30] MEDS: DEXAMETHASONE 0.1% OPHTH SOLUTION 5ML BOTTLE. OU ×4 (08:59→22:14)
[2017-05-30] MEDS: POLYVINYL ALCOHOL 1.4% OPHTH SOLUTION 15ML BOTTLE. OU ×4 (08:59→22:14)
[2017-05-30] MEDS: MOXIFLOXACIN 0.5% OPHTH SOLUTION 3ML BOTTLE. OD ×4 (08:59→22:14)
[2017-05-30] MEDS: NYSTATIN TOPICAL POWDER 15GM BOTTLE. TP ×2 (09:00→22:19)
[2017-05-30] MEDS: DICLOFENAC SODIUM 1% TOPICAL GEL 100GM TUBE. TP (09:00)
[2017-05-30] MEDS: oxyCODONE/APAP 10/325 1 TAB TABLET PO ×2 (09:02→18:39)
[2017-05-30 13:40] LABS: IMMEDIATE SPIN CROSSMATCH 1 1
[2017-05-30] MEDS: LURASIDONE 40 MG TABLET. PO (22:15)
[2017-05-30] MEDS: ATORVASTATIN CALCIUM 10 MG TABLET. PO (22:15)
[2017-05-30] MEDS: DARBEPOETIN ALFA 60 MCG/0.3 ML DISP.SYRIN. SQ (22:24)
[2017-05-31 06:08] LABS: HEMATOCRIT 23.7 % (36.0-47.0); MEAN CORPUSCULAR HEMOGLOBIN 32 pg (25-35); MEAN CORPUSCULAR HGB CONC 34 g/dL (31-37); MEAN CORPUSCULAR VOLUME 96 fL (79-100); PLATELET COUNT 132 x10^3/uL (140-400); RED BLOOD COUNT 2.48 x10^6/uL (3.50-5.40); RED CELL DISTRIBUTION WIDTH 17.2 % (11.5-14.5); WHITE BLOOD COUNT 4.3 x10^3/uL (4.0-11.0)
[2017-05-31] MEDS: MIDODRINE 5 MG TABLET PO ×3 (07:30→16:30)
[2017-05-31] MEDS: MOXIFLOXACIN 0.5% OPHTH SOLUTION 3ML BOTTLE. OD ×4 (08:51→21:14)
[2017-05-31] MEDS: DEXAMETHASONE 0.1% OPHTH SOLUTION 5ML BOTTLE. OU ×4 (08:51→21:14)
[2017-05-31] MEDS: VENLAFAXINE XR 37.5 MG CAP.ER.24H. PO (08:52)
[2017-05-31] MEDS: OMEGA-3 FATTY ACIDS/FISH OIL 1,000 MG CAPSULE. PO ×2 (08:52→21:13)
[2017-05-31] MEDS: POLYVINYL ALCOHOL 1.4% OPHTH SOLUTION 15ML BOTTLE. OU ×4 (08:52→21:14)
[2017-05-31] MEDS: ASPIRIN ENTERIC COATED 81 MG TABLET.DR. PO (08:53)
[2017-05-31] MEDS: TOPIRAMATE 25 MG TABLET. PO ×2 (08:53→21:13)
[2017-05-31] MEDS: GABAPENTIN 300 MG CAPSULE. PO (08:53)
[2017-05-31] MEDS: FLUDROCORTISONE 0.1 MG TABLET PO ×2 (08:53→21:13)
[2017-05-31] MEDS: LUBIPROSTONE 8 MCG CAPSULE PO ×2 (08:54→16:47)
[2017-05-31] MEDS: clonazePAM 0.5 MG TABLET PO ×2 (08:54→21:12)
[2017-05-31] MEDS: PANTOPRAZOLE 40 MG TABLET.DR. PO (08:54)
[2017-05-31] MEDS: FOLIC/VIT B COMP W-C (RENAL) TABLET. PO (08:54)
[2017-05-31] MEDS: CALCIUM ACETATE 667 MG CAPSULE PO ×3 (08:54→17:00)
[2017-05-31] MEDS: CITALOPRAM 20 MG TABLET. PO (08:54)
[2017-05-31] MEDS: SENNOSIDES 8.6 MG TABLET PO ×2 (08:54→21:13)
[2017-05-31] MEDS: oxyCODONE/APAP 10/325 1 TAB TABLET PO ×2 (08:55→16:47)
[2017-05-31] MEDS: NYSTATIN TOPICAL POWDER 15GM BOTTLE. TP ×2 (08:58→21:14)
[2017-05-31] MEDS: DICLOFENAC SODIUM 1% TOPICAL GEL 100GM TUBE. TP (08:58)
[2017-05-31] MEDS: OXYBUTYNIN CHLORIDE 5 MG TABLET PO ×2 (08:59→21:13)
[2017-05-31] MEDS: LISINOPRIL 5 MG TABLET. PO (09:00)
[2017-05-31] MEDS: RANOLAZINE 500 MG TAB.ER.12H PO (09:00)
[2017-05-31] MEDS: diphenhydrAMINE HCL 25 MG CAPSULE PO ×2 (09:47→21:16)
[2017-05-31] MEDS ORDERED: IV NORMAL SALINE 1000ML BAG 1,000 ML IV ×2 (12:01)
[2017-05-31] MEDS ORDERED: DIALYSIS PATIENT. MC ×2 (12:15)
[2017-05-31] MEDS: ATORVASTATIN CALCIUM 10 MG TABLET. PO (21:13)
[2017-05-31] MEDS: LURASIDONE 40 MG TABLET. PO (21:13)
[2017-06-01 05:20] LABS: HEP B SURFACE AG Negative (Negative)
[2017-06-01 08:10] LABS: HEMOGLOBIN 8.4 g/dL (12.0-15.5); MEAN CORPUSCULAR HEMOGLOBIN 33 pg (25-35); MEAN CORPUSCULAR HGB CONC 34 g/dL (31-37); MEAN CORPUSCULAR VOLUME 98 fL (79-100); PLATELET COUNT 107 x10^3/uL (140-400); RED BLOOD COUNT 2.55 x10^6/uL (3.50-5.40); WHITE BLOOD COUNT 4.7 x10^3/uL (4.0-11.0)
[2017-06-01] MEDS: NYSTATIN TOPICAL POWDER 15GM BOTTLE. TP ×2 (09:00→20:40)
[2017-06-01] MEDS: MOXIFLOXACIN 0.5% OPHTH SOLUTION 3ML BOTTLE. OD ×4 (09:00→20:45)
[2017-06-01] MEDS: DICLOFENAC SODIUM 1% TOPICAL GEL 100GM TUBE. TP (09:00)
[2017-06-01] MEDS: POLYVINYL ALCOHOL 1.4% OPHTH SOLUTION 15ML BOTTLE. OU ×4 (09:00→20:40)
[2017-06-01] MEDS: DEXAMETHASONE 0.1% OPHTH SOLUTION 5ML BOTTLE. OU ×4 (09:00→20:45)
[2017-06-01] MEDS: MIDODRINE 5 MG TABLET PO ×3 (09:01→17:50)
[2017-06-01] MEDS: FLUDROCORTISONE 0.1 MG TABLET PO ×2 (09:01→20:41)
[2017-06-01] MEDS: ASPIRIN ENTERIC COATED 81 MG TABLET.DR. PO (09:01)
[2017-06-01] MEDS: TOPIRAMATE 25 MG TABLET. PO ×2 (09:01→20:42)
[2017-06-01] MEDS: clonazePAM 0.5 MG TABLET PO ×2 (09:01→20:41)
[2017-06-01] MEDS: CITALOPRAM 20 MG TABLET. PO (09:01)
[2017-06-01] MEDS: OMEGA-3 FATTY ACIDS/FISH OIL 1,000 MG CAPSULE. PO ×2 (09:01→20:42)
[2017-06-01] MEDS: FOLIC/VIT B COMP W-C (RENAL) TABLET. PO (09:01)
[2017-06-01] MEDS: OXYBUTYNIN CHLORIDE 5 MG TABLET PO ×2 (09:02→20:42)
[2017-06-01] MEDS: VENLAFAXINE XR 37.5 MG CAP.ER.24H. PO (09:02)
[2017-06-01] MEDS: LISINOPRIL 5 MG TABLET. PO (09:02)
[2017-06-01] MEDS: PANTOPRAZOLE 40 MG TABLET.DR. PO (09:02)
[2017-06-01] MEDS: CALCIUM ACETATE 667 MG CAPSULE PO ×3 (09:02→17:50)
[2017-06-01] MEDS: GABAPENTIN 300 MG CAPSULE. PO (09:02)
[2017-06-01] MEDS: RANOLAZINE 500 MG TAB.ER.12H PO (09:02)
[2017-06-01] MEDS: SENNOSIDES 8.6 MG TABLET PO ×2 (09:03→20:41)
[2017-06-01] MEDS: LUBIPROSTONE 8 MCG CAPSULE PO ×3 (09:04→20:41)
[2017-06-01] MEDS: oxyCODONE/APAP 10/325 1 TAB TABLET PO ×2 (09:08→13:32)
[2017-06-01] MEDS: diphenhydrAMINE HCL 25 MG CAPSULE PO ×2 (17:50→21:23)
[2017-06-01] MEDS: ATORVASTATIN CALCIUM 10 MG TABLET. PO (20:42)
[2017-06-01] MEDS: LURASIDONE 40 MG TABLET. PO (20:45)
[2017-06-02] MEDS: diphenhydrAMINE HCL 25 MG CAPSULE PO ×2 (02:47→20:04)
[2017-06-02] MEDS ORDERED: IV NORMAL SALINE 1000ML BAG 1,000 ML IV ×2 (08:57)
[2017-06-02] MEDS: LISINOPRIL 5 MG TABLET. PO (08:59)
[2017-06-02] MEDS: SENNOSIDES 8.6 MG TABLET PO ×2 (09:00→20:05)
[2017-06-02] MEDS ORDERED: DIALYSIS PATIENT. MC ×2 (09:00)
[2017-06-02] MEDS: DEXAMETHASONE 0.1% OPHTH SOLUTION 5ML BOTTLE. OU ×4 (09:03→20:02)
[2017-06-02] MEDS: POLYVINYL ALCOHOL 1.4% OPHTH SOLUTION 15ML BOTTLE. OU ×4 (09:03→20:04)
[2017-06-02] MEDS: CALCIUM ACETATE 667 MG CAPSULE PO ×3 (09:04→17:33)
[2017-06-02] MEDS: DICLOFENAC SODIUM 1% TOPICAL GEL 100GM TUBE. TP (09:04)
[2017-06-02] MEDS: FOLIC/VIT B COMP W-C (RENAL) TABLET. PO (09:04)
[2017-06-02] MEDS: TOPIRAMATE 25 MG TABLET. PO ×2 (09:05→20:03)
[2017-06-02] MEDS: MOXIFLOXACIN 0.5% OPHTH SOLUTION 3ML BOTTLE. OD ×4 (09:05→20:05)
[2017-06-02] MEDS: HYDROcodone/APAP 5/325MG 1 TAB TABLET PO (09:06)
[2017-06-02] MEDS: PANTOPRAZOLE 40 MG TABLET.DR. PO (09:06)
[2017-06-02] MEDS: OMEGA-3 FATTY ACIDS/FISH OIL 1,000 MG CAPSULE. PO ×2 (09:06→20:03)
[2017-06-02] MEDS: ASPIRIN ENTERIC COATED 81 MG TABLET.DR. PO (09:07)
[2017-06-02] MEDS: GABAPENTIN 300 MG CAPSULE. PO (09:08)
[2017-06-02] MEDS: VENLAFAXINE XR 37.5 MG CAP.ER.24H. PO (09:08)
[2017-06-02] MEDS: MIDODRINE 5 MG TABLET PO ×3 (09:09→17:33)
[2017-06-02] MEDS: clonazePAM 0.5 MG TABLET PO ×2 (09:10→20:03)
[2017-06-02] MEDS: FLUDROCORTISONE 0.1 MG TABLET PO ×2 (09:10→20:04)
[2017-06-02] MEDS: CITALOPRAM 20 MG TABLET. PO (09:10)
[2017-06-02] MEDS: RANOLAZINE 500 MG TAB.ER.12H PO (09:12)
[2017-06-02] MEDS: NYSTATIN TOPICAL POWDER 15GM BOTTLE. TP ×2 (09:23→20:04)
[2017-06-02] MEDS: OXYBUTYNIN CHLORIDE 5 MG TABLET PO ×2 (09:23→20:04)
[2017-06-02] MEDS: BISACODYL 5 MG TABLET.DR. PO (17:25)
[2017-06-02] MEDS: POLYETHYLENE GLYCOL 3350 17 GM PACKET. PO (17:29)
[2017-06-02] MEDS: LUBIPROSTONE 8 MCG CAPSULE PO (17:33)
[2017-06-02 18:41] LABS: FECAL OB PT NEGATIVE (NEG); NEG OBC FOB NEG; POS OBC FOB POS
[2017-06-02] MEDS: LURASIDONE 40 MG TABLET. PO (20:02)
[2017-06-02] MEDS: oxyCODONE/APAP 10/325 1 TAB TABLET PO (20:04)
[2017-06-02] MEDS: ATORVASTATIN CALCIUM 10 MG TABLET. PO (20:06)
[2017-06-03] MEDS: LISINOPRIL 5 MG TABLET. PO (08:54)
[2017-06-03] MEDS: NYSTATIN TOPICAL POWDER 15GM BOTTLE. TP ×2 (09:38→21:30)
[2017-06-03] MEDS: FLUDROCORTISONE 0.1 MG TABLET PO ×2 (09:38→21:32)
[2017-06-03] MEDS: MOXIFLOXACIN 0.5% OPHTH SOLUTION 3ML BOTTLE. OD ×4 (09:38→21:34)
[2017-06-03] MEDS: CITALOPRAM 20 MG TABLET. PO (09:38)
[2017-06-03] MEDS: POLYVINYL ALCOHOL 1.4% OPHTH SOLUTION 15ML BOTTLE. OU ×4 (09:38→21:31)
[2017-06-03] MEDS: HYDROcodone/APAP 5/325MG 1 TAB TABLET PO (09:38)
[2017-06-03] MEDS: DICLOFENAC SODIUM 1% TOPICAL GEL 100GM TUBE. TP ×2 (09:38→12:11)
[2017-06-03] MEDS: DEXAMETHASONE 0.1% OPHTH SOLUTION 5ML BOTTLE. OU ×4 (09:38→21:31)
[2017-06-03] MEDS: MIDODRINE 5 MG TABLET PO ×3 (09:39→18:32)
[2017-06-03] MEDS: clonazePAM 0.5 MG TABLET PO ×2 (09:39→21:31)
[2017-06-03] MEDS: LUBIPROSTONE 8 MCG CAPSULE PO ×2 (09:39→18:31)
[2017-06-03] MEDS: OXYBUTYNIN CHLORIDE 5 MG TABLET PO ×2 (09:39→21:34)
[2017-06-03] MEDS: OMEGA-3 FATTY ACIDS/FISH OIL 1,000 MG CAPSULE. PO ×2 (09:39→21:31)
[2017-06-03] MEDS: GABAPENTIN 300 MG CAPSULE. PO (09:39)
[2017-06-03] MEDS: PANTOPRAZOLE 40 MG TABLET.DR. PO (09:39)
[2017-06-03] MEDS: RANOLAZINE 500 MG TAB.ER.12H PO (09:40)
[2017-06-03] MEDS: TOPIRAMATE 25 MG TABLET. PO ×2 (09:40→21:33)
[2017-06-03] MEDS: CALCIUM ACETATE 667 MG CAPSULE PO ×3 (09:40→18:31)
[2017-06-03] MEDS: VENLAFAXINE XR 37.5 MG CAP.ER.24H. PO (09:40)
[2017-06-03] MEDS: SENNOSIDES 8.6 MG TABLET PO ×2 (09:40→21:00)
[2017-06-03] MEDS: ASPIRIN ENTERIC COATED 81 MG TABLET.DR. PO (09:40)
[2017-06-03] MEDS: FOLIC/VIT B COMP W-C (RENAL) TABLET. PO (09:41)
[2017-06-03] MEDS ORDERED: MAGNESIUM SULFATE 2GM 50 ML IV (10:15)
[2017-06-03] MEDS: diphenhydrAMINE HCL 25 MG CAPSULE PO (14:25)
[2017-06-03] MEDS: oxyCODONE/APAP 10/325 1 TAB TABLET PO ×2 (15:14→21:43)
[2017-06-03] MEDS: POLYETHYLENE GLYCOL 3350 238 GM POWDER PO (16:47)
[2017-06-03] MEDS: BISACODYL 5 MG TABLET.DR. PO (18:33)
[2017-06-03] MEDS: LURASIDONE 40 MG TABLET. PO (21:32)
[2017-06-03] MEDS: ATORVASTATIN CALCIUM 10 MG TABLET. PO (21:33)
[2017-06-04 05:24] LABS: ADD MAN DIFF? NO
[2017-06-04 05:28] LABS: BASO % 1 % (0-3); EOS # 0.3 x10^3/uL (0.0-0.7); EOS % 8 % (0-3); HEMATOCRIT 23.8 % (36.0-47.0); HEMOGLOBIN 7.9 g/dL (12.0-15.5); LYMPH # 1.3 x10^3/uL (1.0-4.8); LYMPH % 34 % (24-48); MEAN CORPUSCULAR HEMOGLOBIN 32 pg (25-35); MEAN CORPUSCULAR HGB CONC 33 g/dL (31-37); MEAN CORPUSCULAR VOLUME 97 fL (79-100); MONO # 0.5 x10^3/uL (0.0-1.1); MONO % 12 % (0-9); NEUT # 1.8 x10^3uL (1.8-7.7); NEUT % 45 % (31-73); PLATELET COUNT 145 x10^3/uL (140-400); RED BLOOD COUNT 2.44 x10^6/uL (3.50-5.40); RED CELL DISTRIBUTION WIDTH 16.8 % (11.5-14.5); WHITE BLOOD COUNT 3.9 x10^3/uL (4.0-11.0)
[2017-06-04 05:43] LABS: ANION GAP 8 (6-14); BLOOD UREA NITROGEN 31 mg/dL (7-20); CALCIUM 7.6 mg/dL (8.5-10.1); CARBON DIOXIDE 29 mmol/L (21-32); CHLORIDE 104 mmol/L (98-107); CREATININE 5.1 mg/dL (0.6-1.0); GFR 10.7; GLUCOSE 69 mg/dL (70-99); MAGNESIUM 1.8 mg/dL (1.8-2.4); PHOSPHORUS 4.7 mg/dL (2.6-4.7); POTASSIUM 3.6 mmol/L (3.5-5.1); SODIUM 141 mmol/L (136-145)
[2017-06-04] MEDS: diphenhydrAMINE HCL 25 MG CAPSULE PO ×2 (06:19→16:04)
[2017-06-04] MEDS: MIDODRINE 5 MG TABLET PO ×3 (07:30→16:05)
[2017-06-04] MEDS: CALCIUM ACETATE 667 MG CAPSULE PO ×3 (08:00→16:34)
[2017-06-04] MEDS: LUBIPROSTONE 8 MCG CAPSULE PO ×2 (08:00→16:08)
[2017-06-04] MEDS: GABAPENTIN 300 MG CAPSULE. PO (08:55)
[2017-06-04] MEDS: PANTOPRAZOLE 40 MG TABLET.DR. PO ×2 (08:56→16:06)
[2017-06-04] MEDS: TOPIRAMATE 25 MG TABLET. PO ×2 (08:56→20:07)
[2017-06-04] MEDS: clonazePAM 0.5 MG TABLET PO ×2 (08:56→20:07)
[2017-06-04] MEDS: OXYBUTYNIN CHLORIDE 5 MG TABLET PO ×2 (08:56→20:07)
[2017-06-04] MEDS: CITALOPRAM 20 MG TABLET. PO (08:56)
[2017-06-04] MEDS: POLYVINYL ALCOHOL 1.4% OPHTH SOLUTION 15ML BOTTLE. OU ×4 (08:57→20:11)
[2017-06-04] MEDS: MOXIFLOXACIN 0.5% OPHTH SOLUTION 3ML BOTTLE. OD ×4 (08:57→20:11)
[2017-06-04] MEDS: DEXAMETHASONE 0.1% OPHTH SOLUTION 5ML BOTTLE. OU ×4 (08:57→20:12)
[2017-06-04] MEDS: NYSTATIN TOPICAL POWDER 15GM BOTTLE. TP ×2 (09:00→20:12)
[2017-06-04] MEDS: OMEGA-3 FATTY ACIDS/FISH OIL 1,000 MG CAPSULE. PO ×2 (09:00→20:06)
[2017-06-04] MEDS: SENNOSIDES 8.6 MG TABLET PO ×2 (09:00→20:18)
[2017-06-04] MEDS: FLUDROCORTISONE 0.1 MG TABLET PO ×2 (09:00→20:07)
[2017-06-04] MEDS: IV RINGERS,LACTATED 1000ML 1,000 ML IV (09:02)
[2017-06-04] MEDS ORDERED: fentaNYL PF VIAL 100 MCG/2 ML VIAL IV ×2 (09:15)
[2017-06-04] MEDS ORDERED: LIDOCAINE 1% PF 2 ML VIAL. ID (09:15)
[2017-06-04] MEDS ORDERED: MIDAZOLAM HCL/PF 2 MG/2 ML VIAL. IV ×2 (09:15→13:15)
[2017-06-04] MEDS: IV NORMAL SALINE 1000ML BAG 1,000 ML IV ×2 (13:16→21:13)
[2017-06-04] MEDS ORDERED: LIDOCAINE 2% PF Vial for OR 5 ML VIAL. (13:18)
[2017-06-04] MEDS ORDERED: PROPOFOL 40 ML IV (13:18)
[2017-06-04] MEDS: ASPIRIN ENTERIC COATED 81 MG TABLET.DR. PO (16:01)
[2017-06-04] MEDS: VENLAFAXINE XR 37.5 MG CAP.ER.24H. PO (16:02)
[2017-06-04] MEDS: LISINOPRIL 5 MG TABLET. PO (16:03)
[2017-06-04] MEDS: FOLIC/VIT B COMP W-C (RENAL) TABLET. PO (16:04)
[2017-06-04] MEDS: RANOLAZINE 500 MG TAB.ER.12H PO (16:04)
[2017-06-04] MEDS: SUCRALFATE 1 GM TABLET. PO ×2 (16:05→20:06)
[2017-06-04] MEDS: oxyCODONE/APAP 10/325 1 TAB TABLET PO ×2 (16:05→20:08)
[2017-06-04] MEDS: DICLOFENAC SODIUM 1% TOPICAL GEL 100GM TUBE. TP (16:06)
[2017-06-04] MEDS: ATORVASTATIN CALCIUM 10 MG TABLET. PO (20:07)
[2017-06-04] MEDS: LURASIDONE 40 MG TABLET. PO (20:07)
[2017-06-05 05:25] LABS: HEMATOCRIT 21.3 % (36.0-47.0)
[2017-06-05 05:25] LABS: HEMOGLOBIN 7.1 g/dL (12.0-15.5)
[2017-06-05 05:40] LABS: ALBUMIN 1.9 g/dL (3.4-5.0); ANION GAP 5 (6-14); BLOOD UREA NITROGEN 36 mg/dL (7-20); CALCIUM 7.8 mg/dL (8.5-10.1); CARBON DIOXIDE 29 mmol/L (21-32); CHLORIDE 103 mmol/L (98-107); CREATININE 6.4 mg/dL (0.6-1.0); GFR 8.2; GLUCOSE 70 mg/dL (70-99); MAGNESIUM 1.8 mg/dL (1.8-2.4); PHOSPHORUS 5.2 mg/dL (2.6-4.7); POTASSIUM 3.9 mmol/L (3.5-5.1); SODIUM 137 mmol/L (136-145)
[2017-06-05] MEDS: MIDODRINE 5 MG TABLET PO ×2 (07:30→13:37)
[2017-06-05] MEDS: SUCRALFATE 1 GM TABLET. PO ×2 (07:30→13:34)
[2017-06-05] MEDS: PANTOPRAZOLE 40 MG TABLET.DR. PO ×2 (07:30→16:50)
[2017-06-05] MEDS: LUBIPROSTONE 8 MCG CAPSULE PO (08:00)
[2017-06-05] MEDS: CALCIUM ACETATE 667 MG CAPSULE PO ×2 (08:00→13:34)
[2017-06-05] MEDS: BENZOCAINE/MENTHOL LOZENGE. PO ×2 (08:12→16:51)
[2017-06-05] MEDS: oxyCODONE/APAP 10/325 1 TAB TABLET PO ×2 (08:14→13:38)
[2017-06-05] MEDS ORDERED: DIALYSIS PATIENT. MC (08:15)
[2017-06-05] MEDS: MOXIFLOXACIN 0.5% OPHTH SOLUTION 3ML BOTTLE. OD ×2 (09:00→13:38)
[2017-06-05] MEDS: RANOLAZINE 500 MG TAB.ER.12H PO (09:00)
[2017-06-05] MEDS ORDERED: IV NORMAL SALINE 1000ML BAG 1,000 ML IV (09:00)
[2017-06-05] MEDS: DEXAMETHASONE 0.1% OPHTH SOLUTION 5ML BOTTLE. OU ×2 (09:00→13:38)
[2017-06-05] MEDS: NYSTATIN TOPICAL POWDER 15GM BOTTLE. TP (09:00)
[2017-06-05] MEDS: LISINOPRIL 5 MG TABLET. PO (09:00)
[2017-06-05] MEDS: POLYVINYL ALCOHOL 1.4% OPHTH SOLUTION 15ML BOTTLE. OU ×2 (09:00→13:38)
[2017-06-05] MEDS: GABAPENTIN 300 MG CAPSULE. PO (13:36)
[2017-06-05] MEDS: VENLAFAXINE XR 37.5 MG CAP.ER.24H. PO (13:36)
[2017-06-05] MEDS: ASPIRIN ENTERIC COATED 81 MG TABLET.DR. PO (13:36)
[2017-06-05] MEDS: clonazePAM 0.5 MG TABLET PO (13:36)
[2017-06-05] MEDS: OMEGA-3 FATTY ACIDS/FISH OIL 1,000 MG CAPSULE. PO (13:37)
[2017-06-05] MEDS: SENNOSIDES 8.6 MG TABLET PO (13:37)
[2017-06-05] MEDS: TOPIRAMATE 25 MG TABLET. PO (13:37)
[2017-06-05] MEDS: FOLIC/VIT B COMP W-C (RENAL) TABLET. PO (13:37)
[2017-06-05] MEDS: CITALOPRAM 20 MG TABLET. PO (13:38)
[2017-06-05] MEDS: OXYBUTYNIN CHLORIDE 5 MG TABLET PO (13:38)
[2017-06-05] MEDS: FLUDROCORTISONE 0.1 MG TABLET PO (13:38)
[2017-06-05] MEDS: FLUTICASONE 50MCG/NASAL SPRAY 16GM BOTTLE. NS (13:39)
[2017-06-05] MEDS: DICLOFENAC SODIUM 1% TOPICAL GEL 100GM TUBE. TP (13:39)
[2017-06-05] MEDS: diphenhydrAMINE HCL 25 MG CAPSULE PO (14:12)
[2017-06-05] MEDS: HEPARIN PF 500 UNIT/5 ML DISP.SYRIN. IV (16:50)
== END 2017-06-05 17:30 | disposition home or self-care (01) | DRG 682 ==
LOC: 6 SOUTH 17:09
PROC: 0DJ08ZZ Inspection of Upper Intestinal Tract, Via Natural or Artificial Opening Endoscopic (ICD-10-PCS; 2017-06-04 13:30)
PROC: 0DJD8ZZ Inspection of Lower Intestinal Tract, Via Natural or Artificial Opening Endoscopic (ICD-10-PCS; 2017-06-04 13:30)
PROC: 30233N1 Transfusion of Nonautologous Red Blood Cells into Peripheral Vein, Percutaneous Approach (ICD-10-PCS; principal; 2017-06-04 13:39)
PROC: 5A1D70Z Performance of Urinary Filtration, Intermittent, Less than 6 Hours Per Day (ICD-10-PCS; 2017-06-04 13:39)
PROC: 5A1D70Z Performance of Urinary Filtration, Intermittent, Less than 6 Hours Per Day (ICD-10-PCS; 2017-06-04 13:39)
PROC: 5A1D70Z Performance of Urinary Filtration, Intermittent, Less than 6 Hours Per Day (ICD-10-PCS; 2017-06-04 13:39)
PROC: 5A1D70Z Performance of Urinary Filtration, Intermittent, Less than 6 Hours Per Day (ICD-10-PCS; 2017-06-04 13:39)
DX: I12.0 Hypertensive chronic kidney disease with stage 5 chronic kidney disease or end stage renal disease (principal); N18.6 End stage renal disease; D62 Acute posthemorrhagic anemia; E87.5 Hyperkalemia; G62.9 Polyneuropathy, unspecified; E83.51 Hypocalcemia; I95.9 Hypotension, unspecified; Q61.3 Polycystic kidney, unspecified; I45.2 Bifascicular block; R04.2 Hemoptysis; K21.9 Gastro-esophageal reflux disease without esophagitis; I45.81 Long QT syndrome; I48.91 Unspecified atrial fibrillation; G43.909 Migraine, unspecified, not intractable, without status migrainosus; J45.909 Unspecified asthma, uncomplicated; R07.89 Other chest pain; K57.30 Diverticulosis of large intestine without perforation or abscess without bleeding; K64.8 Other hemorrhoids; K25.9 Gastric ulcer, unspecified as acute or chronic, without hemorrhage or perforation; N63.10 Unspecified lump in the right breast, unspecified quadrant; K59.00 Constipation, unspecified; G47.33 Obstructive sleep apnea (adult) (pediatric); F31.9 Bipolar disorder, unspecified; F41.9 Anxiety disorder, unspecified; E53.8 Deficiency of other specified B group vitamins; D63.1 Anemia in chronic kidney disease; E66.9 Obesity, unspecified; E78.5 Hyperlipidemia, unspecified; E89.0 Postprocedural hypothyroidism; M81.0 Age-related osteoporosis without current pathological fracture; G89.29 Other chronic pain; M48.00 Spinal stenosis, site unspecified; M19.90 Unspecified osteoarthritis, unspecified site; Z98.0 Intestinal bypass and anastomosis status; Z95.828 Presence of other vascular implants and grafts; Z90.49 Acquired absence of other specified parts of digestive tract; Z99.2 Dependence on renal dialysis; Z98.84 Bariatric surgery status; Z91.15 Patient's noncompliance with renal dialysis; Z91.14 Patient's other noncompliance with medication regimen; Z86.73 Personal history of transient ischemic attack (TIA), and cerebral infarction without residual deficits; Z87.01 Personal history of pneumonia (recurrent); Z87.440 Personal history of urinary (tract) infections; Z98.49 Cataract extraction status, unspecified eye; Z88.6 Allergy status to analgesic agent; Z91.041 Radiographic dye allergy status; Z91.013 Allergy to seafood; Z79.899 Other long term (current) drug therapy; Z82.49 Family history of ischemic heart disease and other diseases of the circulatory system; Z68.33 Body mass index [BMI] 33.0-33.9, adult
CPT/HCPCS: 36415; 71046; 78452; 78582; 80048; 80061; 80069; 82274; 83735; 84484; 85014; 85018; 85025; 85027; 86850; 86900; 86901; 86920; 87340; 93005; 93017; 94640; 94760; 96374; 96375; 96376; A9500; A9540; A9558; J0881; J2704; J2785; J7030; J7613; P9016; Q0162; Q0163

== ENCOUNTER 2017-06-19 06:48 | Inpatient (IN) | payer MEDICARE, OTHER ==
[2017-06-19 07:36] LABS: POC GLUCOSE 42 mg/dL (70-99)
[2017-06-19] MEDS ORDERED: FLUTICASONE 50MCG/NASAL SPRAY 16GM BOTTLE. NS (08:00)
[2017-06-19] MEDS ORDERED: SUMAtriptan SUCCINATE 100 MG TABLET PO (08:00)
[2017-06-19] MEDS ORDERED: BENZONATATE 100 MG CAPSULE. PO (08:00)
[2017-06-19] MEDS ORDERED: LIDOCAINE (700MG/PATCH) PATCH. TP (08:00)
[2017-06-19] MEDS ORDERED: NON FORMULARY ITEM (Albuterol Sulfate (Ventolin Hfa Inhaler) 2 PUFF) INH (08:00)
[2017-06-19] MEDS ORDERED: ALBUTEROL SULFATE 2.5 MG/3 ML NEBU. NEB (08:15)
[2017-06-19] MEDS ORDERED: POLYVINYL ALCOHOL 1.4% OPHTH SOLUTION 15ML BOTTLE. OU (08:15)
[2017-06-19] MEDS ORDERED: MOXIFLOXACIN 0.5% OPHTH SOLUTION 3ML BOTTLE. OU (09:00)
[2017-06-19] MEDS ORDERED: BENZOCAINE/MENTHOL LOZENGE. PO (09:00)
[2017-06-19] MEDS ORDERED: NON FORMULARY ITEM (Prednisolone Acetate 1 DROP) EACHEYE (09:00)
[2017-06-19] MEDS: LISINOPRIL 5 MG TABLET. PO (09:00)
[2017-06-19] MEDS: SENNOSIDES 8.6 MG TABLET PO ×2 (10:10→21:33)
[2017-06-19] MEDS: OMEGA-3 FATTY ACIDS/FISH OIL 1,000 MG CAPSULE. PO ×2 (10:10→21:32)
[2017-06-19] MEDS: LUBIPROSTONE 8 MCG CAPSULE PO ×2 (10:11→17:00)
[2017-06-19] MEDS: RANOLAZINE 500 MG TAB.ER.12H PO (10:13)
[2017-06-19] MEDS: clonazePAM 0.5 MG TABLET PO ×2 (10:13→21:32)
[2017-06-19] MEDS: PANTOPRAZOLE 40 MG TABLET.DR. PO (10:14)
[2017-06-19] MEDS: HYDROcodone/APAP 5/325MG 1 TAB TABLET PO ×2 (10:14→16:32)
[2017-06-19] MEDS: GABAPENTIN 300 MG CAPSULE. PO (10:14)
[2017-06-19] MEDS: OXYBUTYNIN CHLORIDE 5 MG TABLET PO ×2 (10:14→21:33)
[2017-06-19] MEDS: FLUDROCORTISONE 0.1 MG TABLET PO ×2 (10:14→21:33)
[2017-06-19] MEDS: VENLAFAXINE XR 37.5 MG CAP.ER.24H. PO (10:15)
[2017-06-19] MEDS: BENZOCAINE/MENTHOL LOZENGE. PO ×2 (10:15→21:32)
[2017-06-19] MEDS: CITALOPRAM 20 MG TABLET. PO (10:15)
[2017-06-19] MEDS: TOPIRAMATE 25 MG TABLET. PO ×2 (10:15→21:33)
[2017-06-19] MEDS: MIDODRINE 5 MG TABLET PO ×3 (10:16→18:03)
[2017-06-19] MEDS: CALCIUM ACETATE 667 MG CAPSULE PO ×3 (10:16→17:00)
[2017-06-19] MEDS: ASPIRIN ENTERIC COATED 81 MG TABLET.DR. PO (10:17)
[2017-06-19] MEDS: POLYVINYL ALCOHOL 1.4% OPHTH SOLUTION 15ML BOTTLE. OU ×4 (10:17→21:41)
[2017-06-19] MEDS: DICLOFENAC SODIUM 1% TOPICAL GEL 100GM TUBE. TP (10:26)
[2017-06-19] MEDS ORDERED: C.DIFF MED SCREEN BY RX. MC (10:45)
[2017-06-19 11:51] LABS: NEGATIVE OBC STREP NEG; POSITIVE OBC STREP POS
[2017-06-19 12:21] LABS: POC GLUCOSE 54 mg/dL (70-99)
[2017-06-19] MEDS: NYSTATIN TOPICAL POWDER 15GM BOTTLE. TP ×2 (12:32→21:33)
[2017-06-19 13:21] LABS: TROPONINI < 0.017 ng/mL (0.000-0.055)
[2017-06-19] MEDS ORDERED: IV NORMAL SALINE 1000ML BAG 1,000 ML IV ×2 (15:40)
[2017-06-19] MEDS ORDERED: DIALYSIS PATIENT. MC ×2 (16:15)
[2017-06-19] MEDS: LURASIDONE 40 MG TABLET. PO (17:00)
[2017-06-19 21:09] LABS: POC GLUCOSE 70 mg/dL (70-99)
[2017-06-20 08:11] LABS: POC GLUCOSE 56 mg/dL (70-99)
[2017-06-20] MEDS: CALCIUM ACETATE 667 MG CAPSULE PO ×3 (08:15→15:58)
[2017-06-20] MEDS: RANOLAZINE 500 MG TAB.ER.12H PO (08:15)
[2017-06-20] MEDS: LUBIPROSTONE 8 MCG CAPSULE PO ×2 (08:15→15:57)
[2017-06-20] MEDS: BENZOCAINE/MENTHOL LOZENGE. PO ×3 (08:15→15:58)
[2017-06-20] MEDS: MIDODRINE 5 MG TABLET PO ×3 (08:16→15:59)
[2017-06-20] MEDS: FLUDROCORTISONE 0.1 MG TABLET PO ×2 (08:16→21:21)
[2017-06-20] MEDS: clonazePAM 0.5 MG TABLET PO ×2 (08:16→21:21)
[2017-06-20] MEDS: OXYBUTYNIN CHLORIDE 5 MG TABLET PO ×2 (08:16→21:21)
[2017-06-20] MEDS: TOPIRAMATE 25 MG TABLET. PO ×2 (08:17→21:21)
[2017-06-20] MEDS: HYDROcodone/APAP 5/325MG 1 TAB TABLET PO ×2 (08:17→15:56)
[2017-06-20] MEDS: PANTOPRAZOLE 40 MG TABLET.DR. PO (08:17)
[2017-06-20] MEDS: GABAPENTIN 300 MG CAPSULE. PO (08:18)
[2017-06-20] MEDS: CITALOPRAM 20 MG TABLET. PO (08:18)
[2017-06-20] MEDS: ASPIRIN ENTERIC COATED 81 MG TABLET.DR. PO (08:18)
[2017-06-20] MEDS: VENLAFAXINE XR 37.5 MG CAP.ER.24H. PO (08:20)
[2017-06-20] MEDS: LISINOPRIL 5 MG TABLET. PO (08:20)
[2017-06-20] MEDS: SENNOSIDES 8.6 MG TABLET PO ×2 (08:21→21:21)
[2017-06-20] MEDS: POLYVINYL ALCOHOL 1.4% OPHTH SOLUTION 15ML BOTTLE. OU ×4 (08:21→21:22)
[2017-06-20] MEDS: NYSTATIN TOPICAL POWDER 15GM BOTTLE. TP ×2 (08:21→21:22)
[2017-06-20] MEDS: DICLOFENAC SODIUM 1% TOPICAL GEL 100GM TUBE. TP (08:22)
[2017-06-20] MEDS: OMEGA-3 FATTY ACIDS/FISH OIL 1,000 MG CAPSULE. PO ×2 (08:46→21:21)
[2017-06-20 10:22] LABS: POC GLUCOSE 57 mg/dL (70-99)
[2017-06-20] MEDS ORDERED: DEXTROSE ORAL GEL 15 GM TUBE. (10:35)
[2017-06-20] MEDS: DEXTROSE ORAL GEL 15 GM TUBE. PO (10:48)
[2017-06-20 11:28] LABS: HEMOGLOBIN 9.1 g/dL (12.0-15.5); MEAN CORPUSCULAR HEMOGLOBIN 32 pg (25-35); MEAN CORPUSCULAR HGB CONC 34 g/dL (31-37); MEAN CORPUSCULAR VOLUME 96 fL (79-100); PLATELET COUNT 158 x10^3/uL (140-400); RED BLOOD COUNT 2.81 x10^6/uL (3.50-5.40); RED CELL DISTRIBUTION WIDTH 17.3 % (11.5-14.5); WHITE BLOOD COUNT 4.9 x10^3/uL (4.0-11.0)
[2017-06-20] MEDS: ONDANSETRON ODT 4 MG TAB.RAPDIS. PO (11:33)
[2017-06-20 11:43] LABS: GLUCOSE 121 mg/dL (70-99)
[2017-06-20] MEDS: HEPARIN PF 500 UNIT/5 ML DISP.SYRIN. IV (11:58)
[2017-06-20 11:59] LABS: THYROID STIM HORMONE (TSH) 3.939 uIU/mL (0.358-3.74)
[2017-06-20] MEDS: NYSTATIN 100,000 UNITS/ML 5 ML ORAL.SUSP. SWSW ×3 (15:56→21:27)
[2017-06-20] MEDS: LURASIDONE 40 MG TABLET. PO (15:57)
[2017-06-20 16:56] LABS: POC GLUCOSE 67 mg/dL (70-99)
[2017-06-20 21:03] LABS: POC GLUCOSE 73 mg/dL (70-99)
[2017-06-20] MEDS: DARBEPOETIN ALFA 60 MCG/0.3 ML DISP.SYRIN. SQ (21:27)
[2017-06-21 00:49] LABS: POC GLUCOSE 77 mg/dL (70-99)
[2017-06-21] MEDS: CALCIUM ACETATE 667 MG CAPSULE PO ×3 (08:36→16:58)
[2017-06-21] MEDS: LUBIPROSTONE 8 MCG CAPSULE PO ×2 (08:37→16:58)
[2017-06-21] MEDS: GABAPENTIN 300 MG CAPSULE. PO (08:37)
[2017-06-21] MEDS: ACETAMINOPHEN/CODEINE 300/30MG TABLET. PO (08:38)
[2017-06-21] MEDS: RANOLAZINE 500 MG TAB.ER.12H PO (08:39)
[2017-06-21] MEDS: MIDODRINE 5 MG TABLET PO ×3 (08:39→16:58)
[2017-06-21] MEDS: PANTOPRAZOLE 40 MG TABLET.DR. PO (08:40)
[2017-06-21] MEDS: ASPIRIN ENTERIC COATED 81 MG TABLET.DR. PO (08:40)
[2017-06-21] MEDS: OMEGA-3 FATTY ACIDS/FISH OIL 1,000 MG CAPSULE. PO ×2 (08:40→21:33)
[2017-06-21] MEDS: OXYBUTYNIN CHLORIDE 5 MG TABLET PO ×2 (08:40→21:32)
[2017-06-21] MEDS: TOPIRAMATE 25 MG TABLET. PO ×2 (08:40→21:33)
[2017-06-21] MEDS: clonazePAM 0.5 MG TABLET PO ×2 (08:40→21:32)
[2017-06-21] MEDS: LURASIDONE 40 MG TABLET. PO (08:40)
[2017-06-21] MEDS: VENLAFAXINE XR 37.5 MG CAP.ER.24H. PO (08:40)
[2017-06-21] MEDS: NYSTATIN 100,000 UNITS/ML 5 ML ORAL.SUSP. SWSW ×4 (08:41→21:31)
[2017-06-21] MEDS: CITALOPRAM 20 MG TABLET. PO (08:41)
[2017-06-21] MEDS: DICLOFENAC SODIUM 1% TOPICAL GEL 100GM TUBE. TP (08:41)
[2017-06-21] MEDS: LISINOPRIL 5 MG TABLET. PO (08:41)
[2017-06-21] MEDS: SENNOSIDES 8.6 MG TABLET PO ×2 (08:41→21:32)
[2017-06-21] MEDS: POLYVINYL ALCOHOL 1.4% OPHTH SOLUTION 15ML BOTTLE. OU ×4 (08:42→21:31)
[2017-06-21] MEDS: FLUDROCORTISONE 0.1 MG TABLET PO ×2 (08:42→21:32)
[2017-06-21] MEDS: NYSTATIN TOPICAL POWDER 15GM BOTTLE. TP ×2 (08:51→21:31)
[2017-06-21] MEDS: ONDANSETRON ODT 4 MG TAB.RAPDIS. PO (08:51)
[2017-06-21] MEDS: SUCRALFATE 1 GM TABLET. PO ×4 (09:38→21:31)
[2017-06-21 09:54] LABS: ADD MAN DIFF? NO
[2017-06-21 10:07] LABS: BASO % 1 % (0-3); EOS # 0.2 x10^3/uL (0.0-0.7); EOS % 3 % (0-3); HEMATOCRIT 25.3 % (36.0-47.0); HEMOGLOBIN 8.5 g/dL (12.0-15.5); LYMPH # 1.8 x10^3/uL (1.0-4.8); LYMPH % 33 % (24-48); MEAN CORPUSCULAR HEMOGLOBIN 33 pg (25-35); MEAN CORPUSCULAR HGB CONC 34 g/dL (31-37); MEAN CORPUSCULAR VOLUME 97 fL (79-100); MONO # 0.5 x10^3/uL (0.0-1.1); MONO % 9 % (0-9); NEUT % 55 % (31-73); PLATELET COUNT 152 x10^3/uL (140-400); RED BLOOD COUNT 2.62 x10^6/uL (3.50-5.40); RED CELL DISTRIBUTION WIDTH 17.4 % (11.5-14.5); WHITE BLOOD COUNT 5.5 x10^3/uL (4.0-11.0)
[2017-06-21 10:10] LABS: ALBUMIN 1.9 g/dL (3.4-5.0); ALBUMIN/GLOBULIN RATIO 0.6 (1.0-1.7); ALK PHOS 118 U/L (46-116); ALT (SGPT) 15 U/L (14-59); ANION GAP 8 (6-14); AST (SGOT) 18 U/L (15-37); BLOOD UREA NITROGEN 76 mg/dL (7-20); BUN/CREATININE RATIO 9 (6-20); CARBON DIOXIDE 31 mmol/L (21-32); CHLORIDE 102 mmol/L (98-107); CREATININE 8.7 mg/dL (0.6-1.0); GFR 5.8; GLUCOSE 77 mg/dL (70-99); POTASSIUM 5.4 mmol/L (3.5-5.1); SODIUM 141 mmol/L (136-145); TOTAL BILIRUBIN 0.4 mg/dL (0.2-1.0); TOTAL PROTEIN 5.2 g/dL (6.4-8.2)
[2017-06-21] MEDS ORDERED: DIALYSIS PATIENT. MC ×2 (10:45)
[2017-06-21 10:59] LABS: POC GLUCOSE 88 mg/dL (70-99)
[2017-06-21] MEDS ORDERED: IV NORMAL SALINE 1000ML BAG 1,000 ML IV ×2 (11:00)
[2017-06-21] MEDS ORDERED: ALBUMIN HUMAN 25% 200 ML IV (11:00)
[2017-06-21] MEDS: HYDROcodone/APAP 5/325MG 1 TAB TABLET PO ×2 (11:21→17:02)
[2017-06-21 17:18] LABS: POC GLUCOSE 85 mg/dL (70-99)
[2017-06-21 21:20] LABS: POC GLUCOSE 132 mg/dL (70-99)
[2017-06-21 21:24] LABS: POC GLUCOSE 82 mg/dL (70-99)
[2017-06-22 07:29] LABS: POC GLUCOSE 60 mg/dL (70-99)
[2017-06-22] MEDS: SUCRALFATE 1 GM TABLET. PO ×4 (08:40→21:56)
[2017-06-22] MEDS: FLUDROCORTISONE 0.1 MG TABLET PO ×2 (08:40→21:56)
[2017-06-22] MEDS: LISINOPRIL 5 MG TABLET. PO (08:40)
[2017-06-22] MEDS: HYDROcodone/APAP 5/325MG 1 TAB TABLET PO ×2 (08:40→17:27)
[2017-06-22] MEDS: GABAPENTIN 300 MG CAPSULE. PO (08:41)
[2017-06-22] MEDS: TOPIRAMATE 25 MG TABLET. PO ×2 (08:41→21:56)
[2017-06-22] MEDS: clonazePAM 0.5 MG TABLET PO ×2 (08:41→21:56)
[2017-06-22] MEDS: VENLAFAXINE XR 37.5 MG CAP.ER.24H. PO (08:41)
[2017-06-22] MEDS: PANTOPRAZOLE 40 MG TABLET.DR. PO (08:41)
[2017-06-22] MEDS: MIDODRINE 5 MG TABLET PO ×3 (08:42→17:29)
[2017-06-22] MEDS: LUBIPROSTONE 8 MCG CAPSULE PO ×2 (08:42→17:27)
[2017-06-22] MEDS: SENNOSIDES 8.6 MG TABLET PO ×2 (08:43→21:00)
[2017-06-22] MEDS: OXYBUTYNIN CHLORIDE 5 MG TABLET PO ×2 (08:46→21:56)
[2017-06-22] MEDS: DICLOFENAC SODIUM 1% TOPICAL GEL 100GM TUBE. TP (08:46)
[2017-06-22] MEDS: POLYVINYL ALCOHOL 1.4% OPHTH SOLUTION 15ML BOTTLE. OU ×4 (08:47→21:54)
[2017-06-22] MEDS: NYSTATIN 100,000 UNITS/ML 5 ML ORAL.SUSP. SWSW ×4 (08:47→21:55)
[2017-06-22] MEDS: NYSTATIN TOPICAL POWDER 15GM BOTTLE. TP ×3 (08:47→21:54)
[2017-06-22] MEDS: CALCIUM ACETATE 667 MG CAPSULE PO ×3 (08:48→17:27)
[2017-06-22] MEDS: RANOLAZINE 500 MG TAB.ER.12H PO (08:48)
[2017-06-22] MEDS: ASPIRIN ENTERIC COATED 81 MG TABLET.DR. PO (08:48)
[2017-06-22] MEDS: OMEGA-3 FATTY ACIDS/FISH OIL 1,000 MG CAPSULE. PO ×2 (08:48→21:55)
[2017-06-22] MEDS: ONDANSETRON ODT 4 MG TAB.RAPDIS. PO ×2 (08:54→17:28)
[2017-06-22] MEDS: CITALOPRAM 20 MG TABLET. PO (08:54)
[2017-06-22 12:29] LABS: POC GLUCOSE 64 mg/dL (70-99)
[2017-06-22 16:54] LABS: POC GLUCOSE 53 mg/dL (70-99)
[2017-06-22] MEDS: LURASIDONE 40 MG TABLET. PO (17:27)
[2017-06-22] MEDS: DEXTROSE 50% 25 GM / 50ML DISP.SYRIN. IV (17:42)
[2017-06-22 18:11] LABS: POC GLUCOSE 101 mg/dL (70-99)
[2017-06-22 22:05] LABS: POC GLUCOSE 98 mg/dL (70-99)
[2017-06-23 06:05] LABS: ANION GAP 9 (6-14); BLOOD UREA NITROGEN 64 mg/dL (7-20); CALCIUM 7.9 mg/dL (8.5-10.1); CARBON DIOXIDE 29 mmol/L (21-32); CHLORIDE 102 mmol/L (98-107); CREATININE 7.8 mg/dL (0.6-1.0); GFR 6.6; GLUCOSE 74 mg/dL (70-99); SODIUM 140 mmol/L (136-145)
[2017-06-23] MEDS: HYDROcodone/APAP 5/325MG 1 TAB TABLET PO ×2 (06:43→11:20)
[2017-06-23] MEDS: PANTOPRAZOLE 40 MG TABLET.DR. PO (07:30)
[2017-06-23] MEDS: SUCRALFATE 1 GM TABLET. PO ×2 (07:30→13:49)
[2017-06-23] MEDS: CALCIUM ACETATE 667 MG CAPSULE PO ×2 (08:00→13:47)
[2017-06-23 08:09] LABS: POC GLUCOSE 61 mg/dL (70-99)
[2017-06-23] MEDS: MIDODRINE 5 MG TABLET PO ×2 (08:21→13:47)
[2017-06-23] MEDS: DEXTROSE 50% 25 GM / 50ML DISP.SYRIN. IV ×2 (08:21→12:17)
[2017-06-23] MEDS: DICLOFENAC SODIUM 1% TOPICAL GEL 100GM TUBE. TP (09:00)
[2017-06-23] MEDS: POLYVINYL ALCOHOL 1.4% OPHTH SOLUTION 15ML BOTTLE. OU ×2 (09:00→13:50)
[2017-06-23] MEDS: FLUDROCORTISONE 0.1 MG TABLET PO (09:00)
[2017-06-23] MEDS: NYSTATIN 100,000 UNITS/ML 5 ML ORAL.SUSP. SWSW ×3 (09:00→13:59)
[2017-06-23 12:04] LABS: POC GLUCOSE 65 mg/dL (70-99)
[2017-06-23] MEDS ORDERED: DIALYSIS PATIENT. MC (12:45)
[2017-06-23] MEDS: GABAPENTIN 300 MG CAPSULE. PO (13:46)
[2017-06-23] MEDS: VENLAFAXINE XR 37.5 MG CAP.ER.24H. PO (13:46)
[2017-06-23] MEDS: OMEGA-3 FATTY ACIDS/FISH OIL 1,000 MG CAPSULE. PO (13:46)
[2017-06-23] MEDS: LUBIPROSTONE 8 MCG CAPSULE PO (13:46)
[2017-06-23] MEDS: CITALOPRAM 20 MG TABLET. PO (13:46)
[2017-06-23] MEDS: RANOLAZINE 500 MG TAB.ER.12H PO (13:47)
[2017-06-23] MEDS: clonazePAM 0.5 MG TABLET PO (13:48)
[2017-06-23] MEDS: BUTALB/APAP/CAFEIN 50/325/40MG TABLET. PO (13:48)
[2017-06-23] MEDS: LISINOPRIL 5 MG TABLET. PO (13:49)
[2017-06-23] MEDS: SENNOSIDES 8.6 MG TABLET PO (13:49)
[2017-06-23] MEDS: OXYBUTYNIN CHLORIDE 5 MG TABLET PO (13:49)
[2017-06-23] MEDS: TOPIRAMATE 25 MG TABLET. PO (13:50)
[2017-06-23] MEDS: NYSTATIN TOPICAL POWDER 15GM BOTTLE. TP (13:51)
[2017-06-23] MEDS: ASPIRIN ENTERIC COATED 81 MG TABLET.DR. PO (13:51)
[2017-06-23] MEDS: HEPARIN PF 500 UNIT/5 ML DISP.SYRIN. IV (16:16)
== END 2017-06-23 16:52 | disposition home or self-care (01) | DRG 205 ==
LOC: 5 SOUTH 06:48
PROVIDERS: Internal Medicine
PROC: 5A1D70Z Performance of Urinary Filtration, Intermittent, Less than 6 Hours Per Day (ICD-10-PCS; principal; 2017-06-19)
PROC: 5A1D70Z Performance of Urinary Filtration, Intermittent, Less than 6 Hours Per Day (ICD-10-PCS; 2017-06-21)
PROC: 5A1D70Z Performance of Urinary Filtration, Intermittent, Less than 6 Hours Per Day (ICD-10-PCS; 2017-06-23)
DX: M94.0 Chondrocostal junction syndrome [Tietze] (principal); N18.6 End stage renal disease; I13.11 Hypertensive heart and chronic kidney disease without heart failure, with stage 5 chronic kidney disease, or end stage renal disease; T82.510A Breakdown (mechanical) of surgically created arteriovenous fistula, initial encounter; D63.1 Anemia in chronic kidney disease; E03.9 Hypothyroidism, unspecified; G43.909 Migraine, unspecified, not intractable, without status migrainosus; I48.91 Unspecified atrial fibrillation; E16.2 Hypoglycemia, unspecified; E78.5 Hyperlipidemia, unspecified; F31.9 Bipolar disorder, unspecified; F41.0 Panic disorder [episodic paroxysmal anxiety]; H54.7 Unspecified visual loss; J45.909 Unspecified asthma, uncomplicated; K21.9 Gastro-esophageal reflux disease without esophagitis; G89.29 Other chronic pain; E21.3 Hyperparathyroidism, unspecified; Y71.2 Prosthetic and other implants, materials and accessory cardiovascular devices associated with adverse incidents; Z60.2 Problems related to living alone; Z86.73 Personal history of transient ischemic attack (TIA), and cerebral infarction without residual deficits; Z87.11 Personal history of peptic ulcer disease; Z91.19 Patient's noncompliance with other medical treatment and regimen; Z99.2 Dependence on renal dialysis; Z87.01 Personal history of pneumonia (recurrent); Z88.8 Allergy status to other drugs, medicaments and biological substances; Z88.6 Allergy status to analgesic agent; Z88.1 Allergy status to other antibiotic agents; Z91.013 Allergy to seafood; Z90.49 Acquired absence of other specified parts of digestive tract
CPT/HCPCS: 36415; 80048; 80053; 82533; 82947; 82962; 84443; 84484; 85025; 85027; 87070; 87186; 87880; 94760; 97116-GP; 97161-GP; 97165-GO; 97530-GO; J0881; J7042; Q0162